=== PATIENT | female | born 1955 | race Caucasian/White ===

== ENCOUNTER 2019-04-04 12:15 | Inpatient (IN) | payer OTHER ==
[~2019-04-04] VITALS: Ht 167.6 cm; Wt 61.2 kg
--- NOTE | 2019-04-04 12:38 | ERD ---
ER Documentation Chief Complaint Chief Complaint ALOC HPI The patient is a 63-year-old female, presenting to the ER because she is more altered than normal according to the EMS. 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 She was admitted to [facility] on March 12, 2019 Past medical history: Dyslipidemia, diabetes mellitus, hypothyroidism, chronic kidney disease on hemodialysis, hypertension, CAD, neurogenic bladder, schizoaffective disorder Past surgical history/social history/review of system: Unable to obtain due to her condition Medications Home Meds Reported Medications Insulin Lispro (Humalog) 100 Unit/1 Ml Cartridge, 0 SQ Q6H PRN for SLIDING SCALE, EA 04/04/19 Levothyroxine Sodium* (Levothyroxine Sodium*) 150 Mcg Tablet, 150 MCG PO BEFORE BREAKFAST, #30 TAB 04/04/19 Midodrine* (Midodrine*) 10 Mg Tablet, 10 MG PO TID, TAB 04/04/19 Polyethylene Glycol* (Miralax*) 17 Gm Powd.pack, 17 GM PO DAILY, #30 PACKET 04/04/19 Raloxifene Hcl* (Evista*) 60 Mg Tablet, 60 MG PO DAILY, TAB 04/04/19 Sennosides* (Senna Lax*) 8.6 Mg Tablet, 2 TAB PO QHS, TAB 04/04/19 Sodium Bicarbonate* (Sodium Bicarbonate*) 650 Mg Tablet, 1300 MG PO BID, TAB 04/04/19 Cholecalciferol* (Vitamin D3*) 1,000 Unit Tablet, 1000 UNIT PO DAILY, TAB 04/04/19 Acetaminophen* (Tylenol*) 325 Mg Tablet, 650 MG PO Q4H PRN for MILD PAIN LEVEL 1-3, TAB AND FEVER 04/04/19 Clonazepam* (Clonazepam*) 0.5 Mg Tablet, 0.5 MG PO Q12H for ANXIETY, TAB 04/04/19 Lorazepam* (Lorazepam*) 1 Mg Tablet, 1 MG PO HS PRN for ANXIETY, #30 TAB Q TU,SAT 04/04/19 Olanzapine* (Zyprexa*) 5 Mg Tablet, 5 MG PO QHS, #30 TAB 04/04/19 Olanzapine* (Zyprexa*) 2.5 Mg Tablet, 2.5 MG PO QAM, #30 TAB 04/04/19 Trazodone Hcl* (Trazodone Hcl*) 50 Mg Tablet, 50 MG PO QHS, #30 TAB 04/04/19 Insulin Glargine,Hum.rec.anlog (Basaglar Kwikpen U-100) 100 Unit/1 Ml Insuln.pen, 12 UNIT SC DAILY, EA 04/04/19 Sevelamer Carbonate* (Renvela*) 800 Mg Tablet, 1600 GM PO WITH MEALS, TAB 04/04/19 Diazepam* (Diazepam*) 5 Mg Tablet, 5 MG PO Q12H, TAB 04/04/19 Quetiapine Fumarate* (Quetiapine Fumarate*) 25 Mg Tablet, 100 MG PO BID, TAB 04/04/19 Haloperidol* (Haldol*) 5 Mg Tab, 5 MG PO BID, TAB 04/04/19 Atorvastatin Calcium (Atorvastatin Calcium) 10 Mg Tablet, 10 MG PO QHS, #30 TAB 04/04/19 Ondansetron Hcl* (Zofran*) 4 Mg Tab, 4 MG PO Q4H PRN for NAUSEA AND OR VOMITING, TAB 04/04/19 Acetaminophen* (Acetaminophen*) 500 MG Extra Strength Tablet, 1000 MG PO Q6H PRN for PAIN 4-05/25, TAB 04/04/19 Lorazepam* (Ativan*) 2 Mg Tablet, 2 MG PO Q6 PRN for ANXIETY, #60 TAB 04/04/19 Bisacodyl (Dulcolax) 10 Mg Supp.rect, 10 MG RC DAILY, SUPP.RECT 04/04/19 Ferrous Sulfate* (Ferrous Sulfate*) 325 Mg Tabec, 325 MG PO BID, TAB 04/04/19 Docusate Sodium* (Colace*) 100 Mg Capsule, 200 MG PO DAILY, #30 CAP 04/04/19 Aspirin* (Aspirin* Chew) 81 Mg Tab.chew, 81 MG PO DAILY, TAB.CHEW 04/04/19 Discontinued Reported Medications Aspirin* (Aspirin* EC) 81 Mg Tablet.dr, 81 MG PO DAILY, TAB 04/04/19 Allergies Allergies: Coded Allergies: No Known Allergy (Unverified , 04/04/19) Physical Exam Vitals Vital Signs Date Temp Pulse Resp B/P (MAP) Pulse Ox O2 O2 Flow FiO2 Time Delivery Rate 04/04/19 97.1 94 19 102/60 99 15:38 (74) 04/04/19 96 20 103/64 96 Room Air 14:29 (77) 04/04/19 97.5 87 18 89/54 (66) 100 12:38 Physical Exam Const: No acute distress Head: Atraumatic Eyes: Normal Conjunctiva ENT: Normal External Ears, Nose and Mouth. Neck: Full range of motion. No meningismus. Resp: Clear to auscultation bilaterally Cardio: Regular rate and rhythm, no murmurs Abd: Soft, non tender, non distended. Normal bowel sounds Skin: Ecchymosis Back: No midline or flank tenderness Ext: Contracted Neur: Unable to perform due to her condition Psych: Unable to perform due to her condition Result Diagram: 04/04/19 1744 04/04/19 1225 Results 24 hrs Laboratory Tests Test 04/04/19 12:25 04/04/19 13:10 White Blood Count 8.9 10^3/ul Red Blood Count 1.86 10^6/ul Hemoglobin 6.5 g/dl Hematocrit 21.3 % Mean Corpuscular Volume 114.5 fl Mean Corpuscular Hemoglobin 34.9 pg Mean Corpuscular Hemoglobin Concent 30.5 g/dl Red Cell Distribution Width 14.8 % Platelet Count 185 10^3/UL Mean Platelet Volume 9.5 fl Immature Granulocytes % 0.600 % Neutrophils % % Segmented Neutrophils % (Manual) 39 % Band Neutrophils % (Manual) 1 % Lymphocytes % % Lymphocytes % (Manual) 29 % Monocytes % % Monocytes % (Manual) 3 % Eosinophils % % Eosinophils % (Manual) 28 % Basophils % % Nucleated Red Blood Cells % 0.0 /100WBC Immature Granulocytes # 0.050 10^3/ul Neutrophils # 10^3/ul Neutrophils # (Manual) 3.5 10^3/ul Band Neutrophils # 0.0 10^3/ul Lymphocytes (Manual) 2.5 10^3/ul Lymphocytes # 10^3/ul Monocytes # 10^3/ul Monocytes # (Manual) 0.2 10^3/ul Eosinophils # 10^3/ul Basophils # 10^3/ul Nucleated Red Blood Cells # 10^3/ul Platelet Estimate NORMAL Polychromasia 3+ Poikilocytosis 1+ Anisocytosis 1+ Prothrombin Time 18.2 Sec Prothrombin Time Ratio 1.4 INR International Normalized Ratio 1.50 Activated Partial Thromboplast Time 40.4 Sec Sodium Level 139 mmol/L Potassium Level 5.6 mmol/L Chloride Level 104 mmol/L Carbon Dioxide Level 27 mmol/L Anion Gap 8 Blood Urea Nitrogen 30 mg/dl Creatinine 5.48 mg/dl Est Glomerular Filtrat Rate mL/min 8 mL/min Glucose Level 91 mg/dl Calcium Level 9.3 mg/dl Total Bilirubin 0.2 mg/dl Direct Bilirubin 0.00 mg/dl Indirect Bilirubin 0.2 mg/dl Aspartate Amino Transf (AST/SGOT) 31 IU/L Alanine Aminotransferase (ALT/SGPT) 13 IU/L Alkaline Phosphatase 90 IU/L Troponin I < 0.012 ng/ml Total Protein 6.7 g/dl Albumin 2.9 g/dl Globulin 3.80 g/dl Albumin/Globulin Ratio 0.76 Free Thyroxine 0.97 ng/dl POC Venous Lactate 1.0 mmol/L Current Medications Medications Dose Sig/Shawn Start Time Status Last (Trade) Ordered Route PRN Stop Time Admin Dose Reason Admin Albuterol 15 mg ONCE STAT 04/04/19 DC 04/04/19 (Proventil INH 15:27 16:28 0.5% (Neb)) 04/04/19 15:46 Insulin 10 unit ONCE STAT 04/04/19 DC 04/04/19 Human IVP 15:27 16:05 Regular 04/04/19 15:47 (Humulin R) Dextrose ONCE PRN 04/04/19 (D50w IV DECREASED 15:30 Syringe) GLUCOSE 04/05/19 15:29 Dextrose 100 ml ONCE ONCE 04/04/19 DC 04/04/19 (D50w IV 15:30 16:02 Syringe) 04/04/19 15:46 Procedures/[place] [address] Radiology Main Line: [phone] DIAGNOSTIC IMAGING REPORT Patient: EVELYNE VALADEZ : 1955 Age: 63 Sex: F [id number] DOS: 04/04/19 1247 Ordering MD: FAWN PAULINO MD Location: E/R Room/Bed: PROCEDURE: CT Brain without contrast. CLINICAL INDICATION: Possible sepsis with altered level of consciousness TECHNIQUE: A CT of the brain was performed on a [employer] 64-slice CT scanner utilizing axial imaging from the skull base through the vertex without IV contrast. Multiplanar reformatted images were made. Images were reviewed on a PACS workstation. The CTDIvol is 45.49 mGy and the DLP is 763.34 mGycm. One or more the following dose reduction techniques were utilized: Automated exposure control, adjustment of mA/ or kV according to patient's size, or use of iterative reconstruction technique. DICOM images are available for review. COMPARISON: None FINDINGS: There is no intracranial hemorrhage, mass effect, or midline shift. the ventricles are larger than the adjacent sulci, stable. Mild hypoattenuation is seen within the periventricular white matter. There is good reyes-white matter differentiation throughout the cerebral hemispheres. The visualized brainstem and cerebellum are unremarkable. No extra-axial fluid collection is seen. The visualized paranasal sinuses demonstrate right posterior ethmoid mucosal thickening. IMPRESSION: No evidence of acute intracranial pathology. There is likely a component of central atrophy with mild microvascular changes, stable. RPTAT: [facility] Physician Betsy Date Time Electronically viewed and signed by Physician Betsy on 04/04/2019 14:21 RL/ CC: FAWN PAULINO MD [id number] [place] [address] Radiology Main Line: [phone] DIAGNOSTIC IMAGING REPORT Patient: EVELYNE VALADEZ : 1955 Age: 63 Sex: F MR #: [id number] DOS: 04/04/19 1247 Ordering MD: FAWN PAULINO MD Location: E/R Room/Bed: PROCEDURE: XR Chest 1 View. CLINICAL INDICATION: Shortness of breath. Sepsis. TECHNIQUE: Single view of the chest was obtained. COMPARISON: None. FINDINGS: Support lines and tubes: Right-sided dialysis catheter with its tip in the expected location of the distal superior vena cava. Mediastinum: Heart size within normal limits. Calcified atherosclerosis in the aorta. Lungs: Hypoinflated lungs. Elevated right hemidiaphragm. Scattered atelectasis in both lungs. No consolidations. No pneumothorax. Osseous structures: Intact. Osteopenia. Degenerative changes in the shoulders. Other: None. IMPRESSION: Calcified atherosclerosis in the aorta. Scattered atelectasis in both lungs. Hypoinflated lungs with an elevated right hemidiaphragm. RPTAT: AA .Keenan Vora MD, Date Time Electronically viewed and signed by .Keenan Vora MD, MD on 04/04/2019 13:53 .P/ CC: FAWN PAULINO MD [phone] EKG: Read by emergency physician Rate/Rhythm: Normal Sinus Rhythm 91 beats/min QRS, ST, T-waves: No ST elevation, no T inversion, low voltage QRS Impression: Abnormal EKG MEDICAL MAKING DECISION: The patient he is a 63-year-old female, presenting with acute encephalopathy unclear etiology, acute hyperkalemia. She was treated with 2 amp D50 IV, 10 units regular insulin IV, albuterol 15 mg continuous nebulizer for acute hyperkalemia. She will require blood transfusion either during hemodialysis or on the floor The differential diagnoses considered include but are not limited to metabolic encephalopathy, septic encephalopathy, UTI, pyelonephritis, electrolyte imbalance, delirium, GI bleeding Departure Diagnosis: Primary Impression: Encephalopathy acute Additional Impressions: Hyperkalemia Anemia Condition: Stable Comments I discussed the findings with the patient. I discussed the patient with Dr Nichols 3:15p , who was made aware of the lab, the treatment, the patient condition. The patient is admitted to [facility] Disclaimer: Inadvertent spelling and grammatical errors are likely due to EHR/dictation software use and do not reflect on the overall quality of patient care. Also, please note that the electronic time recorded on this note does not necessarily reflect the actual time of the patient encounter. FAWN PAULINO MD April 04, 2019 12:38
[2019-04-04] MEDS ORDERED: ASPI-903 PO (13:19)
[2019-04-04] MEDS ORDERED: ASPI-817 PO (13:19)
[2019-04-04] MEDS ORDERED: DOCU-144 PO (13:20)
[2019-04-04] MEDS ORDERED: FER325 PO (13:22)
[2019-04-04] MEDS ORDERED: LORA-444 PO (13:25)
[2019-04-04] MEDS ORDERED: BISA10SU55 RC (13:25)
[2019-04-04] MEDS ORDERED: ONDA4TAB13 PO (13:27)
[2019-04-04] MEDS ORDERED: ACET-141 PO (13:27)
[2019-04-04] MEDS ORDERED: ATOR10TA65 PO (13:28)
[2019-04-04] MEDS ORDERED: HALO5TAB23 PO (13:29)
[2019-04-04] MEDS ORDERED: QUET25TA33 PO (13:31)
[2019-04-04] MEDS ORDERED: DIAZ5TAB4 PO (13:31)
[2019-04-04] MEDS ORDERED: SEVE800T7 PO (13:32)
[2019-04-04] MEDS ORDERED: TRAZ-111 PO (13:33)
[2019-04-04] MEDS ORDERED: INSU100I33 SC (13:33)
[2019-04-04] MEDS ORDERED: OLAN2.5T28 PO (13:34)
[2019-04-04] MEDS ORDERED: OLAN5TAB5 PO (13:35)
[2019-04-04] MEDS ORDERED: LORA1TAB PO (13:37)
[2019-04-04] MEDS ORDERED: CLON0.5T14 PO (13:38)
[2019-04-04] MEDS ORDERED: ACET325T33 PO (13:40)
[2019-04-04] MEDS ORDERED: CHOL100062 PO (13:41)
[2019-04-04] MEDS ORDERED: SODI650T PO (13:42)
[2019-04-04] MEDS ORDERED: SENN-120 PO (13:43)
[2019-04-04] MEDS ORDERED: POLY17PO6 PO (13:44)
[2019-04-04] MEDS ORDERED: RALO60TA12 PO (13:44)
[2019-04-04] MEDS ORDERED: MIDO10TA PO (13:45)
[2019-04-04] MEDS ORDERED: LEVO150T7 PO (13:45)
[2019-04-04] MEDS ORDERED: INSU100C SQ (13:49)
[2019-04-04] MEDS ORDERED: INSULIN REGULAR, HUMAN 100 UNIT/1 ML 3ML VIAL IVP STA (15:27)
[2019-04-04] MEDS ORDERED: ALBUTEROL 0.5% (NEB) 2.5 MG/0.5 ML AMP INH STA (15:27)
[2019-04-04] MEDS ORDERED: DEXTROSE 50% 50 ML SYRINGE IV ONE (15:30)
[2019-04-04] MEDS ORDERED: DEXTROSE 50% 50 ML SYRINGE IV PRN ×3 (15:30→17:00)
--- NOTE | 2019-04-04 16:10 | HP ---
Date/Time of Note Date/Time of Note DATE: 04/04/19 TIME: 16:09 Assessment/Plan VTE Prophylaxis SCD applied (from Nsg): No SCD contraindicated: other Pharmacological prophylaxis: heparin Lines/Catheters IV Catheter Type (from Nrsg): Saline Lock Assessment/Plan Hospital Course Assessment and plan: 63-year-old female nursing facility diabetes, hypertension, schizoaffective disorder, end-stage renal disease, CAD who presents with encephalopathy and hyperkalemia. #Encephalopathy: Possibly secondary to polypharmacy. Also patient does have cellulitic potassium 5.6 -Monitor, low-dose IV fluids, check TSH, A1c, lipid -Preliminary treatment for hyperkalemia has been started in the ER, will monitor her home medicines and adjust those accordingly -Get PT, OT, speech therapy consults #Diabetes: Follow-up A1c, sliding scale insulin # HTN: Stable -Monitor, continue current meds # ESRD: on HD -We will obtain renal consult #Hyperkalemia: Possibly secondary to above -Monitor BMP # anxiety/possible schizoaffective disorder: -Go through patient's home medicine list thoroughly, Ativan as needed # anemia of CD -of note hemoglobin today 6.5, no signs of any upper or lower GI bleeding -We will recheck CBC, consider PRBC transfusion if hemoglobin still less than 7.5 -We will also check stool occult test Result Diagram: 04/04/19 1225 04/04/19 1225 Results 24hrs Laboratory Tests Test 04/04/19 12:25 04/04/19 13:10 04/04/19 16:00 White Blood Count 8.9 Red Blood Count 1.86 L Hemoglobin 6.5 *L Hematocrit 21.3 L Mean Corpuscular Volume 114.5 H Mean Corpuscular Hemoglobin 34.9 H Mean Corpuscular Hemoglobin Concent 30.5 L Red Cell Distribution Width 14.8 H Platelet Count 185 Mean Platelet Volume 9.5 Immature Granulocytes % 0.600 H Neutrophils % Segmented Neutrophils % (Manual) 39 Band Neutrophils % (Manual) 1 Lymphocytes % Lymphocytes % (Manual) 29 Monocytes % Monocytes % (Manual) 3 Eosinophils % Eosinophils % (Manual) 28 H Basophils % Nucleated Red Blood Cells % 0.0 Immature Granulocytes # 0.050 H Neutrophils # Neutrophils # (Manual) 3.5 Band Neutrophils # 0.0 Lymphocytes (Manual) 2.5 Lymphocytes # Monocytes # Monocytes # (Manual) 0.2 L Eosinophils # Basophils # Nucleated Red Blood Cells # Platelet Estimate NORMAL Polychromasia 3+ Poikilocytosis 1+ Anisocytosis 1+ Prothrombin Time 18.2 H Prothrombin Time Ratio 1.4 INR International Normalized Ratio 1.50 Activated Partial Thromboplast Time 40.4 H Sodium Level 139 Potassium Level 5.6 H Chloride Level 104 Carbon Dioxide Level 27 Anion Gap 8 Blood Urea Nitrogen 30 H Creatinine 5.48 H Est Glomerular Filtrat Rate mL/min 8 L Glucose Level 91 Calcium Level 9.3 Total Bilirubin 0.2 Direct Bilirubin 0.00 Indirect Bilirubin 0.2 Aspartate Amino Transf (AST/SGOT) 31 Alanine Aminotransferase (ALT/SGPT) 13 Alkaline Phosphatase 90 Troponin I < 0.012 Total Protein 6.7 Albumin 2.9 L Globulin 3.80 H Albumin/Globulin Ratio 0.76 POC Venous Lactate 1.0 Bedside Glucose 126 HPI/ROS Admit Date/Time Admit Date/Time Hx of Present Illness 63-year-old female coming from housing or nursing facility today, past history diabetes, hypertension, anxiety and possible schizoaffective disorder, coronary artery disease, anemia chronic disease, end-stage renal disease on dialysis, high cholesterol, who was sent in because of encephalopathy. Most of the information is obtained from the ER documentation as the patient is unable to provide full HPI at this time so for review systems cannot be obtained. When the patient came in she was found with elevated potassium levels 5.6 and she received the 50, albuterol, insulin. She was also found creatinine 5.48, but she is a dialysis patient. She was also hemoglobin 6.5. PMH/Family/Social Past Medical History Medications Current Medications Dextrose (D50w Syringe) ONCE PRN IV DECREASED GLUCOSE; Start 04/04/19 at 15:30; Stop 04/05/19 at 15:29 Coded Allergies: No Known Allergy (Unverified , 04/04/19) Past Surgical History Past Surgical Hx: other (Unknown) Social History Alcohol Use: none Smoking Status: Unknown if ever smoked Drug Use: none Exam/Review of Systems Vital Signs Vitals Vital Signs Date Temp Pulse Resp B/P (MAP) Pulse Ox O2 O2 Flow FiO2 Time Delivery Rate 04/04/19 96 20 103/64 96 Room Air 14:29 (77) 04/04/19 97.5 12:38 Exam Exam Gen: Lying in bed, lethargic Head: Atraumatic Eyes: Normal Conjunctiva ENT: Normal External Ears, Nose and Mouth. Neck: Supple Resp: Clear to auscultation bilaterally Cardio: Regular rate and rhythm, no murmurs Abd: Soft, non tender, non distended. Normal bowel sounds Ext: No lower extremity edema bilaterally Neuro: No focal deficits Skin: Slight morbilliform rash noted on the back and shoulder area KRISTIN ALSTON April 04, 2019 16:10
[2019-04-04] MEDS ORDERED: NITROGLYCERIN (SL) 0.4 MG TAB SL PRN (16:30)
[2019-04-04] MEDS ORDERED: NACL 0.9% 3 ML SYG IV SCH (16:30)
[2019-04-04] MEDS ORDERED: ALBUTEROL/IPRATROPIUM (NEB) 3 ML AMP HHN PRN (16:30)
[2019-04-04] MEDS ORDERED: morphine 2 MG INJ IV PRN (16:30)
[2019-04-04] MEDS ORDERED: DOCUSATE SODIUM 100 MG CAP PO PRN (16:30)
[2019-04-04] MEDS ORDERED: ONDANSETRON 4 MG INJ IV PRN (16:30)
[2019-04-04] MEDS ORDERED: MAGNESIUM HYDROXIDE 30ML CUP PO PRN (16:30)
[2019-04-04] MEDS ORDERED: hydrALAzine 20 MG INJ IV PRN (16:30)
[2019-04-04] MEDS ORDERED: ACETAMINOPHEN 325 MG TAB PO PRN (16:30)
[2019-04-04] MEDS ORDERED: GLUCOSE GEL 15 GRAM TUBE BUCCAL PRN (17:00)
[2019-04-04] MEDS ORDERED: GLUCOSE GEL 15 GRAM TUBE PO PRN ×2 (17:00)
[2019-04-04] MEDS ORDERED: GLUCAGON 1 MG INJ IM PRN (17:00)
[2019-04-04 17:30] VITALS: BP 94/51; PULSE 104; RESP 18; Ht 167.6 cm; Wt 61.2 kg
[2019-04-04] MEDS ORDERED: EPOETIN ALFA-EPBX (NON-ESRD 10,000 UNIT/ML VIAL SC ONE (17:30)
[2019-04-04 17:36] VITALS: PULSE 104
[2019-04-04] MEDS: INSULIN ASPART [NOVOLOG] 3 ML PEN SC SCH ×2 (18:19→21:00)
--- NOTE | 2019-04-04 19:14 | CONS ---
DATE OF ADMISSION: 04/04/2019 DATE OF CONSULTATION: 04/04/2019 TYPE OF CONSULTATION: Nephrology. REASON FOR CONSULTATION: End-stage renal disease. PHYSICIAN REQUESTING CONSULT: Golden Alston MD HISTORY OF PRESENT ILLNESS: This is a 63-year-old female with a past medical history of end-stage re nal disease, history of hypertension, schizoaffective disorder, diabetes, coronary artery disease who presents to [facility] Emergency Room with encephalopathy. The patient's history is obtained by reviewing medical records, speaking to hospital staff. The patient is altered, unable to provide history. The patient apparently was brought from her nursing facility which is felt to b e more altered than usual. The patient upon arrival to emergency room had laboratory data drawn, whi ch showed a potassium of 5.6. The patient also had a hemoglobin level of 6.5. Chest x-ray was obtai gerson which showed scattered atelectasis. CT scan of the brain was obtained which showed no acute find ings. In the emergency room, the patient was given medical management for hyperkalemia including IV insulin and admitted to telemetry for evaluation. Upon my evaluation of the patient at that time, the patient is altered, unable to provide history. T he patient's last hemodialysis and dialysis unit were unable to be obtained. PAST MEDICAL HISTORY: As stated above, history of end-stage renal disease, history of anemia, histor y of mineral bone disorder, history of schizoaffective disorder, history of hypertension, history of diabetes. PAST SURGICAL HISTORY: Status post PermCath placement. FAMILY HISTORY: Unknown. SOCIAL HISTORY: Lives at skilled nurse facility. MEDICATIONS: Have been reviewed. REVIEW OF SYSTEMS: Unable to do adequate review of systems as the patient is altered. Pertinent pos itives were obtained by reviewing medical records, speaking to hospital staff, as stated in HPI, othe rwise negative. PHYSICAL EXAMINATION: VITAL SIGNS: Blood pressure is 121/59, respirations 20, pulse 97, temperature 97.5. HEENT: Head is normocephalic. NECK: Supple. HEART: Regular rate. LUNGS: Show diminished breath sounds at the base. ABDOMEN: Soft, nontender to palpation without rebound or guarding. EXTREMITIES: Negative for clubbing, cyanosis. Trace edema. DERMATOLOGIC: No rashes. MUSCULOSKELETAL: No joint effusion. NEUROLOGIC: Limited exam. LABORATORY DATA: Have been reviewed. ASSESSMENT AND PLAN: This is a 63-year-old female who presents with: 1. End-stage renal disease. Plan is for urgent hemodialysis tonight. We will dialyze for 2 hours o f 2k bath, calcium 2.5 due to hyperkalemia. Access is PermCath. Anticipate hemodialysis again tomor row. 2. Hyperkalemia secondary to end-stage renal disease. The patient will be dialyzed on a low potassi um bath. Continue to monitor closely. 3. Anemia. Etiology may be multifactorial secondary to end-stage renal disease. Possible component of iron deficiency and/or gastrointestinal bleeding need to be evaluated. Plan is to check an iron panel. We will give the patient Epogen. Monitor H and H levels. Transfuse PRBC if hemoglobin level should fall below 6.5 g/dL. If there is evidence of iron deficiency, the patient will be given ____ _. 4. Mineral bone disorder. Monitor calcium and phosphatase levels. We will give phosphate binders a s needed. 5. Diabetes. Continue current insulin regimen. 6. Encephalopathy. Etiology may be multifactorial, uremia, toxic metabolic, medication. Continue c urrent medical management. We will continue hemodialysis. Monitor closely. 7. Hypertension. Blood pressure is currently controlled. Continue current medical management. 8. History of schizoaffective disorder. Continue to monitor. Thank you, Dr. Alston, for this interesting consult. It will be a pleasure to follow the patient with you throughout the hospital course. Dictated By: STEPHEN HENNING/NTS Conf#: [id number] DID#: [id number] CC: GOLDEN ALSTON;*EndCC*
[2019-04-04 19:53] VITALS: BP 89/50; PULSE 93; RESP 18
[2019-04-04 20:00] VITALS: PULSE 95
[2019-04-04] MEDS: TRIAMCINOLONE ACET 0.1% 15 GM CR TOP SCH (22:22)
[2019-04-04] MEDS: HEPARIN 5,000 UNIT/1 ML VIAL SC SCH (22:34)
[2019-04-05] VITALS (22 sets, daily range): BP systolic 84–146; BP diastolic 42–98; PULSE 76–120; RESP 18–20
[2019-04-05] MEDS: INSULIN ASPART [NOVOLOG] 3 ML PEN SC SCH ×5 (01:00→21:00)
[2019-04-05] MEDS: ACCU-CHEK XX SCH (02:00)
[2019-04-05] MEDS: HEPARIN 1000 UNITS/ML 10 ML INJ CATHETER SCH (04:58)
[2019-04-05] MEDS: LORAZEPAM 2 MG INJ IV PRN ×3 (05:18→23:20)
[2019-04-05] MEDS: PANTOPRAZOLE 40 MG INJ IV SCH ×2 (06:00→08:45)
[2019-04-05] MEDS: HEPARIN 5,000 UNIT/1 ML VIAL SC SCH (08:43)
[2019-04-05] MEDS: TRIAMCINOLONE ACET 0.1% 15 GM CR TOP SCH ×2 (08:44→22:04)
--- NOTE | 2019-04-05 09:40 | PN ---
DATE: 04/05/2019 SUBJECTIVE: The patient remains altered, confused. The patient had hemodialysis yesterday, tolerate d well. No other events noted. OBJECTIVE: VITAL SIGNS: Blood pressure is 127/86, respirations 18, pulse 87, temperature 98.0. HEENT: Head is normocephalic. NECK: Supple. HEART: Regular rate. LUNGS: Show diminished breath sounds at the base. ABDOMEN: Soft, nontender to palpation without rebound or guarding. EXTREMITIES: Negative for clubbing, cyanosis, no edema. DERMATOLOGIC: No rashes. MUSCULOSKELETAL: No joint effusion. NEUROLOGIC: Limited exam due to lack of patient's cooperation. MEDICATIONS: The patient's medications have been reviewed. LABORATORY DATA: Reviewed. ASSESSMENT AND PLAN: 1. End-stage renal disease. The patient had hemodialysis yesterday, tolerated well. Plan is for di alysis again tomorrow. 2. Hyperkalemia, improved. Continue dialysis on low potassium bath. 3. Anemia, etiology may be multifactorial secondary to end-stage renal disease, possible component o f iron deficiency. We will continue Epogen. Monitor hemoglobin and hematocrit levels. The patient is status post blood transfusion. 4. Diabetes. Continue current insulin regimen. 5. Encephalopathy, etiology is unclear, possibly toxic metabolic, uremic, psychiatric disorder. Con tinue to monitor. 6. Hypertension. Continue current blood pressure regimen. 7. History of schizoaffective disorder. Continue to monitor. Continue medical management. Dictated By: STEPHEN BREWER DO NR/NTS Conf#: [id number] DID#: [id number] CC: KRISTIN ALSTON; STEPHEN BREWER DO;*EndCC*
--- NOTE | 2019-04-05 14:20 | PN ---
Date/Time of Note Date/Time of Note DATE: 04/05/19 TIME: 14:10 Assessment/Plan VTE Prophylaxis Risk score (from Nsg)>0 risk: 8 SCD applied (from Nsg): Yes Pharmacological prophylaxis: other Lines/Catheters IV Catheter Type (from Nrsg): Saline Lock Assessment/Plan Hospital Course S: Patient is a somewhat lethargic, received dialysis earlier this morning and seen by renal team yesterday and today. Also evaluated by speech therapy, occupational therapy, and physical therapy teams as well as wound nurse today. Patient received PRBC transfusion yesterday. O: VS - see below PE: Gen: Lying in bed, still occasionally lethargic Head: Atraumatic Eyes: Normal Conjunctiva ENT: Normal External Ears, Nose and Mouth. Neck: Supple Resp: Clear to auscultation bilaterally Cardio: Regular rate and rhythm, no murmurs Abd: Soft, non tender, non distended. Normal bowel sounds Ext: No lower extremity edema bilaterally Neuro: No focal deficits Skin: Slight morbilliform rash noted on the back and shoulder area Assessment and plan: 63-year-old female nursing facility diabetes, hypertension, schizoaffective disorder, end-stage renal disease, CAD who presents with encephalopathy and hyperkalemia. #Encephalopathy: Possibly secondary to polypharmacy. Also patient presented with potassium 5.6 on admission-potassium levels normal now -Monitor, continue low-dose IV fluids -Follow-up further recommendations from PT, OT, speech therapy consults #Diabetes: 5.6 equals A1c -Monitor, continue sliding scale insulin as needed # HTN: Stable -Monitor, continue current meds # ESRD: on HD -We will obtain renal consult #Hyperkalemia: Possibly secondary to above -resolved now -Monitor BMP, continue dialysis per renal recommendations # anxiety/possible schizoaffective disorder: -We will again look at patient's home medicine list thoroughly, Ativan as needed # anemia of CD -of note hemoglobin on admission was 6.5, no signs of any upper or lower GI bleeding. Hemoglobin improved to mid 8 range after PRBC transfusion given yesterday -Monitor for now -Follow-up results of stool occult test Result Diagram: 04/05/19 0556 04/05/19 0556 Results 24hrs Laboratory Tests Test 04/04/19 16:00 04/04/19 16:36 04/04/19 17:44 04/04/19 17:52 Bedside Glucose 126 348 H 258 H Hemoglobin 6.7 *L Hematocrit 22.8 L Lactic Acid Level 4.4 *H Iron Level 103 Total Iron Binding 187 L Capacity Percent Iron 55 H Saturation Ferritin 800.0 H Hepatitis B Surface NEGATIVE Antigen Test 04/04/19 22:24 04/04/19 23:27 04/05/19 01:47 04/05/19 05:56 Bedside Glucose 111 146 Lactic Acid Level 1.2 White Blood Count 11.9 #H Red Blood Count 2.60 #L Hemoglobin 8.6 #L Hematocrit 27.8 #L Mean Corpuscular 106.9 H Volume Mean Corpuscular 33.1 H Hemoglobin Mean Corpuscular 30.9 L Hemoglobin Concent Red Cell 18.6 #H Distribution Width Platelet Count 193 Mean Platelet Volume 9.1 Immature 0.600 H Granulocytes % Neutrophils % 61.5 Lymphocytes % 13.5 L Monocytes % 4.7 Eosinophils % 19.4 H Basophils % 0.3 Nucleated Red Blood 0.0 Cells % Immature 0.070 H Granulocytes # Neutrophils # 7.3 Lymphocytes # 1.6 Monocytes # 0.6 Eosinophils # 2.3 H Basophils # 0.0 Nucleated Red Blood 0.0 Cells # Sodium Level 140 Potassium Level 4.7 Chloride Level 102 Carbon Dioxide Level 25 Anion Gap 13 Blood Urea Nitrogen 21 H Creatinine 4.49 H Est Glomerular 10 L Filtrat Rate mL/min Glucose Level 161 Hemoglobin A1c 5.6 Calcium Level 9.2 Phosphorus Level 3.4 Magnesium Level 2.0 Triglycerides Level 105 Cholesterol Level 132 LDL Cholesterol, 61 Calculated HDL Cholesterol 50 Cholesterol/HDL 2.6 Ratio Thyroid Stimulating 12.800 H Hormone (TSH) Test 04/05/19 06:19 04/05/19 08:42 Bedside Glucose 156 141 Exam/Review of Systems Exam Vitals Vital Signs Date Temp Pulse Resp B/P (MAP) Pulse Ox O2 O2 Flow FiO2 Time Delivery Rate 04/05/19 98.3 92 20 87/54 (65) 93 12:28 04/05/19 Room Air 03:00 04/04/19 21 16:29 Intake and Output 04/04/19 04/04/19 04/05/19 1515:00 23:00 07:00 OutputOutput Total 2950 ml BalanceBalance -2950 ml Results Results 24hrs Laboratory Tests Test 04/04/19 16:00 04/04/19 16:36 04/04/19 17:44 04/04/19 17:52 Bedside Glucose 126 348 H 258 H Hemoglobin 6.7 *L Hematocrit 22.8 L Lactic Acid Level 4.4 *H Iron Level 103 Total Iron Binding 187 L Capacity Percent Iron 55 H Saturation Ferritin 800.0 H Hepatitis B Surface NEGATIVE Antigen Test 04/04/19 22:24 04/04/19 23:27 04/05/19 01:47 04/05/19 05:56 Bedside Glucose 111 146 Lactic Acid Level 1.2 White Blood Count 11.9 #H Red Blood Count 2.60 #L Hemoglobin 8.6 #L Hematocrit 27.8 #L Mean Corpuscular 106.9 H Volume Mean Corpuscular 33.1 H Hemoglobin Mean Corpuscular 30.9 L Hemoglobin Concent Red Cell 18.6 #H Distribution Width Platelet Count 193 Mean Platelet Volume 9.1 Immature 0.600 H Granulocytes % Neutrophils % 61.5 Lymphocytes % 13.5 L Monocytes % 4.7 Eosinophils % 19.4 H Basophils % 0.3 Nucleated Red Blood 0.0 Cells % Immature 0.070 H Granulocytes # Neutrophils # 7.3 Lymphocytes # 1.6 Monocytes # 0.6 Eosinophils # 2.3 H Basophils # 0.0 Nucleated Red Blood 0.0 Cells # Sodium Level 140 Potassium Level 4.7 Chloride Level 102 Carbon Dioxide Level 25 Anion Gap 13 Blood Urea Nitrogen 21 H Creatinine 4.49 H Est Glomerular 10 L Filtrat Rate mL/min Glucose Level 161 Hemoglobin A1c 5.6 Calcium Level 9.2 Phosphorus Level 3.4 Magnesium Level 2.0 Triglycerides Level 105 Cholesterol Level 132 LDL Cholesterol, 61 Calculated HDL Cholesterol 50 Cholesterol/HDL 2.6 Ratio Thyroid Stimulating 12.800 H Hormone (TSH) Test 04/05/19 06:19 04/05/19 08:42 Bedside Glucose 156 141 Medications Medication Current Medications Dextrose (D50w Syringe) ONCE PRN IV DECREASED GLUCOSE; Start 04/04/19 at 15:30; Stop 04/05/19 at 15:29 IV Flush (NS 3 ml) 3 ml PER PROTOCOL IV ; Start 04/04/19 at 16:30 Ondansetron HCl (Zofran Inj) 4 mg Q6H PRN IV NAUSEA/VOMITING; Start 04/04/19 at 16:30 Acetaminophen (Tylenol Tab) 650 mg Q6H PRN PO .PAIN 1-3 OR TEMP; Start 04/04/19 at 16:30 Acetaminophen/ Hydrocodone Bitart ([place] (5/325)) 1 tab Q6H PRN PO .MOD PAIN 4- 6; Start 04/04/19 at 16:30 Docusate Sodium (Colace) 100 mg Q12H PRN PO .CONSTIPATION; Start 04/04/19 at 16:30 Magnesium Hydroxide (Milk Of Mag) 30 ml DAILY PRN PO .CONSTIPATION; Start 04/04/19 at 16:30 Pantoprazole (Protonix Iv) 40 mg DAILY@06 IV Last administered on 04/05/19at 08:45; Admin Dose 40 MG; Start 04/05/19 at 06:00 Heparin Sodium (Porcine) (Heparin (5000 Units/1ml)) 5,000 unit Q12 SC Last administered on 04/05/19at 08:43; Admin Dose 5,000 UNIT; Start 04/04/19 at 21:00 Lorazepam (Ativan) 0.5 mg Q6H PRN IV ANXIETY Last administered on 04/05/19at 14:01; Admin Dose 0.5 MG; Start 04/04/19 at 16:30 Albuterol/ Ipratropium (Duoneb) 3 ml Q4H RESP THERAPY PRN HHN SHORTNESS OF BREATH; Start 04/04/19 at 16:30 Hydralazine HCl (Apresoline) 10 mg Q6H PRN IV ELEVATED BLOOD PRESSURE; Start 04/04/19 at 16:30 Nitroglycerin (Nitroglycerin (Sl Tab) 0.4 Mg) 1 tab Q5M PRN SL ANGINA; Start 04/04/19 at 16:30 Triamcinolone Acetonide (Kenalog 0.1% Cr) 1 applic BID TOP Last administered on 04/05/19at 08:44; Admin Dose 1 APPLIC; Start 04/04/19 at 21:00 Diagnostic Test (Pha) (Accu-Chek) 1 ea 02 XX ; Start 04/05/19 at 02:00 Miscellaneous Information 1 ea NOTE XX ; Start 04/04/19 at 17:00 Glucose (Glutose) 15 gm Q15M PRN PO DECREASED GLUCOSE; Start 04/04/19 at 17:00 Glucose (Glutose) 22.5 gm Q15M PRN PO DECREASED GLUCOSE; Start 04/04/19 at 17:00 Dextrose (D50w Syringe) 25 ml Q15M PRN IV DECREASED GLUCOSE; Start 04/04/19 at 17:00 Dextrose (D50w Syringe) 50 ml Q15M PRN IV DECREASED GLUCOSE; Start 04/04/19 at 17:00 Glucagon (Glucagen) 1 mg Q15M PRN IM DECREASED GLUCOSE; Start 04/04/19 at 17:00 Glucose (Glutose) 15 gm Q15M PRN BUCCAL DECREASED GLUCOSE; Start 04/04/19 at 17:00 Epoetin Christian-epbx (Retacrit (Non-Esrd)) 10,000 unit MoWeFr@1700 SC ; Start 04/06/19 at 17:00 Heparin Sodium (Porcine) (Heparin (1000 Units/ml)) 4,000 unit AFTER DIALYSIS CATHETER Last administered on 04/05/19at 04:58; Admin Dose 3,700 UNIT; Start 04/05/19 at 01:00 Insulin Aspart (Novolog Insulin Pen) NOVOLOG *MILD* ALGORI... AC MEALS AND BEDTIME SC ; Start 04/05/19 at 17:25 Morphine Sulfate (morphine) 1 mg Q6H PRN IV .SEVERE PAIN 7-10; Start 04/05/19 at 16:30; Status UNV Multivitamins Therapeutic (Theragran) 1 tab DAILY PO ; Start 04/05/19 at 14:30; Status UNV Zinc Sulfate (Zinc Sulfate) 220 mg DAILY PO ; Start 04/05/19 at 14:30; Status UNV KRISTIN ALSTON April 05, 2019 14:20
[2019-04-05] MEDS ORDERED: BISACODYL 10 MG SUPP PR PRN (14:30)
[2019-04-05] MEDS: ZINC SULFATE 220 MG CAP PO SCH (14:30)
[2019-04-05] MEDS ORDERED: morphine 2 MG INJ IV PRN (14:30)
[2019-04-05] MEDS: MULTIVITAMINS THERAPEUTIC TAB PO SCH (14:30)
[2019-04-05] MEDS: SEVELAMER CARBONATE 0.8 GM PKT PO SCH (17:39)
[2019-04-05] MEDS ORDERED: IVERMECTIN 3 MG TAB PO SCH (18:30)
[2019-04-05] MEDS ORDERED: PERMETHRIN 5% 60 GM CR TOP SCH (20:00)
[2019-04-05] MEDS: FERROUS SULFATE (EC) 325 MG TAB PO SCH (22:04)
[2019-04-05] MEDS: ATORVASTATIN 10 MG TAB PO SCH (22:04)
[2019-04-06] VITALS (27 sets, daily range): BP systolic 80–131; BP diastolic 44–78; PULSE 65–111; RESP 15–18
[2019-04-06] MEDS: BALSAM PERU/CASTOR OIL 60 GM TUBE TOP SCH ×3 (00:07→21:27)
[2019-04-06] MEDS: ACCU-CHEK XX SCH (02:00)
[2019-04-06] MEDS: PANTOPRAZOLE 40 MG INJ IV SCH (06:07)
[2019-04-06] MEDS: LORAZEPAM 2 MG INJ IV PRN ×2 (06:08→16:03)
[2019-04-06] MEDS: LEVOTHYROXINE 150 MCG TAB PO SCH (06:08)
[2019-04-06] MEDS: INSULIN ASPART [NOVOLOG] 3 ML PEN SC SCH ×4 (07:00→21:00)
[2019-04-06] MEDS: SEVELAMER CARBONATE 0.8 GM PKT PO SCH ×3 (08:00→17:44)
[2019-04-06] MEDS: FERROUS SULFATE (EC) 325 MG TAB PO SCH ×2 (09:00→21:26)
[2019-04-06] MEDS: CHOLECALCIFEROL 1,000 UNIT TAB PO SCH (09:00)
[2019-04-06] MEDS: MULTIVITAMINS/MINERALS TAB PO SCH (09:00)
[2019-04-06] MEDS: FOLIC ACID 1 MG TAB PO SCH (09:00)
[2019-04-06] MEDS: MULTIVITAMINS THERAPEUTIC TAB PO SCH (09:00)
[2019-04-06] MEDS: ZINC SULFATE 220 MG CAP PO SCH (09:00)
[2019-04-06] MEDS: ASCORBIC ACID 500 MG TAB PO SCH (09:00)
[2019-04-06] MEDS: ASPIRIN 81 MG TAB PO SCH (09:00)
[2019-04-06] MEDS: TRIAMCINOLONE ACET 0.1% 15 GM CR TOP SCH (09:00)
--- NOTE | 2019-04-06 09:21 | PN ---
DATE: 04/06/2019 SUBJECTIVE: The patient remains confused and altered. No other events noted. OBJECTIVE: VITAL SIGNS: Blood pressure is 86/49, respirations 18, pulse 70, temperature 97.8. HEENT: Head is normocephalic. NECK: Supple. HEART: Regular rate. LUNGS: Show diminished breath sounds at the base. ABDOMEN: Soft, nontender to palpation without rebound or guarding. EXTREMITIES: Negative for clubbing, cyanosis, no edema. DERMATOLOGIC: No rashes. MUSCULOSKELETAL: No joint effusion. NEUROLOGIC: No change in exam. MEDICATIONS: Reviewed. LABORATORY DATA: Reviewed. ASSESSMENT AND PLAN: 1. End-stage renal disease. The patient is scheduled for dialysis today. We will dialyze 3 hours 2 k bath, calcium 2.5. 2. Hyperkalemia. Continue dialysis on low potassium bath. 3. Anemia. The patient's iron panel was reviewed, no evidence of iron deficiency. Continue to scott tor hemoglobin and hematocrit levels. Continue Epogen. 4. Diabetes. Continue current insulin regimen. 5. Encephalopathy, etiology is unclear. Etiology is toxic metabolic, uremia, questionable psychiatr ic disorder. Continue to monitor. 6. Hypertension. Continue current blood pressure regimen. 7. Schizoaffective disorder. Continue to monitor. Follow up with psychiatry. Dictated By: STEPHEN BREWER DO NR/MADONNA Conf#: [id number] DID#: [id number] CC: STEPHEN BREWER DO; KRISTIN ALSTON;*EndCC*
[2019-04-06] MEDS ORDERED: ALBUMIN HUMAN 25% 100 ML IV ONE (11:30)
--- NOTE | 2019-04-06 12:30 | PN ---
Date/Time of Note Date/Time of Note DATE: 04/06/19 TIME: 12:26 Assessment/Plan VTE Prophylaxis Risk score (from Nsg)>0 risk: 6 SCD applied (from Nsg): Yes Pharmacological prophylaxis: other Lines/Catheters IV Catheter Type (from Nrsg): Saline Lock Assessment/Plan Hospital Course S: Patient presently getting dialysis. Stool occult test is positive, GI now consulted and will see patient later today. Patient received ivermectin and permethrin because of positive scabies skin test result from yesterday. Seen by renal team today. O: VS - see below PE: Gen: Lying in bed, still occasionally lethargic Head: Atraumatic Eyes: Normal Conjunctiva ENT: Normal External Ears, Nose and Mouth. Neck: Supple Resp: Clear to auscultation bilaterally Cardio: Regular rate and rhythm, no murmurs Abd: Soft, non tender, non distended. Normal bowel sounds Ext: No lower extremity edema bilaterally Neuro: No focal deficits Skin: rash noted on the back and shoulder area Assessment and plan: 63-year-old female nursing facility diabetes, hypertension, schizoaffective disorder, end-stage renal disease, CAD who presents with encephalopathy and hyperkalemia. #Encephalopathy: Likely secondary to polypharmacy. Also patient presented with potassium 5.6 on admission -Monitor, continue low-dose IV fluids -Follow-up further recommendations from PT, OT, speech therapy consults # scabies rash -confirmed on skin scrapings test results -Status post ivermectin and permethrin treatments yesterday, continue isolation precautions for this, monitor labs and skin #Diabetes: 5.6 equals A1c -Monitor, continue sliding scale insulin as needed # HTN: Stable -Monitor, continue current meds # ESRD: on HD -Appreciate renal recommendations, continue dialysis per the recommendations #Hyperkalemia: Possibly secondary to above -resolving -Monitor BMP, continue dialysis per renal recommendations # anxiety/possible schizoaffective disorder: -Only give Ativan as needed for now, holding her other home psychiatric and anxiety medication secondary to polypharmacy # anemia - of note hemoglobin on admission was 6.5, no signs of any upper or lower GI bleeding. Hemoglobin stable after PRBC transfusion given 2 days ago, but stool occult test is positive. -Monitor for now, again consulting GI team because of the positive stool occult test result Result Diagram: 04/06/19 0550 04/06/19 0550 Results 24hrs Laboratory Tests Test 04/05/19 17:34 04/05/19 22:09 04/05/19 22:30 04/06/19 05:50 Bedside Glucose 93 136 Stool Occult Blood POSITIVE White Blood Count 11.3 H Red Blood Count 2.56 L Hemoglobin 8.4 L Hematocrit 27.6 L Mean Corpuscular 107.8 H Volume Mean Corpuscular 32.8 Hemoglobin Mean Corpuscular 30.4 L Hemoglobin Concent Red Cell 18.7 H Distribution Width Platelet Count 175 Mean Platelet Volume 9.0 Immature 0.500 H Granulocytes % Neutrophils % 52.9 Lymphocytes % 21.2 Monocytes % 6.7 Eosinophils % 18.3 H Basophils % 0.4 Nucleated Red Blood 0.0 Cells % Immature 0.060 H Granulocytes # Neutrophils # 6.0 Lymphocytes # 2.4 Monocytes # 0.8 Eosinophils # 2.1 H Basophils # 0.1 Nucleated Red Blood 0.0 Cells # Sodium Level 145 H Potassium Level 5.2 H Chloride Level 106 Carbon Dioxide Level 26 Anion Gap 13 Blood Urea Nitrogen 28 H Creatinine 6.35 H Est Glomerular 7 L Filtrat Rate mL/min Glucose Level 123 Calcium Level 10.1 Exam/Review of Systems Exam Vitals Vital Signs Date Temp Pulse Resp B/P (MAP) Pulse Ox O2 O2 Flow FiO2 Time Delivery Rate 04/06/19 97.6 92 16 82/44 (57) 93 Room Air 10:00 04/04/19 21 16:29 Intake and Output 04/05/19 04/05/19 04/06/19 1515:00 23:00 07:00 IntakeIntake Total 230 ml BalanceBalance 230 ml Results Results 24hrs Laboratory Tests Test 04/05/19 17:34 04/05/19 22:09 04/05/19 22:30 04/06/19 05:50 Bedside Glucose 93 136 Stool Occult Blood POSITIVE White Blood Count 11.3 H Red Blood Count 2.56 L Hemoglobin 8.4 L Hematocrit 27.6 L Mean Corpuscular 107.8 H Volume Mean Corpuscular 32.8 Hemoglobin Mean Corpuscular 30.4 L Hemoglobin Concent Red Cell 18.7 H Distribution Width Platelet Count 175 Mean Platelet Volume 9.0 Immature 0.500 H Granulocytes % Neutrophils % 52.9 Lymphocytes % 21.2 Monocytes % 6.7 Eosinophils % 18.3 H Basophils % 0.4 Nucleated Red Blood 0.0 Cells % Immature 0.060 H Granulocytes # Neutrophils # 6.0 Lymphocytes # 2.4 Monocytes # 0.8 Eosinophils # 2.1 H Basophils # 0.1 Nucleated Red Blood 0.0 Cells # Sodium Level 145 H Potassium Level 5.2 H Chloride Level 106 Carbon Dioxide Level 26 Anion Gap 13 Blood Urea Nitrogen 28 H Creatinine 6.35 H Est Glomerular 7 L Filtrat Rate mL/min Glucose Level 123 Calcium Level 10.1 Medications Medication Current Medications IV Flush (NS 3 ml) 3 ml PER PROTOCOL IV ; Start 04/04/19 at 16:30 Ondansetron HCl (Zofran Inj) 4 mg Q6H PRN IV NAUSEA/VOMITING; Start 04/04/19 at 16:30 Acetaminophen (Tylenol Tab) 650 mg Q6H PRN PO .PAIN 1-3 OR TEMP; Start 04/04/19 at 16:30 Acetaminophen/ Hydrocodone Bitart ([place] (5/325)) 1 tab Q6H PRN PO .MOD PAIN 4- 6; Start 04/04/19 at 16:30 Docusate Sodium (Colace) 100 mg Q12H PRN PO .CONSTIPATION; Start 04/04/19 at 16:30 Magnesium Hydroxide (Milk Of Mag) 30 ml DAILY PRN PO .CONSTIPATION; Start 04/04/19 at 16:30 Pantoprazole (Protonix Iv) 40 mg DAILY@06 IV Last administered on 04/06/19at 06 :07; Admin Dose 40 MG; Start 04/05/19 at 06:00 Lorazepam (Ativan) 0.5 mg Q6H PRN IV ANXIETY Last administered on 04/06/19at 06:08; Admin Dose 0.5 MG; Start 04/04/19 at 16:30 Albuterol/ Ipratropium (Duoneb) 3 ml Q4H RESP THERAPY PRN HHN SHORTNESS OF BREATH; Start 04/04/19 at 16:30 Hydralazine HCl (Apresoline) 10 mg Q6H PRN IV ELEVATED BLOOD PRESSURE; Start 04/04/19 at 16:30 Nitroglycerin (Nitroglycerin (Sl Tab) 0.4 Mg) 1 tab Q5M PRN SL ANGINA; Start 04/04/19 at 16:30 Triamcinolone Acetonide (Kenalog 0.1% Cr) 1 applic BID TOP Last administered on 04/05/19at 22:04; Admin Dose 1 APPLIC; Start 04/04/19 at 21:00 Diagnostic Test (Pha) (Accu-Chek) 1 ea 02 XX ; Start 04/05/19 at 02:00 Miscellaneous Information 1 ea NOTE XX ; Start 04/04/19 at 17:00 Glucose (Glutose) 15 gm Q15M PRN PO DECREASED GLUCOSE; Start 04/04/19 at 17:00 Glucose (Glutose) 22.5 gm Q15M PRN PO DECREASED GLUCOSE; Start 04/04/19 at 17:00 Dextrose (D50w Syringe) 25 ml Q15M PRN IV DECREASED GLUCOSE; Start 04/04/19 at 17:00 Dextrose (D50w Syringe) 50 ml Q15M PRN IV DECREASED GLUCOSE; Start 04/04/19 at 17:00 Glucagon (Glucagen) 1 mg Q15M PRN IM DECREASED GLUCOSE; Start 04/04/19 at 17:00 Glucose (Glutose) 15 gm Q15M PRN BUCCAL DECREASED GLUCOSE; Start 04/04/19 at 17:00 Epoetin Christian-epbx (Retacrit (Non-Esrd)) 10,000 unit MoWeFr@1700 SC ; Start 04/06/19 at 17:00 Heparin Sodium (Porcine) (Heparin (1000 Units/ml)) 4,000 unit AFTER DIALYSIS CATHETER Last administered on 04/05/19at 04:58; Admin Dose 3,700 UNIT; Start 04/05/19 at 01:00 Insulin Aspart (Novolog Insulin Pen) NOVOLOG *MILD* ALGORI... AC MEALS AND BEDTIME SC ; Start 04/05/19 at 17:25 Morphine Sulfate (morphine) 1 mg Q6H PRN IV .SEVERE PAIN 7-10 Last administered on 04/06/19at 04:15; Admin Dose 1 MG; Start 04/05/19 at 14:30 Multivitamins Therapeutic (Theragran) 1 tab DAILY PO ; Start 04/05/19 at 14:30 Zinc Sulfate (Zinc Sulfate) 220 mg DAILY PO ; Start 04/05/19 at 14:30 Aspirin (Aspirin) 81 mg DAILY PO ; Start 04/06/19 at 09:00 Atorvastatin Calcium (Lipitor) 10 mg QHS PO Last administered on 04/05/19at 22:04; Admin Dose 10 MG; Start 04/05/19 at 21:00 Bisacodyl (Dulcolax Supp) 10 mg DAILY PRN NM CONSTIPATION; Start 04/05/19 at 14:30 Cholecalciferol (Vitamin D) 1,000 unit DAILY PO ; Start 04/06/19 at 09:00 Ferrous Sulfate (Ferrous Sulfate (Ec)) 325 mg BID PO Last administered on 04/05/19at 22:04; Admin Dose 325 MG; Start 04/05/19 at 21:00 Levothyroxine Sodium (Synthroid) 150 mcg BEFORE BREAKFAST PO Last administered on 04/06/19at 06:08; Admin Dose 150 MCG; Start 04/06/19 at 07:00 Sevelamer Carbonate (Renvela) 1.6 gm WITH MEALS PO ; Start 04/05/19 at 17:55 Multivitamins/ Minerals (Theragran-M) 1 tab DAILY PO ; Start 04/06/19 at 09:00 Ascorbic Acid (Vitamin C) 500 mg DAILY PO ; Start 04/06/19 at 09:00 Folic Acid (Folic Acid) 1 mg DAILY PO ; Start 04/06/19 at 09:00 Albumin Human 100 ml @ 100 mls/hr ONCE ONCE IV Last administered on 04/06/19at 12:10; Admin Dose 100 MLS/HR; Start 04/06/19 at 11:30; Stop 04/06/19 at 12:29 KRISTIN ALSTON April 06, 2019 12:30
[2019-04-06] MEDS ORDERED: morphine 2 MG INJ IV PRN (14:30)
[2019-04-06] MEDS: HEPARIN 1000 UNITS/ML 10 ML INJ CATHETER SCH (15:06)
--- NOTE | 2019-04-06 15:44 | CONS ---
Assessment/Plan Assessment/Plan Hospital Course (Demo Recall) Summary Assessment and Plan: Assessment: Microcytic anemia -FOBT-positive Coagulopathy Encephalopathy -Likely secondary to polypharmacy vs other Scabies rash -Confirmed on skin scrapings -S/p Ivermectin and permethrin treatments End-stage renal disease on hemodialysis Hypertension Diabetes mellitus Hyperkalemia Anxiety/possible schizoaffective disorder Plan: Given macrocytic anemia and coagulopathy will order Abdominal ultrasound to assess for hepatocellular disease Will also order ammonia level as well as folate and vitamin B12. Given patient's confusion some concern about patient being able to tolerate preparation needed for colonoscopy We will continue to monitor for overt signs of GI bleed. We will continue to monitor H/H we will recheck INR in a.m. Currently no plan for EGD/colonoscopy given patient's confusion and coagulopathy we will reassess tomorrow She is seen in collaboration with Dr. Arthur CC: HEATH ARTHUR MD ; Consultation Date/Type/Reason Admit Date/Time Date of Consultation: April 06, 2019 Type of Consult GI Reason for Consultation Anemia Date/Time of Note DATE: 04/06/19 TIME: 15:27 Hx of Present Illness This is a 63-year-old female admitted to the hospital from a nursing facility for encephalopathy and hyperkalemia. She has a past medical history of diabetes mellitus, hypertension, schizoaffective disorder, end-stage renal disease on hemodialysis, CAD. Patient also presented with macrocytic anemia she is status post blood transfusions and hemoglobin has been stable since. There are no overt signs of GI bleed however a stool for occult blood was obtained on the and deemed positive. At time evaluation patient is alert and oriented to name place she is confused to date event and she is currently on ablation for scabies she is status post treatment. I spoke with patient's Marquez [phone] patient's denies family history of colon cancer he states she previously had an EGD colonoscopy about 4 years ago negative for abnormalities including polyps. Discussed possible plan for repeat EGD colonoscopy inpatient however this will be determined on improvement of confusion as patient will need to follow directions for preparation to proceed with colonoscopy he verbalized understanding and is agreeable. Time evaluation patient denies nausea/vomiting or abdominal pain she is confused but able to make some needs known he is in isolation at this time. Review of Systems: A 12 system, review was conducted and is negative except as noted in the HPI or here. Past Medical History Home Meds Reported Medications Insulin Lispro (Humalog) 100 Unit/1 Ml Cartridge, 0 SQ Q6H PRN for SLIDING SCALE, EA 04/04/19 Levothyroxine Sodium* (Levothyroxine Sodium*) 150 Mcg Tablet, 150 MCG PO BEFORE BREAKFAST, #30 TAB 04/04/19 Midodrine* (Midodrine*) 10 Mg Tablet, 10 MG PO TID, TAB 04/04/19 Polyethylene Glycol* (Miralax*) 17 Gm Powd.pack, 17 GM PO DAILY, #30 PACKET 04/04/19 Raloxifene Hcl* (Evista*) 60 Mg Tablet, 60 MG PO DAILY, TAB 04/04/19 Sennosides* (Senna Lax*) 8.6 Mg Tablet, 2 TAB PO QHS, TAB 04/04/19 Sodium Bicarbonate* (Sodium Bicarbonate*) 650 Mg Tablet, 1300 MG PO BID, TAB 04/04/19 Cholecalciferol* (Vitamin D3*) 1,000 Unit Tablet, 1000 UNIT PO DAILY, TAB 04/04/19 Acetaminophen* (Tylenol*) 325 Mg Tablet, 650 MG PO Q4H PRN for MILD PAIN LEVEL 1-3, TAB AND FEVER 04/04/19 Clonazepam* (Clonazepam*) 0.5 Mg Tablet, 0.5 MG PO Q12H for ANXIETY, TAB 04/04/19 Lorazepam* (Lorazepam*) 1 Mg Tablet, 1 MG PO HS PRN for ANXIETY, #30 TAB Q TU,SAT 04/04/19 Olanzapine* (Zyprexa*) 5 Mg Tablet, 5 MG PO QHS, #30 TAB 04/04/19 Olanzapine* (Zyprexa*) 2.5 Mg Tablet, 2.5 MG PO QAM, #30 TAB 04/04/19 Trazodone Hcl* (Trazodone Hcl*) 50 Mg Tablet, 50 MG PO QHS, #30 TAB 04/04/19 Insulin Glargine,Hum.rec.anlog (Basaglar Kwikpen U-100) 100 Unit/1 Ml Insuln.pen, 12 UNIT SC DAILY, EA 04/04/19 Sevelamer Carbonate* (Renvela*) 800 Mg Tablet, 1600 GM PO WITH MEALS, TAB 04/04/19 Diazepam* (Diazepam*) 5 Mg Tablet, 5 MG PO Q12H, TAB 04/04/19 Quetiapine Fumarate* (Quetiapine Fumarate*) 25 Mg Tablet, 100 MG PO BID, TAB 04/04/19 Haloperidol* (Haldol*) 5 Mg Tab, 5 MG PO BID, TAB 04/04/19 Atorvastatin Calcium (Atorvastatin Calcium) 10 Mg Tablet, 10 MG PO QHS, #30 TAB 04/04/19 Ondansetron Hcl* (Zofran*) 4 Mg Tab, 4 MG PO Q4H PRN for NAUSEA AND OR VOMITING, TAB 04/04/19 Acetaminophen* (Acetaminophen*) 500 MG Extra Strength Tablet, 1000 MG PO Q6H PRN for PAIN 4-05/25, TAB 04/04/19 Lorazepam* (Ativan*) 2 Mg Tablet, 2 MG PO Q6 PRN for ANXIETY, #60 TAB 04/04/19 Bisacodyl (Dulcolax) 10 Mg Supp.rect, 10 MG RC DAILY, SUPP.RECT 04/04/19 Ferrous Sulfate* (Ferrous Sulfate*) 325 Mg Tabec, 325 MG PO BID, TAB 04/04/19 Docusate Sodium* (Colace*) 100 Mg Capsule, 200 MG PO DAILY, #30 CAP 04/04/19 Aspirin* (Aspirin* Chew) 81 Mg Tab.chew, 81 MG PO DAILY, TAB.CHEW 04/04/19 Discontinued Reported Medications Aspirin* (Aspirin* EC) 81 Mg Tablet.dr, 81 MG PO DAILY, TAB 04/04/19 Medications Current Medications IV Flush (NS 3 ml) 3 ml PER PROTOCOL IV ; Start 04/04/19 at 16:30 Ondansetron HCl (Zofran Inj) 4 mg Q6H PRN IV NAUSEA/VOMITING; Start 04/04/19 at 16:30 Acetaminophen (Tylenol Tab) 650 mg Q6H PRN PO .PAIN 1-3 OR TEMP; Start 04/04/19 at 16:30 Acetaminophen/ Hydrocodone Bitart ([place] (5/325)) 1 tab Q6H PRN PO .MOD PAIN 4- 6; Start 04/04/19 at 16:30 Docusate Sodium (Colace) 100 mg Q12H PRN PO .CONSTIPATION; Start 04/04/19 at 16:30 Magnesium Hydroxide (Milk Of Mag) 30 ml DAILY PRN PO .CONSTIPATION; Start 04/04/19 at 16:30 Pantoprazole (Protonix Iv) 40 mg DAILY@06 IV Last administered on 04/06/19at 06:07; Admin Dose 40 MG; Start 04/05/19 at 06:00 Albuterol/ Ipratropium (Duoneb) 3 ml Q4H RESP THERAPY PRN HHN SHORTNESS OF BREATH; Start 04/04/19 at 16:30 Hydralazine HCl (Apresoline) 10 mg Q6H PRN IV ELEVATED BLOOD PRESSURE; Start 04/04/19 at 16:30 Nitroglycerin (Nitroglycerin (Sl Tab) 0.4 Mg) 1 tab Q5M PRN SL ANGINA; Start 04/04/19 at 16:30 Diagnostic Test (Pha) (Accu-Chek) 1 ea 02 XX ; Start 04/05/19 at 02:00 Miscellaneous Information 1 ea NOTE XX ; Start 04/04/19 at 17:00 Glucose (Glutose) 15 gm Q15M PRN PO DECREASED GLUCOSE; Start 04/04/19 at 17:00 Glucose (Glutose) 22.5 gm Q15M PRN PO DECREASED GLUCOSE; Start 04/04/19 at 17:00 Dextrose (D50w Syringe) 25 ml Q15M PRN IV DECREASED GLUCOSE; Start 04/04/19 at 17:00 Dextrose (D50w Syringe) 50 ml Q15M PRN IV DECREASED GLUCOSE; Start 04/04/19 at 17:00 Glucagon (Glucagen) 1 mg Q15M PRN IM DECREASED GLUCOSE; Start 04/04/19 at 17:00 Glucose (Glutose) 15 gm Q15M PRN BUCCAL DECREASED GLUCOSE; Start 04/04/19 at 17:00 Epoetin Christian-epbx (Retacrit (Non-Esrd)) 10,000 unit MoWeFr@1700 SC ; Start 04/06/19 at 17:00 Heparin Sodium (Porcine) (Heparin (1000 Units/ml)) 4,000 unit AFTER DIALYSIS CATHETER Last administered on 04/06/19at 15:06; Admin Dose 4,000 UNIT; Start 04/05/19 at 01:00 Insulin Aspart (Novolog Insulin Pen) NOVOLOG *MILD* ALGORI... AC MEALS AND BEDTIME SC ; Start 04/05/19 at 17:25 Multivitamins Therapeutic (Theragran) 1 tab DAILY PO ; Start 04/05/19 at 14:30 Zinc Sulfate (Zinc Sulfate) 220 mg DAILY PO ; Start 04/05/19 at 14:30 Aspirin (Aspirin) 81 mg DAILY PO ; Start 04/06/19 at 09:00 Atorvastatin Calcium (Lipitor) 10 mg QHS PO Last administered on 04/05/19at 22:04; Admin Dose 10 MG; Start 04/05/19 at 21:00 Bisacodyl (Dulcolax Supp) 10 mg DAILY PRN [place] CONSTIPATION; Start 04/05/19 at 14:30 Cholecalciferol (Vitamin D) 1,000 unit DAILY PO ; Start 04/06/19 at 09:00 Ferrous Sulfate (Ferrous Sulfate (Ec)) 325 mg BID PO Last administered on 04/05/19at 22:04; Admin Dose 325 MG; Start 04/05/19 at 21:00 Levothyroxine Sodium (Synthroid) 150 mcg BEFORE BREAKFAST PO Last administered on 04/06/19at 06:08; Admin Dose 150 MCG; Start 04/06/19 at 07:00 Sevelamer Carbonate (Renvela) 1.6 gm WITH MEALS PO ; Start 04/05/19 at 17:55 Multivitamins/ Minerals (Theragran-M) 1 tab DAILY PO ; Start 04/06/19 at 09:00 Ascorbic Acid (Vitamin C) 500 mg DAILY PO ; Start 04/06/19 at 09:00 Folic Acid (Folic Acid) 1 mg DAILY PO ; Start 04/06/19 at 09:00 Triamcinolone Acetonide (Kenalog 0.1% Cr) 1 applic BID PRN TOP ITCHING; Start 04/06/19 at 13:00 Morphine Sulfate (morphine) 1 mg Q8H PRN IV .SEVERE PAIN 7-10; Start 04/06/19 at 14:30 Lorazepam (Ativan) 0.5 mg Q8H PRN IV ANXIETY; Start 04/06/19 at 16:30 Allergies: Coded Allergies: No Known Allergy (Unverified , 04/04/19) Past Surgical History Past Surgical Hx: other (Unknown) Social History Alcohol Use: none Smoking Status: Unknown if ever smoked Drug Use: none Exam/Review of Systems Exam Vitals Vital Signs Date Temp Pulse Resp B/P (MAP) Pulse Ox O2 O2 Flow FiO2 Time Delivery Rate 04/06/19 96 16 103/70 94 Room Air 15:10 (81) 04/06/19 98.0 14:00 04/04/19 21 16:29 Intake and Output 04/05/19 04/05/19 04/06/19 1414:59 22:59 06:59 IntakeIntake Total 230 ml BalanceBalance 230 ml Exam PHYSICAL EXAMINATION: GENERAL: Alert & oriented to name place, confused SKIN: No lesions. HEAD: Normocephalic, atraumatic, no tenderness. EYES: Pupils equal reactive to light, no discharge. EARS/NOSE AND THROAT: Ears normal, nose normal. NECK: Supple, no masses. CHEST: Inspection within normal limits. CARDIOVASCULAR: Heart: Regular rate and rhythm RESPIRATORY: Lungs clear to auscultation GASTROINTESTINAL AND LIVER: Abdomen: Soft, non tenderness, non-distended, normoactive bowel sounds. Rectal: Deferred. GENITOURINARY: Female genitalia within normal limits. EXTREMITIES: No cyanosis, clubbing or edema. Results Result Diagram: 04/06/19 0550 04/06/19 0550 Results 24hrs Laboratory Tests Test 04/05/19 17:34 04/05/19 22:09 04/05/19 22:30 04/06/19 05:50 Bedside Glucose 93 136 Stool Occult Blood POSITIVE White Blood Count 11.3 H Red Blood Count 2.56 L Hemoglobin 8.4 L Hematocrit 27.6 L Mean Corpuscular 107.8 H Volume Mean Corpuscular 32.8 Hemoglobin Mean Corpuscular 30.4 L Hemoglobin Concent Red Cell 18.7 H Distribution Width Platelet Count 175 Mean Platelet Volume 9.0 Immature 0.500 H Granulocytes % Neutrophils % 52.9 Lymphocytes % 21.2 Monocytes % 6.7 Eosinophils % 18.3 H Basophils % 0.4 Nucleated Red Blood 0.0 Cells % Immature 0.060 H Granulocytes # Neutrophils # 6.0 Lymphocytes # 2.4 Monocytes # 0.8 Eosinophils # 2.1 H Basophils # 0.1 Nucleated Red Blood 0.0 Cells # Sodium Level 145 H Potassium Level 5.2 H Chloride Level 106 Carbon Dioxide Level 26 Anion Gap 13 Blood Urea Nitrogen 28 H Creatinine 6.35 H Est Glomerular 7 L Filtrat Rate mL/min Glucose Level 123 Calcium Level 10.1 Test 04/06/19 12:29 Bedside Glucose 106 Medications Medication Current Medications IV Flush (NS 3 ml) 3 ml PER PROTOCOL IV ; Start 04/04/19 at 16:30 Ondansetron HCl (Zofran Inj) 4 mg Q6H PRN IV NAUSEA/VOMITING; Start 04/04/19 at 16:30 Acetaminophen (Tylenol Tab) 650 mg Q6H PRN PO .PAIN 1-3 OR TEMP; Start 04/04/19 at 16:30 Acetaminophen/ Hydrocodone Bitart ([place] (5/325)) 1 tab Q6H PRN PO .MOD PAIN 4- 6; Start 04/04/19 at 16:30 Docusate Sodium (Colace) 100 mg Q12H PRN PO .CONSTIPATION; Start 04/04/19 at 16:30 Magnesium Hydroxide (Milk Of Mag) 30 ml DAILY PRN PO .CONSTIPATION; Start 04/04/19 at 16:30 Pantoprazole (Protonix Iv) 40 mg DAILY@06 IV Last administered on 04/06/19at 06:07; Admin Dose 40 MG; Start 04/05/19 at 06:00 Albuterol/ Ipratropium (Duoneb) 3 ml Q4H RESP THERAPY PRN HHN SHORTNESS OF BREATH; Start 04/04/19 at 16:30 Hydralazine HCl (Apresoline) 10 mg Q6H PRN IV ELEVATED BLOOD PRESSURE; Start 04/04/19 at 16:30 Nitroglycerin (Nitroglycerin (Sl Tab) 0.4 Mg) 1 tab Q5M PRN SL ANGINA; Start 04/04/19 at 16:30 Diagnostic Test (Pha) (Accu-Chek) 1 ea 02 XX ; Start 04/05/19 at 02:00 Miscellaneous Information 1 ea NOTE XX ; Start 04/04/19 at 17:00 Glucose (Glutose) 15 gm Q15M PRN PO DECREASED GLUCOSE; Start 04/04/19 at 17:00 Glucose (Glutose) 22.5 gm Q15M PRN PO DECREASED GLUCOSE; Start 04/04/19 at 17:00 Dextrose (D50w Syringe) 25 ml Q15M PRN IV DECREASED GLUCOSE; Start 04/04/19 at 17:00 Dextrose (D50w Syringe) 50 ml Q15M PRN IV DECREASED GLUCOSE; Start 04/04/19 at 17:00 Glucagon (Glucagen) 1 mg Q15M PRN IM DECREASED GLUCOSE; Start 04/04/19 at 17:00 Glucose (Glutose) 15 gm Q15M PRN BUCCAL DECREASED GLUCOSE; Start 04/04/19 at 17:00 Epoetin Christian-epbx (Retacrit (Non-Esrd)) 10,000 unit MoWeFr@1700 SC ; Start at 17:00 Heparin Sodium (Porcine) (Heparin (1000 Units/ml)) 4,000 unit AFTER DIALYSIS CATHETER Last administered on 04/06/19at 15:06; Admin Dose 4,000 UNIT; Start 04/05/19 at 01:00 Insulin Aspart (Novolog Insulin Pen) NOVOLOG *MILD* ALGORI... AC MEALS AND BEDTIME SC ; Start 04/05/19 at 17:25 Multivitamins Therapeutic (Theragran) 1 tab DAILY PO ; Start 04/05/19 at 14:30 Zinc Sulfate (Zinc Sulfate) 220 mg DAILY PO ; Start 04/05/19 at 14:30 Aspirin (Aspirin) 81 mg DAILY PO ; Start 04/06/19 at 09:00 Atorvastatin Calcium (Lipitor) 10 mg QHS PO Last administered on 04/05/19at 22:04; Admin Dose 10 MG; Start 04/05/19 at 21:00 Bisacodyl (Dulcolax Supp) 10 mg DAILY PRN [place] CONSTIPATION; Start 04/05/19 at 14:30 Cholecalciferol (Vitamin D) 1,000 unit DAILY PO ; Start 04/06/19 at 09:00 Ferrous Sulfate (Ferrous Sulfate (Ec)) 325 mg BID PO Last administered on 04/05/19at 22:04; Admin Dose 325 MG; Start 04/05/19 at 21:00 Levothyroxine Sodium (Synthroid) 150 mcg BEFORE BREAKFAST PO Last administered on 04/06/19at 06:08; Admin Dose 150 MCG; Start 04/06/19 at 07:00 Sevelamer Carbonate (Renvela) 1.6 gm WITH MEALS PO ; Start 04/05/19 at 17:55 Multivitamins/ Minerals (Theragran-M) 1 tab DAILY PO ; Start 04/06/19 at 09:00 Ascorbic Acid (Vitamin C) 500 mg DAILY PO ; Start 04/06/19 at 09:00 Folic Acid (Folic Acid) 1 mg DAILY PO ; Start 04/06/19 at 09:00 Triamcinolone Acetonide (Kenalog 0.1% Cr) 1 applic BID PRN TOP ITCHING; Start 04/06/19 at 13:00 Morphine Sulfate (morphine) 1 mg Q8H PRN IV .SEVERE PAIN 7-10; Start 04/06/19 at 14:30 Lorazepam (Ativan) 0.5 mg Q8H PRN IV ANXIETY; Start 04/06/19 at 16:30 EDWARD ROSALES April 06, 2019 15:37
[2019-04-06] MEDS ORDERED: LORAZEPAM 2 MG INJ IV PRN (16:30)
[2019-04-06] MEDS: EPOETIN ALFA-EPBX (NON-ESRD 10,000 UNIT/ML VIAL SC SCH (17:39)
[2019-04-06] MEDS: ATORVASTATIN 10 MG TAB PO SCH (21:26)
[2019-04-07] VITALS (12 sets, daily range): BP systolic 72–131; BP diastolic 43–70; PULSE 88–116; RESP 15–20
[2019-04-07] MEDS: LORAZEPAM 2 MG INJ IV PRN ×2 (01:36→12:13)
[2019-04-07] MEDS: ACCU-CHEK XX SCH (02:00)
[2019-04-07] MEDS: HYDROCODONE/APAP (5/325) TAB PO PRN (04:08)
[2019-04-07] MEDS: LEVOTHYROXINE 150 MCG TAB PO SCH (06:35)
[2019-04-07] MEDS: PANTOPRAZOLE 40 MG INJ IV SCH (06:35)
[2019-04-07] MEDS: FOLIC ACID 1 MG TAB PO SCH (08:44)
[2019-04-07] MEDS: TRIAMCINOLONE ACET 0.1% 15 GM CR TOP PRN (08:46)
[2019-04-07] MEDS: FERROUS SULFATE (EC) 325 MG TAB PO SCH ×2 (08:47→20:45)
[2019-04-07] MEDS: MULTIVITAMINS/MINERALS TAB PO SCH (08:47)
[2019-04-07] MEDS: ASPIRIN 81 MG TAB PO SCH (08:47)
[2019-04-07] MEDS: INSULIN ASPART [NOVOLOG] 3 ML PEN SC SCH ×4 (08:47→20:49)
[2019-04-07] MEDS: ASCORBIC ACID 500 MG TAB PO SCH (08:47)
[2019-04-07] MEDS: ZINC SULFATE 220 MG CAP PO SCH (08:47)
[2019-04-07] MEDS: CHOLECALCIFEROL 1,000 UNIT TAB PO SCH (08:47)
[2019-04-07] MEDS: MULTIVITAMINS THERAPEUTIC TAB PO SCH (08:47)
[2019-04-07] MEDS: SEVELAMER CARBONATE 0.8 GM PKT PO SCH ×3 (08:48→17:23)
[2019-04-07] MEDS: BALSAM PERU/CASTOR OIL 60 GM TUBE TOP SCH ×2 (08:48→20:50)
--- NOTE | 2019-04-07 09:04 | PN ---
DATE: 04/07/2019 SUBJECTIVE: The patient had hemodialysis yesterday, tolerated well. The patient remains confused. OBJECTIVE: VITAL SIGNS: Blood pressure is 87/51, pulse 72, respirations 18, temperature 96.4. HEENT: Head is normocephalic. NECK: Supple. HEART: Regular rate. LUNGS: Show diminished breath sounds at the base. ABDOMEN: Soft, nontender to palpation without rebound or guarding. EXTREMITIES: Negative for clubbing, cyanosis, no edema. DERMATOLOGIC: No rashes. MUSCULOSKELETAL: No joint effusion. NEUROLOGIC: No change in exam. MEDICATIONS: Reviewed. LABORATORY DATA: Reviewed. ASSESSMENT AND PLAN: 1. End-stage renal disease. The patient is scheduled for dialysis tomorrow. 2. Hypokalemia. Continue dialysis on low potassium bath. 3. Anemia. Continue to monitor hemoglobin and hematocrit levels. Continue Epogen. 4. Diabetes. Continue current insulin regimen. 5. Encephalopathy, etiology is unclear. Etiology may be toxic metabolic, questionable uremia, quest ionable psychiatric disorder. Continue to monitor. Follow up with psychiatry. 6. Hypertension. Continue current blood pressure regimen. 7. History of schizoaffective disorder. Dictated By: STEPHEN BREWER DO NR/NTS Conf#: [id number] DID#: [id number] CC: KRISTIN ALSTON; STEPHEN BREWER DO;*EndCC*
--- NOTE | 2019-04-07 12:31 | PN ---
Date/Time of Note Date/Time of Note DATE: 04/07/19 TIME: 12:26 Assessment/Plan VTE Prophylaxis Risk score (from Ns)>0 risk: 5 SCD applied (from Nsg): No SCD contraindicated: other (scds) Pharmacological prophylaxis: other (scds) Lines/Catheters [facility] permac[facility] Assessment/Plan Hospital Course Summary Assessment and Plan: Assessment: Macrocytic anemia -FOBT-positive -Abd- US- The liver demonstrates normal echogenicity and normal size without focal lesions Coagulopathy- improved Encephalopathy -Likely secondary to polypharmacy vs other -Ammonia - negative Scabies rash -Confirmed on skin scrapings -S/p Ivermectin and permethrin treatments End-stage renal disease on hemodialysis Hypertension Diabetes mellitus Hyperkalemia Anxiety/possible schizoaffective disorder Plan: Currently no plan for EGD/colonoscopy Pt remains confused- no overt signs of GI bleed- hgb is currently stable Recommend f/u as an out-pt for EGD/colonoscopy Patient is seen in collaboration with Dr. Arthur Subjective: Course reviewed with nursing staff Patient interviewed and examined All labs, imaging and other results reviewed The patient remains confused, and in isolation BM noted today- brown in color. No noted hematochezia, melena, or hematemesis She denies n/v or abd pain Exam PHYSICAL EXAMINATION: GENERAL: Alert & oriented to name place, confused SKIN: No lesions. HEAD: Normocephalic, atraumatic, no tenderness. EYES: Pupils equal reactive to light, no discharge. EARS/NOSE AND THROAT: Ears normal, nose normal. NECK: Supple, no masses. CHEST: Inspection within normal limits. CARDIOVASCULAR: Heart: Regular rate and rhythm RESPIRATORY: Lungs clear to auscultation GASTROINTESTINAL AND LIVER: Abdomen: Soft, non tenderness, non-distended, normoactive bowel sounds. Rectal: Deferred. GENITOURINARY: Female genitalia within normal limits. EXTREMITIES: No cyanosis, clubbing or edema. Result Diagram: 04/07/19 0725 04/07/19 0725 Results 24hrs Laboratory Tests Test 04/06/19 12:29 04/06/19 15:46 04/06/19 17:41 04/06/19 21:24 Bedside Glucose 106 163 123 Ammonia < 9 L Test 04/07/19 07:25 04/07/19 08:43 04/07/19 12:17 White Blood Count 10.9 H Red Blood Count 2.61 L Hemoglobin 8.5 L Hematocrit 28.1 L Mean Corpuscular 107.7 H Volume Mean Corpuscular 32.6 Hemoglobin Mean Corpuscular 30.2 L Hemoglobin Concent Red Cell 18.2 H Distribution Width Platelet Count 174 Mean Platelet Volume 9.1 Immature 0.400 Granulocytes % Neutrophils % 53.2 Lymphocytes % 22.3 Monocytes % 7.6 Eosinophils % 16.0 H Basophils % 0.5 Nucleated Red Blood 0.0 Cells % Immature 0.040 H Granulocytes # Neutrophils # 5.8 Lymphocytes # 2.4 Monocytes # 0.8 Eosinophils # 1.8 H Basophils # 0.1 Nucleated Red Blood 0.0 Cells # Prothrombin Time 16.9 H Prothrombin Time 1.3 Ratio INR International 1.36 Normalized Ratio Sodium Level 139 Potassium Level 4.0 Chloride Level 99 Carbon Dioxide Level 32 H Anion Gap 8 Blood Urea Nitrogen 21 H Creatinine 4.22 #H Est Glomerular 11 L Filtrat Rate mL/min Glucose Level 155 Calcium Level 9.6 Total Bilirubin 0.2 Direct Bilirubin 0.00 Indirect Bilirubin 0.2 Aspartate Amino 21 Transf (AST/SGOT) Alanine 13 Aminotransferase (AL T/SGPT) Alkaline Phosphatase 101 Total Protein 7.3 Albumin 3.7 Bedside Glucose 157 226 H Exam/Review of Systems Exam Vitals Vital Signs Date Temp Pulse Resp B/P (MAP) Pulse Ox O2 O2 Flow FiO2 Time Delivery Rate 04/07/19 97.6 95 16 128/70 95 Room Air 10:00 (89) 04/04/19 21 16:29 Intake and Output 04/06/19 04/06/19 04/07/19 1515:00 23:00 07:00 IntakeIntake Total 200 ml OutputOutput Total 1500 ml BalanceBalance -1500 ml 200 ml Results Results 24hrs Laboratory Tests Test 04/06/19 12:29 04/06/19 15:46 04/06/19 17:41 04/06/19 21:24 Bedside Glucose 106 163 123 Ammonia < 9 L Test 04/07/19 07:25 04/07/19 08:43 04/07/19 12:17 White Blood Count 10.9 H Red Blood Count 2.61 L Hemoglobin 8.5 L Hematocrit 28.1 L Mean Corpuscular 107.7 H Volume Mean Corpuscular 32.6 Hemoglobin Mean Corpuscular 30.2 L Hemoglobin Concent Red Cell 18.2 H Distribution Width Platelet Count 174 Mean Platelet Volume 9.1 Immature 0.400 Granulocytes % Neutrophils % 53.2 Lymphocytes % 22.3 Monocytes % 7.6 Eosinophils % 16.0 H Basophils % 0.5 Nucleated Red Blood 0.0 Cells % Immature 0.040 H Granulocytes # Neutrophils # 5.8 Lymphocytes # 2.4 Monocytes # 0.8 Eosinophils # 1.8 H Basophils # 0.1 Nucleated Red Blood 0.0 Cells # Prothrombin Time 16.9 H Prothrombin Time 1.3 Ratio INR International 1.36 Normalized Ratio Sodium Level 139 Potassium Level 4.0 Chloride Level 99 Carbon Dioxide Level 32 H Anion Gap 8 Blood Urea Nitrogen 21 H Creatinine 4.22 #H Est Glomerular 11 L Filtrat Rate mL/min Glucose Level 155 Calcium Level 9.6 Total Bilirubin 0.2 Direct Bilirubin 0.00 Indirect Bilirubin 0.2 Aspartate Amino 21 Transf (AST/SGOT) Alanine 13 Aminotransferase (AL T/SGPT) Alkaline Phosphatase 101 Total Protein 7.3 Albumin 3.7 Bedside Glucose 157 226 H Medications Medication Current Medications IV Flush (NS 3 ml) 3 ml PER PROTOCOL IV ; Start 04/04/19 at 16:30 Ondansetron HCl (Zofran Inj) 4 mg Q6H PRN IV NAUSEA/VOMITING; Start 04/04/19 at 16:30 Acetaminophen (Tylenol Tab) 650 mg Q6H PRN PO .PAIN 1-3 OR TEMP; Start 04/04/19 at 16:30 Acetaminophen/ Hydrocodone Bitart ([place] (5/325)) 1 tab Q6H PRN PO .MOD PAIN 4- 6 Last administered on 04/07/19at 04:08; Admin Dose 1 TAB; Start 04/04/19 at 16:30 Docusate Sodium (Colace) 100 mg Q12H PRN PO .CONSTIPATION; Start 04/04/19 at 16:30 Magnesium Hydroxide (Milk Of Mag) 30 ml DAILY PRN PO .CONSTIPATION; Start 04/04/19 at 16:30 Pantoprazole (Protonix Iv) 40 mg DAILY@06 IV Last administered on 04/07/19at 06:35; Admin Dose 40 MG; Start 04/05/19 at 06:00 Albuterol/ Ipratropium (Duoneb) 3 ml Q4H RESP THERAPY PRN HHN SHORTNESS OF BREATH; Start 04/04/19 at 16:30 Hydralazine HCl (Apresoline) 10 mg Q6H PRN IV ELEVATED BLOOD PRESSURE; Start 04/04/19 at 16:30 Nitroglycerin (Nitroglycerin (Sl Tab) 0.4 Mg) 1 tab Q5M PRN SL ANGINA; Start 04/04/19 at 16:30 Diagnostic Test (Pha) (Accu-Chek) 1 ea 02 XX ; Start 04/05/19 at 02:00 Miscellaneous Information 1 ea NOTE XX ; Start 04/04/19 at 17:00 Glucose (Glutose) 15 gm Q15M PRN PO DECREASED GLUCOSE; Start 04/04/19 at 17:00 Glucose (Glutose) 22.5 gm Q15M PRN PO DECREASED GLUCOSE; Start 04/04/19 at 17:00 Dextrose (D50w Syringe) 25 ml Q15M PRN IV DECREASED GLUCOSE; Start 04/04/19 at 17:00 Dextrose (D50w Syringe) 50 ml Q15M PRN IV DECREASED GLUCOSE; Start 04/04/19 at 17:00 Glucagon (Glucagen) 1 mg Q15M PRN IM DECREASED GLUCOSE; Start 04/04/19 at 17:00 Glucose (Glutose) 15 gm Q15M PRN BUCCAL DECREASED GLUCOSE; Start 04/04/19 at 17:00 Epoetin Christian-epbx (Retacrit (Non-Esrd)) 10,000 unit MoWeFr@1700 SC Last administered on 04/06/19at 17:39; Admin Dose 10,000 UNIT; Start 04/06/19 at 17:00 Heparin Sodium (Porcine) (Heparin (1000 Units/ml)) 4,000 unit AFTER DIALYSIS CATHETER Last administered on 04/06/19at 15:06; Admin Dose 4,000 UNIT; Start 04/05/19 at 01:00 Insulin Aspart (Novolog Insulin Pen) NOVOLOG *MILD* ALGORI... AC MEALS AND BEDTIME SC Last administered on 04/07/19at 12:22; Admin Dose 3 UNIT; Start 04/05/19 at 17:25 Multivitamins Therapeutic (Theragran) 1 tab DAILY PO Last administered on 04/07/19at 08:47; Admin Dose 1 TAB; Start 04/05/19 at 14:30 Zinc Sulfate (Zinc Sulfate) 220 mg DAILY PO Last administered on 04/07/19 08:47; Admin Dose 220 MG; Start 04/05/19 at 14:30 Aspirin (Aspirin) 81 mg DAILY PO Last administered on 04/07/19 08:47; Admin Dose 81 MG; Start 04/06/19 at 09:00 Atorvastatin Calcium (Lipitor) 10 mg QHS PO Last administered on 04/06/19 21:26; Admin Dose 10 MG; Start 04/05/19 at 21:00 Bisacodyl (Dulcolax Supp) 10 mg DAILY PRN [place] CONSTIPATION; Start 04/05/19 at 14:30 Cholecalciferol (Vitamin D) 1,000 unit DAILY PO Last administered on 04/07/19 08:47; Admin Dose 1,000 UNIT; Start 04/06/19 at 09:00 Ferrous Sulfate (Ferrous Sulfate (Ec)) 325 mg BID PO Last administered on 04/07/19 08:47; Admin Dose 325 MG; Start 04/05/19 at 21:00 Levothyroxine Sodium (Synthroid) 150 mcg BEFORE BREAKFAST PO Last administered on 04/07/19 06:35; Admin Dose 150 MCG; Start 04/06/19 at 07:00 Sevelamer Carbonate (Renvela) 1.6 gm WITH MEALS PO Last administered on 04/07/19 08:48; Admin Dose 1.6 GM; Start 04/05/19 at 17:55 Multivitamins/ Minerals (Theragran-M) 1 tab DAILY PO Last administered on 04/07/19 08:47; Admin Dose 1 TAB; Start 04/06/19 at 09:00 Ascorbic Acid (Vitamin C) 500 mg DAILY PO Last administered on 04/07/19 08:47; Admin Dose 500 MG; Start 04/06/19 at 09:00 Folic Acid (Folic Acid) 1 mg DAILY PO Last administered on 04/07/19 08:44; Admin Dose 1 MG; Start 04/06/19 at 09:00 Triamcinolone Acetonide (Kenalog 0.1% Cr) 1 applic BID PRN TOP ITCHING Last administered on 04/07/19 08:46; Admin Dose 1 APPLIC; Start 04/06/19 at 13:00 Lorazepam (Ativan) 0.5 mg Q8H PRN IV ANXIETY Last administered on 04/07/19at 12 :13; Admin Dose 0.5 MG; Start 04/06/19 at 15:40 EDWARD ROSALES April 07, 2019 12:31
--- NOTE | 2019-04-07 14:00 | PN ---
Date/Time of Note Date/Time of Note DATE: 04/07/19 TIME: 13:57 Assessment/Plan VTE Prophylaxis Risk score (from Nsg)>0 risk: 5 SCD applied (from Nsg): Yes Pharmacological prophylaxis: other Lines/Catheters IV Catheter Type (from Nrsg): permacath Assessment/Plan Hospital Course S: Patient had dialysis yesterday, refused PT today. Seen by GI team yesterday. Hemoglobin is been stable. O: VS - see below PE: Gen: Lying in bed, still occasionally lethargic Head: Atraumatic Eyes: Normal Conjunctiva ENT: Normal External Ears, Nose and Mouth. Neck: Supple Resp: Clear to auscultation bilaterally Cardio: Regular rate and rhythm, no murmurs Abd: Soft, non tender, non distended. Normal bowel sounds Ext: No lower extremity edema bilaterally Neuro: No focal deficits Skin: rash noted on the back and shoulder area Assessment and plan: 63-year-old female nursing facility diabetes, hypertension, schizoaffective disorder, end-stage renal disease, CAD who presents with encephalopathy and hyperkalemia. #Encephalopathy: Likely secondary to polypharmacy. Also patient presented with potassium 5.6 on admission, which has since improved -Monitor, continue low-dose IV fluids -Follow-up further recommendations from PT, OT, speech therapy consults # scabies rash -confirmed on skin scrapings test results -Status post ivermectin and permethrin treatments yesterday, continue isolation precautions for this, monitor labs and skin #Diabetes: 5.6 equals A1c -Monitor, continue sliding scale insulin as needed # HTN: Stable -Monitor, continue current meds # ESRD: on HD -Appreciate renal recommendations, continue dialysis per the recommendations #Hyperkalemia: Possibly secondary to above -resolving -Monitor BMP, continue dialysis per renal recommendations # anxiety/possible schizoaffective disorder: -Only give Ativan as needed for now, holding her other home psychiatric and anxiety medication secondary to polypharmacy # anemia - of note hemoglobin on admission was 6.5, no signs of any upper or lower GI bleeding. Hemoglobin stable after PRBC transfusion given 3 days ago, stool occult test is positive. -Monitor for now, again consulting GI team because of the positive stool occult test result -patient unable to consent for EGD colonoscopy at this time and since hemoglobin is stable they are recommending outpatient follow-up for EGD and colonoscopy at that time Dispo: Case management looking on new facility for patient to be placed in Result Diagram: 04/07/19 0725 04/07/19 0725 Results 24hrs Laboratory Tests Test 04/06/19 15:46 04/06/19 17:41 04/06/19 21:24 04/07/19 07:25 Ammonia < 9 L Bedside Glucose 163 123 White Blood Count 10.9 H Red Blood Count 2.61 L Hemoglobin 8.5 L Hematocrit 28.1 L Mean Corpuscular 107.7 H Volume Mean Corpuscular 32.6 Hemoglobin Mean Corpuscular 30.2 L Hemoglobin Concent Red Cell 18.2 H Distribution Width Platelet Count 174 Mean Platelet Volume 9.1 Immature 0.400 Granulocytes % Neutrophils % 53.2 Lymphocytes % 22.3 Monocytes % 7.6 Eosinophils % 16.0 H Basophils % 0.5 Nucleated Red Blood 0.0 Cells % Immature 0.040 H Granulocytes # Neutrophils # 5.8 Lymphocytes # 2.4 Monocytes # 0.8 Eosinophils # 1.8 H Basophils # 0.1 Nucleated Red Blood 0.0 Cells # Prothrombin Time 16.9 H Prothrombin Time 1.3 Ratio INR International 1.36 Normalized Ratio Sodium Level 139 Potassium Level 4.0 Chloride Level 99 Carbon Dioxide Level 32 H Anion Gap 8 Blood Urea Nitrogen 21 H Creatinine 4.22 #H Est Glomerular 11 L Filtrat Rate mL/min Glucose Level 155 Calcium Level 9.6 Total Bilirubin 0.2 Direct Bilirubin 0.00 Indirect Bilirubin 0.2 Aspartate Amino 21 Transf (AST/SGOT) Alanine 13 Aminotransferase (AL T/SGPT) Alkaline Phosphatase 101 Total Protein 7.3 Albumin 3.7 Test 04/07/19 08:43 04/07/19 12:17 Bedside Glucose 157 226 H Exam/Review of Systems Exam Vitals Vital Signs Date Temp Pulse Resp B/P (MAP) Pulse Ox O2 O2 Flow FiO2 Time Delivery Rate 04/07/19 97.6 95 16 128/70 95 Room Air 10:00 (89) 04/04/19 21 16:29 Intake and Output 04/06/19 04/06/19 04/07/19 1515:00 23:00 07:00 IntakeIntake Total 200 ml OutputOutput Total 1500 ml BalanceBalance -1500 ml 200 ml Results Results 24hrs Laboratory Tests Test 04/06/19 15:46 04/06/19 17:41 04/06/19 21:24 04/07/19 07:25 Ammonia < 9 L Bedside Glucose 163 123 White Blood Count 10.9 H Red Blood Count 2.61 L Hemoglobin 8.5 L Hematocrit 28.1 L Mean Corpuscular 107.7 H Volume Mean Corpuscular 32.6 Hemoglobin Mean Corpuscular 30.2 L Hemoglobin Concent Red Cell 18.2 H Distribution Width Platelet Count 174 Mean Platelet Volume 9.1 Immature 0.400 Granulocytes % Neutrophils % 53.2 Lymphocytes % 22.3 Monocytes % 7.6 Eosinophils % 16.0 H Basophils % 0.5 Nucleated Red Blood 0.0 Cells % Immature 0.040 H Granulocytes # Neutrophils # 5.8 Lymphocytes # 2.4 Monocytes # 0.8 Eosinophils # 1.8 H Basophils # 0.1 Nucleated Red Blood 0.0 Cells # Prothrombin Time 16.9 H Prothrombin Time 1.3 Ratio INR International 1.36 Normalized Ratio Sodium Level 139 Potassium Level 4.0 Chloride Level 99 Carbon Dioxide Level 32 H Anion Gap 8 Blood Urea Nitrogen 21 H Creatinine 4.22 #H Est Glomerular 11 L Filtrat Rate mL/min Glucose Level 155 Calcium Level 9.6 Total Bilirubin 0.2 Direct Bilirubin 0.00 Indirect Bilirubin 0.2 Aspartate Amino 21 Transf (AST/SGOT) Alanine 13 Aminotransferase (AL T/SGPT) Alkaline Phosphatase 101 Total Protein 7.3 Albumin 3.7 Test 04/07/19 08:43 04/07/19 12:17 Bedside Glucose 157 226 H Medications Medication Current Medications IV Flush (NS 3 ml) 3 ml PER PROTOCOL IV ; Start 04/04/19 at 16:30 Ondansetron HCl (Zofran Inj) 4 mg Q6H PRN IV NAUSEA/VOMITING; Start 04/04/19 at 16:30 Acetaminophen (Tylenol Tab) 650 mg Q6H PRN PO .PAIN 1-3 OR TEMP; Start 04/04/19 at 16:30 Acetaminophen/ Hydrocodone Bitart ([place] (5/325)) 1 tab Q6H PRN PO .MOD PAIN 4- 6 Last administered on 04/07/19at 04:08; Admin Dose 1 TAB; Start 04/04/19 at 16:30 Docusate Sodium (Colace) 100 mg Q12H PRN PO .CONSTIPATION; Start 04/04/19 at 16:30 Magnesium Hydroxide (Milk Of Mag) 30 ml DAILY PRN PO .CONSTIPATION; Start 04/04/19 at 16:30 Pantoprazole (Protonix Iv) 40 mg DAILY@06 IV Last administered on 04/07/19at 06:35; Admin Dose 40 MG; Start 04/05/19 at 06:00 Albuterol/ Ipratropium (Duoneb) 3 ml Q4H RESP THERAPY PRN HHN SHORTNESS OF AB ATH; Start 04/04/19 at 16:30 Hydralazine HCl (Apresoline) 10 mg Q6H PRN IV ELEVATED BLOOD PRESSURE; Start 04/04/19 at 16:30 Nitroglycerin (Nitroglycerin (Sl Tab) 0.4 Mg) 1 tab Q5M PRN SL ANGINA; Start 04/04/19 at 16:30 Diagnostic Test (Pha) (Accu-Chek) 1 ea 02 XX ; Start 04/05/19 at 02:00 Miscellaneous Information 1 ea NOTE XX ; Start 04/04/19 at 17:00 Glucose (Glutose) 15 gm Q15M PRN PO DECREASED GLUCOSE; Start 04/04/19 at 17:00 Glucose (Glutose) 22.5 gm Q15M PRN PO DECREASED GLUCOSE; Start 04/04/19 at 17:00 Dextrose (D50w Syringe) 25 ml Q15M PRN IV DECREASED GLUCOSE; Start 04/04/19 at 17:00 Dextrose (D50w Syringe) 50 ml Q15M PRN IV DECREASED GLUCOSE; Start 04/04/19 at 17:00 Glucagon (Glucagen) 1 mg Q15M PRN IM DECREASED GLUCOSE; Start 04/04/19 at 17:00 Glucose (Glutose) 15 gm Q15M PRN BUCCAL DECREASED GLUCOSE; Start 04/04/19 at 17:00 Epoetin Christian-epbx (Retacrit (Non-Esrd)) 10,000 unit MoWeFr@1700 SC Last administered on 04/06/19at 17:39; Admin Dose 10,000 UNIT; Start 04/06/19 at 17:00 Heparin Sodium (Porcine) (Heparin (1000 Units/ml)) 4,000 unit AFTER DIALYSIS CATHETER Last administered on 04/06/19at 15:06; Admin Dose 4,000 UNIT; Start 04/05/19 at 01:00 Insulin Aspart (Novolog Insulin Pen) NOVOLOG *MILD* ALGORI... AC MEALS AND BEDTIME SC Last administered on 04/07/19 12:22; Admin Dose 3 UNIT; Start 04/05/19 at 17:25 Multivitamins Therapeutic (Theragran) 1 tab DAILY PO Last administered on 04/07/19 08:47; Admin Dose 1 TAB; Start 04/05/19 at 14:30 Zinc Sulfate (Zinc Sulfate) 220 mg DAILY PO Last administered on 04/07/19 08:47; Admin Dose 220 MG; Start 04/05/19 at 14:30 Aspirin (Aspirin) 81 mg DAILY PO Last administered on 04/07/19 08:47; Admin Dose 81 MG; Start 04/06/19 at 09:00 Atorvastatin Calcium (Lipitor) 10 mg QHS PO Last administered on 04/06/19 21:26; Admin Dose 10 MG; Start 04/05/19 at 21:00 Bisacodyl (Dulcolax Supp) 10 mg DAILY PRN [place] CONSTIPATION; Start 04/05/19 at 14:30 Cholecalciferol (Vitamin D) 1,000 unit DAILY PO Last administered on 04/07/19 08:47; Admin Dose 1,000 UNIT; Start 04/06/19 at 09:00 Ferrous Sulfate (Ferrous Sulfate (Ec)) 325 mg BID PO Last administered on 04/07/19 08:47; Admin Dose 325 MG; Start 04/05/19 at 21:00 Levothyroxine Sodium (Synthroid) 150 mcg BEFORE BREAKFAST PO Last administered on 04/07/19 06:35; Admin Dose 150 MCG; Start 04/06/19 at 07:00 Sevelamer Carbonate (Renvela) 1.6 gm WITH MEALS PO Last administered on 04/07/19 08:48; Admin Dose 1.6 GM; Start 04/05/19 at 17:55 Multivitamins/ Minerals (Theragran-M) 1 tab DAILY PO Last administered on 04/07/19 08:47; Admin Dose 1 TAB; Start 04/06/19 at 09:00 Ascorbic Acid (Vitamin C) 500 mg DAILY PO Last administered on 04/07/19 08:47; Admin Dose 500 MG; Start 04/06/19 at 09:00 Folic Acid (Folic Acid) 1 mg DAILY PO Last administered on 04/07/19 08:44; Admin Dose 1 MG; Start 04/06/19 at 09:00 Triamcinolone Acetonide (Kenalog 0.1% Cr) 1 applic BID PRN TOP ITCHING Last administered on 04/07/19 08:46; Admin Dose 1 APPLIC; Start 04/06/19 at 13:00 Lorazepam (Ativan) 0.5 mg Q8H PRN IV ANXIETY Last administered on 04/07/19 12:13; Admin Dose 0.5 MG; Start 04/06/19 at 15:40 KRISTIN ALSTON April 07, 2019 14:00
[2019-04-07] MEDS ORDERED: SOD CHLORIDE 0.9% 250 ML IV ONE (18:30)
[2019-04-07] MEDS: ATORVASTATIN 10 MG TAB PO SCH (20:45)
[2019-04-08] VITALS (26 sets, daily range): BP systolic 79–126; BP diastolic 41–74; PULSE 90–117; RESP 16–19
[2019-04-08] MEDS: ACCU-CHEK XX SCH (01:27)
[2019-04-08] MEDS: LORAZEPAM 2 MG INJ IV PRN (05:13)
[2019-04-08] MEDS: PANTOPRAZOLE 40 MG INJ IV SCH (05:13)
[2019-04-08] MEDS: LEVOTHYROXINE 150 MCG TAB PO SCH (06:47)
[2019-04-08] MEDS: INSULIN ASPART [NOVOLOG] 3 ML PEN SC SCH ×4 (07:00→20:38)
[2019-04-08] MEDS: SEVELAMER CARBONATE 0.8 GM PKT PO SCH ×3 (08:00→17:29)
[2019-04-08] MEDS: BALSAM PERU/CASTOR OIL 60 GM TUBE TOP SCH ×2 (08:48→20:39)
--- NOTE | 2019-04-08 09:08 | PN ---
DATE: 04/08/2019 SUBJECTIVE: The patient remains confused. No other events noted. OBJECTIVE: VITAL SIGNS: Blood pressure is 126/60, pulse 109, temperature 98.1. HEENT: Head is normocephalic. NECK: Supple. HEART: Regular rate. LUNGS: Show diminished breath sounds at the base. ABDOMEN: Soft, nontender to palpation without rebound or guarding. EXTREMITIES: Negative for clubbing, cyanosis, no edema. DERMATOLOGIC: No rashes. MUSCULOSKELETAL: No joint effusion. NEUROLOGIC: No change in exam. MEDICATIONS: Reviewed. LABORATORY DATA: Reviewed. ASSESSMENT AND PLAN: 1. End-stage renal disease. The patient is scheduled for dialysis today. We will dialyze 3 hours 2 k bath, calcium 2.5. 2. Hyperkalemia, resolved. 3. Anemia. Continue to monitor hemoglobin and hematocrit levels. Continue Epogen. 4. Mineral bone disorder, monitor calcium and phosphorus levels. 5. Diabetes. Continue current insulin regimen. 6. Encephalopathy. Workup is ongoing. Possible psychiatric disorder. Continue to monitor. 7. Hypertension. Continue current blood pressure regimen. 8. History of schizoaffective disorder. Dictated By: STEPHEN BREWER DO NR/NTS Conf#: [id number] DID#: [id number] CC: KELLY MURO NP; KRISTIN ALSTON;*End*
[2019-04-08] MEDS ORDERED: QUETIAPINE 100 MG TAB PO ONE (10:00)
--- NOTE | 2019-04-08 11:36 | PSY ---
Date/Time of Note Date/Time of Note DATE: 04/08/19 TIME: 11:31 Psychiatric Subjective Eval Consent Pt consented to telemedicine: No Subjective Evaluation Patient location: inpatient Chief Complaint: ALOC from shelter more than usual Hospitalization: other Medical history Problems Medical Problems: (1) Anemia Status: Acute (2) Encephalopathy acute Status: Acute (3) Hyperkalemia Status: Acute Allergies: Coded Allergies: No Known Allergy (Unverified , 04/04/19) Substance Abuse Substance use: other (Unknown) Social History Marital status: other DPA/Conservatorship: No Psychiatric Objective Eval Review of Systems: Review of Systems: Not Applicable Physical Examination: Physical Examination: Not Applicable Energy: Decreased Interest: Decreased Mental Status Examination: Eye Contact: Poor Psychomotor Activity: Agitated Behavior: Cooperative Speech: Soft AFFECT: Constricted Mood: Anxious Though Process: Tangential Cognition: Alert Insight: Severe Judgement: Severe Attention Span: Distractible Laboratory Results Laboratory Tests Test 04/06/19 12:29 04/06/19 15:46 04/06/19 17:41 04/06/19 21:24 Bedside Glucose 106 mg/dL 163 mg/dL 123 mg/dL Ammonia < 9 umol/l Test 04/07/19 07:25 04/07/19 08:43 04/07/19 12:17 04/07/19 17:24 White Blood Count 10.9 10^3/ul Red Blood Count 2.61 10^6/ul Hemoglobin 8.5 g/dl Hematocrit 28.1 % Mean Corpuscular 107.7 fl Volume Mean Corpuscular 32.6 pg Hemoglobin Mean Corpuscular 30.2 g/dl Hemoglobin Concent Red Cell 18.2 % Distribution Width Platelet Count 174 10^3/UL Mean Platelet 9.1 fl Volume Immature 0.400 % Granulocytes % Neutrophils % 53.2 % Lymphocytes % 22.3 % Monocytes % 7.6 % Eosinophils % 16.0 % Basophils % 0.5 % Nucleated Red 0.0 /100WBC Blood Cells % Immature 0.040 10^3/ul Granulocytes # Neutrophils # 5.8 10^3/ul Lymphocytes # 2.4 10^3/ul Monocytes # 0.8 10^3/ul Eosinophils # 1.8 10^3/ul Basophils # 0.1 10^3/ul Nucleated Red 0.0 10^3/ul Blood Cells # Prothrombin Time 16.9 Sec Prothrombin Time 1.3 Ratio INR International 1.36 Normalized Ratio Sodium Level 139 mmol/L Potassium Level 4.0 mmol/L Chloride Level 99 mmol/L Carbon Dioxide 32 mmol/L Level Anion Gap 8 Blood Urea 21 mg/dl Nitrogen Creatinine 4.22 mg/dl Est Glomerular 11 mL/min Filtrat Rate mL/min Glucose Level 155 mg/dl Calcium Level 9.6 mg/dl Total Bilirubin 0.2 mg/dl Direct Bilirubin 0.00 mg/dl Indirect Bilirubin 0.2 mg/dl Aspartate Amino 21 IU/L Transf (AST/SGOT) Alanine 13 IU/L Aminotransferase ( ALT/SGPT) Alkaline 101 IU/L Phosphatase Total Protein 7.3 g/dl Albumin 3.7 g/dl Vitamin B12 Level 858 pg/ml Folate 8.4 ng/ml Bedside Glucose 157 mg/dL 226 mg/dL 126 mg/dL Test 04/07/19 20:48 04/08/19 06:00 04/08/19 08:46 Bedside Glucose 126 mg/dL 155 mg/dL White Blood Count 14.2 10^3/ul Red Blood Count 2.82 10^6/ul Hemoglobin 9.3 g/dl Hematocrit 30.4 % Mean Corpuscular 107.8 fl Volume Mean Corpuscular 33.0 pg Hemoglobin Mean Corpuscular 30.6 g/dl Hemoglobin Concent Red Cell 17.6 % Distribution Width Platelet Count 190 10^3/UL Mean Platelet 9.5 fl Volume Immature 0.600 % Granulocytes % Neutrophils % 63.0 % Lymphocytes % 17.0 % Monocytes % 6.6 % Eosinophils % 12.4 % Basophils % 0.4 % Nucleated Red 0.0 /100WBC Blood Cells % Immature 0.080 10^3/ul Granulocytes # Neutrophils # 8.9 10^3/ul Lymphocytes # 2.4 10^3/ul Monocytes # 0.9 10^3/ul Eosinophils # 1.8 10^3/ul Basophils # 0.1 10^3/ul Nucleated Red 0.0 10^3/ul Blood Cells # Sodium Level 142 mmol/L Potassium Level 4.5 mmol/L Chloride Level 102 mmol/L Carbon Dioxide 24 mmol/L Level Anion Gap 16 Blood Urea 31 mg/dl Nitrogen Creatinine 5.57 mg/dl Est Glomerular 8 mL/min Filtrat Rate mL/min Glucose Level 197 mg/dl Calcium Level 9.6 mg/dl Assessment and Plan Assessment/Diagnosis Diagnosis Schizoaffective disorder depressed type Recommendation/Plan Medication Management Seroquel 100 mg now and nightly Multiple antipsychotics: No Discharge Disposition: Other Legal Status: Voluntary (Does not meet criteria for 5150 hold) BHASKAR MENDOZA NP April 08, 2019 11:36
[2019-04-08] MEDS: HEPARIN 1000 UNITS/ML 10 ML INJ CATHETER SCH (12:03)
[2019-04-08] MEDS: MULTIVITAMINS/MINERALS TAB PO SCH (12:39)
[2019-04-08] MEDS: ZINC SULFATE 220 MG CAP PO SCH (12:39)
[2019-04-08] MEDS: MULTIVITAMINS THERAPEUTIC TAB PO SCH (12:40)
[2019-04-08] MEDS: FERROUS SULFATE (EC) 325 MG TAB PO SCH ×2 (12:40→20:37)
[2019-04-08] MEDS: ASPIRIN 81 MG TAB PO SCH (12:40)
[2019-04-08] MEDS: FOLIC ACID 1 MG TAB PO SCH (12:40)
[2019-04-08] MEDS: CHOLECALCIFEROL 1,000 UNIT TAB PO SCH (12:41)
[2019-04-08] MEDS: ASCORBIC ACID 500 MG TAB PO SCH (12:53)
--- NOTE | 2019-04-08 15:01 | PN ---
Date/Time of Note Date/Time of Note DATE: 04/08/19 TIME: 14:59 Assessment/Plan VTE Prophylaxis Risk score (from Ns)>0 risk: 6 SCD applied (from Nsg): Yes Pharmacological prophylaxis: heparin Lines/Catheters IV Catheter Type (from Nrs): Saline Lock Assessment/Plan Assessment/Plan Assessment: Macrocytic anemia -FOBT-positive -Abd- US- The liver demonstrates normal echogenicity and normal size without focal lesions Coagulopathy- improved Encephalopathy -Likely secondary to polypharmacy vs other -Ammonia - negative Scabies rash -Confirmed on skin scrapings -S/p Ivermectin and permethrin treatments End-stage renal disease on hemodialysis Hypertension Diabetes mellitus Hyperkalemia Anxiety/possible schizoaffective disorder Plan: Currently no plan for EGD/colonoscopy Pt remains confused- no overt signs of GI bleed- hgb is currently stable Recommend f/u as an out-pt for EGD/colonoscopy Patient is seen in collaboration with Dr. Arthur Subjective: Course reviewed with nursing staff Patient interviewed and examined All labs, imaging and other results reviewed The patient remains confused, and in isolation for scabies. Denies abdominal pain, nausea or vomiting. There is no evidence of hematochezia, melena, or hematemesis . Hemoglobin is trending up. No bowel movement today. Patient has been hypotensive today. Pending discharge tomorrow. Exam PHYSICAL EXAMINATION: GENERAL: Alert & oriented to name place, confused SKIN: Scabies rash generalized HEAD: Normocephalic, atraumatic, no tenderness. EYES: Pupils equal reactive to light, no discharge. EARS/NOSE AND THROAT: Ears normal, nose normal. NECK: Supple, no masses. CHEST: Inspection within normal limits. CARDIOVASCULAR: Heart: Regular rate and rhythm RESPIRATORY: Lungs clear to auscultation GASTROINTESTINAL AND LIVER: Abdomen: Soft, non tenderness, non-distended, normoactive bowel sounds. Rectal: Deferred. GENITOURINARY: Female genitalia within normal limits. EXTREMITIES: No cyanosis, clubbing or edema. Result Diagram: 04/08/19 0600 04/08/19 0600 Results 24hrs Laboratory Tests Test 04/07/19 17:24 04/07/19 20:48 04/08/19 06:00 04/08/19 08:46 Bedside Glucose 126 126 155 White Blood Count 14.2 #H Red Blood Count 2.82 L Hemoglobin 9.3 L Hematocrit 30.4 L Mean Corpuscular 107.8 H Volume Mean Corpuscular 33.0 Hemoglobin Mean Corpuscular 30.6 L Hemoglobin Concent Red Cell 17.6 H Distribution Width Platelet Count 190 Mean Platelet Volume 9.5 Immature 0.600 H Granulocytes % Neutrophils % 63.0 Lymphocytes % 17.0 Monocytes % 6.6 Eosinophils % 12.4 H Basophils % 0.4 Nucleated Red Blood 0.0 Cells % Immature 0.080 H Granulocytes # Neutrophils # 8.9 H Lymphocytes # 2.4 Monocytes # 0.9 Eosinophils # 1.8 H Basophils # 0.1 Nucleated Red Blood 0.0 Cells # Sodium Level 142 Potassium Level 4.5 Chloride Level 102 Carbon Dioxide Level 24 Anion Gap 16 #H Blood Urea Nitrogen 31 H Creatinine 5.57 H Est Glomerular 8 L Filtrat Rate mL/min Glucose Level 197 Calcium Level 9.6 Test 04/08/19 12:35 Bedside Glucose 247 H CC: HEATH ARTHUR MD ; Exam/Review of Systems Exam Vitals Vital Signs Date Temp Pulse Resp B/P (MAP) Pulse Ox O2 O2 Flow FiO2 Time Delivery Rate 04/08/19 97.2 104 16 79/41 (54) 91 Room Air 14:00 04/04/19 21 16:29 Intake and Output 04/07/19 04/07/19 04/08/19 1515:00 23:00 07:00 IntakeIntake Total 200 ml BalanceBalance 200 ml Results Results 24hrs Laboratory Tests Test 04/07/19 17:24 04/07/19 20:48 04/08/19 06:00 04/08/19 08:46 Bedside Glucose 126 126 155 White Blood Count 14.2 #H Red Blood Count 2.82 L Hemoglobin 9.3 L Hematocrit 30.4 L Mean Corpuscular 107.8 H Volume Mean Corpuscular 33.0 Hemoglobin Mean Corpuscular 30.6 L Hemoglobin Concent Red Cell 17.6 H Distribution Width Platelet Count 190 Mean Platelet Volume 9.5 Immature 0.600 H Granulocytes % Neutrophils % 63.0 Lymphocytes % 17.0 Monocytes % 6.6 Eosinophils % 12.4 H Basophils % 0.4 Nucleated Red Blood 0.0 Cells % Immature 0.080 H Granulocytes # Neutrophils # 8.9 H Lymphocytes # 2.4 Monocytes # 0.9 Eosinophils # 1.8 H Basophils # 0.1 Nucleated Red Blood 0.0 Cells # Sodium Level 142 Potassium Level 4.5 Chloride Level 102 Carbon Dioxide Level 24 Anion Gap 16 #H Blood Urea Nitrogen 31 H Creatinine 5.57 H Est Glomerular 8 L Filtrat Rate mL/min Glucose Level 197 Calcium Level 9.6 Test 04/08/19 12:35 Bedside Glucose 247 H Medications Medication Current Medications IV Flush (NS 3 ml) 3 ml PER PROTOCOL IV ; Start 04/04/19 at 16:30 Ondansetron HCl (Zofran Inj) 4 mg Q6H PRN IV NAUSEA/VOMITING; Start 04/04/19 at 16:30 Acetaminophen (Tylenol Tab) 650 mg Q6H PRN PO .PAIN 1-3 OR TEMP; Start 04/04/19 at 16:30 Acetaminophen/ Hydrocodone Bitart ([place] (5/325)) 1 tab Q6H PRN PO .MOD PAIN 4- 6 Last administered on 04/07/19at 04:08; Admin Dose 1 TAB; Start 04/04/19 at 16:30 Docusate Sodium (Colace) 100 mg Q12H PRN PO .CONSTIPATION; Start 04/04/19 at 16:30 Magnesium Hydroxide (Milk Of Mag) 30 ml DAILY PRN PO .CONSTIPATION; Start 04/04/19 at 16:30 Albuterol/ Ipratropium (Duoneb) 3 ml Q4H RESP THERAPY PRN HHN SHORTNESS OF BREATH; Start 04/04/19 at 16:30 Hydralazine HCl (Apresoline) 10 mg Q6H PRN IV ELEVATED BLOOD PRESSURE; Start 04/04/19 at 16:30 Nitroglycerin (Nitroglycerin (Sl Tab) 0.4 Mg) 1 tab Q5M PRN SL ANGINA; Start 04/04/19 at 16:30 Diagnostic Test (Pha) (Accu-Chek) 1 ea 02 XX ; Start 04/05/19 at 02:00 Miscellaneous Information 1 ea NOTE XX ; Start 04/04/19 at 17:00 Glucose (Glutose) 15 gm Q15M PRN PO DECREASED GLUCOSE; Start 04/04/19 at 17:00 Glucose (Glutose) 22.5 gm Q15M PRN PO DECREASED GLUCOSE; Start 04/04/19 at 17:00 Dextrose (D50w Syringe) 25 ml Q15M PRN IV DECREASED GLUCOSE; Start 04/04/19 at 17:00 Dextrose (D50w Syringe) 50 ml Q15M PRN IV DECREASED GLUCOSE; Start 04/04/19 at 17:00 Glucagon (Glucagen) 1 mg Q15M PRN IM DECREASED GLUCOSE; Start 04/04/19 at 17:00 Glucose (Glutose) 15 gm Q15M PRN BUCCAL DECREASED GLUCOSE; Start 04/04/19 at 17:00 Epoetin Christian-epbx (Retacrit (Non-Esrd)) 10,000 unit MoWeFr@1700 SC Last administered on 04/06/19 17:39; Admin Dose 10,000 UNIT; Start 04/06/19 at 17:00 Heparin Sodium (Porcine) (Heparin (1000 Units/ml)) 4,000 unit AFTER DIALYSIS CATHETER Last administered on 04/08/19 12:03; Admin Dose 3,700 UNIT; Start 04/05/19 at 01:00 Insulin Aspart (Novolog Insulin Pen) NOVOLOG *MILD* ALGORI... AC MEALS AND BEDTIME SC Last administered on 04/08/19 12:56; Admin Dose 3 UNIT; Start 04/05/19 at 17:25 Multivitamins Therapeutic (Theragran) 1 tab DAILY PO Last administered on 04/08/19 12:40; Admin Dose 1 TAB; Start 04/05/19 at 14:30 Zinc Sulfate (Zinc Sulfate) 220 mg DAILY PO Last administered on 04/08/19 12:39; Admin Dose 220 MG; Start 04/05/19 at 14:30 Aspirin (Aspirin) 81 mg DAILY PO Last administered on 04/08/19 12:40; Admin Dose 81 MG; Start 04/06/19 at 09:00 Atorvastatin Calcium (Lipitor) 10 mg QHS PO Last administered on 04/07/19 20:45; Admin Dose 10 MG; Start 04/05/19 at 21:00 Bisacodyl (Dulcolax Supp) 10 mg DAILY PRN [place] CONSTIPATION; Start 04/05/19 at 14:30 Cholecalciferol (Vitamin D) 1,000 unit DAILY PO Last administered on 04/08/19 12:41; Admin Dose 1,000 UNIT; Start 04/06/19 at 09:00 Ferrous Sulfate (Ferrous Sulfate (Ec)) 325 mg BID PO Last administered on 04/08/19 12:40; Admin Dose 325 MG; Start 04/05/19 at 21:00 Levothyroxine Sodium (Synthroid) 150 mcg BEFORE BREAKFAST PO Last administered on 04/08/19 06:47; Admin Dose 150 MCG; Start 04/06/19 at 07:00 Sevelamer Carbonate (Renvela) 1.6 gm WITH MEALS PO Last administered on 04/08/19 12:53; Admin Dose 1.6 GM; Start 04/05/19 at 17:55 Multivitamins/ Minerals (Theragran-M) 1 tab DAILY PO Last administered on 04/08/19 12:39; Admin Dose 1 TAB; Start 04/06/19 at 09:00 Ascorbic Acid (Vitamin C) 500 mg DAILY PO Last administered on 04/08/19 12:53; Admin Dose 500 MG; Start 04/06/19 at 09:00 Folic Acid (Folic Acid) 1 mg DAILY PO Last administered on 04/08/19 12:40; Admin Dose 1 MG; Start 04/06/19 at 09:00 Triamcinolone Acetonide (Kenalog 0.1% Cr) 1 applic BID PRN TOP ITCHING Last administered on 04/07/19 08:46; Admin Dose 1 APPLIC; Start 04/06/19 at 13:00 Lorazepam (Ativan) 0.5 mg Q8H PRN IV ANXIETY Last administered on 04/08/19 05:13; Admin Dose 0.5 MG; Start 04/06/19 at 15:40 Quetiapine Fumarate (Seroquel) 100 mg HS PO ; Start 04/08/19 at 21:00 Pantoprazole (Protonix Tab) 40 mg DAILY@06 PO ; Start 04/09/19 at 06:00 MAG RUBIN NP April 08, 2019 15:01
--- NOTE | 2019-04-08 15:53 | PN ---
Date/Time of Note Date/Time of Note DATE: 04/08/19 TIME: 15:48 Assessment/Plan VTE Prophylaxis Risk score (from Nsg)>0 risk: 6 SCD applied (from Nsg): Yes Pharmacological prophylaxis: other Lines/Catheters IV Catheter Type (from Nrsg): Saline Lock Assessment/Plan Hospital Course S: Patient had dialysis this morning, blood pressure was stable overnight but this morning systolic is in the high 70 range, slightly tachycardic to the 105- 110 range. No fevers. White blood cell count slightly more elevated today. Was on restraints earlier but now off. O: VS - see below PE: Gen: Lying in bed, still occasionally lethargic Head: Atraumatic Eyes: Normal Conjunctiva ENT: Normal External Ears, Nose and Mouth. Neck: Supple Resp: Clear to auscultation bilaterally Cardio: Regular rate and rhythm, no murmurs Abd: Soft, non tender, non distended. Normal bowel sounds Ext: No lower extremity edema bilaterally Neuro: No focal deficits Skin: rash noted on the back and shoulder area Assessment and plan: 63-year-old female nursing facility diabetes, hypertension, schizoaffective disorder, end-stage renal disease, CAD who presents with encephalopathy and hyperkalemia. #Encephalopathy: Likely secondary to polypharmacy. Also patient presented with potassium 5.6 on admission, which has since improved -Monitor, continue low-dose IV fluids -Follow-up further recommendations from PT, OT, speech therapy consults # scabies rash -confirmed on skin scrapings test results -Status post ivermectin and permethrin treatments 2 days ago, continue isolation precautions for this, monitor labs and skin #Diabetes: 5.6 equals A1c -Monitor, continue sliding scale insulin as needed # HTN: Stable -Monitor, continue current meds # ESRD: on HD -Appreciate renal recommendations, continue dialysis per the recommendations #Hyperkalemia: Possibly secondary to above -resolving -Monitor BMP, continue dialysis per renal recommendations # anxiety/possible schizoaffective disorder: -Only give Ativan as needed for now, appreciate psychiatry eval, they have recommended also putting her back on Seroquel which we will do twice daily. # anemia - of note hemoglobin on admission was 6.5, no signs of any upper or lower GI bleeding. Hemoglobin stable after PRBC transfusion given 4 days ago, stool occult test is positive. -Monitor for now, again consulting GI team because of the positive stool occult test result -patient unable to consent for EGD colonoscopy at this time and since hemoglobin is stable they are recommending outpatient follow-up for EGD and colonoscopy at that time Dispo: Case management stating likely can go back to her previous nursing facility once isolation bed has been set up. Result Diagram: 04/08/19 0600 04/08/19 0600 Results 24hrs Laboratory Tests Test 04/07/19 17:24 04/07/19 20:48 04/08/19 06:00 04/08/19 08:46 Bedside Glucose 126 126 155 White Blood Count 14.2 #H Red Blood Count 2.82 L Hemoglobin 9.3 L Hematocrit 30.4 L Mean Corpuscular 107.8 H Volume Mean Corpuscular 33.0 Hemoglobin Mean Corpuscular 30.6 L Hemoglobin Concent Red Cell 17.6 H Distribution Width Platelet Count 190 Mean Platelet Volume 9.5 Immature 0.600 H Granulocytes % Neutrophils % 63.0 Lymphocytes % 17.0 Monocytes % 6.6 Eosinophils % 12.4 H Basophils % 0.4 Nucleated Red Blood 0.0 Cells % Immature 0.080 H Granulocytes # Neutrophils # 8.9 H Lymphocytes # 2.4 Monocytes # 0.9 Eosinophils # 1.8 H Basophils # 0.1 Nucleated Red Blood 0.0 Cells # Sodium Level 142 Potassium Level 4.5 Chloride Level 102 Carbon Dioxide Level 24 Anion Gap 16 #H Blood Urea Nitrogen 31 H Creatinine 5.57 H Est Glomerular 8 L Filtrat Rate mL/min Glucose Level 197 Calcium Level 9.6 Test 04/08/19 12:35 Bedside Glucose 247 H Exam/Review of Systems Exam Vitals Vital Signs Date Temp Pulse Resp B/P (MAP) Pulse Ox O2 O2 Flow FiO2 Time Delivery Rate 04/08/19 97.2 104 16 79/41 (54) 91 Room Air 14:00 04/04/19 21 16:29 Intake and Output 04/07/19 04/07/19 04/08/19 1515:00 23:00 07:00 IntakeIntake Total 200 ml BalanceBalance 200 ml Results Results 24hrs Laboratory Tests Test 04/07/19 17:24 04/07/19 20:48 04/08/19 06:00 04/08/19 08:46 Bedside Glucose 126 126 155 White Blood Count 14.2 #H Red Blood Count 2.82 L Hemoglobin 9.3 L Hematocrit 30.4 L Mean Corpuscular 107.8 H Volume Mean Corpuscular 33.0 Hemoglobin Mean Corpuscular 30.6 L Hemoglobin Concent Red Cell 17.6 H Distribution Width Platelet Count 190 Mean Platelet Volume 9.5 Immature 0.600 H Granulocytes % Neutrophils % 63.0 Lymphocytes % 17.0 Monocytes % 6.6 Eosinophils % 12.4 H Basophils % 0.4 Nucleated Red Blood 0.0 Cells % Immature 0.080 H Granulocytes # Neutrophils # 8.9 H Lymphocytes # 2.4 Monocytes # 0.9 Eosinophils # 1.8 H Basophils # 0.1 Nucleated Red Blood 0.0 Cells # Sodium Level 142 Potassium Level 4.5 Chloride Level 102 Carbon Dioxide Level 24 Anion Gap 16 #H Blood Urea Nitrogen 31 H Creatinine 5.57 H Est Glomerular 8 L Filtrat Rate mL/min Glucose Level 197 Calcium Level 9.6 Test 04/08/19 12:35 Bedside Glucose 247 H Medications Medication Current Medications IV Flush (NS 3 ml) 3 ml PER PROTOCOL IV ; Start 04/04/19 at 16:30 Ondansetron HCl (Zofran Inj) 4 mg Q6H PRN IV NAUSEA/VOMITING; Start 04/04/19 at 16:30 Acetaminophen (Tylenol Tab) 650 mg Q6H PRN PO .PAIN 1-3 OR TEMP; Start 04/04/19 at 16:30 Acetaminophen/ Hydrocodone Bitart ([place] (5/325)) 1 tab Q6H PRN PO .MOD PAIN 4- 6 Last administered on 04/07/19at 04:08; Admin Dose 1 TAB; Start 04/04/19 at 16:30 Docusate Sodium (Colace) 100 mg Q12H PRN PO .CONSTIPATION; Start 04/04/19 at 1 6:30 Magnesium Hydroxide (Milk Of Mag) 30 ml DAILY PRN PO .CONSTIPATION; Start 04/04/19 at 16:30 Albuterol/ Ipratropium (Duoneb) 3 ml Q4H RESP THERAPY PRN HHN SHORTNESS OF BREATH; Start 04/04/19 at 16:30 Hydralazine HCl (Apresoline) 10 mg Q6H PRN IV ELEVATED BLOOD PRESSURE; Start 04/04/19 at 16:30 Nitroglycerin (Nitroglycerin (Sl Tab) 0.4 Mg) 1 tab Q5M PRN SL ANGINA; Start 04/04/19 at 16:30 Diagnostic Test (Pha) (Accu-Chek) 1 ea 02 XX ; Start 04/05/19 at 02:00 Miscellaneous Information 1 ea NOTE XX ; Start 04/04/19 at 17:00 Glucose (Glutose) 15 gm Q15M PRN PO DECREASED GLUCOSE; Start 04/04/19 at 17:00 Glucose (Glutose) 22.5 gm Q15M PRN PO DECREASED GLUCOSE; Start 04/04/19 at 17:00 Dextrose (D50w Syringe) 25 ml Q15M PRN IV DECREASED GLUCOSE; Start 04/04/19 at 17:00 Dextrose (D50w Syringe) 50 ml Q15M PRN IV DECREASED GLUCOSE; Start 04/04/19 at 17:00 Glucagon (Glucagen) 1 mg Q15M PRN IM DECREASED GLUCOSE; Start 04/04/19 at 17:00 Glucose (Glutose) 15 gm Q15M PRN BUCCAL DECREASED GLUCOSE; Start 04/04/19 at 17:00 Epoetin Christian-epbx (Retacrit (Non-Esrd)) 10,000 unit MoWeFr@1700 SC Last administered on 04/06/19at 17:39; Admin Dose 10,000 UNIT; Start 04/06/19 at 17:00 Heparin Sodium (Porcine) (Heparin (1000 Units/ml)) 4,000 unit AFTER DIALYSIS CATHETER Last administered on 04/08/19 12:03; Admin Dose 3,700 UNIT; Start 04/05/19 at 01:00 Insulin Aspart (Novolog Insulin Pen) NOVOLOG *MILD* ALGORI... AC MEALS AND BEDTIME SC Last administered on 04/08/19at 12:56; Admin Dose 3 UNIT; Start 04/05/19 at 17:25 Multivitamins Therapeutic (Theragran) 1 tab DAILY PO Last administered on 04/08/19 12:40; Admin Dose 1 TAB; Start 04/05/19 at 14:30 Zinc Sulfate (Zinc Sulfate) 220 mg DAILY PO Last administered on 04/08/19 12:39; Admin Dose 220 MG; Start 04/05/19 at 14:30 Aspirin (Aspirin) 81 mg DAILY PO Last administered on 04/08/19 12:40; Admin Dose 81 MG; Start 04/06/19 at 09:00 Atorvastatin Calcium (Lipitor) 10 mg QHS PO Last administered on 04/07/19 20:45; Admin Dose 10 MG; Start 04/05/19 at 21:00 Bisacodyl (Dulcolax Supp) 10 mg DAILY PRN [place] CONSTIPATION; Start 04/05/19 at 14:30 Cholecalciferol (Vitamin D) 1,000 unit DAILY PO Last administered on 04/08/19 12:41; Admin Dose 1,000 UNIT; Start 04/06/19 at 09:00 Ferrous Sulfate (Ferrous Sulfate (Ec)) 325 mg BID PO Last administered on 04/08/19 12:40; Admin Dose 325 MG; Start 04/05/19 at 21:00 Levothyroxine Sodium (Synthroid) 150 mcg BEFORE BREAKFAST PO Last administered on 04/08/19 06:47; Admin Dose 150 MCG; Start 04/06/19 at 07:00 Sevelamer Carbonate (Renvela) 1.6 gm WITH MEALS PO Last administered on 04/08/19 12:53; Admin Dose 1.6 GM; Start 04/05/19 at 17:55 Multivitamins/ Minerals (Theragran-M) 1 tab DAILY PO Last administered on 04/08/19 12:39; Admin Dose 1 TAB; Start 04/06/19 at 09:00 Ascorbic Acid (Vitamin C) 500 mg DAILY PO Last administered on 04/08/19 12:53; Admin Dose 500 MG; Start 04/06/19 at 09:00 Folic Acid (Folic Acid) 1 mg DAILY PO Last administered on 04/08/19 12:40; Admin Dose 1 MG; Start 04/06/19 at 09:00 Triamcinolone Acetonide (Kenalog 0.1% Cr) 1 applic BID PRN TOP ITCHING Last administered on 04/07/19 08:46; Admin Dose 1 APPLIC; Start 04/06/19 at 13:00 Lorazepam (Ativan) 0.5 mg Q8H PRN IV ANXIETY Last administered on 04/08/19 05:13; Admin Dose 0.5 MG; Start 04/06/19 at 15:40 Quetiapine Fumarate (Seroquel) 100 mg HS PO ; Start 04/08/19 at 21:00 Pantoprazole (Protonix Tab) 40 mg DAILY@06 PO ; Start 04/09/19 at 06:00 KRISTIN ALSTON April 08, 2019 15:53
[2019-04-08] MEDS: EPOETIN ALFA-EPBX (NON-ESRD 10,000 UNIT/ML VIAL SC SCH (16:21)
[2019-04-08] MEDS: ATORVASTATIN 10 MG TAB PO SCH (20:37)
[2019-04-08] MEDS: HYDROCODONE/APAP (5/325) TAB PO PRN (20:37)
[2019-04-08] MEDS: QUETIAPINE 100 MG TAB PO SCH (20:37)
[2019-04-09] MEDS: ACCU-CHEK XX SCH (02:00)
[2019-04-09 02:35] VITALS: BP 90/51; PULSE 109; RESP 20
[2019-04-09] MEDS: LEVOTHYROXINE 150 MCG TAB PO SCH (06:21)
[2019-04-09] MEDS: PANTOPRAZOLE (EC) 40 MG TAB PO SCH (06:21)
[2019-04-09 07:51] VITALS: BP 91/59; PULSE 99; RESP 18
[2019-04-09] MEDS: ASPIRIN 81 MG TAB PO SCH (08:45)
[2019-04-09] MEDS: MULTIVITAMINS/MINERALS TAB PO SCH (08:45)
[2019-04-09] MEDS: ASCORBIC ACID 500 MG TAB PO SCH (08:45)
[2019-04-09] MEDS: ZINC SULFATE 220 MG CAP PO SCH (08:45)
[2019-04-09] MEDS: SEVELAMER CARBONATE 0.8 GM PKT PO SCH ×3 (08:45→17:17)
[2019-04-09] MEDS: FERROUS SULFATE (EC) 325 MG TAB PO SCH ×2 (08:46→21:14)
[2019-04-09] MEDS: FOLIC ACID 1 MG TAB PO SCH (08:46)
[2019-04-09] MEDS: CHOLECALCIFEROL 1,000 UNIT TAB PO SCH (08:46)
[2019-04-09] MEDS: BALSAM PERU/CASTOR OIL 60 GM TUBE TOP SCH ×2 (08:46→21:15)
[2019-04-09] MEDS: INSULIN ASPART [NOVOLOG] 3 ML PEN SC SCH ×4 (08:48→21:21)
--- NOTE | 2019-04-09 08:50 | PN ---
DATE: 04/09/2019 SUBJECTIVE: The patient had hemodialysis yesterday. No other acute events noted. OBJECTIVE: VITAL SIGNS: Blood pressure is 90/51, respirations 20, pulse 109, temperature 98.2. HEENT: Head is normocephalic. NECK: Supple. HEART: Regular rate. LUNGS: Show diminished breath sounds at the base. ABDOMEN: Soft, nontender to palpation without rebound or guarding. EXTREMITIES: Negative for clubbing, cyanosis, no edema. DERMATOLOGIC: No rashes. MUSCULOSKELETAL: No joint effusion. NEUROLOGIC: No change in exam. MEDICATIONS: Reviewed. LABORATORY DATA: Reviewed. ASSESSMENT AND PLAN: 1. End-stage renal disease. The patient had hemodialysis yesterday, tolerated well. Anticipate nex t hemodialysis in 1 to 2 days. 2. Hyperkalemia, resolved. 3. Anemia. Continue to monitor hemoglobin and hematocrit levels. Continue Epogen. 4. Mineral bone disorder, monitor calcium and phosphorus levels. 5. Diabetes. Continue current insulin regimen. 6. Encephalopathy. Workup is ongoing. Possible psychiatric disorder. Continue to monitor. 7. Hypertension. The patient is now hypotensive. We will adjust blood pressure medications. We wi ll minimize ultrafiltration with dialysis. 8. History of schizophrenic disorder. Follow up with psychiatry. Dictated By: STEPHEN BREWER DO NR/NTS Conf#: [id number] DID#: [id number] CC: KRISTIN MURO [employer];*EndCC*
[2019-04-09 14:00] VITALS: BP 97/54; PULSE 94; RESP 18
--- NOTE | 2019-04-09 15:22 | PN ---
Date/Time of Note Date/Time of Note DATE: 04/09/19 TIME: 15:17 Assessment/Plan VTE Prophylaxis Risk score (from Nsg)>0 risk: 3 SCD applied (from Nsg): Yes Pharmacological prophylaxis: other Lines/Catheters IV Catheter Type (from Nrsg): Permacath Urinary Cath still in place: No Assessment/Plan Hospital Course S: Patient had dialysis yesterday. Had some fecal disimpaction performed ye sterday as well. O: VS - see below PE: Gen: Lying in bed, still occasionally lethargic Head: Atraumatic Eyes: Normal Conjunctiva ENT: Normal External Ears, Nose and Mouth. Neck: Supple Resp: Clear to auscultation bilaterally Cardio: Regular rate and rhythm, no murmurs Abd: Soft, non tender, non distended. Normal bowel sounds Ext: No lower extremity edema bilaterally Neuro: No focal deficits Skin: rash noted on the back and shoulder area Assessment and plan: 63-year-old female nursing facility diabetes, hypertension, schizoaffective disorder, end-stage renal disease, CAD who presents with encephalopathy and hyperkalemia. #Encephalopathy: Likely secondary to polypharmacy. Also patient presented with potassium 5.6 on admission, which has since improved -Monitor, continue low-dose IV fluids -Follow-up further recommendations from PT, OT, speech therapy consults -For fecal impaction, will order for Fleet enema daily as needed # scabies rash -confirmed on skin scrapings test results -Status post ivermectin and permethrin treatments 3 days ago, appears okay to take off isolation now, monitor labs and skin #Diabetes: 5.6 equals A1c -Monitor, continue sliding scale insulin as needed # HTN: Stable -Monitor, continue current meds # ESRD: on HD -Appreciate renal recommendations, continue dialysis per the recommendations #Hyperkalemia: Possibly secondary to above -resolving -Monitor BMP, continue dialysis per renal recommendations # anxiety/possible schizoaffective disorder: -Only give Ativan as needed for now, appreciate psychiatry eval, they have recommended also putting her back on Seroquel which we will do twice daily. # anemia - of note hemoglobin on admission was 6.5, no signs of any upper or lower GI bleeding. Hemoglobin in the low normal range today after PRBC transfusion given 5 days ago, stool occult test is positive. -Monitor for now, again consulting GI team because of the positive stool occult test result -patient unable to consent for EGD colonoscopy at this time and since hemoglobin overall appears stable they are recommending outpatient follow-up for EGD and colonoscopy at that time Dispo: Case management stating likely can go back to her previous nursing facility once bed is found. Result Diagram: 04/09/19 0827 04/09/19 0827 Results 24hrs Laboratory Tests Test 04/08/19 17:06 04/08/19 20:31 04/09/19 02:07 04/09/19 08:27 Bedside Glucose 140 235 H 208 White Blood Count 10.8 # Red Blood Count 2.44 L Hemoglobin 8.1 L Hematocrit 26.9 L Mean Corpuscular 110.2 H Volume Mean Corpuscular 33.2 H Hemoglobin Mean Corpuscular 30.1 L Hemoglobin Concent Red Cell 17.5 H Distribution Width Platelet Count 167 Mean Platelet Volume 9.1 Immature 0.500 H Granulocytes % Neutrophils % 63.2 Lymphocytes % 16.4 Monocytes % 5.5 Eosinophils % 13.9 H Basophils % 0.5 Nucleated Red Blood 0.0 Cells % Immature 0.050 H Granulocytes # Neutrophils # 6.9 Lymphocytes # 1.8 Monocytes # 0.6 Eosinophils # 1.5 H Basophils # 0.1 Nucleated Red Blood 0.0 Cells # Sodium Level 143 Potassium Level 4.3 Chloride Level 105 Carbon Dioxide Level 29 Anion Gap 9 # Blood Urea Nitrogen 16 # Creatinine 3.47 #H Est Glomerular 13 L Filtrat Rate mL/min Glucose Level 141 # Calcium Level 9.7 Test 04/09/19 08:42 04/09/19 12:50 Bedside Glucose 152 203 Exam/Review of Systems Exam Vitals Vital Signs Date Temp Pulse Resp B/P (MAP) Pulse Ox O2 O2 Flow FiO2 Time Delivery Rate 04/09/19 98.4 94 18 97/54 (68) 96 14:00 04/08/19 Room Air 19:50 Intake and Output 04/08/19 04/08/19 04/09/19 1515:00 23:00 07:00 IntakeIntake Total 480 ml 120 ml 240 ml OutputOutput Total 1350 ml BalanceBalance -870 ml 120 ml 240 ml Results Results 24hrs Laboratory Tests Test 04/08/19 17:06 04/08/19 20:31 04/09/19 02:07 04/09/19 08:27 Bedside Glucose 140 235 H 208 White Blood Count 10.8 # Red Blood Count 2.44 L Hemoglobin 8.1 L Hematocrit 26.9 L Mean Corpuscular 110.2 H Volume Mean Corpuscular 33.2 H Hemoglobin Mean Corpuscular 30.1 L Hemoglobin Concent Red Cell 17.5 H Distribution Width Platelet Count 167 Mean Platelet Volume 9.1 Immature 0.500 H Granulocytes % Neutrophils % 63.2 Lymphocytes % 16.4 Monocytes % 5.5 Eosinophils % 13.9 H Basophils % 0.5 Nucleated Red Blood 0.0 Cells % Immature 0.050 H Granulocytes # Neutrophils # 6.9 Lymphocytes # 1.8 Monocytes # 0.6 Eosinophils # 1.5 H Basophils # 0.1 Nucleated Red Blood 0.0 Cells # Sodium Level 143 Potassium Level 4.3 Chloride Level 105 Carbon Dioxide Level 29 Anion Gap 9 # Blood Urea Nitrogen 16 # Creatinine 3.47 #H Est Glomerular 13 L Filtrat Rate mL/min Glucose Level 141 # Calcium Level 9.7 Test 04/09/19 08:42 04/09/19 12:50 Bedside Glucose 152 203 Medications Medication Current Medications IV Flush (NS 3 ml) 3 ml PER PROTOCOL IV ; Start 04/04/19 at 16:30 Ondansetron HCl (Zofran Inj) 4 mg Q6H PRN IV NAUSEA/VOMITING; Start 04/04/19 at 16:30 Acetaminophen (Tylenol Tab) 650 mg Q6H PRN PO .PAIN 1-3 OR TEMP; Start 04/04/19 at 16:30 Acetaminophen/ Hydrocodone Bitart (Farrell (5/325)) 1 tab Q6H PRN PO .MOD PAIN 4- 6 Last administered on 04/08/19at 20:37; Admin Dose 1 TAB; Start 04/04/19 at 16:30 Docusate Sodium (Colace) 100 mg Q12H PRN PO .CONSTIPATION; Start 04/04/19 at 16:30 Magnesium Hydroxide (Milk Of Mag) 30 ml DAILY PRN PO .CONSTIPATION; Start 04/04/19 at 16:30 Albuterol/ Ipratropium (Duoneb) 3 ml Q4H RESP THERAPY PRN HHN SHORTNESS OF BREATH; Start 04/04/19 at 16:30 Hydralazine HCl (Apresoline) 10 mg Q6H PRN IV ELEVATED BLOOD PRESSURE; Start 04/04/19 at 16:30 Nitroglycerin (Nitroglycerin (Sl Tab) 0.4 Mg) 1 tab Q5M PRN SL ANGINA; Start 04/04/19 at 16:30 Diagnostic Test (Pha) (Accu-Chek) 1 ea 02 XX ; Start 04/05/19 at 02:00 Miscellaneous Information 1 ea NOTE XX ; Start 04/04/19 at 17:00 Glucose (Glutose) 15 gm Q15M PRN PO DECREASED GLUCOSE; Start 04/04/19 at 17:00 Glucose (Glutose) 22.5 gm Q15M PRN PO DECREASED GLUCOSE; Start 04/04/19 at 17:00 Dextrose (D50w Syringe) 25 ml Q15M PRN IV DECREASED GLUCOSE; Start 04/04/19 at 17:00 Dextrose (D50w Syringe) 50 ml Q15M PRN IV DECREASED GLUCOSE; Start 04/04/19 at 17:00 Glucagon (Glucagen) 1 mg Q15M PRN IM DECREASED GLUCOSE; Start 04/04/19 at 17:00 Glucose (Glutose) 15 gm Q15M PRN BUCCAL DECREASED GLUCOSE; Start 04/04/19 at 17:00 Epoetin Christian-epbx (Retacrit (Non-Esrd)) 10,000 unit MoWeFr@1700 SC Last administered on 04/08/19at 16:21; Admin Dose 10,000 UNIT; Start 04/06/19 at 17:00 Heparin Sodium (Porcine) (Heparin (1000 Units/ml)) 4,000 unit AFTER DIALYSIS CATHETER Last administered on 04/08/19at 12:03; Admin Dose 3,700 UNIT; Start 04/05/19 at 01:00 Insulin Aspart (Novolog Insulin Pen) NOVOLOG *MILD* ALGORI... AC MEALS AND BEDTIME SC Last administered on 04/09/19at 13:10; Admin Dose 2 UNIT; Start 04/05/19 at 17:25 Zinc Sulfate (Zinc Sulfate) 220 mg DAILY PO Last administered on 04/09/19at 08:45; Admin Dose 220 MG; Start 04/05/19 at 14:30 Aspirin (Aspirin) 81 mg DAILY PO Last administered on 04/09/19at 08:45; Admin Dose 81 MG; Start 04/06/19 at 09:00 Atorvastatin Calcium (Lipitor) 10 mg QHS PO Last administered on 04/08/19 20:37; Admin Dose 10 MG; Start 04/05/19 at 21:00 Bisacodyl (Dulcolax Supp) 10 mg DAILY PRN TN CONSTIPATION Last administered on 04/08/19 17:33; Admin Dose 10 MG; Start 04/05/19 at 14:30 Cholecalciferol (Vitamin D) 1,000 unit DAILY PO Last administered on 04/09/19 08:46; Admin Dose 1,000 UNIT; Start 04/06/19 at 09:00 Ferrous Sulfate (Ferrous Sulfate (Ec)) 325 mg BID PO Last administered on 08:46; Admin Dose 325 MG; Start 04/05/19 at 21:00 Levothyroxine Sodium (Synthroid) 150 mcg BEFORE BREAKFAST PO Last administered on 04/09/19 06:21; Admin Dose 150 MCG; Start 04/06/19 at 07:00 Sevelamer Carbonate (Renvela) 1.6 gm WITH MEALS PO Last administered on 04/09/19 13:09; Admin Dose 1.6 GM; Start 04/05/19 at 17:55 Multivitamins/ Minerals (Theragran-M) 1 tab DAILY PO Last administered on 04/09/19 08:45; Admin Dose 1 TAB; Start 04/06/19 at 09:00 Ascorbic Acid (Vitamin C) 500 mg DAILY PO Last administered on 04/09/19 08:45; Admin Dose 500 MG; Start 04/06/19 at 09:00 Folic Acid (Folic Acid) 1 mg DAILY PO Last administered on 04/09/19 08:46; Admin Dose 1 MG; Start 04/06/19 at 09:00 Triamcinolone Acetonide (Kenalog 0.1% Cr) 1 applic BID PRN TOP ITCHING Last administered on 04/07/19 08:46; Admin Dose 1 APPLIC; Start 04/06/19 at 13:00 Lorazepam (Ativan) 0.5 mg Q8H PRN IV ANXIETY Last administered on 04/08/19 05:13; Admin Dose 0.5 MG; Start 04/06/19 at 15:40 Quetiapine Fumarate (Seroquel) 100 mg HS PO Last administered on 04/08/19 20:37; Admin Dose 100 MG; Start 04/08/19 at 21:00 Pantoprazole (Protonix Tab) 40 mg DAILY@06 PO Last administered on 04/09/19at 06:21; Admin Dose 40 MG; Start 04/09/19 at 06:00 Sodium Biphosphate/ Sodium Phosphate (Fleet Enema) 133 ml DAILY PRN TN CONSTIPATION; Start 04/09/19 at 15:30; Status UNV KRISTIN ALSTON April 09, 2019 15:22
[2019-04-09] MEDS ORDERED: NA PHOSPHATE/BIPHOS 133 ML ENEMA PR PRN (15:30)
--- NOTE | 2019-04-09 15:38 | PDOCDIS ---
Discharge Instructions CONDITION [id number] Patient Condition: [id number] Stable KRISTIN ALSTON April 09, 2019 15:38
--- NOTE | 2019-04-09 15:42 | DS ---
Date/Time of Note Date/Time of Note DATE: 04/09/19 TIME: 15:39 Discharge Summary Admission/Discharge Info Admit Date/Time April 04, 2019 at 15:45 Discharge Date/Time Discharge Diagnosis #Encephalopathy: Likely secondary to polypharmacy -resolving now. # scabies rash -confirmed on skin scrapings test results -Status post ivermectin and permethrin treatments this admission, off isolation now #Diabetes: 5.6 equals A1c # HTN: Stable # ESRD: on HD #Hyperkalemia: Resolved, possibly secondary to above # anxiety/possible schizoaffective disorder: -Only give Ativan as needed for now, appreciate psychiatry eval, they have recommended Seroquel twice daily # anemia -hemoglobin improved after PRBC transfusion given. Patient was stool occult positive, but again per GI team outpatient EGD colonoscopy can be performed, no signs of any current upper or lower GI bleeding. Patient Condition: Stable Hx of Present Illness 63-year-old female coming from housing or nursing facility today, past history diabetes, hypertension, anxiety and possible schizoaffective disorder, coronary artery disease, anemia chronic disease, end-stage renal disease on dialysis, high cholesterol, who was sent in because of encephalopathy. Most of the information is obtained from the ER documentation as the patient is unable to provide full HPI at this time so for review systems cannot be obtained. When the patient came in she was found with elevated potassium levels 5.6 and she received the 50, albuterol, insulin. She was also found creatinine 5.48, but she is a dialysis patient. She was also hemoglobin 6.5. Hospital Course Patient was admitted and her benzodiazepine and psychiatry medications were held on admission. Her encephalopathy slowly improved. It was thought that her encephalopathy was secondary to combination of polypharmacy and also some hyperkalemia. She continued on dialysis and her labs improve afterwards. She was also found with positive scabies and given treatment for this hyperbaric and permethrin treatments. She also had some fecal impaction and this was disimpacted and she was given constipation medicines which help improve this. Over the course of her hospital stay her symptoms slowly improved. She was found with low hemoglobin levels in the 6 range and received PRBC transfusion on his hospital stay. Hemoglobin remained stable afterwards. Her stool occult test was positive however, and GI team evaluate the patient, because patient's hemoglobin remained overall stable, they recommended outpatient follow-up for EGD and colonoscopy at that time. Patient is back at baseline status, tolerating diet. She will be discharged back to senior living facility today in improved condition. See printed medicine reconciliation sheet for full list of discharge medications. Home Meds Reported Medications Insulin Lispro (Humalog) 100 Unit/1 Ml Cartridge, 0 SQ Q6H PRN for SLIDING SCALE, EA 04/04/19 Levothyroxine Sodium* (Levothyroxine Sodium*) 150 Mcg Tablet, 150 MCG PO BEFORE BREAKFAST, #30 TAB 04/04/19 Midodrine* (Midodrine*) 10 Mg Tablet, 10 MG PO TID, TAB 04/04/19 Polyethylene Glycol* (Miralax*) 17 Gm Powd.pack, 17 GM PO DAILY, #30 PACKET 04/04/19 Raloxifene Hcl* (Evista*) 60 Mg Tablet, 60 MG PO DAILY, TAB 04/04/19 Sennosides* (Senna Lax*) 8.6 Mg Tablet, 2 TAB PO QHS, TAB 04/04/19 Sodium Bicarbonate* (Sodium Bicarbonate*) 650 Mg Tablet, 1300 MG PO BID, TAB 04/04/19 Cholecalciferol* (Vitamin D3*) 1,000 Unit Tablet, 1000 UNIT PO DAILY, TAB 04/04/19 Acetaminophen* (Tylenol*) 325 Mg Tablet, 650 MG PO Q4H PRN for MILD PAIN LEVEL 1-3, TAB AND FEVER 04/04/19 Clonazepam* (Clonazepam*) 0.5 Mg Tablet, 0.5 MG PO Q12H for ANXIETY, TAB 04/04/19 Lorazepam* (Lorazepam*) 1 Mg Tablet, 1 MG PO HS PRN for ANXIETY, #30 TAB Q TU,SAT 04/04/19 Olanzapine* (Zyprexa*) 5 Mg Tablet, 5 MG PO QHS, #30 TAB 04/04/19 Olanzapine* (Zyprexa*) 2.5 Mg Tablet, 2.5 MG PO QAM, #30 TAB 04/04/19 Trazodone Hcl* (Trazodone Hcl*) 50 Mg Tablet, 50 MG PO QHS, #30 TAB 04/04/19 Insulin Glargine,Hum.rec.anlog (Basaglar Kwikpen U-100) 100 Unit/1 Ml Insuln.pen, 12 UNIT SC DAILY, EA 04/04/19 Sevelamer Carbonate* (Renvela*) 800 Mg Tablet, 1600 GM PO WITH MEALS, TAB 04/04/19 Diazepam* (Diazepam*) 5 Mg Tablet, 5 MG PO Q12H, TAB 04/04/19 Quetiapine Fumarate* (Quetiapine Fumarate*) 25 Mg Tablet, 100 MG PO BID, TAB 04/04/19 Haloperidol* (Haldol*) 5 Mg Tab, 5 MG PO BID, TAB 04/04/19 Atorvastatin Calcium (Atorvastatin Calcium) 10 Mg Tablet, 10 MG PO QHS, #30 TAB 04/04/19 Ondansetron Hcl* (Zofran*) 4 Mg Tab, 4 MG PO Q4H PRN for NAUSEA AND OR VOMITING, TAB 04/04/19 Acetaminophen* (Acetaminophen*) 500 MG Extra Strength Tablet, 1000 MG PO Q6H PRN for PAIN 4-05/25, TAB 04/04/19 Lorazepam* (Ativan*) 2 Mg Tablet, 2 MG PO Q6 PRN for ANXIETY, #60 TAB 04/04/19 Bisacodyl (Dulcolax) 10 Mg Supp.rect, 10 MG RC DAILY, SUPP.RECT 04/04/19 Ferrous Sulfate* (Ferrous Sulfate*) 325 Mg Tabec, 325 MG PO BID, TAB 04/04/19 Docusate Sodium* (Colace*) 100 Mg Capsule, 200 MG PO DAILY, #30 CAP 04/04/19 Aspirin* (Aspirin* Chew) 81 Mg Tab.chew, 81 MG PO DAILY, TAB.CHEW 04/04/19 Discontinued Reported Medications Aspirin* (Aspirin* EC) 81 Mg Tablet.dr, 81 MG PO DAILY, TAB 04/04/19 Primary Care Provider Tam Harris MD Time spent on discharge: > 30 minutes Pending Labs Laboratory Tests Test 04/08/19 17:06 04/08/19 20:31 04/09/19 02:07 04/09/19 08:27 Bedside 140 235 208 Glucose mg/dL (70-220) mg/dL (70-220) mg/dL (70-220) White Blood 10.8 Count 10^3/ul (4.8-1 0.8) Red Blood 2.44 Count 10^6/ul (4.20- 5.40) Hemoglobin 8.1 g/dl (12.0-16. 0) Hematocrit 26.9 % (37.0-47.0) Mean 110.2 Corpuscular fl (82.0-101.0 Volume ) Mean 33.2 Corpuscular pg (29.0-33.0) Hemoglobin Mean 30.1 Corpuscular g/dl (32.0-37. Hemoglobin Conc 0) ent Red Cell 17.5 Distribution % (11.5-14.5) Width Platelet Count 167 10^3/UL (140-4 15) Mean Platelet 9.1 Volume fl (7.4-10.4) Immature 0.500 Granulocytes % % (0.001-0.429 ) Neutrophils % 63.2 % (39.0-77.0) Lymphocytes % 16.4 % (15.0-51.0) Monocytes % 5.5 % (0.0-11.0) Eosinophils % 13.9 % (0.0-7.0) Basophils % 0.5 % (0.0-2.0) Nucleated Red 0.0 Blood Cells % /100WBC (0.0-0 .0) Immature 0.050 Granulocytes # 10^3/ul (0.0-0 .031) Neutrophils # 6.9 10^3/ul (1.6-7 .5) Lymphocytes # 1.8 10^3/ul (0.8-2 .9) Monocytes # 0.6 10^3/ul (0.3-0 .9) Eosinophils # 1.5 10^3/ul (0.0-0 .5) Basophils # 0.1 10^3/ul (0.0-0 .1) Nucleated Red 0.0 Blood Cells # 10^3/ul (0.0-0 .0) Sodium Level 143 mmol/L (135-14 4) Potassium 4.3 Level mmol/L (3.5-5. 1) Chloride Level 105 mmol/L (97-110 ) Carbon Dioxide 29 Level mmol/L (21-31) Anion Gap 9 (5-13) Blood Urea 16 Nitrogen mg/dl (7-20) Creatinine 3.47 mg/dl (0.44-1. 00) Est Glomerular 13 Filtrat mL/min (>60) Rate mL/min Glucose Level 141 mg/dl (70-220) Calcium Level 9.7 mg/dl (8.4-10. 2) Test 04/09/19 08:42 04/09/19 12:50 Bedside 152 203 Glucose mg/dL (70-220) mg/dL (70-220) KRISTIN ALSTON April 09, 2019 15:42
[2019-04-09 20:00] VITALS: BP 118/58; PULSE 98; RESP 18
[2019-04-09] MEDS: ATORVASTATIN 10 MG TAB PO SCH (21:14)
[2019-04-09] MEDS: QUETIAPINE 100 MG TAB PO SCH (21:14)
[2019-04-09] MEDS: TRIAMCINOLONE ACET 0.1% 15 GM CR TOP PRN (21:15)
[2019-04-10] MEDS: LORAZEPAM 2 MG INJ IV PRN ×2 (00:48→11:18)
[2019-04-10] MEDS: ACCU-CHEK XX SCH (02:00)
[2019-04-10 02:46] VITALS: BP 115/63; PULSE 110; RESP 20
[2019-04-10] MEDS ORDERED: DIPHENHYDRAMINE 50 MG INJ IV ONE (03:30)
[2019-04-10] MEDS ORDERED: HALOPERIDOL 5 MG INJ IM ONE (03:30)
[2019-04-10] MEDS: LEVOTHYROXINE 150 MCG TAB PO SCH (06:21)
[2019-04-10] MEDS: PANTOPRAZOLE (EC) 40 MG TAB PO SCH (06:21)
[2019-04-10] MEDS: INSULIN ASPART [NOVOLOG] 3 ML PEN SC SCH ×4 (07:00→21:21)
[2019-04-10 07:44] VITALS: BP 84/52; RESP 16
[2019-04-10] MEDS ORDERED: ALBUMIN HUMAN 25% 100 ML IV PRN (08:00)
[2019-04-10] MEDS: BALSAM PERU/CASTOR OIL 60 GM TUBE TOP SCH ×2 (09:21→22:28)
[2019-04-10] MEDS: SEVELAMER CARBONATE 0.8 GM PKT PO SCH ×3 (09:26→17:10)
[2019-04-10] MEDS: CHOLECALCIFEROL 1,000 UNIT TAB PO SCH (09:26)
[2019-04-10] MEDS: FOLIC ACID 1 MG TAB PO SCH (09:26)
[2019-04-10] MEDS: ASCORBIC ACID 500 MG TAB PO SCH (09:26)
[2019-04-10] MEDS: FERROUS SULFATE (EC) 325 MG TAB PO SCH ×2 (09:26→21:16)
[2019-04-10] MEDS: ZINC SULFATE 220 MG CAP PO SCH (09:26)
[2019-04-10] MEDS: ASPIRIN 81 MG TAB PO SCH (09:26)
[2019-04-10] MEDS: MULTIVITAMINS/MINERALS TAB PO SCH (09:26)
[2019-04-10 09:33] VITALS: BP 115/58; PULSE 101; RESP 16
--- NOTE | 2019-04-10 10:06 | PN ---
DATE: 04/10/2019 SUBJECTIVE: The patient remains confused, altered. No other events noted. Patient is pending possi ble hemodialysis today. OBJECTIVE: VITAL SIGNS: Blood pressure is 84/52, respirations 16, pulse 110, temperature 97.7. HEENT: Head is normocephalic. NECK: Supple. HEART: Regular rate. LUNGS: Show diminished breath sounds at the base. ABDOMEN: Soft, nontender to palpation without rebound or guarding. EXTREMITIES: Negative for clubbing, cyanosis, no edema. DERMATOLOGIC: No rashes. MUSCULOSKELETAL: No joint effusion. NEUROLOGIC: No change in exam. MEDICATIONS: Reviewed. LABORATORY DATA: Has been reviewed. ASSESSMENT AND PLAN: 1. End-stage renal disease. Plan for hemodialysis today. 2. Hyperkalemia, resolved. 3. Anemia. Monitor H and H levels. Continue Epogen. 4. Mineral bone disorder, monitor calcium and phosphorus levels. 5. Diabetes. Continue current insulin regimen. 6. Encephalopathy. Workup ongoing. Possible secondary to psychiatric disorder, schizophrenic disor nelsy. Continue to monitor. Follow up with psychiatry. 7. Hypertension. We will minimize ultrafiltration dialysis. Consider fluid challenge or starting m aintenance IV fluids as the patient has poor p.o. intake. Dictated By: STEPHEN BREWER DO NR/NTS Conf#: [id number] DID#: [id number] CC: KELLY MURO NP; KRISTIN ALSTON;*EndCC*
[2019-04-10] MEDS: TRIAMCINOLONE ACET 0.1% 15 GM CR TOP PRN (12:10)
--- NOTE | 2019-04-10 12:51 | PN ---
Date/Time of Note Date/Time of Note DATE: 04/10/19 TIME: 12:48 Assessment/Plan VTE Prophylaxis Risk score (from Nsg)>0 risk: 3 SCD applied (from Nsg): Yes Pharmacological prophylaxis: other Lines/Catheters IV Catheter Type (from Nrsg): PERMACATH Urinary Cath still in place: No Assessment/Plan Hospital Course S: Patient's discharge to residential facility was held yesterday because the bed was not ready yet. She had no acute events overnight, per nursing staff having slightly better bowel movements. Awaiting dialysis for later today. O: VS - see below PE: Gen: Lying in bed, still occasionally lethargic Head: Atraumatic Eyes: Normal Conjunctiva ENT: Normal External Ears, Nose and Mouth. Neck: Supple Resp: Clear to auscultation bilaterally Cardio: Regular rate and rhythm, no murmurs Abd: Soft, non tender, non distended. Normal bowel sounds Ext: No lower extremity edema bilaterally Neuro: No focal deficits Skin: rash noted on the back and shoulder area Assessment and plan: 63-year-old female nursing facility diabetes, hypertension, schizoaffective disorder, end-stage renal disease, CAD who presents with encephalopathy and hyperkalemia. #Encephalopathy: Likely secondary to polypharmacy. Also patient presented with potassium 5.6 on admission, which has since improved -Monitor, continue low-dose IV fluids -Follow-up further recommendations from PT, OT, speech therapy consults -For fecal impaction, will order for Fleet enema daily as needed # scabies rash -confirmed on skin scrapings test results -Status post ivermectin and permethrin treatments 4 days ago, off isolation now -We will give another treatment of permethrin shampoo total body today. #Diabetes: 5.6 equals A1c -Monitor, continue sliding scale insulin as needed # HTN: Stable -Monitor, continue current meds # ESRD: on HD -Appreciate renal recommendations, continue dialysis per the recommendations #Hyperkalemia: Possibly secondary to above -resolving -Monitor BMP, continue dialysis per renal recommendations # anxiety/possible schizoaffective disorder: -Only give Ativan as needed for now, appreciate psychiatry eval, they have re commended Seroquel twice daily -continue # anemia - of note hemoglobin on admission was 6.5, no signs of any upper or lower GI bleeding. Hemoglobin in the low normal range after PRBC transfusion gi shilpa 6 days ago, stool occult test is positive. -Monitor for now, again consulting GI team because of the positive stool occult test result -patient unable to consent for EGD colonoscopy at this time and since hemoglobin overall appears stable they are recommending outpatient follow-up for EGD and colonoscopy at that time -Given hemoglobin is lower today 7.9, although no signs of any bleeding, will recheck H&H now. Dispo: Case management stating likely can go back to her previous nursing faci lity once bed is found -in fact the SNF has informed us they are trying to treat the facility for scabies now, once that is performed likely can be discharged back to facility either later today or tomorrow.. Result Diagram: 04/10/19 0757 04/10/19 0757 Results 24hrs Laboratory Tests Test 04/09/19 12:50 04/09/19 17:10 04/09/19 21:16 04/10/19 01:11 Bedside Glucose 203 171 183 184 Test 04/10/19 07:57 04/10/19 09:20 04/10/19 12:07 White Blood Count 9.4 Red Blood Count 2.36 L Hemoglobin 7.9 L Hematocrit 26.2 L Mean Corpuscular 111.0 H Volume Mean Corpuscular 33.5 H Hemoglobin Mean Corpuscular 30.2 L Hemoglobin Concent Red Cell 17.6 H Distribution Width Platelet Count 163 Mean Platelet Volume 9.2 Immature 0.500 H Granulocytes % Neutrophils % 50.2 Lymphocytes % 23.2 Monocytes % 6.5 Eosinophils % 19.3 H Basophils % 0.3 Nucleated Red Blood 0.0 Cells % Immature 0.050 H Granulocytes # Neutrophils # 4.7 Lymphocytes # 2.2 Monocytes # 0.6 Eosinophils # 1.8 H Basophils # 0.0 Nucleated Red Blood 0.0 Cells # Sodium Level 145 H Potassium Level 4.3 Chloride Level 104 Carbon Dioxide Level 29 Anion Gap 12 Blood Urea Nitrogen 27 #H Creatinine 5.35 H Est Glomerular 8 L Filtrat Rate mL/min Glucose Level 142 Calcium Level 10.0 Bedside Glucose 121 206 Exam/Review of Systems Exam Vitals Vital Signs Date Temp Pulse Resp B/P (MAP) Pulse Ox O2 O2 Flow FiO2 Time Delivery Rate 04/10/19 97.8 101 16 115/58 97 Room Air 09:33 (77) Intake and Output 04/09/19 04/09/19 04/10/19 1515:00 23:00 07:00 IntakeIntake Total 360 ml 240 ml BalanceBalance 360 ml 240 ml Results Results 24hrs Laboratory Tests Test 04/09/19 12:50 04/09/19 17:10 04/09/19 21:16 04/10/19 01:11 Bedside Glucose 203 171 183 184 Test 04/10/19 07:57 04/10/19 09:20 04/10/19 12:07 White Blood Count 9.4 Red Blood Count 2.36 L Hemoglobin 7.9 L Hematocrit 26.2 L Mean Corpuscular 111.0 H Volume Mean Corpuscular 33.5 H Hemoglobin Mean Corpuscular 30.2 L Hemoglobin Concent Red Cell 17.6 H Distribution Width Platelet Count 163 Mean Platelet Volume 9.2 Immature 0.500 H Granulocytes % Neutrophils % 50.2 Lymphocytes % 23.2 Monocytes % 6.5 Eosinophils % 19.3 H Basophils % 0.3 Nucleated Red Blood 0.0 Cells % Immature 0.050 H Granulocytes # Neutrophils # 4.7 Lymphocytes # 2.2 Monocytes # 0.6 Eosinophils # 1.8 H Basophils # 0.0 Nucleated Red Blood 0.0 Cells # Sodium Level 145 H Potassium Level 4.3 Chloride Level 104 Carbon Dioxide Level 29 Anion Gap 12 Blood Urea Nitrogen 27 #H Creatinine 5.35 H Est Glomerular 8 L Filtrat Rate mL/min Glucose Level 142 Calcium Level 10.0 Bedside Glucose 121 206 Medications Medication Current Medications IV Flush (NS 3 ml) 3 ml PER PROTOCOL IV ; Start 04/04/19 at 16:30 Ondansetron HCl (Zofran Inj) 4 mg Q6H PRN IV NAUSEA/VOMITING; Start 04/04/19 at 16:30 Acetaminophen (Tylenol Tab) 650 mg Q6H PRN PO .PAIN 1-3 OR TEMP; Start 04/04/19 at 16:30 Acetaminophen/ Hydrocodone Bitart ([place] (5/325)) 1 tab Q6H PRN PO .MOD PAIN 4- 6 Last administered on 04/08/19at 20:37; Admin Dose 1 TAB; Start 04/04/19 at 16:30 Docusate Sodium (Colace) 100 mg Q12H PRN PO .CONSTIPATION; Start 04/04/19 at 16:30 Magnesium Hydroxide (Milk Of Mag) 30 ml DAILY PRN PO .CONSTIPATION; Start 04/04/19 at 16:30 Albuterol/ Ipratropium (Duoneb) 3 ml Q4H RESP THERAPY PRN HHN SHORTNESS OF BREATH; Start 04/04/19 at 16:30 Hydralazine HCl (Apresoline) 10 mg Q6H PRN IV ELEVATED BLOOD PRESSURE; Start 04/04/19 at 16:30 Nitroglycerin (Nitroglycerin (Sl Tab) 0.4 Mg) 1 tab Q5M PRN SL ANGINA; Start 04/04/19 at 16:30 Diagnostic Test (Pha) (Accu-Chek) 1 ea 02 XX ; Start 04/05/19 at 02:00 Miscellaneous Information 1 ea NOTE XX ; Start 04/04/19 at 17:00 Glucose (Glutose) 15 gm Q15M PRN PO DECREASED GLUCOSE; Start 04/04/19 at 17:00 Glucose (Glutose) 22.5 gm Q15M PRN PO DECREASED GLUCOSE; Start 04/04/19 at 17:00 Dextrose (D50w Syringe) 25 ml Q15M PRN IV DECREASED GLUCOSE; Start 04/04/19 at 17:00 Dextrose (D50w Syringe) 50 ml Q15M PRN IV DECREASED GLUCOSE; Start 04/04/19 at 17:00 Glucagon (Glucagen) 1 mg Q15M PRN IM DECREASED GLUCOSE; Start 04/04/19 at 17:00 Glucose (Glutose) 15 gm Q15M PRN BUCCAL DECREASED GLUCOSE; Start 04/04/19 at 17:00 Epoetin Christian-epbx (Retacrit (Non-Esrd)) 10,000 unit MoWeFr@1700 SC Last administered on 04/08/19at 16:21; Admin Dose 10,000 UNIT; Start 04/06/19 at 17:00 Heparin Sodium (Porcine) (Heparin (1000 Units/ml)) 4,000 unit AFTER DIALYSIS CATHETER Last administered on 04/08/19at 12:03; Admin Dose 3,700 UNIT; Start 04/05/19 at 01:00 Insulin Aspart (Novolog Insulin Pen) NOVOLOG *MILD* ALGORI... AC MEALS AND BEDTIME SC Last administered on 04/10/19at 12:11; Admin Dose 2 UNIT; Start 04/05/19 at 17:25 Zinc Sulfate (Zinc Sulfate) 220 mg DAILY PO Last administered on 04/10/19 09:26; Admin Dose 220 MG; Start 04/05/19 at 14:30 Aspirin (Aspirin) 81 mg DAILY PO Last administered on 04/10/19 09:26; Admin Dose 81 MG; Start 04/06/19 at 09:00 Atorvastatin Calcium (Lipitor) 10 mg QHS PO Last administered on 04/09/19 21:14; Admin Dose 10 MG; Start 04/05/19 at 21:00 Bisacodyl (Dulcolax Supp) 10 mg DAILY PRN [place] CONSTIPATION Last administered on 04/08/19 17:33; Admin Dose 10 MG; Start 04/05/19 at 14:30 Cholecalciferol (Vitamin D) 1,000 unit DAILY PO Last administered on 04/10/19 09:26; Admin Dose 1,000 UNIT; Start 04/06/19 at 09:00 Ferrous Sulfate (Ferrous Sulfate (Ec)) 325 mg BID PO Last administered on 04/10/19 09:; Admin Dose 325 MG; Start 04/05/19 at 21:00 Levothyroxine Sodium (Synthroid) 150 mcg BEFORE BREAKFAST PO Last administered on 04/10/19 06:21; Admin Dose 150 MCG; Start 04/06/19 at 07:00 Sevelamer Carbonate (Renvela) 1.6 gm WITH MEALS PO Last administered on 04/10/19 12:10; Admin Dose 1.6 GM; Start 04/05/19 at 17:55 Multivitamins/ Minerals (Theragran-M) 1 tab DAILY PO Last administered on 04/10/19 09:26; Admin Dose 1 TAB; Start 04/06/19 at 09:00 Ascorbic Acid (Vitamin C) 500 mg DAILY PO Last administered on 04/10/19 09:26; Admin Dose 500 MG; Start 04/06/19 at 09:00 Folic Acid (Folic Acid) 1 mg DAILY PO Last administered on 04/10/19 09:26; Admin Dose 1 MG; Start 04/06/19 at 09:00 Triamcinolone Acetonide (Kenalog 0.1% Cr) 1 applic BID PRN TOP ITCHING Last administered on 04/10/19 12:10; Admin Dose 1 APPLIC; Start 04/06/19 at 13:00 Lorazepam (Ativan) 0.5 mg Q8H PRN IV ANXIETY Last administered on 04/10/19at 11:18; Admin Dose 0.5 MG; Start 04/06/19 at 15:40 Quetiapine Fumarate (Seroquel) 100 mg HS PO Last administered on 04/09/19at 21:14; Admin Dose 100 MG; Start 04/08/19 at 21:00 Pantoprazole (Protonix Tab) 40 mg DAILY@06 PO Last administered on 04/10/19at 06:21; Admin Dose 40 MG; Start 04/09/19 at 06:00 Sodium Biphosphate/ Sodium Phosphate (Fleet Enema) 133 ml DAILY PRN [place] CONSTIPATION Last administered on 04/09/19at 21:15; Admin Dose 133 ML; Start 04/09/19 at 15:30 Albumin Human 100 ml @ 100 mls/hr DURING DIALYSIS PRN IV BLOOD PRESSURE SUPPORT; Start 04/10/19 at 08:00 Permethrin (Elimite 5% Cr) 1 applic ONCE ONCE TOP ; Start 04/10/19 at 13:00; Stop 04/10/19 at 13:01; Status KRISTIN REY April 10, 2019 12:51
[2019-04-10] MEDS ORDERED: PERMETHRIN 5% 60 GM CR TOP ONE (13:00)
[2019-04-10 14:22] VITALS: BP 102/55; PULSE 97; RESP 16
[2019-04-10] MEDS ORDERED: SOD CHLORIDE 0.9% 250 ML IV* ONE (16:14)
--- NOTE | 2019-04-10 16:30 | PN ---
Date/Time of Note Date/Time of Note DATE: 04/10/19 TIME: 16:24 Assessment/Plan VTE Prophylaxis Risk score (from Ns)>0 risk: 3 SCD applied (from Ns): Yes Pharmacological prophylaxis: other (scds) Lines/Catheters [facility] Type [facility]from [facility] PERMACATH Urinary Cath still in place: No Assessment/Plan Hospital Course Summary Assessment and Plan: Assessment: Macrocytic anemia -FOBT-positive -Abd- US- The liver demonstrates normal echogenicity and normal size without focal lesions Coagulopathy- improved Encephalopathy -Likely secondary to polypharmacy vs other -Ammonia - negative Scabies rash -Confirmed on skin scrapings -S/p Ivermectin and permethrin treatments End-stage renal disease on hemodialysis Hypertension Diabetes mellitus Hyperkalemia Anxiety/possible schizoaffective disorder Plan: HGB now dropping recommend EGD/colonoscopy- Thursday Monitor H/H transfuse as needed Patient is seen in collaboration with Dr. Arthur Subjective: Course reviewed with nursing staff Patient interviewed and examined All labs, imaging and other results reviewed Patient sleeping, no currently in any distress. Nurse notes dark stool, no described as black. Pt now out of isolation Exam PHYSICAL EXAMINATION: GENERAL: Alert & oriented to name place, confused SKIN: No lesions. HEAD: Normocephalic, atraumatic, no tenderness. EYES: Pupils equal reactive to light, no discharge. EARS/NOSE AND THROAT: Ears normal, nose normal. NECK: Supple, no masses. CHEST: Inspection within normal limits. CARDIOVASCULAR: Heart: Regular rate and rhythm RESPIRATORY: Lungs clear to auscultation GASTROINTESTINAL AND LIVER: Abdomen: Soft, non tenderness, non-distended, normoactive bowel sounds. Rectal: Deferred. GENITOURINARY: Female genitalia within normal limits. EXTREMITIES: No cyanosis, clubbing or edema. Result Diagram: 04/10/19 1346 04/10/19 0757 Results 24hrs Laboratory Tests Test 04/09/19 17:10 04/09/19 21:16 04/10/19 01:11 04/10/19 07:57 Bedside Glucose 171 183 184 White Blood Count 9.4 Red Blood Count 2.36 L Hemoglobin 7.9 L Hematocrit 26.2 L Mean Corpuscular 111.0 H Volume Mean Corpuscular 33.5 H Hemoglobin Mean Corpuscular 30.2 L Hemoglobin Concent Red Cell 17.6 H Distribution Width Platelet Count 163 Mean Platelet Volume 9.2 Immature 0.500 H Granulocytes % Neutrophils % 50.2 Lymphocytes % 23.2 Monocytes % 6.5 Eosinophils % 19.3 H Basophils % 0.3 Nucleated Red Blood 0.0 Cells % Immature 0.050 H Granulocytes # Neutrophils # 4.7 Lymphocytes # 2.2 Monocytes # 0.6 Eosinophils # 1.8 H Basophils # 0.0 Nucleated Red Blood 0.0 Cells # Sodium Level 145 H Potassium Level 4.3 Chloride Level 104 Carbon Dioxide Level 29 Anion Gap 12 Blood Urea Nitrogen 27 #H Creatinine 5.35 H Est Glomerular 8 L Filtrat Rate mL/min Glucose Level 142 Calcium Level 10.0 Test 04/10/19 09:20 04/10/19 12:07 04/10/19 13:46 Bedside Glucose 121 206 Hemoglobin 7.7 L Hematocrit 25.9 L Exam/Review of Systems Exam Vitals Vital Signs Date Temp Pulse Resp B/P (MAP) Pulse Ox O2 O2 Flow FiO2 Time Delivery Rate 04/10/19 97.9 97 16 102/55 95 Room Air 14:22 (71) Intake and Output 04/09/19 04/09/19 04/10/19 1515:00 23:00 07:00 IntakeIntake Total 360 ml 240 ml BalanceBalance 360 ml 240 ml Results Results 24hrs Laboratory Tests Test 04/09/19 17:10 04/09/19 21:16 04/10/19 01:11 04/10/19 07:57 Bedside Glucose 171 183 184 White Blood Count 9.4 Red Blood Count 2.36 L Hemoglobin 7.9 L Hematocrit 26.2 L Mean Corpuscular 111.0 H Volume Mean Corpuscular 33.5 H Hemoglobin Mean Corpuscular 30.2 L Hemoglobin Concent Red Cell 17.6 H Distribution Width Platelet Count 163 Mean Platelet Volume 9.2 Immature 0.500 H Granulocytes % Neutrophils % 50.2 Lymphocytes % 23.2 Monocytes % 6.5 Eosinophils % 19.3 H Basophils % 0.3 Nucleated Red Blood 0.0 Cells % Immature 0.050 H Granulocytes # Neutrophils # 4.7 Lymphocytes # 2.2 Monocytes # 0.6 Eosinophils # 1.8 H Basophils # 0.0 Nucleated Red Blood 0.0 Cells # Sodium Level 145 H Potassium Level 4.3 Chloride Level 104 Carbon Dioxide Level 29 Anion Gap 12 Blood Urea Nitrogen 27 #H Creatinine 5.35 H Est Glomerular 8 L Filtrat Rate mL/min Glucose Level 142 Calcium Level 10.0 Test 04/10/19 09:20 04/10/19 12:07 04/10/19 13:46 Bedside Glucose 121 206 Hemoglobin 7.7 L Hematocrit 25.9 L Medications Medication Current Medications IV Flush (NS 3 ml) 3 ml PER PROTOCOL IV ; Start 04/04/19 at 16:30 Ondansetron HCl (Zofran Inj) 4 mg Q6H PRN IV NAUSEA/VOMITING; Start 04/04/19 at 16:30 Acetaminophen (Tylenol Tab) 650 mg Q6H PRN PO .PAIN 1-3 OR TEMP; Start 04/04/19 at 16:30 Acetaminophen/ Hydrocodone Bitart ([place] (5/325)) 1 tab Q6H PRN PO .MOD PAIN 4- 6 Last administered on 04/08/19at 20:37; Admin Dose 1 TAB; Start 04/04/19 at 16:30 Docusate Sodium (Colace) 100 mg Q12H PRN PO .CONSTIPATION; Start 04/04/19 at 16:30 Magnesium Hydroxide (Milk Of Mag) 30 ml DAILY PRN PO .CONSTIPATION; Start 04/04/19 at 16:30 Albuterol/ Ipratropium (Duoneb) 3 ml Q4H RESP THERAPY PRN HHN SHORTNESS OF BREATH; Start 04/04/19 at 16:30 Hydralazine HCl (Apresoline) 10 mg Q6H PRN IV ELEVATED BLOOD PRESSURE; Start 04/04/19 at 16:30 Nitroglycerin (Nitroglycerin (Sl Tab) 0.4 Mg) 1 tab Q5M PRN SL ANGINA; Start 04/04/19 at 16:30 Diagnostic Test (Pha) (Accu-Chek) 1 ea 02 XX ; Start 04/05/19 at 02:00 Miscellaneous Information 1 ea NOTE XX ; Start 04/04/19 at 17:00 Glucose (Glutose) 15 gm Q15M PRN PO DECREASED GLUCOSE; Start 04/04/19 at 17:00 Glucose (Glutose) 22.5 gm Q15M PRN PO DECREASED GLUCOSE; Start 04/04/19 at 17:00 Dextrose (D50w Syringe) 25 ml Q15M PRN IV DECREASED GLUCOSE; Start 04/04/19 at 17:00 Dextrose (D50w Syringe) 50 ml Q15M PRN IV DECREASED GLUCOSE; Start 04/04/19 at 17:00 Glucagon (Glucagen) 1 mg Q15M PRN IM DECREASED GLUCOSE; Start 04/04/19 at 17:00 Glucose (Glutose) 15 gm Q15M PRN BUCCAL DECREASED GLUCOSE; Start 04/04/19 at 17:00 Epoetin Christian-epbx (Retacrit (Non-Esrd)) 10,000 unit MoWeFr@1700 SC Last administered on 04/08/19 16:21; Admin Dose 10,000 UNIT; Start 04/06/19 at 17:00 Heparin Sodium (Porcine) (Heparin (1000 Units/ml)) 4,000 unit AFTER DIALYSIS CATHETER Last administered on 04/08/19 12:03; Admin Dose 3,700 UNIT; Start 04/05/19 at 01:00 Insulin Aspart (Novolog Insulin Pen) NOVOLOG *MILD* ALGORI... AC MEALS AND BEDTIME SC Last administered on 04/10/19 12:11; Admin Dose 2 UNIT; Start 04/05/19 at 17:25 Zinc Sulfate (Zinc Sulfate) 220 mg DAILY PO Last administered on 04/10/19 09:26; Admin Dose 220 MG; Start 04/05/19 at 14:30 Aspirin (Aspirin) 81 mg DAILY PO Last administered on 04/10/19 09:26; Admin Dose 81 MG; Start 04/06/19 at 09:00 Atorvastatin Calcium (Lipitor) 10 mg QHS PO Last administered on 04/09/19 21:14; Admin Dose 10 MG; Start 04/05/19 at 21:00 Bisacodyl (Dulcolax Supp) 10 mg DAILY PRN [place] CONSTIPATION Last administered on 04/08/19 17:33; Admin Dose 10 MG; Start 04/05/19 at 14:30 Cholecalciferol (Vitamin D) 1,000 unit DAILY PO Last administered on 04/10/19 09:26; Admin Dose 1,000 UNIT; Start 04/06/19 at 09:00 Ferrous Sulfate (Ferrous Sulfate (Ec)) 325 mg BID PO Last administered on 09:26; Admin Dose 325 MG; Start 04/05/19 at 21:00 Levothyroxine Sodium (Synthroid) 150 mcg BEFORE BREAKFAST PO Last administered on 04/10/19 06:21; Admin Dose 150 MCG; Start 04/06/19 at 07:00 Sevelamer Carbonate (Renvela) 1.6 gm WITH MEALS PO Last administered on 04/10/19 12:10; Admin Dose 1.6 GM; Start 04/05/19 at 17:55 Multivitamins/ Minerals (Theragran-M) 1 tab DAILY PO Last administered on 04/10/19 09:26; Admin Dose 1 TAB; Start 04/06/19 at 09:00 Ascorbic Acid (Vitamin C) 500 mg DAILY PO Last administered on 04/10/19 09:26; Admin Dose 500 MG; Start 04/06/19 at 09:00 Folic Acid (Folic Acid) 1 mg DAILY PO Last administered on 04/10/19 09:26; Admin Dose 1 MG; Start 04/06/19 at 09:00 Triamcinolone Acetonide (Kenalog 0.1% Cr) 1 applic BID PRN TOP ITCHING Last administered on 04/10/19 12:10; Admin Dose 1 APPLIC; Start 04/06/19 at 13:00 Lorazepam (Ativan) 0.5 mg Q8H PRN IV ANXIETY Last administered on 04/10/19 11:18; Admin Dose 0.5 MG; Start 04/06/19 at 15:40 Quetiapine Fumarate (Seroquel) 100 mg HS PO Last administered on 04/09/19 21:14; Admin Dose 100 MG; Start 04/08/19 at 21:00 Pantoprazole (Protonix Tab) 40 mg DAILY@06 PO Last administered on 04/10/19 06:21; Admin Dose 40 MG; Start 04/09/19 at 06:00 Sodium Biphosphate/ Sodium Phosphate (Fleet Enema) 133 ml DAILY PRN [place] CONSTIPATION Last administered on 04/09/19 21:15; Admin Dose 133 ML; Start at 15:30 Albumin Human 100 ml @ 100 mls/hr DURING DIALYSIS PRN IV BLOOD PRESSURE SUPPORT; Start 04/10/19 at 08:00 EDWARD ROSALES April 10, 2019 16:30
[2019-04-10 19:40] VITALS: BP 111/78; PULSE 83; RESP 16
[2019-04-10] MEDS: QUETIAPINE 100 MG TAB PO SCH (21:16)
[2019-04-10] MEDS: ATORVASTATIN 10 MG TAB PO SCH (21:16)
[2019-04-11] VITALS (18 sets, daily range): BP systolic 96–178; BP diastolic 56–116; PULSE 62–112; RESP 16–18
[2019-04-11] MEDS: ACCU-CHEK XX SCH (01:56)
[2019-04-11] MEDS: PANTOPRAZOLE (EC) 40 MG TAB PO SCH ×2 (06:00→09:23)
[2019-04-11] MEDS: HEPARIN 1000 UNITS/ML 10 ML INJ CATHETER SCH (06:38)
[2019-04-11] MEDS: INSULIN ASPART [NOVOLOG] 3 ML PEN SC SCH ×4 (08:11→21:00)
--- NOTE | 2019-04-11 08:25 | PN ---
DATE: 04/11/2019 SUBJECTIVE: The patient had hemodialysis yesterday, tolerated well. No other events noted. OBJECTIVE: VITAL SIGNS: Blood pressure is 175/116, pulse 110, respirations 18, temperature 97.9. HEENT: Head is normocephalic. NECK: Supple. HEART: Regular rate. LUNGS: Show diminished breath sounds at the base. ABDOMEN: Soft, nontender to palpation without rebound or guarding. EXTREMITIES: Negative for clubbing, cyanosis, no edema. DERMATOLOGIC: No rashes. MUSCULOSKELETAL: No joint effusion. NEUROLOGIC: No change in exam. MEDICATIONS: Reviewed. LABORATORY DATA: Reviewed. ASSESSMENT AND PLAN: 1. End-stage renal disease. The patient had hemodialysis yesterday, tolerated well. Plan is for di alysis tomorrow. 2. Hyperkalemia, resolved. 3. Anemia. Continue to monitor hemoglobin and hematocrit levels. Continue Epogen. 4. Mineral bone disorder. Continue to monitor calcium and phosphorus levels. 5. Diabetes. Continue current insulin regimen. 6. Encephalopathy. Continue to monitor. Follow up with psychiatry. 7. Hypertension. Continue current blood pressure regimen. Monitor closely. Dictated By: STEPHEN BREWER DO NR/NTS Conf#: [id number] DID#: [id number] CC: KELLY MURO NP; KRISTIN ALSTON;*[employer]*
[2019-04-11] MEDS: ASPIRIN 81 MG TAB PO SCH (09:22)
[2019-04-11] MEDS: ZINC SULFATE 220 MG CAP PO SCH (09:23)
[2019-04-11] MEDS: CHOLECALCIFEROL 1,000 UNIT TAB PO SCH (09:23)
[2019-04-11] MEDS: MULTIVITAMINS/MINERALS TAB PO SCH (09:23)
[2019-04-11] MEDS: ASCORBIC ACID 500 MG TAB PO SCH (09:23)
[2019-04-11] MEDS: SEVELAMER CARBONATE 0.8 GM PKT PO SCH ×4 (09:23→17:38)
[2019-04-11] MEDS: FERROUS SULFATE (EC) 325 MG TAB PO SCH ×2 (09:23→21:01)
[2019-04-11] MEDS: LEVOTHYROXINE 150 MCG TAB PO SCH (09:23)
[2019-04-11] MEDS: FOLIC ACID 1 MG TAB PO SCH (09:23)
[2019-04-11] MEDS: BALSAM PERU/CASTOR OIL 60 GM TUBE TOP SCH ×2 (09:24→21:01)
[2019-04-11] MEDS ORDERED: LORAZEPAM 2 MG INJ IM ONE (10:30)
--- NOTE | 2019-04-11 11:19 | PN ---
Date/Time of Note Date/Time of Note DATE: 04/11/19 TIME: 11:08 Assessment/Plan VTE Prophylaxis Risk score (from Nsg)>0 risk: 3 SCD applied (from Nsg): Yes Pharmacological prophylaxis: other Lines/Catheters IV Catheter Type (from Nrsg): Perma cath Urinary Cath still in place: No Assessment/Plan Hospital Course S: Patient received another dose of permethrin shampoo yesterday. Also received PRBC transfusion yesterday. More agitated this morning, given Ativan IM. Had dialysis yesterday. O: VS - see below PE: Gen: Lying in bed, occasionally yelling out Head: Atraumatic Eyes: Normal Conjunctiva ENT: Normal External Ears, Nose and Mouth. Neck: Supple Resp: Clear to auscultation bilaterally Cardio: Regular rate and rhythm, no murmurs Abd: Soft, non tender, non distended. Normal bowel sounds Ext: No lower extremity edema bilaterally Neuro: No focal deficits Skin: rash noted on the back and shoulder area Assessment and plan: 63-year-old female nursing facility diabetes, hypertension, schizoaffective disorder, end-stage renal disease, CAD who presents with encephalopathy and hyperkalemia. #Encephalopathy:symptoms likely secondary to polypharmacy - slowly improving, although again patient was more agitated today. Also patient presented with potassium 5.6 on admission, which has since improved -Monitor, continue low-dose IV fluids -Follow-up further recommendations from PT, OT, speech therapy consults -For fecal impaction, will order for Fleet enema daily as needed # scabies rash -confirmed on skin scrapings test results -Status post ivermectin and permethrin treatments 4 days ago, and another permethrin shampoo treatment given yesterday - off isolation now -We will give another treatment of permethrin shampoo total body today. #Diabetes: 5.6 equals A1c -Monitor, continue sliding scale insulin as needed # HTN: Stable -Monitor, continue current meds # ESRD: on HD -Appreciate renal recommendations, continue dialysis per the recommendations #Hyperkalemia: Possibly secondary to above -resolving -Monitor BMP, continue dialysis per renal recommendations # anxiety/possible schizoaffective disorder: -Only give Ativan as needed for now, appreciate psychiatry eval, they have recommended Seroquel twice daily as well # anemia - of note hemoglobin on admission was 6.5, no signs of any upper or lower GI bleeding. Hemoglobin in the low normal range after PRBC transfusion given 6 days ago, stool occult test is positive. -Monitor for now, again consulting GI team because of the positive stool occult test result -patient unable to consent for EGD colonoscopy at this time and since hemoglobin overall appears stable they are recommending outpatient follow-up for EGD and colonoscopy at that time Dispo: Case management stating likely can go back to her previous nursing facili ty once bed is found -in fact the SNF has informed us the facility itself has to treat for scabies now, once that is performed likely can be discharged back to facility either later today or tomorrow. Result Diagram: 04/11/19 0941 04/11/19 0941 Results 24hrs Laboratory Tests Test 04/10/19 12:07 04/10/19 13:46 04/10/19 17:09 04/10/19 21:15 Bedside Glucose 206 142 141 Hemoglobin 7.7 L Hematocrit 25.9 L Test 04/11/19 01:56 04/11/19 08:04 04/11/19 09:41 Bedside Glucose 162 121 White Blood Count 8.4 Red Blood Count 2.92 #L Hemoglobin 9.8 #L Hematocrit 31.6 #L Mean Corpuscular 108.2 H Volume Mean Corpuscular 33.6 H Hemoglobin Mean Corpuscular 31.0 L Hemoglobin Concent Red Cell 18.2 H Distribution Width Platelet Count 162 Mean Platelet Volume 9.1 Immature 0.500 H Granulocytes % Neutrophils % 61.1 Lymphocytes % 14.5 L Monocytes % 5.3 Eosinophils % 18.1 H Basophils % 0.5 Nucleated Red Blood 0.0 Cells % Immature 0.040 H Granulocytes # Neutrophils # 5.2 Lymphocytes # 1.2 Monocytes # 0.5 Eosinophils # 1.5 H Basophils # 0.0 Nucleated Red Blood 0.0 Cells # Sodium Level 141 Potassium Level 4.1 Chloride Level 107 Carbon Dioxide Level 26 Anion Gap 8 Blood Urea Nitrogen 14 # Creatinine 3.11 #H Est Glomerular 15 L Filtrat Rate mL/min Glucose Level 260 #H Calcium Level 9.0 Exam/Review of Systems Exam Vitals Vital Signs Date Temp Pulse Resp B/P (MAP) Pulse Ox O2 O2 Flow FiO2 Time Delivery Rate 04/11/19 97.9 110 18 175/116 95 Room Air 07:47 (135) Intake and Output 04/10/19 04/10/19 04/11/19 1515:00 23:00 07:00 IntakeIntake Total 300 ml OutputOutput Total 550 ml BalanceBalance 300 ml -550 ml Results Results 24hrs Laboratory Tests Test 04/10/19 12:07 04/10/19 13:46 04/10/19 17:09 04/10/19 21:15 Bedside Glucose 206 142 141 Hemoglobin 7.7 L Hematocrit 25.9 L Test 04/11/19 01:56 04/11/19 08:04 04/11/19 09:41 Bedside Glucose 162 121 White Blood Count 8.4 Red Blood Count 2.92 #L Hemoglobin 9.8 #L Hematocrit 31.6 #L Mean Corpuscular 108.2 H Volume Mean Corpuscular 33.6 H Hemoglobin Mean Corpuscular 31.0 L Hemoglobin Concent Red Cell 18.2 H Distribution Width Platelet Count 162 Mean Platelet Volume 9.1 Immature 0.500 H Granulocytes % Neutrophils % 61.1 Lymphocytes % 14.5 L Monocytes % 5.3 Eosinophils % 18.1 H Basophils % 0.5 Nucleated Red Blood 0.0 Cells % Immature 0.040 H Granulocytes # Neutrophils # 5.2 Lymphocytes # 1.2 Monocytes # 0.5 Eosinophils # 1.5 H Basophils # 0.0 Nucleated Red Blood 0.0 Cells # Sodium Level 141 Potassium Level 4.1 Chloride Level 107 Carbon Dioxide Level 26 Anion Gap 8 Blood Urea Nitrogen 14 # Creatinine 3.11 #H Est Glomerular 15 L Filtrat Rate mL/min Glucose Level 260 #H Calcium Level 9.0 Medications Medication Current Medications IV Flush (NS 3 ml) 3 ml PER PROTOCOL IV ; Start 04/04/19 at 16:30 Ondansetron HCl (Zofran Inj) 4 mg Q6H PRN IV NAUSEA/VOMITING; Start 04/04/19 at 16:30 Acetaminophen (Tylenol Tab) 650 mg Q6H PRN PO .PAIN 1-3 OR TEMP; Start 04/04/19 at 16:30 Acetaminophen/ Hydrocodone Bitart ([place] (5/325)) 1 tab Q6H PRN PO .MOD PAIN 4- 6 Last administered on 04/08/19at 20:37; Admin Dose 1 TAB; Start 04/04/19 at 16:30 Docusate Sodium (Colace) 100 mg Q12H PRN PO .CONSTIPATION; Start 04/04/19 at 16:30 Magnesium Hydroxide (Milk Of Mag) 30 ml DAILY PRN PO .CONSTIPATION Last administered on 04/10/19at 17:10; Admin Dose 30 ML; Start 04/04/19 at 16:30 Albuterol/ Ipratropium (Duoneb) 3 ml Q4H RESP THERAPY PRN HHN SHORTNESS OF BREATH; Start 04/04/19 at 16:30 Hydralazine HCl (Apresoline) 10 mg Q6H PRN IV ELEVATED BLOOD PRESSURE; Start 04/04/19 at 16:30 Nitroglycerin (Nitroglycerin (Sl Tab) 0.4 Mg) 1 tab Q5M PRN SL ANGINA; Start 04/04/19 at 16:30 Diagnostic Test (Pha) (Accu-Chek) 1 ea 02 XX Last administered on 04/11/19at 01:56; Admin Dose 1 EA; Start 04/05/19 at 02:00 Miscellaneous Information 1 ea NOTE XX ; Start 04/04/19 at 17:00 Glucose (Glutose) 15 gm Q15M PRN PO DECREASED GLUCOSE; Start 04/04/19 at 17:00 Glucose (Glutose) 22.5 gm Q15M PRN PO DECREASED GLUCOSE; Start 04/04/19 at 17:00 Dextrose (D50w Syringe) 25 ml Q15M PRN IV DECREASED GLUCOSE; Start 04/04/19 at 17:00 Dextrose (D50w Syringe) 50 ml Q15M PRN IV DECREASED GLUCOSE; Start 04/04/19 at 17:00 Glucagon (Glucagen) 1 mg Q15M PRN IM DECREASED GLUCOSE; Start 04/04/19 at 17:00 Glucose (Glutose) 15 gm Q15M PRN BUCCAL DECREASED GLUCOSE; Start 04/04/19 at 17:00 Epoetin Christian-epbx (Retacrit (Non-Esrd)) 10,000 unit MoWeFr@1700 SC Last administered on 04/08/19at 16:21; Admin Dose 10,000 UNIT; Start 04/06/19 at 17:00 Heparin Sodium (Porcine) (Heparin (1000 Units/ml)) 4,000 unit AFTER DIALYSIS CATHETER Last administered on 04/11/19at 06:38; Admin Dose 3,700 UNIT; Start 04/05/19 at 01:00 Insulin Aspart (Novolog Insulin Pen) NOVOLOG *MILD* ALGORI... AC MEALS AND BEDTIME SC Last administered on 04/10/19 21:21; Admin Dose 1 UNIT; Start 04/05/19 at 17:25 Zinc Sulfate (Zinc Sulfate) 220 mg DAILY PO Last administered on 04/11/19 09:23; Admin Dose 220 MG; Start 04/05/19 at 14:30 Aspirin (Aspirin) 81 mg DAILY PO Last administered on 04/11/19 09:22; Admin Dose 81 MG; Start 04/06/19 at 09:00 Atorvastatin Calcium (Lipitor) 10 mg QHS PO Last administered on 04/10/19 21: 16; Admin Dose 10 MG; Start 04/05/19 at 21:00 Bisacodyl (Dulcolax Supp) [address] CONSTIPATION Last administered on 04/08/19 17:33; Admin Dose 10 MG; Start 04/05/19 at 14:30 Cholecalciferol (Vitamin D) 1,000 unit DAILY PO Last administered on 04/11/19 09:23; Admin Dose 1,000 UNIT; Start 04/06/19 at 09:00 Ferrous Sulfate (Ferrous Sulfate (Ec)) 325 mg BID PO Last administered on 04/11/19 09:23; Admin Dose 325 MG; Start 04/05/19 at 21:00 Levothyroxine Sodium (Synthroid) 150 mcg BEFORE BREAKFAST PO Last administered on 04/11/19 09:23; Admin Dose 150 MCG; Start 04/06/19 at 07:00 Sevelamer Carbonate (Renvela) 1.6 gm WITH MEALS PO Last administered on 04/11/19 09:23; Admin Dose 1.6 GM; Start 04/05/19 at 17:55 Multivitamins/ Minerals (Theragran-M) 1 tab DAILY PO Last administered on 04/11/19 09:23; Admin Dose 1 TAB; Start 04/06/19 at 09:00 Ascorbic Acid (Vitamin C) 500 mg DAILY PO Last administered on 04/11/19 09:23; Admin Dose 500 MG; Start 04/06/19 at 09:00 Folic Acid (Folic Acid) 1 mg DAILY PO Last administered on 04/11/19 09:23; Admin Dose 1 MG; Start 04/06/19 at 09:00 Triamcinolone Acetonide (Kenalog 0.1% Cr) 1 applic BID PRN TOP ITCHING Last administered on 04/10/19 12:10; Admin Dose 1 APPLIC; Start 04/06/19 at 13:00 Lorazepam (Ativan) 0.5 mg Q8H PRN IV ANXIETY Last administered on 04/10/19 11:18; Admin Dose 0.5 MG; Start 04/06/19 at 15:40 Quetiapine Fumarate (Seroquel) 100 mg HS PO Last administered on 04/10/19 21:16; Admin Dose 100 MG; Start 04/08/19 at 21:00 Pantoprazole (Protonix Tab) 40 mg DAILY@06 PO Last administered on 04/11/19 09:23; Admin Dose 40 MG; Start 04/09/19 at 06:00 Sodium Biphosphate/ Sodium Phosphate (Fleet Enema) [address] CONSTIPATION Last administered on 04/09/19 21:15; Admin Dose 133 ML; Start 04/09/19 at 15:30 Albumin Human 100 ml @ 100 mls/hr DURING DIALYSIS PRN IV BLOOD PRESSURE SUPPORT; Start 04/10/19 at 08:00 KRISTIN ALSTON April 11, 2019 11:19
--- NOTE | 2019-04-11 13:00 | PN ---
Date/Time of Note Date/Time of Note DATE: 04/11/19 TIME: 12:58 Assessment/Plan VTE Prophylaxis Risk score (from Ns)>0 risk: 3 SCD applied (from Ns): Yes Pharmacological prophylaxis: other (scds) Lines/Catheters [facility] Type (from [facility] Perma cath Urinary Cath still in place: No Assessment/Plan Hospital Course Summary Assessment and Plan: Assessment: Macrocytic anemia -FOBT-positive -Abd- US- The liver demonstrates normal echogenicity and normal size without focal lesions Coagulopathy- improved Encephalopathy -Likely secondary to polypharmacy vs other -Ammonia - negative Scabies rash -Confirmed on skin scrapings -S/p Ivermectin and permethrin treatments End-stage renal disease on hemodialysis Hypertension Diabetes mellitus Hyperkalemia Anxiety/possible schizoaffective disorder Plan: HGB stable post transfusion- poss d/c today- if d/c recommend to f/u with GI as out-pt for EGD/colonoscopy Monitor H/H transfuse as needed Patient is seen in collaboration with Dr. Arthur Subjective: Course reviewed with nursing staff Patient interviewed and examined All labs, imaging and other results reviewed No over night events, patient treated again for scabies- per rx directions No over signs of GI bleed. no c/o n/v. Pt saul PO diet well. Exam PHYSICAL EXAMINATION: GENERAL: Alert & oriented to name place, confused SKIN: No lesions. HEAD: Normocephalic, atraumatic, no tenderness. EYES: Pupils equal reactive to light, no discharge. EARS/NOSE AND THROAT: Ears normal, nose normal. NECK: Supple, no masses. CHEST: Inspection within normal limits. CARDIOVASCULAR: Heart: Regular rate and rhythm RESPIRATORY: Lungs clear to auscultation GASTROINTESTINAL AND LIVER: Abdomen: Soft, non tenderness, non-distended, normoactive bowel sounds. Rectal: Deferred. GENITOURINARY: Female genitalia within normal limits. EXTREMITIES: No cyanosis, clubbing or edema. Result Diagram: 04/11/19 0941 04/11/19 0941 Results 24hrs Laboratory Tests Test 04/10/19 13:46 04/10/19 17:09 04/10/19 21:15 04/11/19 01:56 Hemoglobin 7.7 L Hematocrit 25.9 L Bedside Glucose 142 141 162 Test 04/11/19 08:04 04/11/19 09:41 04/11/19 12:22 Bedside Glucose 121 282 H White Blood Count 8.4 Red Blood Count 2.92 #L Hemoglobin 9.8 #L Hematocrit 31.6 #L Mean Corpuscular 108.2 H Volume Mean Corpuscular 33.6 H Hemoglobin Mean Corpuscular 31.0 L Hemoglobin Concent Red Cell 18.2 H Distribution Width Platelet Count 162 Mean Platelet Volume 9.1 Immature 0.500 H Granulocytes % Neutrophils % 61.1 Lymphocytes % 14.5 L Monocytes % 5.3 Eosinophils % 18.1 H Basophils % 0.5 Nucleated Red Blood 0.0 Cells % Immature 0.040 H Granulocytes # Neutrophils # 5.2 Lymphocytes # 1.2 Monocytes # 0.5 Eosinophils # 1.5 H Basophils # 0.0 Nucleated Red Blood 0.0 Cells # Sodium Level 141 Potassium Level 4.1 Chloride Level 107 Carbon Dioxide Level 26 Anion Gap 8 Blood Urea Nitrogen 14 # Creatinine 3.11 #H Est Glomerular 15 L Filtrat Rate mL/min Glucose Level 260 #H Calcium Level 9.0 Exam/Review of Systems Exam Vitals Vital Signs Date Temp Pulse Resp B/P (MAP) Pulse Ox O2 O2 Flow FiO2 Time Delivery Rate 04/11/19 97.9 110 18 175/116 95 Room Air 07:47 (135) Intake and Output 04/10/19 04/10/19 04/11/19 1515:00 23:00 07:00 IntakeIntake Total 300 ml OutputOutput Total 550 ml BalanceBalance 300 ml -550 ml Results Results 24hrs Laboratory Tests Test 04/10/19 13:46 04/10/19 17:09 04/10/19 21:15 04/11/19 01:56 Hemoglobin 7.7 L Hematocrit 25.9 L Bedside Glucose 142 141 162 Test 04/11/19 08:04 04/11/19 09:41 04/11/19 12:22 Bedside Glucose 121 282 H White Blood Count 8.4 Red Blood Count 2.92 #L Hemoglobin 9.8 #L Hematocrit 31.6 #L Mean Corpuscular 108.2 H Volume Mean Corpuscular 33.6 H Hemoglobin Mean Corpuscular 31.0 L Hemoglobin Concent Red Cell 18.2 H Distribution Width Platelet Count 162 Mean Platelet Volume 9.1 Immature 0.500 H Granulocytes % Neutrophils % 61.1 Lymphocytes % 14.5 L Monocytes % 5.3 Eosinophils % 18.1 H Basophils % 0.5 Nucleated Red Blood 0.0 Cells % Immature 0.040 H Granulocytes # Neutrophils # 5.2 Lymphocytes # 1.2 Monocytes # 0.5 Eosinophils # 1.5 H Basophils # 0.0 Nucleated Red Blood 0.0 Cells # Sodium Level 141 Potassium Level 4.1 Chloride Level 107 Carbon Dioxide Level 26 Anion Gap 8 Blood Urea Nitrogen 14 # Creatinine 3.11 #H Est Glomerular 15 L Filtrat Rate mL/min Glucose Level 260 #H Calcium Level 9.0 Medications Medication Current Medications IV Flush (NS 3 ml) 3 ml PER PROTOCOL IV ; Start 04/04/19 at 16:30 Ondansetron HCl (Zofran Inj) 4 mg Q6H PRN IV NAUSEA/VOMITING; Start 04/04/19 at 16:30 Acetaminophen (Tylenol Tab) 650 mg Q6H PRN PO .PAIN 1-3 OR TEMP; Start 04/04/19 at 16:30 Acetaminophen/ Hydrocodone Bitart ([place] (5/325)) 1 tab Q6H PRN PO .MOD PAIN 4- 6 Last administered on 04/08/19at 20:37; Admin Dose 1 TAB; Start 04/04/19 at 16:30 Docusate Sodium (Colace) 100 mg Q12H PRN PO .CONSTIPATION; Start 04/04/19 at 16:30 Magnesium Hydroxide (Milk Of Mag) 30 ml DAILY PRN PO .CONSTIPATION Last administered on 04/10/19at 17:10; Admin Dose 30 ML; Start 04/04/19 at 16:30 Albuterol/ Ipratropium (Duoneb) 3 ml Q4H RESP THERAPY PRN HHN SHORTNESS OF BREATH; Start 04/04/19 at 16:30 Hydralazine HCl (Apresoline) 10 mg Q6H PRN IV ELEVATED BLOOD PRESSURE; Start at 16:30 Nitroglycerin (Nitroglycerin (Sl Tab) 0.4 Mg) 1 tab Q5M PRN SL ANGINA; Start 04/04/19 at 16:30 Diagnostic Test (Pha) (Accu-Chek) 1 ea 02 XX Last administered on 04/11/19at 01:56; Admin Dose 1 EA; Start 04/05/19 at 02:00 Miscellaneous Information 1 ea NOTE XX ; Start 04/04/19 at 17:00 Glucose (Glutose) 15 gm Q15M PRN PO DECREASED GLUCOSE; Start 04/04/19 at 17:00 Glucose (Glutose) 22.5 gm Q15M PRN PO DECREASED GLUCOSE; Start 04/04/19 at 17:00 Dextrose (D50w Syringe) 25 ml Q15M PRN IV DECREASED GLUCOSE; Start 04/04/19 at 17:00 Dextrose (D50w Syringe) 50 ml Q15M PRN IV DECREASED GLUCOSE; Start 04/04/19 at 17:00 Glucagon (Glucagen) 1 mg Q15M PRN IM DECREASED GLUCOSE; Start 04/04/19 at 17:00 Glucose (Glutose) 15 gm Q15M PRN BUCCAL DECREASED GLUCOSE; Start 04/04/19 at 17:00 Epoetin Christian-epbx (Retacrit (Non-Esrd)) 10,000 unit MoWeFr@1700 SC Last administered on 04/08/19 16:21; Admin Dose 10,000 UNIT; Start 04/06/19 at 17:00 Heparin Sodium (Porcine) (Heparin (1000 Units/ml)) 4,000 unit AFTER DIALYSIS CATHETER Last administered on 04/11/19 06:38; Admin Dose 3,700 UNIT; Start 04/05/19 at 01:00 Insulin Aspart (Novolog Insulin Pen) NOVOLOG *MILD* ALGORI... AC MEALS AND BEDTIME SC Last administered on 04/11/19at 12:38; Admin Dose 4 UNIT; Start 04/05/19 at 17:25 Zinc Sulfate (Zinc Sulfate) 220 mg DAILY PO Last administered on 04/11/19at 09:23; Admin Dose 220 MG; Start 04/05/19 at 14:30 Aspirin (Aspirin) 81 mg DAILY PO Last administered on 04/11/19 09:22; Admin Dose 81 MG; Start 04/06/19 at 09:00 Atorvastatin Calcium (Lipitor) 10 mg QHS PO Last administered on 04/10/19at 21:16; Admin Dose 10 MG; Start 04/05/19 at 21:00 Bisacodyl (Dulcolax Supp) 10 mg DAILY PRN [place] CONSTIPATION Last administered on 04/08/19at 17:33; Admin Dose 10 MG; Start 04/05/19 at 14:30 Cholecalciferol (Vitamin D) 1,000 unit DAILY PO Last administered on 04/11/19 09:23; Admin Dose 1,000 UNIT; Start 04/06/19 at 09:00 Ferrous Sulfate (Ferrous Sulfate (Ec)) 325 mg BID PO Last administered on 04/11/19 09:23; Admin Dose 325 MG; Start 04/05/19 at 21:00 Levothyroxine Sodium (Synthroid) 150 mcg BEFORE BREAKFAST PO Last administered on 04/11/19 09:23; Admin Dose 150 MCG; Start 04/06/19 at 07:00 Sevelamer Carbonate (Renvela) 1.6 gm WITH MEALS PO Last administered on 04/11/19 12:35; Admin Dose 1.6 GM; Start 04/05/19 at 17:55 Multivitamins/ Minerals (Theragran-M) 1 tab DAILY PO Last administered on 04/11/19 09:23; Admin Dose 1 TAB; Start 04/06/19 at 09:00 Ascorbic Acid (Vitamin C) 500 mg DAILY PO Last administered on 04/11/19 09:23; Admin Dose 500 MG; Start 04/06/19 at 09:00 Folic Acid (Folic Acid) 1 mg DAILY PO Last administered on 04/11/19 09:23; Admin Dose 1 MG; Start 04/06/19 at 09:00 Triamcinolone Acetonide (Kenalog 0.1% Cr) 1 applic BID PRN TOP ITCHING Last administered on 04/10/19 12:10; Admin Dose 1 APPLIC; Start 04/06/19 at 13:00 Quetiapine Fumarate (Seroquel) 100 mg HS PO Last administered on 04/10/19 21:16; Admin Dose 100 MG; Start 04/08/19 at 21:00 Pantoprazole (Protonix Tab) 40 mg DAILY@06 PO Last administered on 04/11/19 09:23; Admin Dose 40 MG; Start 04/09/19 at 06:00 Sodium Biphosphate/ Sodium Phosphate (Fleet Enema) 133 ml DAILY PRN [place] CONSTIPATION Last administered on 04/09/19 21:15; Admin Dose 133 ML; Start 04/09/19 at 15:30 Albumin Human 100 ml @ 100 mls/hr DURING DIALYSIS PRN IV BLOOD PRESSURE SUPPORT; Start 5/26/19 at 08:00 Lorazepam (Ativan) 1 mg Q6 PRN IM AGITATION/ANXIETY; Start 04/11/19 at 11:30 EDWARD ROSALES April 11, 2019 13:00
[2019-04-11] MEDS: EPOETIN ALFA-EPBX (NON-ESRD 10,000 UNIT/ML VIAL SC SCH (17:28)
[2019-04-11] MEDS: ATORVASTATIN 10 MG TAB PO SCH (21:01)
[2019-04-11] MEDS: QUETIAPINE 100 MG TAB PO SCH (21:01)
[2019-04-12] VITALS (18 sets, daily range): BP systolic 65–132; BP diastolic 38–84; PULSE 91–122; RESP 16–18
[2019-04-12] MEDS: ACCU-CHEK XX SCH (02:00)
[2019-04-12] MEDS: LORAZEPAM 2 MG INJ IM PRN ×2 (02:40→10:05)
[2019-04-12] MEDS: LEVOTHYROXINE 150 MCG TAB PO SCH (06:02)
[2019-04-12] MEDS: PANTOPRAZOLE (EC) 40 MG TAB PO SCH (06:02)
--- NOTE | 2019-04-12 08:36 | PN ---
DATE: 04/12/2019 SUBJECTIVE: The patient is stable, remains confused. No acute events overnight. OBJECTIVE: VITAL SIGNS: Blood pressure is 113/57, respirations 18, pulse 107, temperature 98.8. HEENT: Head is normocephalic. NECK: Supple. HEART: Regular rate. LUNGS: Show diminished breath sounds at the base. ABDOMEN: Soft, nontender to palpation without rebound or guarding. EXTREMITIES: Negative for clubbing, cyanosis, no edema. DERMATOLOGIC: No rashes. MUSCULOSKELETAL: No joint effusion. NEUROLOGIC: No change in exam. MEDICATIONS: Reviewed. LABORATORY DATA: Reviewed. ASSESSMENT AND PLAN: 1. End-stage renal disease. Plan is for hemodialysis today. 2. Hyperkalemia, resolved. 3. Anemia. Continue to monitor hemoglobin and hematocrit levels. 4. Mineral bone disorder. Monitor calcium and phosphorus levels. 5. Diabetes. Continue current insulin regimen. 6. Encephalopathy. Continue to monitor. Follow up with psychiatry. 7. Hypertension. Continue to monitor closely. Dictated By: STEPHEN BREWER DO NR/NTS Conf#: [id number] DID#: [id number] CC: KRISTIN MURO DIRECTOR OF ENVIRONMENTAL SERVICES;*EndCC*
[2019-04-12] MEDS: INSULIN ASPART [NOVOLOG] 3 ML PEN SC SCH ×2 (08:50→12:49)
[2019-04-12] MEDS: CHOLECALCIFEROL 1,000 UNIT TAB PO SCH (08:51)
[2019-04-12] MEDS: SEVELAMER CARBONATE 0.8 GM PKT PO SCH ×2 (08:51→12:54)
[2019-04-12] MEDS: ZINC SULFATE 220 MG CAP PO SCH (08:51)
[2019-04-12] MEDS: ASPIRIN 81 MG TAB PO SCH (08:52)
[2019-04-12] MEDS: FOLIC ACID 1 MG TAB PO SCH (08:52)
[2019-04-12] MEDS: MULTIVITAMINS/MINERALS TAB PO SCH (08:52)
[2019-04-12] MEDS: FERROUS SULFATE (EC) 325 MG TAB PO SCH (08:52)
[2019-04-12] MEDS: ASCORBIC ACID 500 MG TAB PO SCH (08:52)
[2019-04-12] MEDS: BALSAM PERU/CASTOR OIL 60 GM TUBE TOP SCH (09:03)
[2019-04-12] MEDS: HEPARIN 1000 UNITS/ML 10 ML INJ CATHETER SCH (11:48)
--- NOTE | 2019-04-12 16:47 | DS ---
Date/Time of Note Date/Time of Note DATE: 04/12/19 TIME: 16:46 Discharge Summary Admission/Discharge Info Admit Date/Time April 04, 2019 at 15:45 Discharge Date/Time April 12, 2019 at 16:00 Discharge Diagnosis #Encephalopathy: Likely secondary to polypharmacy -resolving now. # scabies rash -confirmed on skin scrapings test results -Status post ivermectin and permethrin treatments this admission, off isolation now #Diabetes: 5.6 equals A1c # HTN: Stable # ESRD: on HD #Hyperkalemia: Resolved, possibly secondary to above # anxiety/possible schizoaffective disorder: -Only give Ativan as needed for now, appreciate psychiatry eval, they have recommended Seroquel twice daily # anemia -hemoglobin improved after PRBC transfusion given. Patient was stool occult positive, but again per GI team outpatient EGD colonoscopy can be performed, no signs of any current upper or lower GI bleeding. Patient Condition: Fair Consults Dr Brown, Nephrology Dr Arthur, Gastroenterology Hx of Present Illness 63-year-old female coming from housing or nursing facility today, past history diabetes, hypertension, anxiety and possible schizoaffective disorder, coronary artery disease, anemia chronic disease, end-stage renal disease on dialysis, high cholesterol, who was sent in because of encephalopathy. Most of the information is obtained from the ER documentation as the patient is unable to provide full HPI at this time so for review systems cannot be obtained. When the patient came in she was found with elevated potassium levels 5.6 and she received the 50, albuterol, insulin. She was also found creatinine 5.48, but she is a dialysis patient. She was also hemoglobin 6.5. Hospital Course Patient was admitted and her benzodiazepine and psychiatry medications were held on admission. Her encephalopathy slowly improved. It was thought that her encephalopathy was secondary to combination of polypharmacy and also some hyperkalemia. She continued on dialysis and her labs improve afterwards. She was also found with positive scabies and given treatment for this hyperbaric and permethrin treatments. She also had some fecal impaction and this was disimpacted and she was given constipation medicines which help improve this. Over the course of her hospital stay her symptoms slowly improved. She was found with low hemoglobin levels in the 6 range and received PRBC transfusion on his hospital stay. Hemoglobin remained stable afterwards. Her stool occult test was positive however, and GI team evaluate the patient, because patient's hemoglobin remained overall stable, they recommended outpatient follow-up for EGD and colonoscopy at that time. Patient is back at baseline status, tolerating diet. She will be discharged back to [facility] facility today in improved condition. See printed medicine reconciliation sheet for full list of discharge medications. Home Meds Reported Medications Insulin Lispro (Humalog) 100 Unit/1 Ml Cartridge, 0 SQ Q6H PRN for SLIDING SCALE, EA 04/04/19 Levothyroxine Sodium* (Levothyroxine Sodium*) 150 Mcg Tablet, 150 MCG PO BEFORE BREAKFAST, #30 TAB 04/04/19 Midodrine* (Midodrine*) 10 Mg Tablet, 10 MG PO TID, TAB 04/04/19 Polyethylene Glycol* (Miralax*) 17 Gm Powd.pack, 17 GM PO DAILY, #30 PACKET 04/04/19 Raloxifene Hcl* (Evista*) 60 Mg Tablet, 60 MG PO DAILY, TAB 04/04/19 Sennosides* (Senna Lax*) 8.6 Mg Tablet, 2 TAB PO QHS, TAB 04/04/19 Sodium Bicarbonate* (Sodium Bicarbonate*) 650 Mg Tablet, 1300 MG PO BID, TAB 04/04/19 Cholecalciferol* (Vitamin D3*) 1,000 Unit Tablet, 1000 UNIT PO DAILY, TAB 04/04/19 Acetaminophen* (Tylenol*) 325 Mg Tablet, 650 MG PO Q4H PRN for MILD PAIN LEVEL 1-3, TAB AND FEVER 04/04/19 Clonazepam* (Clonazepam*) 0.5 Mg Tablet, 0.5 MG PO Q12H for ANXIETY, TAB 04/04/19 Lorazepam* (Lorazepam*) 1 Mg Tablet, 1 MG PO HS PRN for ANXIETY, #30 TAB Q TU,SAT 04/04/19 Olanzapine* (Zyprexa*) 5 Mg Tablet, 5 MG PO QHS, #30 TAB 04/04/19 Olanzapine* (Zyprexa*) 2.5 Mg Tablet, 2.5 MG PO QAM, #30 TAB 04/04/19 Trazodone Hcl* (Trazodone Hcl*) 50 Mg Tablet, 50 MG PO QHS, #30 TAB 04/04/19 Insulin Glargine,Hum.rec.anlog (Basaglar Kwikpen U-100) 100 Unit/1 Ml Insuln.pen, 12 UNIT SC DAILY, EA 04/04/19 Sevelamer Carbonate* (Renvela*) 800 Mg Tablet, 1600 GM PO WITH MEALS, TAB 04/04/19 Diazepam* (Diazepam*) 5 Mg Tablet, 5 MG PO Q12H, TAB 04/04/19 Quetiapine Fumarate* (Quetiapine Fumarate*) 25 Mg Tablet, 100 MG PO BID, TAB 04/04/19 Haloperidol* (Haldol*) 5 Mg Tab, 5 MG PO BID, TAB 04/04/19 Atorvastatin Calcium (Atorvastatin Calcium) 10 Mg Tablet, 10 MG PO QHS, #30 TAB 04/04/19 Ondansetron Hcl* (Zofran*) 4 Mg Tab, 4 MG PO Q4H PRN for NAUSEA AND OR VOMITING, TAB 04/04/19 Acetaminophen* (Acetaminophen*) 500 MG Extra Strength Tablet, 1000 MG PO Q6H PRN for PAIN 4-05/25, TAB 04/04/19 Lorazepam* (Ativan*) 2 Mg Tablet, 2 MG PO Q6 PRN for ANXIETY, #60 TAB 04/04/19 Bisacodyl (Dulcolax) 10 Mg Supp.rect, 10 MG RC DAILY, SUPP.RECT 04/04/19 Ferrous Sulfate* (Ferrous Sulfate*) 325 Mg Tabec, 325 MG PO BID, TAB 04/04/19 Docusate Sodium* (Colace*) 100 Mg Capsule, 200 MG PO DAILY, #30 CAP 04/04/19 Aspirin* (Aspirin* Chew) 81 Mg Tab.chew, 81 MG PO DAILY, TAB.CHEW 04/04/19 Primary Care Provider Tam Harris MD Time spent on discharge: > 30 minutes Pending Labs Laboratory Tests Test 04/11/19 17:24 04/11/19 20:59 04/12/19 08:50 04/12/19 12:48 Bedside 82 115 118 116 Glucose mg/dL (70-220) mg/dL (70-220) mg/dL (70-220) mg/dL (70-220) Test 04/12/19 15:04 04/12/19 15:05 Sodium Level 141 mmol/L (135-144 ) Potassium 4.1 Level mmol/L (3.5-5.1 ) Chloride Level 106 mmol/L (97-110) Carbon Dioxide 27 Level mmol/L (21-31) Anion Gap 8 (5-13) Blood Urea 8 mg/dl (7-20) Nitrogen Creatinine 1.82 mg/dl (0.44-1.0 0) Est Glomerular 28 mL/min (>60) Filtrat Rate mL/min Glucose Level 158 mg/dl (70-220) Calcium Level 9.4 mg/dl (8.4-10.2 ) White Blood 8.0 Count 10^3/ul (4.8-1 0.8) Red Blood 2.91 Count 10^6/ul (4.20- 5.40) Hemoglobin 9.8 g/dl (12.0-16. 0) Hematocrit 31.4 % (37.0-47.0) Mean 107.9 Corpuscular fl (82.0-101.0 Volume ) Mean 33.7 Corpuscular pg (29.0-33.0) Hemoglobin Mean 31.2 Corpuscular g/dl (32.0-37. Hemoglobin Conc 0) ent Red Cell 18.6 Distribution % (11.5-14.5) Width Platelet Count 194 10^3/UL (140-4 15) Mean Platelet 9.8 Volume fl (7.4-10.4) Immature 0.400 Granulocytes % % (0.001-0.429 ) Neutrophils % 53.0 % (39.0-77.0) Lymphocytes % 18.7 % (15.0-51.0) Monocytes % 7.2 % (0.0-11.0) Eosinophils % 20.2 % (0.0-7.0) Basophils % 0.5 % (0.0-2.0) Nucleated Red 0.0 Blood Cells % /100WBC (0.0-0 .0) Immature 0.030 Granulocytes # 10^3/ul (0.0-0 .031) Neutrophils # 4.3 10^3/ul (1.6-7 .5) Lymphocytes # 1.5 10^3/ul (0.8-2 .9) Monocytes # 0.6 10^3/ul (0.3-0 .9) Eosinophils # 1.6 10^3/ul (0.0-0 .5) Basophils # 0.0 10^3/ul (0.0-0 .1) Nucleated Red 0.0 Blood Cells # 10^3/ul (0.0-0 .0) ESTEVAN KIRBY MD April 12, 2019 16:47
== END 2019-04-12 16:00 | DRG 91 ==
LOC: E/R 12:15 → TEL 15:45 → SUATTDRO 16:08 → TEL 04-05 09:16 → 5EC 04-05 19:55
PROVIDERS: ADMIT Hospitalist; ATTEND Hospitalist
PROC: 5A1D70Z Performance of Urinary Filtration, Intermittent, Less than 6 Hours Per Day (ICD-10-PCS; principal; 2019-04-05)
PROC: 30233N1 Transfusion of Nonautologous Red Blood Cells into Peripheral Vein, Percutaneous Approach (ICD-10-PCS; 2019-04-05)
DX: G92 Toxic encephalopathy (principal); N18.6 End stage renal disease; I12.0 Hypertensive chronic kidney disease with stage 5 chronic kidney disease or end stage renal disease; E44.0 Moderate protein-calorie malnutrition; E87.5 Hyperkalemia; F25.9 Schizoaffective disorder, unspecified; Z99.2 Dependence on renal dialysis; F41.9 Anxiety disorder, unspecified; I25.10 Atherosclerotic heart disease of native coronary artery without angina pectoris; E78.5 Hyperlipidemia, unspecified; B86 Scabies; E03.9 Hypothyroidism, unspecified; E11.22 Type 2 diabetes mellitus with diabetic chronic kidney disease; D63.1 Anemia in chronic kidney disease; Z68.21 Body mass index [BMI] 21.0-21.9, adult; T50.905A Adverse effect of unspecified drugs, medicaments and biological substances, initial encounter
CPT/HCPCS: 36430; 70450; 71045; 74018; 76705; 80048; 80053; 80061; 80076; 82140; 82270; 82607; 82728; 82746; 82962; 83036; 83540; 83605; 83735; 84100; 84439; 84443; 84484; 85014; 85018; 85025; 85610; 85730; 86644; 86850; 86900; 86901; 86920; 87045; 87340; 90935; 92526; 92610; 93005; 94664; C9113; J1200; J1630; J1644; J1815; J2060; J2270; J7040; P9016; P9047; Q5106

== ENCOUNTER 2019-05-20 06:17 | Inpatient (IN) | payer MEDICAID, OTHER ==
[~2019-05-20] VITALS: Ht 162.6 cm; Wt 71.0 kg
[2019-05-20] VITALS (19 sets, daily range): BP systolic 73–109; BP diastolic 33–68; PULSE 83–126; RESP 10–20; Ht 162.6 cm; Wt 71.0 kg
[~2019-05-20 06:17] MED LIST: ACET-141 PO; ACET325T33 PO; ASPI-903 PO; ATOR10TA65 PO; BISA10SU55 RC; CHOL100062 PO; CLON0.5T14 PO; DIAZ5TAB4 PO; DOCU-144 PO; FER325 PO; HALO5TAB23 PO; INSU100C SQ; INSU100I33 SC; LEVO150T7 PO; LORA-444 PO; LORA1TAB PO; MIDO10TA PO; OLAN2.5T28 PO; OLAN5TAB5 PO; ONDA4TAB13 PO; POLY17PO6 PO; QUET25TA33 PO; RALO60TA12 PO; SENN-120 PO; SEVE800T7 PO; SODI650T PO; TRAZ-111 PO
[2019-05-20] MEDS ORDERED: ONDANSETRON 4 MG INJ IV STA (06:24)
[2019-05-20] MEDS ORDERED: morphine 4 MG/ML VIAL IV STA (06:24)
[2019-05-20] MEDS ORDERED: SOD CHLORIDE 0.9% 500 ML IV STA ×2 (06:24→09:49)
--- NOTE | 2019-05-20 07:58 | ERD ---
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 It appears that it started approximately 1 hour prior to arrival. The patient has had 3 episodes of yellowish emesis. Remainder of HPI again is very limited. No reported fevers or falls or injuries. ROS All systems reviewed and are negative except as per history of present illness. Medications Home Meds Reported Medications Triamcinolone Acetonide* (Kenalog*) 0.1%-15GM Oint, 1 APPLIC TOP BID, #1 EA 05/20/19 Magnesium Hydroxide* (Milk Of Magnesia*) 400 Mg/5 Ml Oral.susp, 30 ML PO DAILY PRN for CONSTIPATION, ML 05/20/19 Hydrocodone/Acetaminophen ([facility] 5-325 Tablet) 1 Each Tablet, 1 TAB PO Q6H PRN for PAIN LEVEL 7-10, TAB 05/20/19 Megestrol Acetate* (Megestrol Acetate*) 400 Mg/10 Ml Susp, 400 MG PO DAILY, ML 05/20/19 Zinc Sulfate* (Zinc Sulfate*) 220 Mg Tablet, 220 MG PO DAILY, TAB 05/20/19 Multivitamins* (Theragran*) 1 Tab Tab, 1 TAB PO DAILY, TAB 05/20/19 Ipratropium-Albuterol (Ipratropium-Albuterol) 0.5-3 Mg/3 Ml Ampul.neb, 3 ML INHALATION Q4, #30 VIAL 05/20/19 Ascorbic Acid* (Vitamin C*) 500 Mg Capsule.sa, 500 MG PO DAILY, CAP 05/20/19 Folic Acid* (Folic Acid*) 1 Mg Tablet, 1 MG PO DAILY, TAB 05/20/19 Epoetin shahida* (Epogen*) 4,000 Unit/1 Ml Vial, [address]23 UNIT SC [place], VIAL 05/20/19 Pantoprazole* (Protonix*) 40 Mg Tablet.dr, 40 MG PO DAILY, TAB 05/20/19 Insulin Lispro (Humalog) 100 Unit/1 Ml Cartridge, 0 SQ Q6H PRN for SLIDING SCALE, EA 04/04/19 Levothyroxine Sodium* (Levothyroxine Sodium*) 150 Mcg Tablet, 150 MCG PO BEFORE BREAKFAST, #30 TAB 04/04/19 Midodrine* (Midodrine*) 10 Mg Tablet, 10 MG PO TID, TAB 04/04/19 Cholecalciferol* (Vitamin D3*) 1,000 Unit Tablet, 1000 UNIT PO DAILY, TAB 04/04/19 Acetaminophen* (Tylenol*) 325 Mg Tablet, 650 MG PO Q4H PRN for MILD PAIN LEVEL 1-3, TAB AND FEVER 04/04/19 Trazodone Hcl* (Trazodone Hcl*) 50 Mg Tablet, 50 MG PO QHS, #30 TAB 04/04/19 Insulin Glargine,Hum.rec.anlog (Basaglar Kwikpen U-100) 100 Unit/1 Ml Insuln.pen, 12 UNIT SC DAILY, EA 04/04/19 Sevelamer Carbonate* (Renvela*) 800 Mg Tablet, 1600 GM PO WITH MEALS, TAB 04/04/19 Quetiapine Fumarate* (Quetiapine Fumarate*) 25 Mg Tablet, 100 MG PO BID, TAB 04/04/19 Atorvastatin Calcium (Atorvastatin Calcium) 10 Mg Tablet, 10 MG PO QHS, #30 TAB 04/04/19 Ondansetron Hcl* (Zofran*) 4 Mg Tab, 4 MG PO Q4H PRN for NAUSEA AND OR VOMITING, TAB 04/04/19 Lorazepam* (Ativan*) 2 Mg Tablet, 2 MG PO Q6 PRN for ANXIETY, #60 TAB 04/04/19 Bisacodyl (Dulcolax) 10 Mg Supp.rect, 10 MG RC DAILY PRN for CONSTIPATION, SUPP.RECT 04/04/19 Ferrous Sulfate* (Ferrous Sulfate*) 325 Mg Tabec, 325 MG PO BID, TAB 04/04/19 Docusate Sodium* (Colace*) 100 Mg Capsule, 100 MG PO BID, #30 CAP 04/04/19 Discontinued Reported Medications Polyethylene Glycol* (Miralax*) 17 Gm Powd.pack, 17 GM PO DAILY, #30 PACKET 04/04/19 Raloxifene Hcl* (Evista*) 60 Mg Tablet, 60 MG PO DAILY, TAB 04/04/19 Sennosides* (Senna Lax*) 8.6 Mg Tablet, 2 TAB PO QHS, TAB 04/04/19 Sodium Bicarbonate* (Sodium Bicarbonate*) 650 Mg Tablet, 1300 MG PO BID, TAB 04/04/19 Clonazepam* (Clonazepam*) 0.5 Mg Tablet, 0.5 MG PO Q12H for ANXIETY, TAB 04/04/19 Lorazepam* (Lorazepam*) 1 Mg Tablet, 1 MG PO HS PRN for ANXIETY, #30 TAB Q TU,SAT 04/04/19 Olanzapine* (Zyprexa*) 5 Mg Tablet, 5 MG PO QHS, #30 TAB 04/04/19 Olanzapine* (Zyprexa*) 2.5 Mg Tablet, 2.5 MG PO QAM, #30 TAB 04/04/19 Diazepam* (Diazepam*) 5 Mg Tablet, 5 MG PO Q12H, TAB 04/04/19 Haloperidol* (Haldol*) 5 Mg Tab, 5 MG PO BID, TAB 04/04/19 Acetaminophen* (Acetaminophen*) 500 MG Extra Strength Tablet, 1000 MG PO Q6H PRN for PAIN 4-05/25, TAB 04/04/19 Aspirin* (Aspirin* Chew) 81 Mg Tab.chew, 81 MG PO DAILY, TAB.CHEW 04/04/19 Allergies Allergies: Coded Allergies: No Known Allergy (Unverified , 05/20/19) PMhx/Soc Hx Cardiac Disorders: Yes (htn cad) Hx Psychiatric Problems: Yes (schizophrenia anxiety) Smoking Status: Never smoker Physical Exam Vitals Vital Signs Date Temp Pulse Resp B/P (MAP) Pulse Ox O2 O2 Flow FiO2 Time Delivery Rate 05/20/19 112 14 91/66 (74) 98 Room Air 09:46 05/20/19 98.2 114 17 80/62 (68) 98 Room Air 08:33 05/20/19 98.5 90 18 140/87 98 06:30 (104) Physical Exam General: Contracted, vomiting Head: Normocephalic, atraumatic. Eyes: Pupils equally reactive, EOM intact ENT: Very dry mucous membranes Neck: Supple, no lymphadenopathy Respiratory: Lungs clear bilaterally, no distress Cardiovascular: RRR, no murmurs, rubs, or gallops Abdominal: Soft, limited exam, no true peritonitis : Deferred MSK: Limited movement of all 4 extremities, no bony abnormalities Neurologic: Limited exam, and encephalopathic, limited movement of all 4 extremities Skin: No rash, no significant breakdown Psych: Unable to assess Result Diagram: 05/20/19 0736 05/20/19 0736 Results 24 hrs Laboratory Tests Test 05/20/19 07:36 White Blood Count 7.5 10^3/ul Red Blood Count 4.37 10^6/ul Hemoglobin 13.9 g/dl Hematocrit 43.6 % Mean Corpuscular Volume 99.8 fl Mean Corpuscular Hemoglobin 31.8 pg Mean Corpuscular Hemoglobin Concent 31.9 g/dl Red Cell Distribution Width 17.0 % Platelet Count 134 10^3/UL Mean Platelet Volume 9.4 fl Immature Granulocytes % 0.400 % Neutrophils % 89.0 % Lymphocytes % 8.2 % Monocytes % 1.6 % Eosinophils % 0.4 % Basophils % 0.4 % Nucleated Red Blood Cells % 0.0 /100WBC Immature Granulocytes # 0.030 10^3/ul Neutrophils # 6.6 10^3/ul Lymphocytes # 0.6 10^3/ul Monocytes # 0.1 10^3/ul Eosinophils # 0.0 10^3/ul Basophils # 0.0 10^3/ul Nucleated Red Blood Cells # 0.0 10^3/ul Prothrombin Time 15.2 Sec Prothrombin Time Ratio 1.2 INR International Normalized Ratio 1.19 Activated Partial Thromboplast Time 30.8 Sec Sodium Level 134 mmol/L Potassium Level 5.8 mmol/L Chloride Level 99 mmol/L Carbon Dioxide Level 14 mmol/L Anion Gap 21 Blood Urea Nitrogen 90 mg/dl Creatinine 11.01 mg/dl Est Glomerular Filtrat Rate mL/min 4 mL/min Glucose Level 200 mg/dl Calcium Level 10.4 mg/dl Total Bilirubin 0.1 mg/dl Direct Bilirubin 0.00 mg/dl Indirect Bilirubin 0.1 mg/dl Aspartate Amino Transf (AST/SGOT) 12 IU/L Alanine Aminotransferase (ALT/SGPT) < 6 IU/L Alkaline Phosphatase 159 IU/L Total Protein 8.0 g/dl Albumin 3.4 g/dl Globulin 4.60 g/dl Albumin/Globulin Ratio 0.73 Lipase 37 U/L Current Medications Medications Dose Sig/Shawn Start Time Status Last (Trade) Ordered Route PRN Stop Time Admin Dose Reason Admin Sodium 500 ml @ Q1H STAT 05/20/19 DC 05/20/19 Chloride 500 mls/hr IV 06:24 05/20/19 07:27 07:23 Morphine 4 mg ONCE STAT 05/20/19 DC 05/20/19 Sulfate IV 06:24 05/20/19 07:27 (morphine) 06:27 Ondansetron 4 mg ONCE STAT 05/20/19 DC 05/20/19 HCl (Zofran IV 06:24 05/20/19 07:26 Inj) 06:27 Sodium 500 ml @ Q1H STAT 05/20/19 Chloride 500 mls/hr IV 09:49 05/20/19 10:48 Procedures/MDM EKG, MONITORS, & DIAGNOSTIC IMAGING: EKG: I reviewed and interpreted a 12-lead EKG. Rhythm: Normal sinus rhythm ST Changes: No contiguous ST segment elevations T waves: No contiguous T wave inversions Impression: No evidence of acute cardiac ischemia Chest x-ray: I reviewed and interpreted a 1 view of the chest Mediastinum: No enlargement Cardiac silhouette: No cardiomegaly Airspace: Clear lung wheatley bilaterally without evidence of pneumothorax Bones: No evidence of fracture CT abdomen and pelvis: IMPRESSION: 1. Tubular cystic lesion is present within and along the pancreatic body blue uring up to 1 cm in diameter extending approximately 4 cm in length. 2. Severe bilateral hydronephrosis is present with tortuous megaureters. 3. Moderate to severe fecal distension of the rectosigmoid junction could reflect impaction in the appropriate setting. 4. Small gallstones are noted. 5. Correlation with prior imaging is suggested to assess stability of these findings. MRI of the pancreas may be helpful for further evaluation as warranted. Consider further urologic evaluation as warranted. RPTAT:HGST LAB INTERPRETATION: I reviewed the laboratory testing and it shows end-stage renal disease with metabolic acidosis, borderline potassium of 5.8 MEDICAL DECISION MAKING: patient presents with nonspecific nausea and vomiting. Given her comorbidities a very broad differential exists including Bowel obstruction. Patient is at significant risk for acute interabdominal process and warrant CT imaging of the abdomen and pelvis. ER COURSE: * An IV was established and the patient was given gentle fluid resuscitation. Her blood pressure did dip and likely consistent with dehydration. Patient's blood pressure has been improving with gentle fluid resuscitation. The patient has clinical evidence of dehydration. * CT imaging shows a nonspecific tubular cystic region around the pancreas. Further work-up for possible pancreatic mass would be indicated. Nonobstructive pattern on about a biliary profile. * Patient symptoms are improving. She is resting comfortably. Blood pressure is improving. The patient will be admitted for further management. CONSULTATION: None DISPOSITION PLAN: Accepting care team and consultations: I discussed the current laboratory data, diagnostic imaging and emergency care provided. Admitting team: Panel team Admitting team indication: Insurance directed Departure Diagnosis: Primary Impression: Nausea and vomiting Vomiting type: unspecified Vomiting Intractability: intractable Qualified Codes: R11.2 - Nausea with vomiting, unspecified Additional Impressions: Dehydration, moderate End stage renal disease on dialysis Pancreatic mass Condition: Stable MIMI MARTINEZ MD May 20, 2019 07:58
[2019-05-20] MEDS ORDERED: MULTI PO (08:26)
[2019-05-20] MEDS ORDERED: EPOE40002 SC (08:26)
[2019-05-20] MEDS ORDERED: HYDR-4011 PO (08:26)
[2019-05-20] MEDS ORDERED: FOLI-49 PO (08:26)
[2019-05-20] MEDS ORDERED: MEG40/1 PO (08:26)
[2019-05-20] MEDS ORDERED: KEN1O TOP (08:26)
[2019-05-20] MEDS ORDERED: ZINC220T PO (08:26)
[2019-05-20] MEDS ORDERED: IPRA3AMP29 INHALATION (08:26)
[2019-05-20] MEDS ORDERED: MAGN400O19 PO (08:26)
[2019-05-20] MEDS ORDERED: PANT40TA3 PO (08:26)
[2019-05-20] MEDS ORDERED: ASCO500C7 PO (08:26)
[2019-05-20] MEDS ORDERED: ACETAMINOPHEN 325 MG TAB PO PRN ×2 (10:30→14:30)
[2019-05-20] MEDS ORDERED: ONDANSETRON 4 MG INJ IV PRN ×2 (10:30→14:30)
[2019-05-20] MEDS ORDERED: CEFEPIME 2GM/50 ML (PMX) 50 ML IVPB STA (10:55)
[2019-05-20] MEDS ORDERED: SODIUM CHLORIDE 0.9% 1L BAG IV* STA (10:56)
[2019-05-20] MEDS ORDERED: ACETAMINOPHEN 650 MG SUPP PR ONE (11:00)
[2019-05-20] MEDS ORDERED: VANCOMYCIN 1 GM (PMX) 250 ML IVPB ONE (11:00)
[2019-05-20] MEDS: SOD CHLORIDE 0.9% 1,000 ML IV SCH (14:00)
--- NOTE | 2019-05-20 14:02 | HP ---
Date/Time of Note Date/Time of Note DATE: 05/20/19 TIME: 13:56 Assessment/Plan VTE Prophylaxis Risk score (from [facility] [place]0 risk: 3 SCD applied (from [facility] [place]): Yes Pharmacological prophylaxis: NA/contraindicated Pharm contraindication: renal impairment Lines/Catheters IV [facility] Peripheral IV Assessment/Plan Hospital Course 1. Sepsis with fever tachycardia secondary to UTI Patient's symptoms of abdominal pain with nausea and vomiting are likely secondary to UTI Rocephin IV Follow-up on cultures 2. End-stage renal disease Nephrology consultation obtained 3. Chronic encephalopathy like secondary to schizoaffective disorder Patient resides in a [facility] facility 4. Pancreatic cystic lesion CT abdomen showed a tubular cystic lesion is present within and along the pancreatic body measuring up to 1 cm in diameter extending approximately 4 cm in length Prior images are not available, due to patient's poor functional status and nonverbal state will defer any further diagnostics, consultations or interventions 5. Hyponatremia IV fluids Monitor Prophylaxis: SCDs Result Diagram: 05/20/19 0736 05/20/19 0736 Results 24hrs Laboratory Tests Test 05/20/19 07:36 05/20/19 11:08 05/20/19 11:13 05/20/19 13:20 White Blood Count 7.5 Red Blood Count 4.37 # Hemoglobin 13.9 # Hematocrit 43.6 # Mean Corpuscular Volume 99.8 Mean Corpuscular 31.8 Hemoglobin Mean Corpuscular 31.9 L Hemoglobin Concent Red Cell Distribution 17.0 H Width Platelet Count 134 #L Mean Platelet Volume 9.4 Immature Granulocytes % 0.400 Neutrophils % 89.0 H Lymphocytes % 8.2 L Monocytes % 1.6 Eosinophils % 0.4 Basophils % 0.4 Nucleated Red Blood 0.0 Cells % Immature Granulocytes # 0.030 Neutrophils # 6.6 Lymphocytes # 0.6 L Monocytes # 0.1 L Eosinophils # 0.0 Basophils # 0.0 Nucleated Red Blood 0.0 Cells # Prothrombin Time 15.2 H Prothrombin Time Ratio 1.2 INR International 1.19 Normalized Ratio Activated 30.8 Partial Thromboplast Time Sodium Level 134 L Potassium Level 5.8 H Chloride Level 99 Carbon Dioxide Level 14 L Anion Gap 21 H Blood Urea Nitrogen 90 H Creatinine 11.01 H Est Glomerular Filtrat 4 L Rate mL/min Glucose Level 200 Calcium Level 10.4 H Total Bilirubin 0.1 L Direct Bilirubin 0.00 Indirect Bilirubin 0.1 Aspartate Amino 12 L Transf (AST/SGOT) Alanine < 6 L Aminotransferase (ALT/SG PT) Alkaline Phosphatase 159 H Total Protein 8.0 Albumin 3.4 Globulin 4.60 H Albumin/Globulin Ratio 0.73 Lipase 37 Hepatitis B Surface NEGATIVE Antigen Urine Color YELLOW Urine Clarity TURBID A Urine pH 7.0 Urine Specific White 1.010 Urine Ketones NEGATIVE Urine Nitrite NEGATIVE Urine Bilirubin NEGATIVE Urine Urobilinogen NEGATIVE Urine Leukocyte Esterase 3+ H Urine Microscopic RBC 124 H Urine Microscopic WBC > 182 H Urine Hemoglobin 2+ H Urine Glucose 1+ H Urine Total Protein 2+ H POC Venous Lactate 1.2 Lactic Acid Level 2.6 *H HPI/ROS Admit Date/Time Admit Date/Time May 20, 2019 at 10:05 Hx of Present Illness Patient is a 63-year-old female with a history of chronic encephalopathy likely secondary to chronic psychiatric conditions of schizoaffective disorder, scabies, diabetes, hypertension, end-stage renal disease. Patient presents from a [facility] facility with reports of abdominal pain, nausea and vomiting which reportedly started 1 hour prior to arrival. Patient had 3 episodes of yellowish emesis. Patient is a poor historian secondary to her chronic encephalopathy and history is obtained from prior documentation. In the ER CT abdomen showed a tubular cystic lesion within along the pancreatic body measuring up to 1 cm diameter extending approximately 4 cm in length. Patient has no reported history of pancreatic cancer or known malignancy. ROS Subjective hx not possible: pt non-verbal PMH/Family/Social Past Medical History As per HPI Coded Allergies: No Known Allergy (Unverified , 05/20/19) Past Surgical History Past Surgical Hx: other Family History Significant Family History: no pertinent family hx Social History Smoking Status: Never smoker Exam/Review of Systems Vital Signs Vitals Vital Signs Date Temp Pulse Resp B/P (MAP) Pulse Ox O2 O2 Flow FiO2 Time Delivery Rate 05/20/19 Nasal 2.0 13:21 Cannula 05/20/19 100.3 126 20 89/55 (66) 94 12:55 Exam Constitutional: non-verbal Respiratory: clear to auscultation Cardiovascular: regular rate and rhythm Gastrointestinal: soft; No distended Musculoskeletal: nl extremities to inspection ARGENIS GARVEY May 20, 2019 14:02
[2019-05-20] MEDS ORDERED: HYDROCODONE/APAP (5/325) TAB PO PRN (14:30)
[2019-05-20] MEDS ORDERED: NACL 0.9% 3 ML SYG IV SCH (14:30)
[2019-05-20] MEDS ORDERED: GLUCOSE GEL 15 GRAM TUBE PO PRN ×2 (14:30)
[2019-05-20] MEDS ORDERED: morphine 2 MG INJ IV PRN (14:30)
[2019-05-20] MEDS ORDERED: DOCUSATE SODIUM 100 MG CAP PO PRN (14:30)
[2019-05-20] MEDS ORDERED: GLUCOSE GEL 15 GRAM TUBE BUCCAL PRN (14:30)
[2019-05-20] MEDS ORDERED: ZOLPIDEM 5 MG TAB PO PRN (14:30)
[2019-05-20] MEDS ORDERED: GLUCAGON 1 MG INJ IM PRN (14:30)
[2019-05-20] MEDS ORDERED: DEXTROSE 50% 50 ML SYRINGE IV PRN ×2 (14:30)
[2019-05-20] MEDS ORDERED: SOD CHLORIDE 0.9% 500 ML IV ONE ×3 (14:30→16:00)
[2019-05-20] MEDS ORDERED: LIDOCAINE 1% (MPF) 5 ML VIAL SC ONE (16:00)
[2019-05-20] MEDS: CEFTRIAXONE 1 GM/50 ML (PMX) 50 ML IVPB SCH (17:48)
[2019-05-20] MEDS: INSULIN ASPART [NOVOLOG] 3 ML PEN SC SCH ×2 (17:52→20:36)
[2019-05-20] MEDS ORDERED: NORepinephrine 32 MG in DEXTROSE 5% 218 ML IV SCH (18:30)
[2019-05-20] MEDS ORDERED: ALBUMIN HUMAN 25% 100 ML IV ONE (19:00)
--- NOTE | 2019-05-20 20:14 | CONS ---
DATE OF ADMISSION: 05/20/2019 DATE OF CONSULTATION: 05/20/2019 TYPE OF CONSULTATION: Nephrology. REASON FOR CONSULTATION: End-stage renal disease, hyperkalemia. PHYSICIAN REQUESTING CONSULT: Dr. Bartholomew. HISTORY OF PRESENT ILLNESS: This is a 63-year-old female with a past medical history of end-stage re nal disease on dialysis Thursday, Thursday, Thursday with access of a PermCath, history of schizoaffecti ve disorder, history of chronic ____, history of mineral bone disorder, who presents to [facility] from skilled nurse facility with reports of abdominal pain, nausea, and vomiting. Th e patient had multiple bouts of emesis. The patient upon arrival to emergency room had a CT scan, wh ich showed evidence of cystic lesion in the pancreatic body. The patient in the emergency room was g iven IV hydration, admitted to med/surg. The patient was noted to be hypotensive and subsequently tr ansferred to the intensive care unit. In terms of patient's renal history, the patient's last hemodialysis is unknown. The patient's acces s is Perm-A-Cath. There have been no reports of any hemoptysis, hematemesis, or hematochezia. PAST MEDICAL HISTORY: As stated above. History of end-stage renal disease, history of encephalopath y, history of schizoaffective disorder, history of diabetes, hypertension. PAST SURGICAL HISTORY: placement. FAMILY HISTORY: No family history of kidney disease. SOCIAL HISTORY: Resident of assisted facility. MEDICATIONS: The patient's medications have been reviewed. REVIEW OF SYSTEMS: Unable to do adequate review of systems as the patient is altered. Pertinent pos itives stated in HPI, otherwise negative. PHYSICAL EXAMINATION: VITAL SIGNS: Blood pressure is 89/55, respirations 20, pulse is 126, temperature 92.3. HEENT: Head is normocephalic. NECK: Supple. HEART: Tachycardic. LUNGS: Show diminished breath sounds at the base. ABDOMEN: Soft, nontender to palpation. No rebound or guarding. EXTREMITIES: Negative for clubbing, cyanosis, no edema. DERMATOLOGIC: No rashes. NEUROLOGIC: No focal deficits. LABORATORY DATA: Has been reviewed. IMAGING STUDIES: Have been reviewed. ASSESSMENT AND PLAN: This is a 63-year-old female who presents with: 1. End-stage renal disease. Patient's access is a PermCath. Anticipating the dialysis today. Will dialyze for 3 hours, 2k bath, calcium 2.5, no ultrafiltration. 2. Hypokalemia secondary to end-stage renal disease. The patient will be dialyzed on a low potassiu m bath. 3. Mineral bone disorder. Monitor calcium and phosphorus levels. 4. Metabolic acidosis secondary to end-stage renal disease. The patient will be dialyzed on a high bicarbonate bath. 5. Severe sepsis, possible septic shock. Etiology may be secondary to urinary tract infection. The possibility of line infection needs to be ruled out. Plan is to check cultures from Perm-A-Cath. W e will follow up blood cultures. Continue broad spectrum antibiotics, intravenous fluids, pressor valles pport as needed. 6. Chronic encephalopathy with possible acute component. Etiology may be secondary to toxic metabol ic. Continue to monitor. 7. Pancreatic cystic lesion. Etiology is unclear, concerning for possible malignancy. Continue to monitor. 8. Hyponatremia secondary to end-stage renal disease. The patient will be dialyzed on 140 sodium ba th. Thank you, Dr. Bartholomew, for this interesting consult. It will be a pleasure to follow patient with kori khalil throughout the hospital course. Dictated By: STEPHEN BREWER DO NR/NTS Conf#: [id number] DID#: [id number] CC: ARGENIS BARTHOLOMEW MD;*EndCC*
[2019-05-20] MEDS ORDERED: LORAZEPAM 2 MG INJ IV ONE (22:30)
[2019-05-20] MEDS ORDERED: NA BICARBONATE 8.4% 50 ML SYG IV ONE (22:30)
[2019-05-20] MEDS ORDERED: CALCIUM GLUCONATE 10% 1 GM in DEXTROSE 5% 100 ML IVPB ONE (22:30)
[2019-05-20] MEDS ORDERED: HALOPERIDOL 5 MG INJ IM ONE (23:30)
[2019-05-21] VITALS (102 sets, daily range): BP systolic 62–187; BP diastolic 30–134; PULSE 71–117; RESP 11–28
[2019-05-21] MEDS ORDERED: LORAZEPAM 2 MG INJ IV ONE (01:00)
[2019-05-21] MEDS: INSULIN ASPART [NOVOLOG] 3 ML PEN SC SCH ×6 (01:18→21:16)
[2019-05-21] MEDS: ACCU-CHEK XX SCH (01:19)
[2019-05-21] MEDS ORDERED: VANCOMYCIN IV PER PHARMACY XX SCH (01:30)
[2019-05-21] MEDS ORDERED: VANCOMYCIN 500 MG (PMX) 100 ML IVPB ONE (02:00)
--- NOTE | 2019-05-21 08:26 | PN ---
DATE: 05/21/2019 SUBJECTIVE: The patient is critically ill, on pressor support. The patient was transferred from med /surg to intensive care unit. The patient is scheduled for hemodialysis this morning. No other even ts noted. OBJECTIVE: VITAL SIGNS: Blood pressure 130/88, pulse 92, respirations 13, temperature 98.6. HEENT: Head is normocephalic. NECK: Supple. HEART: Regular rate. LUNGS: Show diminished breath sounds at the base. ABDOMEN: Soft, nontender to palpation without rebound or guarding. EXTREMITIES: Negative for clubbing, cyanosis, no edema. DERMATOLOGIC: No rashes. MUSCULOSKELETAL: No joint effusion. NEUROLOGIC: No change in exam. MEDICATIONS: The patient's medications have been reviewed. LABORATORY DATA: Reviewed. IMAGING STUDIES: Reviewed. ASSESSMENT AND PLAN: 1. End-stage renal disease. The patient is scheduled for dialysis today. We will dialyze for 3 taran rs 2k bath, calcium 2.5, no ultrafiltration. 2. Hyperkalemia. Plan for hemodialysis low potassium bath. 3. Mineral bone disorder, monitor calcium and phosphorus levels. 4. Metabolic acidosis secondary to end-stage renal disease. The patient will be continued on a high bicarbonate bath. 5. Septic shock. Etiology is secondary to urinary tract infection and bacteremia. The possibility of line infection is a consideration. The patient's blood cultures were positive. Will draw blood c ultures from PermCath. Continue broad spectrum antibiotics, IV fluids, pressor support. 6. Acute on chronic encephalopathy, etiology toxic metabolic. Continue to monitor. 7. Pancreatic cystic lesion, etiology is unclear, concerns for possible malignancy. Continue to mon itor. 8. Hyponatremia secondary to end-stage renal disease. Continue dialysis 140 sodium bath to, assessm ent diagnosis of septic shock. Please note I spent over 30 minutes of critical care time with this patient. Dictated By: STEPHEN BREWER DO NR/NTS Conf#: [id number] DID#: [id number] CC: ARGENIS GARVEY MD;*EndCC*
[2019-05-21] MEDS ORDERED: HEPARIN 1000 UNITS/ML 10 ML INJ CATHETER ONE (09:00)
[2019-05-21] MEDS: ALTEPLASE (CATHFLO) 2 MG INJ CATHETER PRN ×2 (09:56→18:24)
--- NOTE | 2019-05-21 11:05 | RADRPT ---
Vent Rate: 106 bpm RR Interval: 564 msec [place] Interval: 150 msec QRS Duration: 97 msec QT Interval: [id number] msec QTC Interval: 0 msec P-R-T [place]: 73 - -56 - 132 degrees Sinus tachycardia...rate> 99 Probable left atrial enlargement...P >50mS, <-0.10mV V1 Left anterior fascicular block...axis(240,-40), init forces inf Low voltage, extremity and precordial leads...extremity<0.5mV, precordial<1.0mV ST elevation, consider inferior injury...ST >0.08mV, II III aVF Electronically Signed By: Jai Lozoya
[2019-05-21] MEDS: CEFTRIAXONE 1 GM/50 ML (PMX) 50 ML IVPB SCH (14:10)
[2019-05-21] MEDS: SOD CHLORIDE 0.9% 1,000 ML IV SCH (14:10)
[2019-05-21] MEDS ORDERED: ALTEPLASE (CATHFLO) 2 MG INJ CATHETER ONE (17:45)
--- NOTE | 2019-05-21 18:20 | PN ---
Date/Time of Note Date/Time of Note DATE: 05/21/19 TIME: 18:18 Assessment/Plan VTE Prophylaxis Risk score (from [facility])>0 risk: 5 SCD applied (from [facility]): Yes Pharmacological prophylaxis: NA/contraindicated Pharm contraindication: other Lines/Catheters IV Catheter Type (from [facility]): Peripheral IV Assessment/Plan Hospital Course 1. Septic shock likely secondary to UTI Patient's symptoms of abdominal pain with nausea and vomiting are likely secondary to UTI Blood cultures are positive for staph Continue vancomycin IV and Rocephin Continue pressor support PICC line has been placed ID consultation obtained 2. End-stage renal disease Nephrology consultation appreciated 3. Chronic encephalopathy like secondary to schizoaffective disorder [facility] 4. Pancreatic cystic lesion CT abdomen showed a tubular cystic lesion is present within and along the pancreatic body measuring up to 1 cm in diameter extending approximately 4 cm in length Prior images are not available, due to patient's poor functional status and nonverbal state will defer any further diagnostics, consultations or interventions 5. Hyponatremia-resolved IV fluids Monitor Prophylaxis: SCDs Result Diagram: 05/21/19 0525 05/21/19 0525 Results 24hrs Laboratory Tests Test 05/20/19 20:35 05/20/19 23:17 05/21/19 01:15 05/21/19 04:06 Bedside Glucose 138 142 149 Sodium Level 138 Potassium Level 5.8 H Chloride Level 105 Carbon Dioxide Level 21 Anion Gap 12 # Blood Urea Nitrogen 93 H Creatinine 9.53 H Est Glomerular Filtrat 4 L Rate mL/min Glucose Level 141 # Calcium Level 9.6 Test 05/21/19 04:58 05/21/19 05:25 05/21/19 09:34 05/21/19 13:38 Bedside Glucose 143 140 141 White Blood Count 20.2 #H Red Blood Count 3.72 L Hemoglobin 11.8 L Hematocrit 36.8 L Mean Corpuscular Volume 98.9 Mean Corpuscular 31.7 Hemoglobin Mean Corpuscular 32.1 Hemoglobin Concent Red Cell Distribution 17.4 H Width Platelet Count 136 L Mean Platelet Volume 10.2 Immature Granulocytes % 0.600 H Neutrophils % 93.9 H Lymphocytes % 2.7 L Monocytes % 2.4 Eosinophils % 0.1 Basophils % 0.3 Nucleated Red Blood 0.0 Cells % Immature Granulocytes # 0.120 H Neutrophils # 18.9 H Lymphocytes # 0.6 L Monocytes # 0.5 Eosinophils # 0.0 Basophils # 0.1 Nucleated Red Blood 0.0 Cells # Sodium Level 138 Potassium Level 6.0 H Chloride Level 107 Carbon Dioxide Level 16 L Anion Gap 15 H Blood Urea Nitrogen 95 H Creatinine 10.63 H Est Glomerular Filtrat 4 L Rate mL/min Glucose Level 147 Calcium Level 9.8 Phosphorus Level 4.0 Magnesium Level 2.4 Test 05/21/19 17:36 Bedside Glucose 140 Subjective 24 Hr Interval Summary Subjective hx not possible: pt non-verbal Exam/Review of Systems Exam Vitals Vital Signs Date Temp Pulse Resp B/P (MAP) Pulse Ox O2 O2 Flow FiO2 Time Delivery Rate 05/21/19 100 16:00 05/21/19 97.7 13 120/87 98 Room Air 16:00 (98) 05/20/19 2.0 16:17 Intake and Output 05/20/19 05/20/19 05/21/19 1515:00 23:00 07:00 IntakeIntake Total 500 ml 100 ml 18.33 ml OutputOutput Total 0 ml 0 ml BalanceBalance 500 ml 100 ml 18.33 ml Constitutional: non-verbal Respiratory: clear to auscultation Cardiovascular: regular rate and rhythm Gastrointestinal: soft; No distended Musculoskeletal: nl extremities to inspection Results Results 24hrs Laboratory Tests Test 05/20/19 20:35 05/20/19 23:17 05/21/19 01:15 05/21/19 04:06 Bedside Glucose 138 142 149 Sodium Level 138 Potassium Level 5.8 H Chloride Level 105 Carbon Dioxide Level 21 Anion Gap 12 # Blood Urea Nitrogen 93 H Creatinine 9.53 H Est Glomerular Filtrat 4 L Rate mL/min Glucose Level 141 # Calcium Level 9.6 Test 05/21/19 04:58 05/21/19 05:25 05/21/19 09:34 05/21/19 13:38 Bedside Glucose 143 140 141 White Blood Count 20.2 #H Red Blood Count 3.72 L Hemoglobin 11.8 L Hematocrit 36.8 L Mean Corpuscular Volume 98.9 Mean Corpuscular 31.7 Hemoglobin Mean Corpuscular 32.1 Hemoglobin Concent Red Cell Distribution 17.4 H Width Platelet Count 136 L Mean Platelet Volume 10.2 Immature Granulocytes % 0.600 H Neutrophils % 93.9 H Lymphocytes % 2.7 L Monocytes % 2.4 Eosinophils % 0.1 Basophils % 0.3 Nucleated Red Blood 0.0 Cells % Immature Granulocytes # 0.120 H Neutrophils # 18.9 H Lymphocytes # 0.6 L Monocytes # 0.5 Eosinophils # 0.0 Basophils # 0.1 Nucleated Red Blood 0.0 Cells # Sodium Level 138 Potassium Level 6.0 H Chloride Level 107 Carbon Dioxide Level 16 L Anion Gap 15 H Blood Urea Nitrogen 95 H Creatinine 10.63 H Est Glomerular Filtrat 4 L Rate mL/min Glucose Level 147 Calcium Level 9.8 Phosphorus Level 4.0 Magnesium Level 2.4 Test 05/21/19 17:36 Bedside Glucose 140 Medications Medication Current Medications Sodium Chloride 1,000 ml @ 20 mls/hr Q24H IV Last administered on 05/21/19at 14:10; Admin Dose 20 MLS/HR; Start 05/20/19 at 14:00 IV Flush (NS 3 ml) 3 ml PER PROTOCOL IV ; Start 05/20/19 at 14:30 Ondansetron HCl (Zofran Inj) 4 mg Q6H PRN IV NAUSEA/VOMITING; Start 05/20/19 at 14:30 Acetaminophen (Tylenol Tab) 650 mg Q6H PRN PO .PAIN 1-3 OR TEMP; Start 05/20/19 at 14:30 Acetaminophen/ Hydrocodone Bitart ([place] (5/325)) 1 tab Q6H PRN PO .MOD PAIN 4- 6; Start 05/20/19 at 14:30 Morphine Sulfate (morphine) 2 mg Q4H PRN IV .SEVERE PAIN 7-10; Start 05/20/19 at 14:30 Docusate Sodium (Colace) 100 mg Q12H PRN PO .CONSTIPATION; Start 05/20/19 at 14:30 Zolpidem Tartrate (Ambien) 5 mg QHS PRN PO .INSOMNIA; Start 05/20/19 at 14:30 Diagnostic Test (Pha) (Accu-Chek) 1 ea 02 XX Last administered on 05/21/19at 01:19; Admin Dose 1 EA; Start 05/21/19 at 02:00 Insulin Aspart (Novolog Insulin Pen) NOVOLOG *MILD* ALGORI... Q4 SC Last administered on 05/21/19at 13:43; Admin Dose 1 UNIT; Start 05/20/19 at 17:00 Ceftriaxone Sodium 50 ml @ 100 mls/hr Q24H IVPB Last administered on 05/21/19at 14:10; Admin Dose 100 MLS/HR; Start 05/20/19 at 14:30 Miscellaneous Information 1 ea NOTE XX ; Start 05/20/19 at 14:30 Glucose (Glutose) 15 gm Q15M PRN PO DECREASED GLUCOSE; Start 05/20/19 at 14:30 Glucose (Glutose) 22.5 gm Q15M PRN PO DECREASED GLUCOSE; Start 05/20/19 at 14:30 Dextrose (D50w Syringe) 25 ml Q15M PRN IV DECREASED GLUCOSE; Start 05/20/19 at 1 4:30 Dextrose (D50w Syringe) 50 ml Q15M PRN IV DECREASED GLUCOSE; Start 05/20/19 at 14:30 Glucagon (Glucagen) 1 mg Q15M PRN IM DECREASED GLUCOSE; Start 05/20/19 at 14:30 Glucose (Glutose) 15 gm Q15M PRN BUCCAL DECREASED GLUCOSE; Start 05/20/19 at 14:30 Norepinephrine 32 mg/Dextrose 250 ml @ 0.47 mls/hr TITRATE IV Last administered on 05/21/19at 00:42; Admin Dose 0.94 MLS/HR; Start 05/20/19 at 18:30 Vancomycin HCl (Vanco Iv Per Pharmacy) VANCOMYCIN PER PHARMACY PER PROTOCOL XX ; Start 05/21/19 at 01:30 Alteplase, Recombinant (Cathflo (Activase)) 4 mg MAY REPEAT X1 PRN CATHETER IF CATHETER REMAINS OCCULUDED Last administered on 05/21/19at 09:56; Admin Dose 4 MG; Start 05/21/19 at 10:00 ARGENIS GARVEY May 21, 2019 18:20
[2019-05-22] VITALS (92 sets, daily range): BP systolic 61–139; BP diastolic 28–103; PULSE 58–107; RESP 8–27
[2019-05-22] MEDS ORDERED: LORAZEPAM 2 MG INJ IV ONE
[2019-05-22] MEDS: ACCU-CHEK XX SCH (02:16)
[2019-05-22] MEDS: INSULIN ASPART [NOVOLOG] 3 ML PEN SC SCH ×6 (02:16→20:30)
--- NOTE | 2019-05-22 08:08 | PN ---
DATE: 05/22/2019 SUBJECTIVE: The patient remains critically ill on pressor support. The patient had hemodialysis yes terday, noted with poor blood flow with hemodialysis catheter. No other events noted. OBJECTIVE: VITAL SIGNS: Blood pressure is 97/63, respirations 23, pulse 94, temperature 98.6. HEENT: Head is normocephalic. NECK: Supple. HEART: Regular rate. LUNGS: Show diminished breath sounds at the base. ABDOMEN: Soft, nontender to palpation without rebound or guarding. EXTREMITIES: Negative for clubbing, cyanosis, no edema. DERMATOLOGIC: No rashes. MUSCULOSKELETAL: No joint effusion. NEUROLOGIC: No change in exam. MEDICATIONS: Have been reviewed. LABORATORY DATA: Has been reviewed. IMAGING STUDIES: Have been reviewed. ASSESSMENT AND PLAN: 1. End-stage renal disease. Plan for hemodialysis again today. We will dialyze 3 hours 2k bath, cornelia cium 2.5, ultrafiltrate as tolerated. 2. Hyperkalemia, improved. Continue dialysis on low potassium bath. 3. Mineral bone disorder, monitor calcium and phosphorus levels. 4. Metabolic acidosis, improved. Continue hemodialysis. 5. Septic shock, etiology is secondary to bacteremia, possible line infection. The patient is curre ntly on broad spectrum antibiotics and pressor support. We will follow up repeat cultures. If cultu res are positive for Perm-A-Cath, will consider removing PermCath for a line holiday. 6. Acute on chronic encephalopathy, etiology toxic metabolic. 7. Pancreatic cystic lesion, etiology unclear. Continue to monitor. 8. Hyponatremia secondary to end-stage renal disease. The patient's sodium levels are improved. Co ntinue to monitor. Dictated By: STEPHEN BREWER DO NR/NTS Conf#: [id number] DID#: [id number] CC: ARGENIS GARVEY MD;*EndCC*
[2019-05-22] MEDS: LORAZEPAM 2 MG INJ IV PRN ×2 (10:22→21:44)
--- NOTE | 2019-05-22 12:36 | PN ---
Date/Time of Note Date/Time of Note DATE: 05/22/19 TIME: 12:33 Assessment/Plan VTE Prophylaxis Risk score (from [facility] [place] [facility])>0 risk: 10 SCD applied (from [facility]): Yes Pharmacological prophylaxis: NA/contraindicated Pharm contraindication: renal impairment Assessment/Plan Hospital Course 1. Septic shock with MRSA bacteremia Blood cultures are positive for MRSA Continue vancomycin IV and Rocephin Continue pressor support PICC line has been placed ID consultation obtained Bactroban for positive MRSA nares 2. End-stage renal disease Nephrology consultation appreciated 3. Chronic encephalopathy like secondary to schizoaffective disorder Patient resides in a alf facility Patient is confused which appears to be her baseline 4. Pancreatic cystic lesion CT abdomen showed a tubular cystic lesion is present within and along the pancreatic body measuring up to 1 cm in diameter extending approximately 4 cm in length Prior images are not available, due to patient's poor functional status and nonverbal state will defer any further diagnostics, consultations or interventions 5. Hyponatremia-resolved IV fluids Monitor Prophylaxis: SCDs DC planning: Not stable for DC, continue management per above Result Diagram: 05/22/19 0500 05/22/19 0500 Results 24hrs Laboratory Tests Test 05/21/19 13:38 05/21/19 17:36 05/21/19 21:14 05/22/19 01:53 Bedside Glucose 141 140 166 174 Test 05/22/19 05:00 05/22/19 05:24 05/22/19 09:20 White Blood Count 12.6 #H Red Blood Count 3.73 L Hemoglobin 11.7 L Hematocrit 37.5 Mean Corpuscular Volume 100.5 Mean Corpuscular 31.4 Hemoglobin Mean Corpuscular 31.2 L Hemoglobin Concent Red Cell Distribution 17.7 H Width Platelet Count 98 #L Mean Platelet Volume 10.0 Immature Granulocytes % 0.700 H Neutrophils % 83.3 H Lymphocytes % 9.0 L Monocytes % 5.5 Eosinophils % 1.1 Basophils % 0.4 Nucleated Red Blood 0.0 Cells % Immature Granulocytes # 0.090 H Neutrophils # 10.5 H Lymphocytes # 1.1 Monocytes # 0.7 Eosinophils # 0.1 Basophils # 0.1 Nucleated Red Blood 0.0 Cells # Sodium Level 137 Potassium Level 4.9 Chloride Level 103 Carbon Dioxide Level 22 Anion Gap 12 Blood Urea Nitrogen 51 #H Creatinine 6.40 #H Est Glomerular Filtrat 7 L Rate mL/min Glucose Level 152 Calcium Level 9.6 Phosphorus Level 4.3 Magnesium Level 2.2 Bedside Glucose 153 129 Subjective 24 Hr Interval Summary Constitutional: disoriented Exam/Review of Systems Exam Vitals Vital Signs Date Temp Pulse Resp B/P (MAP) Pulse Ox O2 O2 Flow FiO2 Time Delivery Rate 05/22/19 97 12:00 05/22/19 16 127/84 97 Room Air 10:00 (98) 05/22/19 98.7 08:00 05/20/19 2.0 16:17 Intake and Output 05/21/19 05/21/19 05/22/19 1515:00 23:00 07:00 IntakeIntake Total 108.46 ml 197.99 ml 203.44 ml OutputOutput Total 1000 ml 3100 ml 235 ml BalanceBalance -891.54 ml -2902.01 ml -31.56 ml Psych: confusion Respiratory: clear to auscultation Cardiovascular: regular rate and rhythm Gastrointestinal: soft; No distended Musculoskeletal: nl extremities to inspection Results Results 24hrs Laboratory Tests Test 05/21/19 13:38 05/21/19 17:36 05/21/19 21:14 05/22/19 01:53 Bedside Glucose 141 140 166 174 Test 05/22/19 05:00 05/22/19 05:24 05/22/19 09:20 White Blood Count 12.6 #H Red Blood Count 3.73 L Hemoglobin 11.7 L Hematocrit 37.5 Mean Corpuscular Volume 100.5 Mean Corpuscular 31.4 Hemoglobin Mean Corpuscular 31.2 L Hemoglobin Concent Red Cell Distribution 17.7 H Width Platelet Count 98 #L Mean Platelet Volume 10.0 Immature Granulocytes % 0.700 H Neutrophils % 83.3 H Lymphocytes % 9.0 L Monocytes % 5.5 Eosinophils % 1.1 Basophils % 0.4 Nucleated Red Blood 0.0 Cells % Immature Granulocytes # 0.090 H Neutrophils # 10.5 H Lymphocytes # 1.1 Monocytes # 0.7 Eosinophils # 0.1 Basophils # 0.1 Nucleated Red Blood 0.0 Cells # Sodium Level 137 Potassium Level 4.9 Chloride Level 103 Carbon Dioxide Level 22 Anion Gap 12 Blood Urea Nitrogen 51 #H Creatinine 6.40 #H Est Glomerular Filtrat 7 L Rate mL/min Glucose Level 152 Calcium Level 9.6 Phosphorus Level 4.3 Magnesium Level 2.2 Bedside Glucose 153 129 Medications Medication Current Medications Sodium Chloride 1,000 ml @ 20 mls/hr Q24H IV Last administered on 05/21/19at 14:10; Admin Dose 20 MLS/HR; Start 05/20/19 at 14:00 IV Flush (NS 3 ml) 3 ml PER PROTOCOL IV ; Start 05/20/19 at 14:30 Ondansetron HCl (Zofran Inj) 4 mg Q6H PRN IV NAUSEA/VOMITING; Start 05/20/19 at 14:30 Acetaminophen (Tylenol Tab) 650 mg Q6H PRN PO .PAIN 1-3 OR TEMP; Start 05/20/19 at 14:30 Acetaminophen/ Hydrocodone Bitart ([place] (5/325)) 1 tab Q6H PRN PO .MOD PAIN 4- 6; Start 05/20/19 at 14:30 Morphine Sulfate (morphine) 2 mg Q4H PRN IV .SEVERE PAIN 7-10; Start 05/20/19 at 14:30 Docusate Sodium (Colace) 100 mg Q12H PRN PO .CONSTIPATION; Start 05/20/19 at 14:30 Zolpidem Tartrate (Ambien) 5 mg QHS PRN PO .INSOMNIA; Start 05/20/19 at 14:30 Diagnostic Test (Pha) (Accu-Chek) 1 ea 02 XX Last administered on 05/22/19at 02:16; Admin Dose 1 EA; Start 05/21/19 at 02:00 Insulin Aspart (Novolog Insulin Pen) NOVOLOG *MILD* ALGORI... Q4 SC Last administered on 05/22/19at 05:30; Admin Dose 1 UNIT; Start 05/20/19 at 17:00 Ceftriaxone Sodium 50 ml @ 100 mls/hr Q24H IVPB Last administered on 05/21/19at 14:10; Admin Dose 100 MLS/HR; Start 05/20/19 at 14:30 Miscellaneous Information 1 ea NOTE XX ; Start 05/20/19 at 14:30 Glucose (Glutose) 15 gm Q15M PRN PO DECREASED GLUCOSE; Start 05/20/19 at 14:30 Glucose (Glutose) 22.5 gm Q15M PRN PO DECREASED GLUCOSE; Start 05/20/19 at 14:30 Dextrose (D50w Syringe) 25 ml Q15M PRN IV DECREASED GLUCOSE; Start 05/20/19 at 14:30 Dextrose (D50w Syringe) 50 ml Q15M PRN IV DECREASED GLUCOSE; Start 05/20/19 at 14:30 Glucagon (Glucagen) 1 mg Q15M PRN IM DECREASED GLUCOSE; Start 05/20/19 at 14:30 Glucose (Glutose) 15 gm Q15M PRN BUCCAL DECREASED GLUCOSE; Start 05/20/19 at 14:30 Norepinephrine 32 mg/Dextrose 250 ml @ 0.47 mls/hr TITRATE IV Last administered on 05/21/19at 00:42; Admin Dose 0.94 MLS/HR; Start 05/20/19 at 18:30 Vancomycin HCl (Vanco Iv Per Pharmacy) VANCOMYCIN PER PHARMACY PER PROTOCOL XX ; Start 05/21/19 at 01:30 Alteplase, Recombinant (Cathflo (Activase)) 4 mg MAY REPEAT X1 PRN CATHETER IF CATHETER REMAINS OCCULUDED Last administered on 05/21/19at 18:24; Admin Dose 4 MG; Start 05/21/19 at 10:00 Lorazepam (Ativan) 0.5 mg Q6H PRN IV AGITATION Last administered on 05/22/19at 10:22; Admin Dose 0.5 MG; Start 05/22/19 at 09:30 ARGENIS GARVEY May 22, 2019 12:36
[2019-05-22] MEDS: HEPARIN 1000 UNITS/ML 10 ML INJ CATHETER SCH (13:45)
[2019-05-22] MEDS: SOD CHLORIDE 0.9% 1,000 ML IV SCH (13:47)
[2019-05-22] MEDS: MUPIROCIN 2% 22 GM OINT TOP SCH ×2 (13:47→23:47)
[2019-05-22] MEDS: CEFTRIAXONE 1 GM/50 ML (PMX) 50 ML IVPB SCH (13:48)
--- NOTE | 2019-05-22 14:44 | CONS ---
Assessment/Plan Assessment/Plan Hospital Course (Demo Recall) ID PROGRESS NOTE CURRENT ABX: DAY # Vanco IV + Ceftiraxone 05/22/19 0500 05/22/19 0500 24H INTERVAL SUMMARY * Awake, alert, lethargic, VSS, no fevers, WBC down trending MICRO * 05/20/19 UA (+) for concern UTI * 05/20/19 BCX (+)MRSA Organism 1 METHICILLIN RESISTANT S.AUREUS . MULTI DRUG RESISTANT ORGANISM MRSA M.I.C. RX --------- --- CEFAZOLIN R CIPROFLOXACIN >=8 R CLINDAMYCIN >=8 R DOXYCYCLINE S ERYTHROMYCIN >=8 R LEVOFLOXACIN >=8 R OXACILLIN >=4 R PENICILLIN-G >=0.5 R RIFAMPIN <=0.5 S VANCOMYCIN <=0.5 S TRIMETHOPRIM/SULFAMETHOXAZOLE <=10 S DIAGNOSTIC IMAGING * 05/21/19 CXR: 1. The right upper extremity PICC catheter is been further advanced with the tip in the superior vena cava. The right IJ a venous access catheter is stable in positioning with the tip in the region of the atrial caval junction.2. Suboptimal inspiration compresses lung parenchyma and dis coid atelectasis is again seen at the lung bases. No effusion or pneumothorax is evident. 3. The cardiovascular silhouette is stable and unremarkable. * 05/20/19 CT A-P: * 1. Tubular cystic lesion is present within and along the pancreatic body measuring up to 1 cm in diameter extending approximately 4 cm in length. * 2. Severe bilateral hydronephrosis is present with tortuous megaureters. * 3. Moderate to severe fecal distension of the rectosigmoid junction could reflect impaction in the appropriate setting. * 4. Small gallstones are noted. * 5. Correlation with prior imaging is suggested to assess stability of these findings. MRI of the pancreas may be helpful for further evaluation as warranted. Consider further urologic evaluation as warranted. PHYSICAL EXAMINATION: GENERAL: VSS, NAD HEENT: AT, NC, NECK: Supple, CHEST: Rise symmetrical HEART: Pulse RRR ABDOMEN: Benign EXTREMITIES: Warm, dry - SKIN: No rash, no diaphoresis ID ASSESSMENT 63yo F admit with: 1. Septic shock with MRSA bacteremia * Suspect PermCath infection -- per notes poorly functioning flow on PermCath prior HD session 2. End-stage renal disease 3. Chronic encephalopathy like secondary to schizoaffective disorder 4. Pancreatic cystic lesion * CT abdomen showed a tubular cystic lesion is present within and along the pancreatic body measuring up to 1 cm in diameter extending approximately 4 cm in length 5. Constipation - possible fecal impaction 6. UTI w/pyuria w/Bilateral hydronephrosis w/ureter distention ? due to fecal impaction? * FC placed and Urine Cx pending (+)MRSA Nares -> Bactroban onboard ABX ALLERGIES: KNDA INVASIVES: PIV CURRENT ABX: DAY # Vanco IV + Ceftiraxone ID RECOMMENDATIONS/PLAN: 1. Continue current ABX -- she will need 14 days minimum for MRSA bacteremia 2. PermCath not salvageable due to MRSA bacteremia --PLAN: REMOVAL PermCath with line holiday 3. Urine Cx pending -- started on Rocephin * Thank - you -- will f/u tomorrow. See 's full not dictation. . Consultation Date/Type/Reason Admit Date/Time May 20, 2019 at 10:05 Initial Consult Date Date/Time of Note DATE: 05/22/19 TIME: 14:29 Exam/Review of Systems Exam Vitals Vital Signs Date Temp Pulse Resp B/P (MAP) Pulse Ox O2 O2 Flow FiO2 Time Delivery Rate 05/22/19 88 13:45 05/22/19 97.8 10 96/65 (75) 99 Room Air 12:00 05/20/19 2.0 16:17 Intake and Output 05/21/19 05/21/19 05/22/19 1515:00 23:00 07:00 IntakeIntake Total 108.46 ml 197.99 ml 203.44 ml OutputOutput Total 1000 ml 3100 ml 235 ml BalanceBalance -891.54 ml -2902.01 ml -31.56 ml Results Result Diagram: 05/22/19 0500 05/22/19 0500 Results 24hrs Laboratory Tests Test 05/21/19 17:36 05/21/19 21:14 05/22/19 01:53 05/22/19 05:00 Bedside Glucose 140 166 174 White Blood Count 12.6 #H Red Blood Count 3.73 L Hemoglobin 11.7 L Hematocrit 37.5 Mean Corpuscular Volume 100.5 Mean Corpuscular 31.4 Hemoglobin Mean Corpuscular 31.2 L Hemoglobin Concent Red Cell Distribution 17.7 H Width Platelet Count 98 #L Mean Platelet Volume 10.0 Immature Granulocytes % 0.700 H Neutrophils % 83.3 H Lymphocytes % 9.0 L Monocytes % 5.5 Eosinophils % 1.1 Basophils % 0.4 Nucleated Red Blood 0.0 Cells % Immature Granulocytes # 0.090 H Neutrophils # 10.5 H Lymphocytes # 1.1 Monocytes # 0.7 Eosinophils # 0.1 Basophils # 0.1 Nucleated Red Blood 0.0 Cells # Sodium Level 137 Potassium Level 4.9 Chloride Level 103 Carbon Dioxide Level 22 Anion Gap 12 Blood Urea Nitrogen 51 #H Creatinine 6.40 #H Est Glomerular Filtrat 7 L Rate mL/min Glucose Level 152 Calcium Level 9.6 Phosphorus Level 4.3 Magnesium Level 2.2 Test 05/22/19 05:24 05/22/19 09:20 05/22/19 13:10 Bedside Glucose 153 129 107 Medications Medication Current Medications Sodium Chloride 1,000 ml @ 20 mls/hr Q24H IV Last administered on 05/22/19at 13:47; Admin Dose 20 MLS/HR; Start 05/20/19 at 14:00 IV Flush (NS 3 ml) 3 ml PER PROTOCOL IV ; Start 05/20/19 at 14:30 Ondansetron HCl (Zofran Inj) 4 mg Q6H PRN IV NAUSEA/VOMITING; Start 05/20/19 at 14:30 Acetaminophen (Tylenol Tab) 650 mg Q6H PRN PO .PAIN 1-3 OR TEMP; Start 05/20/19 at 14:30 Acetaminophen/ Hydrocodone Bitart ([place] (5/325)) 1 tab Q6H PRN PO .MOD PAIN 4- 6; Start 05/20/19 at 14:30 Morphine Sulfate (morphine) 2 mg Q4H PRN IV .SEVERE PAIN 7-10; Start 05/20/19 at 14:30 Docusate Sodium (Colace) 100 mg Q12H PRN PO .CONSTIPATION; Start 05/20/19 at 14:30 Zolpidem Tartrate (Ambien) 5 mg QHS PRN PO .INSOMNIA; Start 05/20/19 at 14:30 Diagnostic Test (Pha) (Accu-Chek) 1 ea 02 XX Last administered on 05/22/19at 02:16; Admin Dose 1 EA; Start 05/21/19 at 02:00 Insulin Aspart (Novolog Insulin Pen) NOVOLOG *MILD* ALGORI... Q4 SC Last administered on 05/22/19at 05:30; Admin Dose 1 UNIT; Start 05/20/19 at 17:00 Ceftriaxone Sodium 50 ml @ 100 mls/hr Q24H IVPB Last administered on 05/22/19at 13:48; Admin Dose 100 MLS/HR; Start 05/20/19 at 14:30 Miscellaneous Information 1 ea NOTE XX ; Start 05/20/19 at 14:30 Glucose (Glutose) 15 gm Q15M PRN PO DECREASED GLUCOSE; Start 05/20/19 at 14:30 Glucose (Glutose) 22.5 gm Q15M PRN PO DECREASED GLUCOSE; Start 05/20/19 at 14:30 Dextrose (D50w Syringe) 25 ml Q15M PRN IV DECREASED GLUCOSE; Start 05/20/19 at 14:30 Dextrose (D50w Syringe) 50 ml Q15M PRN IV DECREASED GLUCOSE; Start 05/20/19 at 14:30 Glucagon (Glucagen) 1 mg Q15M PRN IM DECREASED GLUCOSE; Start 05/20/19 at 14:30 Glucose (Glutose) 15 gm Q15M PRN BUCCAL DECREASED GLUCOSE; Start 05/20/19 at 14:30 Norepinephrine 32 mg/Dextrose 250 ml @ 0.47 mls/hr TITRATE IV Last administered on 05/21/19at 00:42; Admin Dose 0.94 MLS/HR; Start 05/20/19 at 18:30 Vancomycin HCl (Vanco Iv Per Pharmacy) VANCOMYCIN PER PHARMACY PER PROTOCOL XX ; Start 05/21/19 at 01:30 Alteplase, Recombinant (Cathflo (Activase)) 4 mg MAY REPEAT X1 PRN CATHETER IF CATHETER REMAINS OCCULUDED Last administered on 05/21/19at 18:24; Admin Dose 4 MG; Start 05/21/19 at 10:00 Lorazepam (Ativan) 0.5 mg Q6H PRN IV AGITATION Last administered on 05/22/19at 10 :22; Admin Dose 0.5 MG; Start 05/22/19 at 09:30 Mupirocin (Bactroban) 1 applic BID TOP Last administered on 05/22/19at 13:47; Admin Dose 1 APPLIC; Start 05/22/19 at 13:30; Stop 05/31/19 at 21:01 Heparin Sodium (Porcine) (Heparin (1000 Units/ml)) 3,700 unit AFTER DIALYSIS CATHETER Last administered on 05/22/19at 13:45; Admin Dose 3,700 UNIT; Start 05/22/19 at 13:00 DIANA SELLERS NP May 22, 2019 14:40
--- NOTE | 2019-05-22 16:33 | CONS ---
DATE OF ADMISSION: 05/20/2019 DATE OF CONSULTATION: 05/22/2019 TYPE OF CONSULTATION: Infectious disease. REASON FOR CONSULTATION: Antibiotic management. HISTORY OF PRESENT ILLNESS: Komal Low is a 63-year-old female who was admitted on 05/20/2019 wit h abdominal pain, nausea and vomiting, sudden onset. The patient has chronic encephalopathy. She pr esents from snf facility with abdominal pain, nausea and vomiting. She had 3 episodes of yellowish emesis. Her past problems include: 1. Schizophrenia and anxiety. 2. Coronary artery disease. 3. Hypertension. FAMILY HISTORY: Noncontributory. SOCIAL HISTORY: She does not smoke, drink or abuse drugs. ALLERGIES: NONE TO PENICILLIN, SULFA OR FOODS. MEDICATIONS: Per chart. REVIEW OF SYSTEMS: As per HPI. PHYSICAL EXAMINATION: GENERAL: The patient is contracted female who is awake, has nausea and vomiting. SKIN: Without generalized rash. HEENT: Within normal limits. NECK: Supple. LYMPH NODES: None palpable. CHEST: Decreased breath sounds at the bases. HEART: Without murmur or gallop. ABDOMEN: Soft, nontender without organosplenomegaly or masses. EXTREMITIES: Without cyanosis, clubbing or edema. RECTAL AND GENITAL: Deferred. NEUROLOGICAL: No focal neurological abnormality. HOSPITAL COURSE: White count 7.5 with 89% neutrophils, H and H of 13.9 and 43.6, platelet count 134, 000. BUN and creatinine is 90/11.01, glucose of 200. Chest x-ray shows clear lung [place]. CT scan of the abdomen: Tubular cystic lesion is present along the pancreatic body measuring up to 1 cm in d iameter, extending approximately 4 cm in length, severe bilateral hydronephrosis with tortuous , moderate to severe fecal distention of the rectosigmoid junction, could reflect impaction, small gal lstones noted. Correlation with prior imaging is suggested. MRI of the pancreas may be helpful for further evaluation. Consider further urological evaluation as warranted. The patient presented with nonspecific nausea and vomiting. She has some bowel obstruction. The patient was seen by Dr. Kenrick mario who felt she had sepsis with fever and tachycardia secondary to UTI and was placed on Rocephin. H er urine showed 3+ leukocyte esterase, greater than 182 white cells per high-power field. Microbiolo gy however shows methicillin-resistant Staphylococcus aureus in her blood from 05/20/2019, no growth after 24 hours of the urine. A PICC line was inserted on 05/21/2019. Right upper extremity PICC, ri ght IJ venous access catheter is stable in position. IMPRESSION AND PLAN: The patient has end-stage renal disease. Plan for hemodialysis today. Hyperka lemia, septic shock secondary to bacteremia, possible line infection. She is on broad spectrum antib iotics and cultures are positive for a PermCath. We will consider removing PermCath for line holiday . I believe that that is a reasonable approach. We should repeat blood cultures. The patient is on vancomycin. We will continue current therapy. Dictated By: ROULA VICTORIA MD, JD/NTS Conf#: [id number] DID#: [id number] CC: ARGENIS GARVEY MD;*EndCC*
[2019-05-23] VITALS (91 sets, daily range): BP systolic 74–136; BP diastolic 53–98; PULSE 53–120; RESP 11–37
[2019-05-23] MEDS: INSULIN ASPART [NOVOLOG] 3 ML PEN SC SCH ×6 (01:00→21:00)
[2019-05-23] MEDS: ACCU-CHEK XX SCH (02:00)
[2019-05-23] MEDS: LORAZEPAM 2 MG INJ IV PRN ×2 (05:42→21:55)
--- NOTE | 2019-05-23 08:30 | PN ---
DATE: 05/23/2019 SUBJECTIVE: The patient is critically ill on pressor support. No other acute events noted. The pat ient had hemodialysis yesterday, tolerated well. OBJECTIVE: VITAL SIGNS: Blood pressure is 100/70, respirations 19, pulse 70, temperature 97.0. HEENT: Head is normocephalic. NECK: Supple. HEART: Regular rate. LUNGS: Show diminished breath sounds at the base. ABDOMEN: Soft, nontender to palpation without rebound or guarding. EXTREMITIES: Negative for clubbing or cyanosis. No edema. DERMATOLOGIC: No rashes. MUSCULOSKELETAL: No joint effusion. NEUROLOGIC: No change in exam. MEDICATIONS: The patient's medication have been reviewed. LABORATORY DATA: Has been reviewed. IMAGING STUDIES: Have been reviewed. ASSESSMENT AND PLAN: 1. End-stage renal disease. Plan for hemodialysis tomorrow. 2. Hyperkalemia, resolved. Continue dialysis on low potassium bath. 3. Mineral bone disorder. Monitor calcium and phosphorus levels. 4. Metabolic acidosis, improved. Continue hemodialysis. 5. Septic shock. Etiology secondary to methicillin-resistant staphylococcus aureus bacteremia with possible line infection. The patient will need a line holiday. We will have Perm-A-Cath removed. C ontinue antibiotic therapy, continue pressor support. 6. Acute on chronic encephalopathy, etiology is toxic metabolic. 7. Pancreatic cystic lesion, etiology unclear. Continue to monitor. 8. Hyponatremia, resolved. Dictated By: STEPHEN BREWER DO NR/NTS Conf#: [id number] DID#: [id number] CC: ROULA VICTORIA MD; ARGENIS GARVEY MD;*EndCC*
--- NOTE | 2019-05-23 10:24 | CONS ---
Assessment/Plan Assessment/Plan Hospital Course (Demo Recall) ID PROGRESS NOTE CURRENT ABX: DAY # Vanco IV + Ceftriaxone 05/23/190 05/23/19 0430 24H INTERVAL SUMMARY * Weaning pressor support, no fevers, WBC normal * Awake, alert, lethargic -- s/p HD yesterday with plans for HD tomorrow * PICC Line placed 05/21/19 MICRO * 05/20/19 UA (+) for concern UTI w/Cx (-) 24H * 05/20/19 BCX (+)MRSA Organism 1 METHICILLIN RESISTANT S.AUREUS . MULTI DRUG RESISTANT ORGANISM MRSA M.I.C. RX --------- --- CEFAZOLIN R CIPROFLOXACIN >=8 R CLINDAMYCIN >=8 R DOXYCYCLINE S ERYTHROMYCIN >=8 R LEVOFLOXACIN >=8 R OXACILLIN >=4 R PENICILLIN-G >=0.5 R RIFAMPIN <=0.5 S VANCOMYCIN <=0.5 S TRIMETHOPRIM/SULFAMETHOXAZOLE <=10 S DIAGNOSTIC IMAGING * 05/21/19 CXR: 1. The right upper extremity PICC catheter is been further advanced with the tip in the superior vena cava. The right IJ a venous access catheter is stable in positioning with the tip in the region of the atrial caval junction.2. Suboptimal inspiration compresses lung parenchyma and disc oid atelectasis is again seen at the lung bases. No effusion or pneumothorax is evident. 3. The cardiovascular silhouette is stable and unremarkable. * 05/20/19 CT A-P: * 1. Tubular cystic lesion is present within and along the pancreatic body measuring up to 1 cm in diameter extending approximately 4 cm in length. * 2. Severe bilateral hydronephrosis is present with tortuous megaureters. * 3. Moderate to severe fecal distension of the rectosigmoid junction could reflect impaction in the appropriate setting. * 4. Small gallstones are noted. * 5. Correlation with prior imaging is suggested to assess stability of these findings. MRI of the pancreas may be helpful for further evaluation as warranted. Consider further urologic evaluation as warranted. PHYSICAL EXAMINATION: GENERAL: VSS, NAD HEENT: AT, NC, NECK: Supple, CHEST: Rise symmetrical HEART: Pulse RRR ABDOMEN: Benign EXTREMITIES: Warm, dry - SKIN: No rash, no diaphoresis ID ASSESSMENT 63yo F admit with: 1. Septic shock with MRSA bacteremia * Suspect PermCath infection -- per notes poorly functioning flow on PermCath prior HD session 2. End-stage renal disease 3. Chronic encephalopathy like secondary to schizoaffective disorder 4. Pancreatic cystic lesion * CT abdomen showed a tubular cystic lesion is present within and along the pancreatic body measuring up to 1 cm in diameter extending approximately 4 cm in length 5. Constipation - possible fecal impaction 6. UTI w/pyuria w/Bilateral hydronephrosis w/ureter distention ? due to fecal impaction? * FC placed and Urine Cx pending (+)MRSA Nares -> Bactroban onboard ABX ALLERGIES: KNDA INVASIVES: PICC Line placed 05/21/19 - PermCATH CURRENT ABX: DAY # Vanco IV + Ceftiraxone ID RECOMMENDATIONS/PLAN: 1. Continue current ABX -- she will need 14 days minimum for MRSA bacteremia 2. PermCATH not salvageable due to MRSA bacteremia --PLAN: REMOVAL PermCath with line holiday 3. Urine Cx pending -- started on Rocephin . Consultation Date/Type/Reason Admit Date/Time May 20, 2019 at 10:05 Initial Consult Date Date/Time of Note DATE: 05/23/19 TIME: 10:21 Exam/Review of Systems Exam Vitals Vital Signs Date Temp Pulse Resp B/P (MAP) Pulse Ox O2 O2 Flow FiO2 Time Delivery Rate 05/23/19 88 17 95/55 (68) 97 08:45 05/23/19 Room Air 08:30 05/23/19 98.7 08:00 05/20/19 2.0 16:17 Intake and Output 05/22/19 05/22/19 05/23/19 1515:00 23:00 07:00 IntakeIntake Total 225.69 ml 134.3150 ml 192.67 ml OutputOutput Total 1845 ml 60 ml 360 ml BalanceBalance -1619.31 ml 74.3150 ml -167.33 ml Results Result Diagram: 05/23/19 0430 05/23/19 0430 Results 24hrs Laboratory Tests Test 05/22/19 13:10 05/22/19 17:18 05/22/19 20:23 05/23/19 04:30 Bedside Glucose 107 130 125 White Blood Count 8.9 # Red Blood Count 3.69 L Hemoglobin 11.6 L Hematocrit 37.5 Mean Corpuscular Volume 101.6 H Mean Corpuscular 31.4 Hemoglobin Mean Corpuscular 30.9 L Hemoglobin Concent Red Cell Distribution 17.6 H Width Platelet Count 85 L Mean Platelet Volume 9.9 Immature Granulocytes % 0.600 H Neutrophils % 73.4 Lymphocytes % 16.3 Monocytes % 6.4 Eosinophils % 2.7 Basophils % 0.6 Nucleated Red Blood 0.0 Cells % Immature Granulocytes # 0.050 H Neutrophils # 6.5 Lymphocytes # 1.5 Monocytes # 0.6 Eosinophils # 0.2 Basophils # 0.1 Nucleated Red Blood 0.0 Cells # Sodium Level 139 Potassium Level 4.1 Chloride Level 104 Carbon Dioxide Level 26 Anion Gap 9 Blood Urea Nitrogen 28 #H Creatinine 4.30 #H Est Glomerular Filtrat 10 L Rate mL/min Glucose Level 129 Calcium Level 9.4 Phosphorus Level 3.7 Magnesium Level 2.1 Test 05/23/19 05:08 05/23/19 08:51 Bedside Glucose 118 106 Medications Medication Current Medications Sodium Chloride 1,000 ml @ 20 mls/hr Q24H IV Last administered on 05/22/19at 13:47; Admin Dose 20 MLS/HR; Start 05/20/19 at 14:00 IV Flush (NS 3 ml) 3 ml PER PROTOCOL IV ; Start 05/20/19 at 14:30 Ondansetron HCl (Zofran Inj) 4 mg Q6H PRN IV NAUSEA/VOMITING; Start 05/20/19 at 14:30 Acetaminophen (Tylenol Tab) 650 mg Q6H PRN PO .PAIN 1-3 OR TEMP; Start 05/20/19 at 14:30 Acetaminophen/ Hydrocodone Bitart ([place] (5/325)) 1 tab Q6H PRN PO .MOD PAIN 4- 6; Start 05/20/19 at 14:30 Morphine Sulfate (morphine) 2 mg Q4H PRN IV .SEVERE PAIN 7-10; Start 05/20/19 at 14:30 Docusate Sodium (Colace) 100 mg Q12H PRN PO .CONSTIPATION; Start 05/20/19 at 14:30 Zolpidem Tartrate (Ambien) 5 mg QHS PRN PO .INSOMNIA; Start 05/20/19 at 14:30 Diagnostic Test (Pha) (Accu-Chek) 1 ea 02 XX Last administered on 05/22/19at 02:16; Admin Dose 1 EA; Start 05/21/19 at 02:00 Insulin Aspart (Novolog Insulin Pen) NOVOLOG *MILD* ALGORI... Q4 SC Last administered on 05/22/19at 05:30; Admin Dose 1 UNIT; Start 05/20/19 at 17:00 Ceftriaxone Sodium 50 ml @ 100 mls/hr Q24H IVPB Last administered on 05/22/19at 13:48; Admin Dose 100 MLS/HR; Start 05/20/19 at 14:30 Miscellaneous Information 1 ea NOTE XX ; Start 05/20/19 at 14:30 Glucose (Glutose) 15 gm Q15M PRN PO DECREASED GLUCOSE; Start 05/20/19 at 14:30 Glucose (Glutose) 22.5 gm Q15M PRN PO DECREASED GLUCOSE; Start 05/20/19 at 14:30 Dextrose (D50w Syringe) 25 ml Q15M PRN IV DECREASED GLUCOSE; Start 05/20/19 at 14:30 Dextrose (D50w Syringe) 50 ml Q15M PRN IV DECREASED GLUCOSE; Start 05/20/19 at 14:30 Glucagon (Glucagen) 1 mg Q15M PRN IM DECREASED GLUCOSE; Start 05/20/19 at 14:30 Glucose (Glutose) 15 gm Q15M PRN BUCCAL DECREASED GLUCOSE; Start 05/20/19 at 14:30 Norepinephrine 32 mg/Dextrose 250 ml @ 0.47 mls/hr TITRATE IV Last administered on 05/21/19at 00:42; Admin Dose 0.94 MLS/HR; Start 05/20/19 at 18:30 Vancomycin HCl (Vanco Iv Per Pharmacy) VANCOMYCIN PER PHARMACY PER PROTOCOL XX ; Start 05/21/19 at 01:30 Alteplase, Recombinant (Cathflo (Activase)) 4 mg MAY REPEAT X1 PRN CATHETER IF CATHETER REMAINS OCCULUDED Last administered on 05/21/19at 18:24; Admin Dose 4 MG; Start 05/21/19 at 10:00 Lorazepam (Ativan) 0.5 mg Q6H PRN IV AGITATION Last administered on 05/23/19at 05:42; Admin Dose 0.5 MG; Start 05/22/19 at 09:30 Mupirocin (Bactroban) 1 applic BID TOP Last administered on 05/22/19at 23:47; Admin Dose 1 APPLIC; Start 05/22/19 at 13:30; Stop 05/31/19 at 21:01 Heparin Sodium (Porcine) (Heparin (1000 Units/ml)) 3,700 unit AFTER DIALYSIS CATHETER Last administered on 05/22/19at 13:45; Admin Dose 3,700 UNIT; Start 05/22/19 at 13:00 DIANA SELLERS NP May 23, 2019 10:24
[2019-05-23] MEDS: MUPIROCIN 2% 22 GM OINT TOP SCH ×2 (10:29→21:55)
[2019-05-23] MEDS: CEFTRIAXONE 1 GM/50 ML (PMX) 50 ML IVPB SCH (15:23)
--- NOTE | 2019-05-23 17:52 | PN ---
Date/Time of Note Date/Time of Note DATE: 05/23/19 TIME: 17:51 Assessment/Plan VTE Prophylaxis Risk score (from Ns)>0 risk: 7 [place] [facility] [place] Pharmacological prophylaxis: heparin Lines/Catheters IV [facility] Type (from [facility] PICC Line Central line still needed: Yes Urinary Cath still in place: Yes Reason Cath still needed: urinary retention Assessment/Plan Hospital Course 1. Septic shock with MRSA bacteremia Blood cultures are positive for MRSA Continue vancomycin IV and Rocephin Continue pressor support PICC line has been placed ID consultation obtained Bactroban for positive MRSA nares 2. End-stage renal disease Nephrology consultation appreciated 3. Chronic encephalopathy like secondary to schizoaffective disorder Patient resides in a halfway facility Patient is confused which appears to be her baseline 4. Pancreatic cystic lesion CT abdomen showed a tubular cystic lesion is present within and along the pancreatic body measuring up to 1 cm in diameter extending approximately 4 cm in length Prior images are not available, due to patient's poor functional status and nonverbal state will defer any further diagnostics, consultations or interventions 5. Hyponatremia-resolved IV fluids Monitor Prophylaxis: SCDs DC planning: Not stable for DC, continue management per above Result Diagram: 05/23/19 0430 05/23/19 0430 Results 24hrs Laboratory Tests Test 05/22/19 20:23 05/23/19 04:30 05/23/19 05:08 05/23/19 08:51 Bedside Glucose 125 118 106 White Blood Count 8.9 # Red Blood Count 3.69 L Hemoglobin 11.6 L Hematocrit 37.5 Mean Corpuscular Volume 101.6 H Mean Corpuscular 31.4 Hemoglobin Mean Corpuscular 30.9 L Hemoglobin Concent Red Cell Distribution 17.6 H Width Platelet Count 85 L Mean Platelet Volume 9.9 Immature Granulocytes % 0.600 H Neutrophils % 73.4 Lymphocytes % 16.3 Monocytes % 6.4 Eosinophils % 2.7 Basophils % 0.6 Nucleated Red Blood 0.0 Cells % Immature Granulocytes # 0.050 H Neutrophils # 6.5 Lymphocytes # 1.5 Monocytes # 0.6 Eosinophils # 0.2 Basophils # 0.1 Nucleated Red Blood 0.0 Cells # Sodium Level 139 Potassium Level 4.1 Chloride Level 104 Carbon Dioxide Level 26 Anion Gap 9 Blood Urea Nitrogen 28 #H Creatinine 4.30 #H Est Glomerular Filtrat 10 L Rate mL/min Glucose Level 129 Calcium Level 9.4 Phosphorus Level 3.7 Magnesium Level 2.1 Test 05/23/19 13:06 Bedside Glucose 97 Subjective 24 Hr Interval Summary Free Text/Dictation Weaned off of vasopressors Stable on RA Lethargic Exam/Review of Systems Exam Vitals Vital Signs Date Temp Pulse Resp B/P (MAP) Pulse Ox O2 O2 Flow FiO2 Time Delivery Rate 05/23/19 97.6 23 127/94 17:04 (105) 05/23/19 87 16:00 05/23/19 95 15:45 05/23/19 Room Air 12:30 05/20/19 2.0 16:17 Intake and Output 05/22/19 05/22/19 05/23/19 1515:00 23:00 07:00 IntakeIntake Total 225.69 ml 134.3150 ml 192.67 ml OutputOutput Total 1845 ml 60 ml 360 ml BalanceBalance -1619.31 ml 74.3150 ml -167.33 ml Results Results 24hrs Laboratory Tests Test 05/22/19 20:23 05/23/19 04:30 05/23/19 05:08 05/23/19 08:51 Bedside Glucose 125 118 106 White Blood Count 8.9 # Red Blood Count 3.69 L Hemoglobin 11.6 L Hematocrit 37.5 Mean Corpuscular Volume 101.6 H Mean Corpuscular 31.4 Hemoglobin Mean Corpuscular 30.9 L Hemoglobin Concent Red Cell Distribution 17.6 H Width Platelet Count 85 L Mean Platelet Volume 9.9 Immature Granulocytes % 0.600 H Neutrophils % 73.4 Lymphocytes % 16.3 Monocytes % 6.4 Eosinophils % 2.7 Basophils % 0.6 Nucleated Red Blood 0.0 Cells % Immature Granulocytes # 0.050 H Neutrophils # 6.5 Lymphocytes # 1.5 Monocytes # 0.6 Eosinophils # 0.2 Basophils # 0.1 Nucleated Red Blood 0.0 Cells # Sodium Level 139 Potassium Level 4.1 Chloride Level 104 Carbon Dioxide Level 26 Anion Gap 9 Blood Urea Nitrogen 28 #H Creatinine 4.30 #H Est Glomerular Filtrat 10 L Rate mL/min Glucose Level 129 Calcium Level 9.4 Phosphorus Level 3.7 Magnesium Level 2.1 Test 05/23/19 13:06 Bedside Glucose 97 Medications Medication Current Medications IV Flush (NS 3 ml) 3 ml PER PROTOCOL IV ; Start 05/20/19 at 14:30 Ondansetron HCl (Zofran Inj) 4 mg Q6H PRN IV NAUSEA/VOMITING; Start 05/20/19 at 14:30 Acetaminophen (Tylenol Tab) 650 mg Q6H PRN PO .PAIN 1-3 OR TEMP; Start 05/20/19 at 14:30 Acetaminophen/ Hydrocodone Bitart ([place] (5/325)) 1 tab Q6H PRN PO .MOD PAIN 4- 6; Start 05/20/19 at 14:30 Morphine Sulfate (morphine) 2 mg Q4H PRN IV .SEVERE PAIN 7-10; Start 05/20/19 at 14:30 Docusate Sodium (Colace) 100 mg Q12H PRN PO .CONSTIPATION; Start 05/20/19 at 14:30 Zolpidem Tartrate (Ambien) 5 mg QHS PRN PO .INSOMNIA; Start 05/20/19 at 14:30 Diagnostic Test (Pha) (Accu-Chek) 1 ea 02 XX Last administered on 05/22/19at 02:16; Admin Dose 1 EA; Start 05/21/19 at 02:00 Insulin Aspart (Novolog Insulin Pen) NOVOLOG *MILD* ALGORI... Q4 SC Last administered on 05/22/19at 05:30; Admin Dose 1 UNIT; Start 05/20/19 at 17:00 Ceftriaxone Sodium 50 ml @ 100 mls/hr Q24H IVPB Last administered on 05/23/19at 15:23; Admin Dose 100 MLS/HR; Start 05/20/19 at 14:30 Miscellaneous Information 1 ea NOTE XX ; Start 05/20/19 at 14:30 Glucose (Glutose) 15 gm Q15M PRN PO DECREASED GLUCOSE; Start 05/20/19 at 14:30 Glucose (Glutose) 22.5 gm Q15M PRN PO DECREASED GLUCOSE; Start 05/20/19 at 14:30 Dextrose (D50w Syringe) 25 ml Q15M PRN IV DECREASED GLUCOSE; Start 05/20/19 at 14:30 Dextrose (D50w Syringe) 50 ml Q15M PRN IV DECREASED GLUCOSE; Start 05/20/19 at 14:30 Glucagon (Glucagen) 1 mg Q15M PRN IM DECREASED GLUCOSE; Start 05/20/19 at 14:30 Glucose (Glutose) 15 gm Q15M PRN BUCCAL DECREASED GLUCOSE; Start 05/20/19 at 14:30 Norepinephrine 32 mg/Dextrose 250 ml @ 0.47 mls/hr TITRATE IV Last administered on 05/21/19at 00:42; Admin Dose 0.94 MLS/HR; Start 05/20/19 at 18:30 Vancomycin HCl (Vanco Iv Per Pharmacy) VANCOMYCIN PER PHARMACY PER PROTOCOL XX ; Start 05/21/19 at 01:30 Alteplase, Recombinant (Cathflo (Activase)) 4 mg MAY REPEAT X1 PRN CATHETER IF CATHETER REMAINS OCCULUDED Last administered on 05/21/19at 18:24; Admin Dose 4 MG; Start 05/21/19 at 10:00 Lorazepam (Ativan) 0.5 mg Q6H PRN IV AGITATION Last administered on 05/23/19 05:42; Admin Dose 0.5 MG; Start 05/22/19 at 09:30 Mupirocin (Bactroban) 1 applic BID TOP Last administered on 05/23/19at 10:29; Admin Dose 1 APPLIC; Start 05/22/19 at 13:30; Stop 05/31/19 at 21:01 Heparin Sodium (Porcine) (Heparin (1000 Units/ml)) 3,700 unit AFTER DIALYSIS CATHETER Last administered on 05/22/19at 13:45; Admin Dose 3,700 UNIT; Start 05/22/19 at 13:00 LISSETT KEY MD May 23, 2019 17:52
[2019-05-23] MEDS ORDERED: HALOPERIDOL 5 MG INJ IM ONE (23:00)
[2019-05-24] VITALS (88 sets, daily range): BP systolic 70–148; BP diastolic 52–112; PULSE 40–119; RESP 10–28
[2019-05-24] MEDS: HEPARIN 1000 UNITS/ML 10 ML INJ CATHETER SCH (00:08)
[2019-05-24] MEDS: INSULIN ASPART [NOVOLOG] 3 ML PEN SC SCH ×6 (01:00→21:01)
[2019-05-24] MEDS: ACCU-CHEK XX SCH (02:06)
[2019-05-24] MEDS ORDERED: ALBUMIN HUMAN 25% 50 ML IV PRN (07:30)
[2019-05-24] MEDS: MUPIROCIN 2% 22 GM OINT TOP SCH ×2 (08:22→20:58)
--- NOTE | 2019-05-24 09:00 | PN ---
DATE: 05/24/2019 SUBJECTIVE: The patient remains critically ill on pressor support. No other events noted. OBJECTIVE: VITAL SIGNS: Blood pressure is 113/85, respirations 13, pulse 96, temperature 98.6. HEENT: Head is normocephalic. NECK: Supple. HEART: Regular rate. LUNGS: Show diminished breath sounds at the base. ABDOMEN: Soft, nontender to palpation without rebound or guarding. EXTREMITIES: Negative for clubbing, cyanosis, no edema. DERMATOLOGIC: No rashes. MUSCULOSKELETAL: No joint effusion. NEUROLOGIC: No change in exam. MEDICATIONS: Have been reviewed. LABORATORY DATA: Has been reviewed. IMAGING STUDIES: Have been reviewed. ASSESSMENT AND PLAN: 1. End-stage renal disease. The patient had hemodialysis last 3 days. Plan is for Perm-A-Cath to b e removed for line holiday. Will monitor for daily dialytic needs. 2. Septic shock secondary to line infection. The patient is pending Perm-A-Cath removal. Anticipat e line holiday. Continue antibiotic therapy and pressor support. 3. Hyperkalemia, resolved. 4. Mineral bone disorder. Monitor calcium and phosphorus levels. 5. Metabolic acidosis, improved. 6. Acute on chronic encephalopathy, etiology is toxic metabolic. Continue to monitor. 7. Pancreatic cystic lesion, etiology unclear. Continue to monitor. 8. Hypernatremia, resolved. Dictated By: STEPHEN HENNING/NTS Conf#: [id number] DID#: [id number] CC: ARGENIS GARVEY MD;*EndCC*
[2019-05-24] MEDS ORDERED: FAMOTIDINE 20 MG INJ ONE (09:08)
--- NOTE | 2019-05-24 11:13 | CONS ---
Assessment/Plan Assessment/Plan Assessment/Plan (Daily) Septic shock now improved ESRD on dialysis Schizoaffective disorder Will follow Full code will speak with SWS Consultation Date/Type/Reason Admit Date/Time May 20, 2019 at 10:05 Date/Time of Note DATE: 05/24/19 TIME: 11:08 Hx of Present Illness Asked to see this 63-year-old female in palliative care consultation. Patient is a full code and was admitted to the intensive care unit septic shock she is currently on aggressive IV antibiotic treatment and being seen by infectious disease consultation. She also has a history of chronic schizoaffective disorder and speaking with her bedside attendant patient only speaks in one word answers she does not use sentences patient is on dialysis for end-stage renal disease. Etiology for her bacteremia posssibly Perma Cath Subjective hx not possible: pt non-verbal Past Medical History Medical History: hypertension, renal disease Home Meds Reported Medications Triamcinolone Acetonide* (Kenalog*) 0.1%-15GM Oint, 1 APPLIC TOP BID, #1 EA 05/20/19 Magnesium Hydroxide* (Milk Of Magnesia*) 400 Mg/5 Ml Oral.susp, 30 ML PO DAILY PRN for CONSTIPATION, ML 05/20/19 Hydrocodone/Acetaminophen ([place] 5-325 Tablet) 1 Each Tablet, 1 TAB PO Q6H PRN for PAIN LEVEL 7-10, TAB 05/20/19 Megestrol Acetate* (Megestrol Acetate*) 400 Mg/10 Ml Susp, 400 MG PO DAILY, ML 05/20/19 Zinc Sulfate* (Zinc Sulfate*) 220 Mg Tablet, 220 MG PO DAILY, TAB 05/20/19 Multivitamins* (Theragran*) 1 Tab Tab, 1 TAB PO DAILY, TAB 05/20/19 Ipratropium-Albuterol (Ipratropium-Albuterol) 0.5-3 Mg/3 Ml Ampul.neb, 3 ML INHALATION Q4, #30 VIAL 05/20/19 Ascorbic Acid* (Vitamin C*) 500 Mg Capsule.sa, 500 MG PO DAILY, CAP 05/20/19 Folic Acid* (Folic Acid*) 1 Mg Tablet, 1 MG PO DAILY, TAB 05/20/19 Epoetin shahida* (Epogen*) 4,000 Unit/1 Ml Vial, 43749 UNIT SC [place]RI, VIAL 05/20/19 Pantoprazole* (Protonix*) 40 Mg Tablet.dr, 40 MG PO DAILY, TAB 05/20/19 Insulin Lispro (Humalog) 100 Unit/1 Ml Cartridge, 0 SQ Q6H PRN for SLIDING SCALE, EA 04/04/19 Levothyroxine Sodium* (Levothyroxine Sodium*) 150 Mcg Tablet, 150 MCG PO BEFORE BREAKFAST, #30 TAB 04/04/19 Midodrine* (Midodrine*) 10 Mg Tablet, 10 MG PO TID, TAB 04/04/19 Cholecalciferol* (Vitamin D3*) 1,000 Unit Tablet, 1000 UNIT PO DAILY, TAB 04/04/19 Acetaminophen* (Tylenol*) 325 Mg Tablet, 650 MG PO Q4H PRN for MILD PAIN LEVEL 1-3, TAB AND FEVER 04/04/19 Trazodone Hcl* (Trazodone Hcl*) 50 Mg Tablet, 50 MG PO QHS, #30 TAB 04/04/19 Insulin Glargine,Hum.rec.anlog (Basaglar Kwikpen U-100) 100 Unit/1 Ml Insuln.pen, 12 UNIT SC DAILY, EA 04/04/19 Sevelamer Carbonate* (Renvela*) 800 Mg Tablet, 1600 GM PO WITH MEALS, TAB 04/04/19 Quetiapine Fumarate* (Quetiapine Fumarate*) 25 Mg Tablet, 100 MG PO BID, TAB 04/04/19 Atorvastatin Calcium (Atorvastatin Calcium) 10 Mg Tablet, 10 MG PO QHS, #30 TAB 04/04/19 Ondansetron Hcl* (Zofran*) 4 Mg Tab, 4 MG PO Q4H PRN for NAUSEA AND OR VOMITING, TAB 04/04/19 Lorazepam* (Ativan*) 2 Mg Tablet, 2 MG PO Q6 PRN for ANXIETY, #60 TAB 04/04/19 Bisacodyl (Dulcolax) 10 Mg Supp.rect, 10 MG RC DAILY PRN for CONSTIPATION, SUPP.RECT 04/04/19 Ferrous Sulfate* (Ferrous Sulfate*) 325 Mg Tabec, 325 MG PO BID, TAB 04/04/19 Docusate Sodium* (Colace*) 100 Mg Capsule, 100 MG PO BID, #30 CAP 04/04/19 Discontinued Reported Medications Polyethylene Glycol* (Miralax*) 17 Gm Powd.pack, 17 GM PO DAILY, #30 PACKET 04/04/19 Raloxifene Hcl* (Evista*) 60 Mg Tablet, 60 MG PO DAILY, TAB 04/04/19 Sennosides* (Senna Lax*) 8.6 Mg Tablet, 2 TAB PO QHS, TAB 04/04/19 Sodium Bicarbonate* (Sodium Bicarbonate*) 650 Mg Tablet, 1300 MG PO BID, TAB 04/04/19 Clonazepam* (Clonazepam*) 0.5 Mg Tablet, 0.5 MG PO Q12H for ANXIETY, TAB 04/04/19 Lorazepam* (Lorazepam*) 1 Mg Tablet, 1 MG PO HS PRN for ANXIETY, #30 TAB Q TU,SAT 04/04/19 Olanzapine* (Zyprexa*) 5 Mg Tablet, 5 MG PO QHS, #30 TAB 04/04/19 Olanzapine* (Zyprexa*) 2.5 Mg Tablet, 2.5 MG PO QAM, #30 TAB 04/04/19 Diazepam* (Diazepam*) 5 Mg Tablet, 5 MG PO Q12H, TAB 04/04/19 Haloperidol* (Haldol*) 5 Mg Tab, 5 MG PO BID, TAB 04/04/19 Acetaminophen* (Acetaminophen*) 500 MG Extra Strength Tablet, 1000 MG PO Q6H PRN for PAIN 4-05/25, TAB 04/04/19 Aspirin* (Aspirin* Chew) 81 Mg Tab.chew, 81 MG PO DAILY, TAB.CHEW 04/04/19 Medications Current Medications IV Flush (NS 3 ml) 3 ml PER PROTOCOL IV ; Start 05/20/19 at 14:30 Ondansetron HCl (Zofran Inj) 4 mg Q6H PRN IV NAUSEA/VOMITING; Start 05/20/19 at 14:30 Acetaminophen (Tylenol Tab) 650 mg Q6H PRN PO .PAIN 1-3 OR TEMP; Start 05/20/19 at 14:30 Acetaminophen/ Hydrocodone Bitart ([place] (5/325)) 1 tab Q6H PRN PO .MOD PAIN 4- 6; Start 05/20/19 at 14:30 Morphine Sulfate (morphine) 2 mg Q4H PRN IV .SEVERE PAIN 7-10; Start 05/20/19 at 14:30 Docusate Sodium (Colace) 100 mg Q12H PRN PO .CONSTIPATION; Start 05/20/19 at 14:30 Zolpidem Tartrate (Ambien) 5 mg QHS PRN PO .INSOMNIA; Start 05/20/19 at 14:30 Diagnostic Test (Pha) (Accu-Chek) 1 ea 02 XX Last administered on 05/24/19at 02:06; Admin Dose 1 EA; Start 05/21/19 at 02:00 Insulin Aspart (Novolog Insulin Pen) NOVOLOG *MILD* ALGORI... Q4 SC Last administered on 05/22/19at 05:30; Admin Dose 1 UNIT; Start 05/20/19 at 17:00 Ceftriaxone Sodium 50 ml @ 100 mls/hr Q24H IVPB Last administered on 05/23/19at 15:23; Admin Dose 100 MLS/HR; Start 05/20/19 at 14:30 Miscellaneous Information 1 ea NOTE XX ; Start 05/20/19 at 14:30 Glucose (Glutose) 15 gm Q15M PRN PO DECREASED GLUCOSE; Start 05/20/19 at 14:30 Glucose (Glutose) 22.5 gm Q15M PRN PO DECREASED GLUCOSE; Start 05/20/19 at 14:30 Dextrose (D50w Syringe) 25 ml Q15M PRN IV DECREASED GLUCOSE; Start 05/20/19 at 14:30 Dextrose (D50w Syringe) 50 ml Q15M PRN IV DECREASED GLUCOSE; Start 05/20/19 at 14:30 Glucagon (Glucagen) 1 mg Q15M PRN IM DECREASED GLUCOSE; Start 05/20/19 at 14:30 Glucose (Glutose) 15 gm Q15M PRN BUCCAL DECREASED GLUCOSE; Start 05/20/19 at 14:30 Norepinephrine 32 mg/Dextrose 250 ml @ 0.47 mls/hr TITRATE IV Last administered on 05/21/19at 00:42; Admin Dose 0.94 MLS/HR; Start 05/20/19 at 18:30 Vancomycin HCl (Vanco Iv Per Pharmacy) VANCOMYCIN PER PHARMACY PER PROTOCOL XX ; Start 05/21/19 at 01:30 Alteplase, Recombinant (Cathflo (Activase)) 4 mg MAY REPEAT X1 PRN CATHETER IF CATHETER REMAINS OCCULUDED Last administered on 05/21/19at 18:24; Admin Dose 4 MG; Start 05/21/19 at 10:00 Lorazepam (Ativan) 0.5 mg Q6H PRN IV AGITATION Last administered on 05/23/19at 21:55; Admin Dose 0.5 MG; Start 05/22/19 at 09:30 Mupirocin (Bactroban) 1 applic BID TOP Last administered on 05/24/19at 08:22; Admin Dose 1 APPLIC; Start 05/22/19 at 13:30; Stop 05/31/19 at 21:01 Heparin Sodium (Porcine) (Heparin (1000 Units/ml)) 3,700 unit AFTER DIALYSIS CATHETER Last administered on 05/24/19at 00:08; Admin Dose 3,700 UNIT; Start 05/22/19 at 13:00 Albumin Human 50 ml @ 25 mls/hr DURING DIALYSIS PRN IV BLOOD PRESSURE SUPPORT; Start 05/24/19 at 07:30 Allergies: Coded Allergies: No Known Allergy (Unverified , 05/21/19) Past Surgical History Past Surgical Hx: other Social History Smoking Status: Never smoker Exam/Review of Systems Exam Vitals Vital Signs Date Temp Pulse Resp B/P (MAP) Pulse Ox O2 O2 Flow FiO2 Time Delivery Rate 05/24/19 81 08:00 05/24/19 97.7 08:00 05/24/19 13 113/85 100 Room Air 07:00 (94) 05/20/19 2.0 16:17 Intake and Output 05/23/19 05/23/19 05/24/19 1515:00 23:00 07:00 IntakeIntake Total 163 ml 50 ml 22.43 ml OutputOutput Total 200 ml 175 ml 1710 ml BalanceBalance -37 ml -125 ml -1687.57 ml Constitutional: non-verbal, frail Head: normocephalic, atraumatic; No lacerations, No hematomas, No other Eyes: nl conjunctiva, EOMI, nl lids, nl sclera, PERRL Cardiovascular: regular rate and rhythm, nl pulses; No bruits, No diastolic murmur, No edema, No gallop, No irregular rhythm, No jugular venous distention (JVD), No murmurs/extra sounds, No rub, No systolic murmur, No S3, No S4, No other Gastrointestinal: soft, nl liver, spleen, non-tender; No ascites, No bowel sounds, No distended, No firm, No hepatomegaly, No mass, No rebound or guarding, No splenomegaly, No surgical scars, No tender, No other Neurological: other (sedated) Results Result Diagram: 05/24/19 0450 05/24/19 0450 Results 24hrs Laboratory Tests Test 05/23/19 13:06 05/23/19 18:05 05/23/19 21:54 05/24/19 01:47 Bedside Glucose 97 85 81 112 Test 05/24/19 04:50 05/24/19 05:31 05/24/19 08:17 White Blood Count 8.8 Red Blood Count 4.06 L Hemoglobin 12.9 Hematocrit 41.9 Mean Corpuscular Volume 103.2 H Mean Corpuscular 31.8 Hemoglobin Mean Corpuscular 30.8 L Hemoglobin Concent Red Cell Distribution 17.7 H Width Platelet Count 67 #L Mean Platelet Volume 9.1 Immature Granulocytes % 0.600 H Neutrophils % 69.1 Lymphocytes % 20.1 Monocytes % 7.6 Eosinophils % 1.8 Basophils % 0.8 Nucleated Red Blood 0.0 Cells % Immature Granulocytes # 0.050 H Neutrophils # 6.1 Lymphocytes # 1.8 Monocytes # 0.7 Eosinophils # 0.2 Basophils # 0.1 Nucleated Red Blood 0.0 Cells # Sodium Level 140 Potassium Level 3.9 Chloride Level 102 Carbon Dioxide Level 23 Anion Gap 15 H Blood Urea Nitrogen 16 # Creatinine 3.29 #H Est Glomerular Filtrat 14 L Rate mL/min Glucose Level 126 Calcium Level 9.3 Phosphorus Level 2.7 Magnesium Level 2.0 Random Vancomycin Level 7.1 Bedside Glucose 113 128 Medications Medication Current Medications IV Flush (NS 3 ml) 3 ml PER PROTOCOL IV ; Start 05/20/19 at 14:30 Ondansetron HCl (Zofran Inj) 4 mg Q6H PRN IV NAUSEA/VOMITING; Start 05/20/19 at 14:30 Acetaminophen (Tylenol Tab) 650 mg Q6H PRN PO .PAIN 1-3 OR TEMP; Start 05/20/19 at 14:30 Acetaminophen/ Hydrocodone Bitart ([place] (5/325)) 1 tab Q6H PRN PO .MOD PAIN 4- 6; Start 05/20/19 at 14:30 Morphine Sulfate (morphine) 2 mg Q4H PRN IV .SEVERE PAIN 7-10; Start 05/20/19 at 14:30 Docusate Sodium (Colace) 100 mg Q12H PRN PO .CONSTIPATION; Start 05/20/19 at 14:30 Zolpidem Tartrate (Ambien) 5 mg QHS PRN PO .INSOMNIA; Start 05/20/19 at 14:30 Diagnostic Test (Pha) (Accu-Chek) 1 ea 02 XX Last administered on 05/24/19at 02:06; Admin Dose 1 EA; Start 05/21/19 at 02:00 Insulin Aspart (Novolog Insulin Pen) NOVOLOG *MILD* ALGORI... Q4 SC Last administered on 05/22/19at 05:30; Admin Dose 1 UNIT; Start 05/20/19 at 17:00 Ceftriaxone Sodium 50 ml @ 100 mls/hr Q24H IVPB Last administered on 05/23/19at 15:23; Admin Dose 100 MLS/HR; Start 05/20/19 at 14:30 Miscellaneous Information 1 ea NOTE XX ; Start 05/20/19 at 14:30 Glucose (Glutose) 15 gm Q15M PRN PO DECREASED GLUCOSE; Start 05/20/19 at 14:30 Glucose (Glutose) 22.5 gm Q15M PRN PO DECREASED GLUCOSE; Start 05/20/19 at 14:30 Dextrose (D50w Syringe) 25 ml Q15M PRN IV DECREASED GLUCOSE; Start 05/20/19 at 14:30 Dextrose (D50w Syringe) 50 ml Q15M PRN IV DECREASED GLUCOSE; Start 05/20/19 at 14:30 Glucagon (Glucagen) 1 mg Q15M PRN IM DECREASED GLUCOSE; Start 05/20/19 at 14:30 Glucose (Glutose) 15 gm Q15M PRN BUCCAL DECREASED GLUCOSE; Start 05/20/19 at 14:30 Norepinephrine 32 mg/Dextrose 250 ml @ 0.47 mls/hr TITRATE IV Last administe red on 05/21/19at 00:42; Admin Dose 0.94 MLS/HR; Start 05/20/19 at 18:30 Vancomycin HCl (Vanco Iv Per Pharmacy) VANCOMYCIN PER PHARMACY PER PROTOCOL XX ; Start 05/21/19 at 01:30 Alteplase, Recombinant (Cathflo (Activase)) 4 mg MAY REPEAT X1 PRN CATHETER IF CATHETER REMAINS OCCULUDED Last administered on 05/21/19at 18:24; Admin Dose 4 MG; Start 05/21/19 at 10:00 Lorazepam (Ativan) 0.5 mg Q6H PRN IV AGITATION Last administered on 05/23/19at 21:55; Admin Dose 0.5 MG; Start 05/22/19 at 09:30 Mupirocin (Bactroban) 1 applic BID TOP Last administered on 05/24/19at 08:22; Admin Dose 1 APPLIC; Start 05/22/19 at 13:30; Stop 05/31/19 at 21:01 Heparin Sodium (Porcine) (Heparin (1000 Units/ml)) 3,700 unit AFTER DIALYSIS CATHETER Last administered on 05/24/19at 00:08; Admin Dose 3,700 UNIT; Start 05/22/19 at 13:00 Albumin Human 50 ml @ 25 mls/hr DURING DIALYSIS PRN IV BLOOD PRESSURE SUPPORT; Start 05/24/19 at 07:30 SUE BARTON May 24, 2019 11:13
--- NOTE | 2019-05-24 12:44 | CONS ---
Assessment/Plan Assessment/Plan Hospital Course (Demo Recall) No acute events overnight patient is sleeping arousable in no distress no fevers overnight, she is on levo fed drip 2. MRSA bacteremia WBC 8.8 platelets 67 Microbiology: Blood culture since admission grew MRSA, nares swab positive for MRSA, repeat blood cultures negative. Indwelling: PICC line, right subclavian permacath Antimicrobials: Topical Bactroban, vancomycin, Rocephin Physical examination: Well-developed fragile elderly woman who is in no distress. Head atraumatic normocephalic sclera nonicteric vehicle mucosa dry neck is supple chest rise symmetrical breath sounds diminished bases heart: S1- S2. Abdomen soft bowel sounds present. Extremities without cyanosis. Assessment: 1. Sepsis with shock, present on admission 2. MRSA bacteremia, likely line sepsis 3. MRSA nares colonization 4. End-stage renal disease 5. Pancreatic cystic lesion of unknown significance 6. Encephalopathy Plan: Continue antibiotics, add rifampin, consider 2D echo if not done, pending [facility] dc, dc Rocephin Consultation Date/Type/Reason Admit Date/Time May 20, 2019 at 10:05 Initial Consult Date Type of Consult id Date/Time of Note DATE: 05/24/19 TIME: 12:44 Exam/Review of Systems Exam Vitals Vital Signs Date Temp Pulse Resp B/P (MAP) Pulse Ox O2 O2 Flow FiO2 Time Delivery Rate 05/24/19 106 12:00 05/24/19 18 114/80 100 Room Air 10:30 (91) 05/24/19 97.7 08:00 05/20/19 2.0 16:17 Intake and Output 05/23/19 05/23/19 05/24/19 1515:00 23:00 07:00 IntakeIntake Total 163 ml 50 ml 22.43 ml OutputOutput Total 200 ml 175 ml 1710 ml BalanceBalance -37 ml -125 ml -1687.57 ml Results Result Diagram: 05/24/19 0450 05/24/19 0450 Results 24hrs Laboratory Tests Test 05/23/19 13:06 05/23/19 18:05 05/23/19 21:54 05/24/19 01:47 Bedside Glucose 97 85 81 112 Test 05/24/19 04:50 05/24/19 05:31 05/24/19 08:17 05/24/19 12:21 White Blood Count 8.8 Red Blood Count 4.06 L Hemoglobin 12.9 Hematocrit 41.9 Mean Corpuscular Volume 103.2 H Mean Corpuscular 31.8 Hemoglobin Mean Corpuscular 30.8 L Hemoglobin Concent Red Cell Distribution 17.7 H Width Platelet Count 67 #L Mean Platelet Volume 9.1 Immature Granulocytes % 0.600 H Neutrophils % 69.1 Lymphocytes % 20.1 Monocytes % 7.6 Eosinophils % 1.8 Basophils % 0.8 Nucleated Red Blood 0.0 Cells % Immature Granulocytes # 0.050 H Neutrophils # 6.1 Lymphocytes # 1.8 Monocytes # 0.7 Eosinophils # 0.2 Basophils # 0.1 Nucleated Red Blood 0.0 Cells # Sodium Level 140 Potassium Level 3.9 Chloride Level 102 Carbon Dioxide Level 23 Anion Gap 15 H Blood Urea Nitrogen 16 # Creatinine 3.29 #H Est Glomerular Filtrat 14 L Rate mL/min Glucose Level 126 Calcium Level 9.3 Phosphorus Level 2.7 Magnesium Level 2.0 Random Vancomycin Level 7.1 Bedside Glucose 113 128 152 Medications Medication Current Medications IV Flush (NS 3 ml) 3 ml PER PROTOCOL IV ; Start 05/20/19 at 14:30 Ondansetron HCl (Zofran Inj) 4 mg Q6H PRN IV NAUSEA/VOMITING; Start 05/20/19 at 14:30 Acetaminophen (Tylenol Tab) 650 mg Q6H PRN PO .PAIN 1-3 OR TEMP; Start 05/20/19 at 14:30 Acetaminophen/ Hydrocodone Bitart ([place] (5/325)) 1 tab Q6H PRN PO .MOD PAIN 4- 6; Start 05/20/19 at 14:30 Morphine Sulfate (morphine) 2 mg Q4H PRN IV .SEVERE PAIN 7-10; Start 05/20/19 at 14:30 Docusate Sodium (Colace) 100 mg Q12H PRN PO .CONSTIPATION; Start 05/20/19 at 14:30 Zolpidem Tartrate (Ambien) 5 mg QHS PRN PO .INSOMNIA; Start 05/20/19 at 14:30 Diagnostic Test (Pha) (Accu-Chek) 1 ea 02 XX Last administered on 05/24/19at 02:06; Admin Dose 1 EA; Start 05/21/19 at 02:00 Insulin Aspart (Novolog Insulin Pen) NOVOLOG *MILD* ALGORI... Q4 SC Last administered on 05/22/19at 05:30; Admin Dose 1 UNIT; Start 05/20/19 at 17:00 Ceftriaxone Sodium 50 ml @ 100 mls/hr Q24H IVPB Last administered on 05/23/19at 15:23; Admin Dose 100 MLS/HR; Start 05/20/19 at 14:30 Miscellaneous Information 1 ea NOTE XX ; Start 05/20/19 at 14:30 Glucose (Glutose) 15 gm Q15M PRN PO DECREASED GLUCOSE; Start 05/20/19 at 14:30 Glucose (Glutose) 22.5 gm Q15M PRN PO DECREASED GLUCOSE; Start 05/20/19 at 14:30 Dextrose (D50w Syringe) 25 ml Q15M PRN IV DECREASED GLUCOSE; Start 05/20/19 at 14:30 Dextrose (D50w Syringe) 50 ml Q15M PRN IV DECREASED GLUCOSE; Start 05/20/19 at 14:30 Glucagon (Glucagen) 1 mg Q15M PRN IM DECREASED GLUCOSE; Start 05/20/19 at 14:30 Glucose (Glutose) 15 gm Q15M PRN BUCCAL DECREASED GLUCOSE; Start 05/20/19 at 14:30 Norepinephrine 32 mg/Dextrose 250 ml @ 0.47 mls/hr TITRATE IV Last administered on 05/21/19at 00:42; Admin Dose 0.94 MLS/HR; Start 05/20/19 at 18:30 Vancomycin HCl (Vanco Iv Per Pharmacy) VANCOMYCIN PER PHARMACY PER PROTOCOL XX ; Start 05/21/19 at 01:30 Alteplase, Recombinant (Cathflo (Activase)) 4 mg MAY REPEAT X1 PRN CATHETER IF CATHETER REMAINS OCCULUDED Last administered on 05/21/19at 18:24; Admin Dose 4 MG; Start 05/21/19 at 10:00 Lorazepam (Ativan) 0.5 mg Q6H PRN IV AGITATION Last administered on 05/23/19at 21:55; Admin Dose 0.5 MG; Start 05/22/19 at 09:30 Mupirocin (Bactroban) 1 applic BID TOP Last administered on 05/24/19at 08:22; Admin Dose 1 APPLIC; Start 05/22/19 at 13:30; Stop 7/16/19 at 21:01 Heparin Sodium (Porcine) (Heparin (1000 Units/ml)) 3,700 unit AFTER DIALYSIS CATHETER Last administered on 05/24/19at 00:08; Admin Dose 3,700 UNIT; Start 05/22/19 at 13:00 Albumin Human 50 ml @ 25 mls/hr DURING DIALYSIS PRN IV BLOOD PRESSURE SUPPORT; Start 05/24/19 at 07:30 EILEEN MAIER NP May 24, 2019 12:44
[2019-05-24] MEDS ORDERED: LIDOCAINE 1% (MPF) 5 ML VIAL ONE (15:28)
[2019-05-24] MEDS ORDERED: VANCOMYCIN 1 GM 250 ML IVPB SCH (16:00)
--- NOTE | 2019-05-24 16:55 | PN ---
Date/Time of Note Date/Time of Note DATE: 05/24/19 TIME: 16:54 Assessment/Plan VTE Prophylaxis Risk score (from Ns)>0 risk: 7 SCD applied (from [facility]): Yes Pharmacological prophylaxis: heparin Lines/Catheters IV Catheter Type (from [facility]): PICC Line Central line still needed: Yes Urinary Cath still in place: Yes Reason Cath still needed: urinary retention Assessment/Plan Hospital Course 1. Septic shock with MRSA bacteremia Blood cultures are positive for MRSA Continue vancomycin IV and Rocephin Continue pressor support PICC line has been placed ID consultation obtained Bactroban for positive MRSA nares 2. End-stage renal disease Nephrology consultation appreciated 3. Chronic encephalopathy like secondary to schizoaffective disorder Patient [facility] Patient is confused which appears to be her baseline 4. Pancreatic cystic lesion CT abdomen showed a tubular cystic lesion is present within and along the pancreatic body measuring up to 1 cm in diameter extending approximately 4 cm in length Prior images are not available, due to patient's poor functional status and nonverbal state will defer any further diagnostics, consultations or interventions 5. Hyponatremia-resolved IV fluids Monitor Prophylaxis: SCDs DC planning: Not stable for DC, continue management per above Result Diagram: 05/24/19 0450 05/24/19 0450 Results 24hrs Laboratory Tests Test 05/23/19 18:05 05/23/19 21:54 05/24/19 01:47 05/24/19 04:50 Bedside Glucose 85 81 112 White Blood Count 8.8 Red Blood Count 4.06 L Hemoglobin 12.9 Hematocrit 41.9 Mean Corpuscular Volume 103.2 H Mean Corpuscular 31.8 Hemoglobin Mean Corpuscular 30.8 L Hemoglobin Concent Red Cell Distribution 17.7 H Width Platelet Count 67 #L Mean Platelet Volume 9.1 Immature Granulocytes % 0.600 H Neutrophils % 69.1 Lymphocytes % 20.1 Monocytes % 7.6 Eosinophils % 1.8 Basophils % 0.8 Nucleated Red Blood 0.0 Cells % Immature Granulocytes # 0.050 H Neutrophils # 6.1 Lymphocytes # 1.8 Monocytes # 0.7 Eosinophils # 0.2 Basophils # 0.1 Nucleated Red Blood 0.0 Cells # Sodium Level 140 Potassium Level 3.9 Chloride Level 102 Carbon Dioxide Level 23 Anion Gap 15 H Blood Urea Nitrogen 16 # Creatinine 3.29 #H Est Glomerular Filtrat 14 L Rate mL/min Glucose Level 126 Calcium Level 9.3 Phosphorus Level 2.7 Magnesium Level 2.0 Random Vancomycin Level 7.1 Test 05/24/19 05:31 05/24/19 08:17 05/24/19 12:21 05/24/19 14:03 Bedside Glucose 113 128 152 183 Test 05/24/19 16:42 Bedside Glucose 136 Subjective 24 Hr Interval Summary Free Text/Dictation On low dose vasopressors still very ornery Denies complaints Exam/Review of Systems Exam Vitals Vital Signs Date Temp Pulse Resp B/P (MAP) Pulse Ox O2 O2 Flow FiO2 Time Delivery Rate 05/24/19 104 16:00 05/24/19 97.9 12:00 05/24/19 18 114/80 100 Room Air 10:30 (91) 05/20/19 2.0 16:17 Intake and Output 05/23/19 05/23/19 05/24/19 1515:00 23:00 07:00 IntakeIntake Total 163 ml 50 ml 22.43 ml OutputOutput Total 200 ml 175 ml 1710 ml BalanceBalance -37 ml -125 ml -1687.57 ml Constitutional: alert, oriented, well developed Psych: no complaints, nl mood/affect Head: normocephalic, atraumatic Eyes: nl conjunctiva, EOMI, nl lids, nl sclera, PERRL ENMT: nl external ears & nose, nl lips & teeth, nl nasal mucosa & septum Neck: supple, non-tender Respiratory: clear to auscultation, normal air movement Cardiovascular: regular rate and rhythm, nl pulses Gastrointestinal: soft, nl liver, spleen, non-tender Musculoskeletal: nl extremities to inspection, nl gait and stance Extremities: normal pulses Neurological: [employer] II-XII intact, nl mental status, nl speech, nl strength Skin: nl turgor; No rash or lesions Lymph: nl lymph nodes Results Results 24hrs Laboratory Tests Test 05/23/19 18:05 05/23/19 21:54 05/24/19 01:47 05/24/19 04:50 Bedside Glucose 85 81 112 White Blood Count 8.8 Red Blood Count 4.06 L Hemoglobin 12.9 Hematocrit 41.9 Mean Corpuscular Volume 103.2 H Mean Corpuscular 31.8 Hemoglobin Mean Corpuscular 30.8 L Hemoglobin Concent Red Cell Distribution 17.7 H Width Platelet Count 67 #L Mean Platelet Volume 9.1 Immature Granulocytes % 0.600 H Neutrophils % 69.1 Lymphocytes % 20.1 Monocytes % 7.6 Eosinophils % 1.8 Basophils % 0.8 Nucleated Red Blood 0.0 Cells % Immature Granulocytes # 0.050 H Neutrophils # 6.1 Lymphocytes # 1.8 Monocytes # 0.7 Eosinophils # 0.2 Basophils # 0.1 Nucleated Red Blood 0.0 Cells # Sodium Level 140 Potassium Level 3.9 Chloride Level 102 Carbon Dioxide Level 23 Anion Gap 15 H Blood Urea Nitrogen 16 # Creatinine 3.29 #H Est Glomerular Filtrat 14 L Rate mL/min Glucose Level 126 Calcium Level 9.3 Phosphorus Level 2.7 Magnesium Level 2.0 Random Vancomycin Level 7.1 Test 05/24/19 05:31 05/24/19 08:17 05/24/19 12:21 05/24/19 14:03 Bedside Glucose 113 128 152 183 Test 05/24/19 16:42 Bedside Glucose 136 Medications Medication Current Medications IV Flush (NS 3 ml) 3 ml PER PROTOCOL IV ; Start 05/20/19 at 14:30 Ondansetron HCl (Zofran Inj) 4 mg Q6H PRN IV NAUSEA/VOMITING; Start 05/20/19 at 14:30 Acetaminophen (Tylenol Tab) 650 mg Q6H PRN PO .PAIN 1-3 OR TEMP; Start 05/20/19 at 14:30 Acetaminophen/ Hydrocodone Bitart ([place] (5/325)) 1 tab Q6H PRN PO .MOD PAIN 4- 6; Start 05/20/19 at 14:30 Morphine Sulfate (morphine) 2 mg Q4H PRN IV .SEVERE PAIN 7-10; Start 05/20/19 at 14:30 Docusate Sodium (Colace) 100 mg Q12H PRN PO .CONSTIPATION; Start 05/20/19 at 14:30 Zolpidem Tartrate (Ambien) 5 mg QHS PRN PO .INSOMNIA; Start 05/20/19 at 14:30 Diagnostic Test (Pha) (Accu-Chek) 1 ea 02 XX Last administered on 05/24/19at 02:06; Admin Dose 1 EA; Start 05/21/19 at 02:00 Insulin Aspart (Novolog Insulin Pen) NOVOLOG *MILD* ALGORI... Q4 SC Last administered on 05/24/19at 14:08; Admin Dose 2 UNIT; Start 05/20/19 at 17:00 Miscellaneous Information 1 ea NOTE XX ; Start 05/20/19 at 14:30 Glucose (Glutose) 15 gm Q15M PRN PO DECREASED GLUCOSE; Start 05/20/19 at 14:30 Glucose (Glutose) 22.5 gm Q15M PRN PO DECREASED GLUCOSE; Start 05/20/19 at 14:30 Dextrose (D50w Syringe) 25 ml Q15M PRN IV DECREASED GLUCOSE; Start 05/20/19 at 14:30 Dextrose (D50w Syringe) 50 ml Q15M PRN IV DECREASED GLUCOSE; Start 05/20/19 at 14:30 Glucagon (Glucagen) 1 mg Q15M PRN IM DECREASED GLUCOSE; Start 05/20/19 at 14:30 Glucose (Glutose) 15 gm Q15M PRN BUCCAL DECREASED GLUCOSE; Start 05/20/19 at 14:30 Norepinephrine 32 mg/Dextrose 250 ml @ 0.47 mls/hr TITRATE IV Last administered on 05/21/19at 00:42; Admin Dose 0.94 MLS/HR; Start 05/20/19 at 18:30 Vancomycin HCl (Vanco Iv Per Pharmacy) VANCOMYCIN PER PHARMACY PER PROTOCOL XX ; Start 05/21/19 at 01:30 Alteplase, Recombinant (Cathflo (Activase)) 4 mg MAY REPEAT X1 PRN CATHETER IF CATHETER REMAINS OCCULUDED Last administered on 05/21/19at 18:24; Admin Dose 4 MG; Start 05/21/19 at 10:00 Lorazepam (Ativan) 0.5 mg Q6H PRN IV AGITATION Last administered on 05/23/19at 21:55; Admin Dose 0.5 MG; Start 05/22/19 at 09:30 Mupirocin (Bactroban) 1 applic BID TOP Last administered on 05/24/19at 08:22; Admin Dose 1 APPLIC; Start 05/22/19 at 13:30; Stop 05/31/19 at 21:01 Heparin Sodium (Porcine) (Heparin (1000 Units/ml)) 3,700 unit AFTER DIALYSIS CATHETER Last administered on 05/24/19at 00:08; Admin Dose 3,700 UNIT; Start 05/22/19 at 13:00 Albumin Human 50 ml @ 25 mls/hr DURING DIALYSIS PRN IV BLOOD PRESSURE SUPPORT; Start 05/24/19 at 07:30 Rifampin 300 mg/ Dextrose 100 ml @ 200 mls/hr Q12 IVPB ; Start 05/25/19 at 09:00 Vancomycin HCl 250 ml @ 125 mls/hr ONCE IVPB Last administered on 05/24/19at 16:43; Admin Dose 125 MLS/HR; Start 05/24/19 at 16:00; Stop 05/24/19 at 17:59 LISSETT KEY MD May 24, 2019 16:55
[2019-05-24] MEDS ORDERED: SOD CHLORIDE 0.9% 250 ML IV ONE (21:00)
[2019-05-25] VITALS (75 sets, daily range): BP systolic 76–140; BP diastolic 58–104; PULSE 63–113; RESP 10–28
[2019-05-25] MEDS ORDERED: POTASSIUM CHLORIDE 20 MEQ POWDER FOR ORAL SOLN PO ONE
[2019-05-25] MEDS: INSULIN ASPART [NOVOLOG] 3 ML PEN SC SCH ×6 (00:24→21:00)
[2019-05-25] MEDS: POTASSIUM CHLORIDE 100 ML IVPB SCH ×2 (00:59→03:42)
[2019-05-25] MEDS: ACCU-CHEK XX SCH (02:00)
--- NOTE | 2019-05-25 07:35 | PN ---
DATE: 05/25/2019 SUBJECTIVE: The patient remains critically ill on pressor support. The patient's PermCath was remov ed yesterday. No other events noted. OBJECTIVE: VITAL SIGNS: Blood pressure is 117/104, respirations 13, pulse 102, temperature 98.6. HEENT: Head is normocephalic. NECK: Supple. HEART: Regular rate. LUNGS: Show diminished breath sounds at the base. ABDOMEN: Soft, nontender to palpation without rebound or guarding. EXTREMITIES: Negative for clubbing, cyanosis, no edema. DERMATOLOGIC: No rashes. MUSCULOSKELETAL: No joint effusion. NEUROLOGIC: No change in exam. MEDICATIONS: Reviewed. LABORATORY DATA: Has been reviewed. ASSESSMENT AND PLAN: 1. End-stage renal disease. The patient's PermCath was removed for a line holiday due to line infec tion. Anticipate placing a Krzysztof catheter on Thursday. We will monitor closely. 2. Septic shock, severe line infection. The patient's PermCath was removed. Continue antibiotic th erapy. 3. Hyperkalemia, resolved. 4. Mineral bone disorder, monitor calcium and phosphorus levels. 5. Metabolic acidosis, improved. 6. Acute on chronic encephalopathy, etiology toxic metabolic. Continue to monitor. 7. Pancreatic cystic lesion, unclear etiology. Continue to monitor. Dictated By: STEPHEN HENNING/MADONNA Conf#: [id number] DID#: [id number]
[2019-05-25] MEDS: MUPIROCIN 2% 22 GM OINT TOP SCH ×2 (08:56→21:13)
[2019-05-25] MEDS ORDERED: DEXTROSE 5% IVPB SCH (09:00)
[2019-05-25] MEDS ORDERED: RIFAMPIN IVPB SCH (09:00)
[2019-05-25] MEDS: SOD CHLORIDE 0.9% IVPB SCH ×2 (12:02→21:31)
[2019-05-25] MEDS: RIFAMPIN IVPB SCH ×2 (12:02→21:31)
--- NOTE | 2019-05-25 12:26 | CONS ---
Assessment/Plan Assessment/Plan Hospital Course (Demo Recall) No acute changes patient is off pressors looks comfortable afebrile WBC 6.7 platelets 82 Microbiology: Blood culture since admission grew MRSA, nares swab positive for MRSA, repeat blood cultures negative. Indwelling: PICC line, [place] Antimicrobials: Rifempin, vancomycin Physical examination: Well-developed fragile elderly woman who is in no distress. Head atraumatic normocephalic sclera nonicteric vehicle mucosa dry neck is supple chest rise symmetrical breath sounds diminished bases heart: S1- S2. Abdomen soft bowel sounds present. Extremities without cyanosis. Assessment: 1. Sepsis with shock, present on admission 2. MRSA bacteremia, status post permacath DC'd 3. MRSA nares colonization 4. End-stage renal disease 5. Pancreatic cystic lesion of unknown significance 6. Encephalopathy Plan: Stable off pressors, status post permacath removed yesterday, continue antibiotics, consider 2D echo if not done, line Consultation Date/Type/Reason Admit Date/Time May 20, 2019 at 10:05 Initial Consult Date Type of Consult id Date/Time of Note DATE: 05/25/19 TIME: 12:24 Exam/Review of Systems Exam Vitals Vital Signs Date Temp Pulse Resp B/P (MAP) Pulse Ox O2 O2 Flow FiO2 Time Delivery Rate 05/25/19 98 12:00 05/25/19 12 102/77 100 09:30 (85) 05/25/19 Room Air 09:00 05/25/19 97.5 08:00 Intake and Output 05/24/19 05/24/19 05/25/19 1515:00 23:00 07:00 IntakeIntake Total 250.5 ml 370 ml 339.18 ml OutputOutput Total 80 ml 110 ml 95 ml BalanceBalance 170.5 ml 260 ml 244.18 ml Results Result Diagram: 05/25/19 0645 05/25/19 0645 Results 24hrs Laboratory Tests Test 05/24/19 14:03 05/24/19 16:42 05/24/19 20:52 05/24/19 20:57 Bedside Glucose 183 136 171 Sodium Level 136 Potassium Level 3.4 L Chloride Level 100 Carbon Dioxide Level 27 Anion Gap 9 # Blood Urea Nitrogen 27 #H Creatinine 4.16 H Est Glomerular 11 L Filtrat Rate mL/min Glucose Level 186 Lactic Acid Level 1.5 Calcium Level 8.8 Magnesium Level 2.0 Test 05/25/19 00:20 05/25/19 05:22 05/25/19 06:45 05/25/19 08:53 Bedside Glucose 176 133 139 White Blood Count 6.7 # Red Blood Count 3.87 L Hemoglobin 12.1 Hematocrit 39.7 Mean Corpuscular 102.6 H Volume Mean Corpuscular 31.3 Hemoglobin Mean Corpuscular 30.5 L Hemoglobin Concent Red Cell 17.1 H Distribution Width Platelet Count 82 #L Mean Platelet Volume 12.0 #H Immature 0.700 H Granulocytes % Neutrophils % 66.9 Lymphocytes % 22.1 Monocytes % 7.3 Eosinophils % 2.4 Basophils % 0.6 Nucleated Red Blood 0.0 Cells % Immature 0.050 H Granulocytes # Neutrophils # 4.5 Lymphocytes # 1.5 Monocytes # 0.5 Eosinophils # 0.2 Basophils # 0.0 Nucleated Red Blood 0.0 Cells # Sodium Level 138 Potassium Level 4.8 Chloride Level 103 Carbon Dioxide Level 23 Anion Gap 12 Blood Urea Nitrogen 28 H Creatinine 4.77 H Est Glomerular 9 L Filtrat Rate mL/min Glucose Level 151 Calcium Level 9.4 Phosphorus Level 3.8 Magnesium Level 2.0 Total Bilirubin 0.2 Direct Bilirubin 0.00 Indirect Bilirubin 0.2 Aspartate Amino 16 Transf (AST/SGOT) Alanine 13 Aminotransferase (AL T/SGPT) Alkaline Phosphatase 101 Total Protein 7.2 Albumin 3.1 L Globulin 4.10 H Albumin/Globulin 0.75 Ratio Medications Medication Current Medications IV Flush (NS 3 ml) 3 ml PER PROTOCOL IV ; Start 05/20/19 at 14:30 Ondansetron HCl (Zofran Inj) 4 mg Q6H PRN IV NAUSEA/VOMITING; Start 05/20/19 at 14:30 Acetaminophen (Tylenol Tab) 650 mg Q6H PRN PO .PAIN 1-3 OR TEMP; Start 05/20/19 at 14:30 Acetaminophen/ Hydrocodone Bitart ([place] (5/325)) 1 tab Q6H PRN PO .MOD PAIN 4- 6; Start 05/20/19 at 14:30 Morphine Sulfate (morphine) 2 mg Q4H PRN IV .SEVERE PAIN 7-10; Start 05/20/19 at 14:30 Docusate Sodium (Colace) 100 mg Q12H PRN PO .CONSTIPATION; Start 05/20/19 at 14:30 Zolpidem Tartrate (Ambien) 5 mg QHS PRN PO .INSOMNIA; Start 05/20/19 at 14:30 Diagnostic Test (Pha) (Accu-Chek) 1 ea 02 XX Last administered on 05/24/19at 02:06; Admin Dose 1 EA; Start 05/21/19 at 02:00 Insulin Aspart (Novolog Insulin Pen) NOVOLOG *MILD* ALGORI... Q4 SC Last admini stered on 05/25/19at 00:24; Admin Dose 1 UNIT; Start 05/20/19 at 17:00 Miscellaneous Information 1 ea NOTE XX ; Start 05/20/19 at 14:30 Glucose (Glutose) 15 gm Q15M PRN PO DECREASED GLUCOSE; Start 05/20/19 at 14:30 Glucose (Glutose) 22.5 gm Q15M PRN PO DECREASED GLUCOSE; Start 05/20/19 at 14:30 Dextrose (D50w Syringe) 25 ml Q15M PRN IV DECREASED GLUCOSE; Start 05/20/19 at 14:30 Dextrose (D50w Syringe) 50 ml Q15M PRN IV DECREASED GLUCOSE; Start 05/20/19 at 14:30 Glucagon (Glucagen) 1 mg Q15M PRN IM DECREASED GLUCOSE; Start 05/20/19 at 14:30 Glucose (Glutose) 15 gm Q15M PRN BUCCAL DECREASED GLUCOSE; Start 05/20/19 at 14:30 Norepinephrine 32 mg/Dextrose 250 ml @ 0.47 mls/hr TITRATE IV Last admin istered on 05/21/19at 00:42; Admin Dose 0.94 MLS/HR; Start 05/20/19 at 18:30 Vancomycin HCl (Vanco Iv Per Pharmacy) VANCOMYCIN PER PHARMACY PER PROTOCOL XX ; Start 05/21/19 at 01:30 Alteplase, Recombinant (Cathflo (Activase)) 4 mg MAY REPEAT X1 PRN CATHETER IF CATHETER REMAINS OCCULUDED Last administered on 05/21/19at 18:24; Admin Dose 4 MG; Start 05/21/19 at 10:00 Lorazepam (Ativan) 0.5 mg Q6H PRN IV AGITATION Last administered on 05/23/19at 21:55; Admin Dose 0.5 MG; Start 7/7/19 at 09:30 Mupirocin (Bactroban) 1 applic BID TOP Last administered on 05/25/19at 08:56; Admin Dose 1 APPLIC; Start 05/22/19 at 13:30; Stop 05/31/19 at 21:01 Heparin Sodium (Porcine) (Heparin (1000 Units/ml)) 3,700 unit AFTER DIALYSIS CATHETER Last administered on 05/24/19at 00:08; Admin Dose 3,700 UNIT; Start 05/22/19 at 13:00 Albumin Human 50 ml @ 25 mls/hr DURING DIALYSIS PRN IV BLOOD PRESSURE SUPPORT; Start 05/24/19 at 07:30 Rifampin 300 mg/ Sodium Chloride 100 ml @ 200 mls/hr Q12 IVPB Last administered on 05/25/19at 12:02; Admin Dose 200 MLS/HR; Start 05/25/19 at 09:00 EILEEN MAIER NP May 25, 2019 12:26
--- NOTE | 2019-05-25 14:45 | PN ---
Date/Time of Note Date/Time of Note DATE: 05/25/19 TIME: 14:44 Assessment/Plan VTE Prophylaxis Risk score (from Ns)>0 risk: 9 SCD applied (from Ns): Yes Pharmacological prophylaxis: heparin Lines/Catheters IV Catheter Type (from Nrs): PICC Line Central line still needed: Yes Urinary Cath still in place: Yes Reason Cath still needed: urinary retention Assessment/Plan Hospital Course 1. Septic shock with MRSA bacteremia - Blood cultures are positive for MRSA - Permacath has been removed - Continue abx per ID - Check TTE to exclude BE 2. End-stage renal disease Nephrology consultation appreciated 3. Chronic encephalopathy like secondary to schizoaffective disorder Patient resides in a senior living facility Patient is confused which appears to be her baseline 4. Pancreatic cystic lesion CT abdomen showed a tubular cystic lesion is present within and along the pancreatic body measuring up to 1 cm in diameter extending approximately 4 cm in length Prior images are not available, due to patient's poor functional status and nonverbal state will defer any further diagnostics, consultations or interventions 5. Hyponatremia-resolved IV fluids Monitor Prophylaxis: SCDs DC planning: Not stable for DC, continue management per above Result Diagram: 05/25/1945 05/25/1945 Results 24hrs Laboratory Tests Test 05/24/19 16:42 05/24/19 20:52 05/24/19 20:57 05/25/19 00:20 Bedside Glucose 136 171 176 Sodium Level 136 Potassium Level 3.4 L Chloride Level 100 Carbon Dioxide Level 27 Anion Gap 9 # Blood Urea Nitrogen 27 #H Creatinine 4.16 H Est Glomerular 11 L Filtrat Rate mL/min Glucose Level 186 Lactic Acid Level 1.5 Calcium Level 8.8 Magnesium Level 2.0 Test 05/25/19 05:22 05/25/19 06:45 05/25/19 08:53 05/25/19 12:59 Bedside Glucose 133 139 138 White Blood Count 6.7 # Red Blood Count 3.87 L Hemoglobin 12.1 Hematocrit 39.7 Mean Corpuscular 102.6 H Volume Mean Corpuscular 31.3 Hemoglobin Mean Corpuscular 30.5 L Hemoglobin Concent Red Cell 17.1 H Distribution Width Platelet Count 82 #L Mean Platelet Volume 12.0 #H Immature 0.700 H Granulocytes % Neutrophils % 66.9 Lymphocytes % 22.1 Monocytes % 7.3 Eosinophils % 2.4 Basophils % 0.6 Nucleated Red Blood 0.0 Cells % Immature 0.050 H Granulocytes # Neutrophils # 4.5 Lymphocytes # 1.5 Monocytes # 0.5 Eosinophils # 0.2 Basophils # 0.0 Nucleated Red Blood 0.0 Cells # Sodium Level 138 Potassium Level 4.8 Chloride Level 103 Carbon Dioxide Level 23 Anion Gap 12 Blood Urea Nitrogen 28 H Creatinine 4.77 H Est Glomerular 9 L Filtrat Rate mL/min Glucose Level 151 Calcium Level 9.4 Phosphorus Level 3.8 Magnesium Level 2.0 Total Bilirubin 0.2 Direct Bilirubin 0.00 Indirect Bilirubin 0.2 Aspartate Amino 16 Transf (AST/SGOT) Alanine 13 Aminotransferase (AL T/SGPT) Alkaline Phosphatase 101 Total Protein 7.2 Albumin 3.1 L Globulin 4.10 H Albumin/Globulin 0.75 Ratio Subjective 24 Hr Interval Summary Free Text/Dictation Remains quite ornery Denies complaints Exam/Review of Systems Exam Vitals Vital Signs Date Temp Pulse Resp B/P (MAP) Pulse Ox O2 O2 Flow FiO2 Time Delivery Rate 05/25/19 98 12:00 05/25/19 12 102/77 100 09:30 (85) 05/25/19 Room Air 09:00 05/25/19 97.5 08:00 Intake and Output 05/24/19 05/24/19 05/25/19 1515:00 23:00 07:00 IntakeIntake Total 250.5 ml 370 ml 339.18 ml OutputOutput Total 80 ml 110 ml 95 ml BalanceBalance 170.5 ml 260 ml 244.18 ml Results Results 24hrs Laboratory Tests Test 05/24/19 16:42 05/24/19 20:52 05/24/19 20:57 05/25/19 00:20 Bedside Glucose 136 171 176 Sodium Level 136 Potassium Level 3.4 L Chloride Level 100 Carbon Dioxide Level 27 Anion Gap 9 # Blood Urea Nitrogen 27 #H Creatinine 4.16 H Est Glomerular 11 L Filtrat Rate mL/min Glucose Level 186 Lactic Acid Level 1.5 Calcium Level 8.8 Magnesium Level 2.0 Test 05/25/19 05:22 05/25/19 06:45 05/25/19 08:53 05/25/19 12:59 Bedside Glucose 133 139 138 White Blood Count 6.7 # Red Blood Count 3.87 L Hemoglobin 12.1 Hematocrit 39.7 Mean Corpuscular 102.6 H Volume Mean Corpuscular 31.3 Hemoglobin Mean Corpuscular 30.5 L Hemoglobin Concent Red Cell 17.1 H Distribution Width Platelet Count 82 #L Mean Platelet Volume 12.0 #H Immature 0.700 H Granulocytes % Neutrophils % 66.9 Lymphocytes % 22.1 Monocytes % 7.3 Eosinophils % 2.4 Basophils % 0.6 Nucleated Red Blood 0.0 Cells % Immature 0.050 H Granulocytes # Neutrophils # 4.5 Lymphocytes # 1.5 Monocytes # 0.5 Eosinophils # 0.2 Basophils # 0.0 Nucleated Red Blood 0.0 Cells # Sodium Level 138 Potassium Level 4.8 Chloride Level 103 Carbon Dioxide Level 23 Anion Gap 12 Blood Urea Nitrogen 28 H Creatinine 4.77 H Est Glomerular 9 L Filtrat Rate mL/min Glucose Level 151 Calcium Level 9.4 Phosphorus Level 3.8 Magnesium Level 2.0 Total Bilirubin 0.2 Direct Bilirubin 0.00 Indirect Bilirubin 0.2 Aspartate Amino 16 Transf (AST/SGOT) Alanine 13 Aminotransferase (AL T/SGPT) Alkaline Phosphatase 101 Total Protein 7.2 Albumin 3.1 L Globulin 4.10 H Albumin/Globulin 0.75 Ratio Medications Medication Current Medications IV Flush (NS 3 ml) 3 ml PER PROTOCOL IV ; Start 05/20/19 at 14:30 Ondansetron HCl (Zofran Inj) 4 mg Q6H PRN IV NAUSEA/VOMITING; Start 05/20/19 at 14:30 Acetaminophen (Tylenol Tab) 650 mg Q6H PRN PO .PAIN 1-3 OR TEMP; Start 05/20/19 at 14:30 Acetaminophen/ Hydrocodone Bitart ([place] (5/325)) 1 tab Q6H PRN PO .MOD PAIN 4- 6; Start 05/20/19 at 14:30 Morphine Sulfate (morphine) 2 mg Q4H PRN IV .SEVERE PAIN 7-10 Last administered on 05/25/19at 14:10; Admin Dose 2 MG; Start 05/20/19 at 14:30 Docusate Sodium (Colace) 100 mg Q12H PRN PO .CONSTIPATION; Start 05/20/19 at 14:30 Zolpidem Tartrate (Ambien) 5 mg QHS PRN PO .INSOMNIA; Start 05/20/19 at 14:30 Diagnostic Test (Pha) (Accu-Chek) 1 ea 02 XX Last administered on 05/24/19at 02:06; Admin Dose 1 EA; Start 05/21/19 at 02:00 Insulin Aspart (Novolog Insulin Pen) NOVOLOG *MILD* ALGORI... Q4 SC Last administered on 05/25/19at 00:24; Admin Dose 1 UNIT; Start 05/20/19 at 17:00 Miscellaneous Information 1 ea NOTE XX ; Start 05/20/19 at 14:30 Glucose (Glutose) 15 gm Q15M PRN PO DECREASED GLUCOSE; Start 05/20/19 at 14:30 Glucose (Glutose) 22.5 gm Q15M PRN PO DECREASED GLUCOSE; Start 05/20/19 at 14:30 Dextrose (D50w Syringe) 25 ml Q15M PRN IV DECREASED GLUCOSE; Start 05/20/19 at 14:30 Dextrose (D50w Syringe) 50 ml Q15M PRN IV DECREASED GLUCOSE; Start 05/20/19 at 14:30 Glucagon (Glucagen) 1 mg Q15M PRN IM DECREASED GLUCOSE; Start 05/20/19 at 14:30 Glucose (Glutose) 15 gm Q15M PRN BUCCAL DECREASED GLUCOSE; Start 05/20/19 at 14:30 Norepinephrine 32 mg/Dextrose 250 ml @ 0.47 mls/hr TITRATE IV Last administered on 05/21/19at 00:42; Admin Dose 0.94 MLS/HR; Start 05/20/19 at 18:30 Vancomycin HCl (Vanco Iv Per Pharmacy) VANCOMYCIN PER PHARMACY PER PROTOCOL XX ; Start 05/21/19 at 01:30 Alteplase, Recombinant (Cathflo (Activase)) 4 mg MAY REPEAT X1 PRN CATHETER IF CATHETER REMAINS OCCULUDED Last administered on 05/21/19at 18:24; Admin Dose 4 MG; Start 05/21/19 at 10:00 Lorazepam (Ativan) 0.5 mg Q6H PRN IV AGITATION Last administered on 05/23/19at 21:55; Admin Dose 0.5 MG; Start 05/22/19 at 09:30 Mupirocin (Bactroban) 1 applic BID TOP Last administered on 05/25/19at 08:56; Admin Dose 1 APPLIC; Start 05/22/19 at 13:30; Stop 05/31/19 at 21:01 Heparin Sodium (Porcine) (Heparin (1000 Units/ml)) 3,700 unit AFTER DIALYSIS CATHETER Last administered on 05/24/19at 00:08; Admin Dose 3,700 UNIT; Start 05/22/19 at 13:00 Albumin Human 50 ml @ 25 mls/hr DURING DIALYSIS PRN IV BLOOD PRESSURE SUPPORT; Start 05/24/19 at 07:30 Rifampin 300 mg/ Sodium Chloride 100 ml @ 200 mls/hr Q12 IVPB Last administere d on 05/25/19at 12:02; Admin Dose 200 MLS/HR; Start 05/25/19 at 09:00 LISSETT KEY MD May 25, 2019 14:45
--- NOTE | 2019-05-25 16:33 | RADRPT ---
Vent Rate: 96 bpm RR Interval: 624 msec [place] Interval: 145 msec QRS Duration: 104 msec QT Interval: 340 msec QTC Interval: 430 msec P-R-T [place]: 75 - -51 - 262 degrees Sinus rhythm...normal P axis, V-rate 50- 99 Ventricular premature complex...V complex w/ short R-R interval LAD, consider left anterior fascicular block...axis(240,-40), S>R II III aVF Anterior infarct, old...Q >40mS, abnormal ST-T, V2-V5 Electronically Signed By: Keyur Roper
[2019-05-26] MEDS: INSULIN ASPART [NOVOLOG] 3 ML PEN SC SCH ×6 (01:00→20:27)
[2019-05-26] MEDS: ACCU-CHEK XX SCH (02:00)
[2019-05-26 02:10] VITALS: BP 104/68; PULSE 90; RESP 16
[2019-05-26] MEDS ORDERED: PENDING SANTYL ORDER FOR WOUND CARE XX PRN (03:30)
[2019-05-26 08:00] VITALS: BP 109/61; PULSE 100; RESP 12
--- NOTE | 2019-05-26 08:56 | PN ---
DATE: 05/26/2019 SUBJECTIVE: The patient is stable, no events overnight. No fever, chills, nausea or vomiting. OBJECTIVE: VITAL SIGNS: Blood pressure is 104/68, respiration 16, pulse 90, temperature 97.4. HEENT: Head is normocephalic. NECK: Supple. HEART: Regular rate. LUNGS: Show diminished breath sounds at the base. ABDOMEN: Soft, nontender to palpation without rebound or guarding. EXTREMITIES: Negative for clubbing, cyanosis, no edema. DERMATOLOGIC: No rashes. MUSCULOSKELETAL: No joint effusion. NEUROLOGIC: No change in exam. MEDICATIONS: Have been reviewed. LABORATORY DATA: Has been reviewed. IMAGING STUDIES: Have been reviewed. ASSESSMENT AND PLAN: 1. End-stage renal disease. The patient's Perm-A-Cath was removed, currently on line holiday. Anti cipate possible Perm-A-Cath placement tomorrow. 2. Sepsis, status post shock. The patient is currently on pressor support. Continue current antibi otic regimen and monitor. 3. Hyperkalemia, resolved. 4. Mineral bone disorder. Monitor calcium and phosphorus levels. 5. Acute on chronic encephalopathy, etiology toxic metabolic, improving. 6. Pancreatic cystic lesion, etiology unclear. Continue to monitor. Dictated By: STEPHEN BREWER DO NR/NTS Conf#: [id number] DID#: [id number] CC: ARGENIS GARVEY MD;*EndCC*
--- NOTE | 2019-05-26 11:17 | CONS ---
Assessment/Plan Assessment/Plan Hospital Course (Demo Recall) All noted, tx to ms floor, looks comfortable, refused bfast Microbiology: Blood culture on admission grew MRSA, nares swab positive for MRSA, repeat blood cultures remain negative. Indwelling: PICC line, [place] Antimicrobials: Rifampin, vancomycin Physical examination: Well-developed fragile elderly woman who is in no distress. Head atraumatic normocephalic sclera nonicteric vehicle mucosa dry neck is supple chest rise symmetrical breath sounds diminished bases heart: S1- S2. Abdomen soft bowel sounds present. Extremities without cyanosis. Assessment: 1. Resolving sepsis, s/p shock 2. MRSA bacteremia, status post permacath DC'd 3. MRSA nares colonization 4. End-stage renal disease 5. Pancreatic cystic lesion of unknown significance 6. Encephalopathy Plan: Remains stable, repeat bld cx's neg, continue abx, pending HD cath Consultation Date/Type/Reason Admit Date/Time May 20, 2019 at 10:05 Initial Consult Date Type of Consult id Date/Time of Note DATE: 05/26/19 TIME: 11:14 Exam/Review of Systems Exam Vitals Vital Signs Date Temp Pulse Resp B/P (MAP) Pulse Ox O2 O2 Flow FiO2 Time Delivery Rate 05/26/19 97.5 100 12 109/61 96 08:00 (77) 05/26/19 Room Air 02:10 Intake and Output 05/25/19 05/25/19 05/26/19 1515:00 23:00 07:00 IntakeIntake Total 100 ml 100 ml OutputOutput Total 180 ml 10 ml BalanceBalance -80 ml 90 ml Results Result Diagram: 05/26/19 0826 05/26/19 0826 Results 24hrs Laboratory Tests Test 05/25/19 12:59 05/25/19 17:08 05/25/19 21:11 05/26/19 01:59 Bedside Glucose 138 114 102 96 Test 05/26/19 04:52 05/26/19 08:26 05/26/19 09:17 Bedside Glucose 94 124 White Blood Count 10.6 # Red Blood Count 4.29 Hemoglobin 13.3 Hematocrit 43.7 Mean Corpuscular 101.9 H Volume Mean Corpuscular 31.0 Hemoglobin Mean Corpuscular 30.4 L Hemoglobin Concent Red Cell 17.0 H Distribution Width Platelet Count 93 L Mean Platelet Volume 12.9 H Immature 0.700 H Granulocytes % Neutrophils % Segmented 69 Neutrophils % (Manual) Band Neutrophils % 2 (Manual) Lymphocytes % Lymphocytes % 22 (Manual) Monocytes % Monocytes % (Manual) 5 Eosinophils % Eosinophils % 1 (Manual) Basophils % Basophils % (Manual) 1 Nucleated Red Blood 0.0 Cells % Immature 0.070 H Granulocytes # Neutrophils # Neutrophils # 7.3 (Manual) Band Neutrophils # 0.2 Lymphocytes (Manual) 2.3 Lymphocytes # Monocytes # Monocytes # (Manual) 0.5 Eosinophils # Basophils # Basophils # (Manual) 0.1 H Nucleated Red Blood Cells # Platelet Estimate DECREASED Giant Platelets 1 H Poikilocytosis 2+ Anisocytosis 1+ Macrocytosis 1+ Sodium Level 141 Potassium Level 6.1 *H Chloride Level 105 Carbon Dioxide Level 20 L Anion Gap 16 H Blood Urea Nitrogen 34 H Creatinine 6.12 H Est Glomerular 7 L Filtrat Rate mL/min Glucose Level 132 Calcium Level 10.1 Phosphorus Level 4.9 Magnesium Level 2.0 Medications Medication Current Medications IV Flush (NS 3 ml) 3 ml PER PROTOCOL IV ; Start 05/20/19 at 14:30 Ondansetron HCl (Zofran Inj) 4 mg Q6H PRN IV NAUSEA/VOMITING; Start 05/20/19 at 14:30 Acetaminophen (Tylenol Tab) 650 mg Q6H PRN PO .PAIN 1-3 OR TEMP; Start 05/20/19 at 14:30 Acetaminophen/ Hydrocodone Bitart ([place] (5/325)) 1 tab Q6H PRN PO .MOD PAIN 4- 6; Start 05/20/19 at 14:30 Morphine Sulfate (morphine) 2 mg Q4H PRN IV .SEVERE PAIN 7-10 Last administered on 05/25/19at 14:10; Admin Dose 2 MG; Start 05/20/19 at 14:30 Docusate Sodium (Colace) 100 mg Q12H PRN PO .CONSTIPATION; Start 05/20/19 at 14 :30 Zolpidem Tartrate (Ambien) 5 mg QHS PRN PO .INSOMNIA; Start 05/20/19 at 14:30 Diagnostic Test (Pha) (Accu-Chek) 1 ea 02 XX Last administered on 05/24/19at 02:06; Admin Dose 1 EA; Start 05/21/19 at 02:00 Insulin Aspart (Novolog Insulin Pen) NOVOLOG *MILD* ALGORI... Q4 SC Last administered on 05/25/19at 00:24; Admin Dose 1 UNIT; Start 05/20/19 at 17:00 Miscellaneous Information 1 ea NOTE XX ; Start 05/20/19 at 14:30 Glucose (Glutose) 15 gm Q15M PRN PO DECREASED GLUCOSE; Start 05/20/19 at 14:30 Glucose (Glutose) 22.5 gm Q15M PRN PO DECREASED GLUCOSE; Start 05/20/19 at 14:30 Dextrose (D50w Syringe) 25 ml Q15M PRN IV DECREASED GLUCOSE; Start 05/20/19 at 14:30 Dextrose (D50w Syringe) 50 ml Q15M PRN IV DECREASED GLUCOSE; Start 05/20/19 at 14:30 Glucagon (Glucagen) 1 mg Q15M PRN IM DECREASED GLUCOSE; Start 05/20/19 at 14:30 Glucose (Glutose) 15 gm Q15M PRN BUCCAL DECREASED GLUCOSE; Start 05/20/19 at 14:30 Vancomycin HCl (Vanco Iv Per Pharmacy) VANCOMYCIN PER PHARMACY PER PROTOCOL XX ; Start 05/21/19 at 01:30 Alteplase, Recombinant (Cathflo (Activase)) 4 mg MAY REPEAT X1 PRN CATHETER IF CATHETER REMAINS OCCULUDED Last administered on 05/21/19at 18:24; Admin Dose 4 MG; Start 05/21/19 at 10:00 Lorazepam (Ativan) 0.5 mg Q6H PRN IV AGITATION Last administered on 05/23/19at 21:55; Admin Dose 0.5 MG; Start 05/22/19 at 09:30 Mupirocin (Bactroban) 1 applic BID TOP Last administered on 05/25/19at 21:13; Admin Dose 1 APPLIC; Start 05/22/19 at 13:30; Stop 05/31/19 at 21:01 Heparin Sodium (Porcine) (Heparin (1000 Units/ml)) 3,700 unit AFTER DIALYSIS CATHETER Last administered on 05/24/19at 00:08; Admin Dose 3,700 UNIT; Start 05/22/19 at 13:00 Albumin Human 50 ml @ 25 mls/hr DURING DIALYSIS PRN IV BLOOD PRESSURE SUPPORT; Start 05/24/19 at 07:30 Rifampin 300 mg/ Sodium Chloride 100 ml @ 200 mls/hr Q12 IVPB Last administered on 05/25/19at 21:31; Admin Dose 200 MLS/HR; Start 05/25/19 at 09:00 Miscellaneous Information (Pending [facility] Order For Wound Care) This patient benavidez... PRN PRN XX WOUND CARE; Start 05/26/19 at 03:30 EILEEN MAIER NP May 26, 2019 11:17
[2019-05-26] MEDS: SODIUM POLYSTYRENE 15 GM KIT (POWDER + SORBITOL) PO ONE ×2 (11:23→11:26)
[2019-05-26] MEDS: MUPIROCIN 2% 22 GM OINT TOP SCH ×2 (11:24→20:27)
[2019-05-26] MEDS: RIFAMPIN IVPB SCH ×2 (12:19→21:50)
[2019-05-26] MEDS: SOD CHLORIDE 0.9% IVPB SCH ×2 (12:19→21:50)
[2019-05-26 13:33] VITALS: BP 110/62; PULSE 98; RESP 15
[2019-05-26] MEDS: SOD CHLORIDE 0.45% 1,000 ML IV SCH (16:46)
--- NOTE | 2019-05-26 17:14 | PN ---
Date/Time of Note Date/Time of Note DATE: 05/26/19 TIME: 17:13 Assessment/Plan VTE Prophylaxis Risk score (from Ns)>0 risk: 7 SCD applied (from Ns): Yes Pharmacological prophylaxis: heparin Lines/Catheters IV Catheter Type (from Nrsg): PICC Line Central line still needed: Yes Urinary Cath still in place: No Assessment/Plan Hospital Course 1. Septic shock with MRSA bacteremia - Blood cultures are positive for MRSA - Permacath has been removed - Continue abx per ID - Check TTE to exclude BE 2. End-stage renal disease Nephrology consultation appreciated 3. Chronic encephalopathy like secondary to schizoaffective disorder Patient [facility] Patient is confused which appears to be her baseline 4. Pancreatic cystic lesion CT abdomen showed a tubular cystic lesion is present within and along the pancreatic body measuring up to 1 cm in diameter extending approximately 4 cm in length Prior images are not available, due to patient's poor functional status and nonverbal state will defer any further diagnostics, consultations or interventions 5. Hyponatremia-resolved IV fluids Monitor Prophylaxis: SCDs DC planning: Not stable for DC, continue management per above Result Diagram: 05/26/1982505/26/19825 Results 24hrs Laboratory Tests Test 05/25/19 21:11 05/26/19 01:59 05/26/19 04:52 05/26/19 08:26 Bedside Glucose 102 96 94 White Blood Count 10.6 # Red Blood Count 4.29 Hemoglobin 13.3 Hematocrit 43.7 Mean Corpuscular 101.9 H Volume Mean Corpuscular 31.0 Hemoglobin Mean Corpuscular 30.4 L Hemoglobin Concent Red Cell 17.0 H Distribution Width Platelet Count 93 L Mean Platelet Volume 12.9 H Immature 0.700 H Granulocytes % Neutrophils % Segmented 69 Neutrophils % (Manual) Band Neutrophils % 2 (Manual) Lymphocytes % Lymphocytes % 22 (Manual) Monocytes % Monocytes % (Manual) 5 Eosinophils % Eosinophils % 1 (Manual) Basophils % Basophils % (Manual) 1 Nucleated Red Blood 0.0 Cells % Immature 0.070 H Granulocytes # Neutrophils # Neutrophils # 7.3 (Manual) Band Neutrophils # 0.2 Lymphocytes (Manual) 2.3 Lymphocytes # Monocytes # Monocytes # (Manual) 0.5 Eosinophils # Basophils # Basophils # (Manual) 0.1 H Nucleated Red Blood Cells # Platelet Estimate DECREASED Giant Platelets 1 H Poikilocytosis 2+ Anisocytosis 1+ Macrocytosis 1+ Sodium Level 141 Potassium Level 6.1 *H Chloride Level 105 Carbon Dioxide Level 20 L Anion Gap 16 H Blood Urea Nitrogen 34 H Creatinine 6.12 H Est Glomerular 7 L Filtrat Rate mL/min Glucose Level 132 Calcium Level 10.1 Phosphorus Level 4.9 Magnesium Level 2.0 Test 05/26/19 09:17 05/26/19 13:06 05/26/19 14:27 Bedside Glucose 124 129 112 Subjective 24 Hr Interval Summary Free Text/Dictation Krzysztof placement was unsuccessful this morning now planning to do it be under anesthesia this afternoon Exam/Review of Systems Exam Vitals Vital Signs Date Temp Pulse Resp B/P (MAP) Pulse Ox O2 O2 Flow FiO2 Time Delivery Rate 05/26/19 98.2 98 15 110/62 96 Room Air 13:33 (78) Intake and Output 05/25/19 05/25/19 05/26/19 1515:00 23:00 07:00 IntakeIntake Total 100 ml 100 ml OutputOutput Total 180 ml 10 ml BalanceBalance -80 ml 90 ml Results Results 24hrs Laboratory Tests Test 05/25/19 21:11 05/26/19 01:59 05/26/19 04:52 05/26/19 08:26 Bedside Glucose 102 96 94 White Blood Count 10.6 # Red Blood Count 4.29 Hemoglobin 13.3 Hematocrit 43.7 Mean Corpuscular 101.9 H Volume Mean Corpuscular 31.0 Hemoglobin Mean Corpuscular 30.4 L Hemoglobin Concent Red Cell 17.0 H Distribution Width Platelet Count 93 L Mean Platelet Volume 12.9 H Immature 0.700 H Granulocytes % Neutrophils % Segmented 69 Neutrophils % (Manual) Band Neutrophils % 2 (Manual) Lymphocytes % Lymphocytes % 22 (Manual) Monocytes % Monocytes % (Manual) 5 Eosinophils % Eosinophils % 1 (Manual) Basophils % Basophils % (Manual) 1 Nucleated Red Blood 0.0 Cells % Immature 0.070 H Granulocytes # Neutrophils # Neutrophils # 7.3 (Manual) Band Neutrophils # 0.2 Lymphocytes (Manual) 2.3 Lymphocytes # Monocytes # Monocytes # (Manual) 0.5 Eosinophils # Basophils # Basophils # (Manual) 0.1 H Nucleated Red Blood Cells # Platelet Estimate DECREASED Giant Platelets 1 H Poikilocytosis 2+ Anisocytosis 1+ Macrocytosis 1+ Sodium Level 141 Potassium Level 6.1 *H Chloride Level 105 Carbon Dioxide Level 20 L Anion Gap 16 H Blood Urea Nitrogen 34 H Creatinine 6.12 H Est Glomerular 7 L Filtrat Rate mL/min Glucose Level 132 Calcium Level 10.1 Phosphorus Level 4.9 Magnesium Level 2.0 Test 05/26/19 09:17 05/26/19 13:06 05/26/19 14:27 Bedside Glucose 124 129 112 Medications Medication Current Medications IV Flush (NS 3 ml) 3 ml PER PROTOCOL IV ; Start 05/20/19 at 14:30 Ondansetron HCl (Zofran Inj) 4 mg Q6H PRN IV NAUSEA/VOMITING; Start 05/20/19 at 14:30 Acetaminophen (Tylenol Tab) 650 mg Q6H PRN PO .PAIN 1-3 OR TEMP; Start 05/20/19 at 14:30 Acetaminophen/ Hydrocodone Bitart ([place] (5/325)) 1 tab Q6H PRN PO .MOD PAIN 4- 6; Start 05/20/19 at 14:30 Morphine Sulfate (morphine) 2 mg Q4H PRN IV .SEVERE PAIN 7-10 Last administered on 05/25/19at 14:10; Admin Dose 2 MG; Start 05/20/19 at 14:30 Docusate Sodium (Colace) 100 mg Q12H PRN PO .CONSTIPATION; Start 05/20/19 at 14:30 Zolpidem Tartrate (Ambien) 5 mg QHS PRN PO .INSOMNIA; Start 05/20/19 at 14:30 Diagnostic Test (Pha) (Accu-Chek) 1 ea 02 XX Last administered on 05/24/19at 02:06; Admin Dose 1 EA; Start 05/21/19 at 02:00 Insulin Aspart (Novolog Insulin Pen) NOVOLOG *MILD* ALGORI... Q4 SC Last administered on 05/25/19at 00:24; Admin Dose 1 UNIT; Start 05/20/19 at 17:00 Miscellaneous Information 1 ea NOTE XX ; Start 05/20/19 at 14:30 Glucose (Glutose) 15 gm Q15M PRN PO DECREASED GLUCOSE; Start 05/20/19 at 14:30 Glucose (Glutose) 22.5 gm Q15M PRN PO DECREASED GLUCOSE; Start 05/20/19 at 14:30 Dextrose (D50w Syringe) 25 ml Q15M PRN IV DECREASED GLUCOSE; Start 05/20/19 at 14:30 Dextrose (D50w Syringe) 50 ml Q15M PRN IV DECREASED GLUCOSE; Start 05/20/19 at 14:30 Glucagon (Glucagen) 1 mg Q15M PRN IM DECREASED GLUCOSE; Start 05/20/19 at 14:30 Glucose (Glutose) 15 gm Q15M PRN BUCCAL DECREASED GLUCOSE; Start 05/20/19 at 14:30 Vancomycin HCl (Vanco Iv Per Pharmacy) VANCOMYCIN PER PHARMACY PER PROTOCOL XX ; Start 05/21/19 at 01:30 Alteplase, Recombinant (Cathflo (Activase)) 4 mg MAY REPEAT X1 PRN CATHETER IF CATHETER REMAINS OCCULUDED Last administered on 05/21/19at 18:24; Admin Dose 4 MG; Start 05/21/19 at 10:00 Lorazepam (Ativan) 0.5 mg Q6H PRN IV AGITATION Last administered on 05/23/19at 21:55; Admin Dose 0.5 MG; Start 05/22/19 at 09:30 Mupirocin (Bactroban) 1 applic BID TOP Last administered on 05/26/19at 11:24; Admin Dose 1 APPLIC; Start 05/22/19 at 13:30; Stop 05/31/19 at 21:01 Heparin Sodium (Porcine) (Heparin (1000 Units/ml)) 3,700 unit AFTER DIALYSIS CATHETER Last administered on 05/24/19at 00:08; Admin Dose 3,700 UNIT; Start 05/22/19 at 13:00 Albumin Human 50 ml @ 25 mls/hr DURING DIALYSIS PRN IV BLOOD PRESSURE SUPPORT; Start 05/24/19 at 07:30 Rifampin 300 mg/ Sodium Chloride 100 ml @ 200 mls/hr Q12 IVPB Last administered on 05/26/19at 12:19; Admin Dose 200 MLS/HR; Start 05/25/19 at 09:00 Miscellaneous Information (Pending [place] Order For Wound Care) This patient benavidez ... PRN PRN XX WOUND CARE; Start 05/26/19 at 03:30 Miscellaneous Information (*Rx Drug Level Order Reminder*) 1 0500 ONCE XX ; Start 05/27/19 at 05:00; Stop 05/27/19 at 05:01 Sodium Chloride 1,000 ml @ 50 mls/hr Q20H IV Last administered on 05/26/19at 16:46; Admin Dose 50 MLS/HR; Start 05/26/19 at 16:30 LISSETT KEY MD May 26, 2019 17:14
[2019-05-26 18:46] VITALS: BP 104/64; PULSE 106; RESP 18
--- NOTE | 2019-05-26 19:02 | RADRPT ---
Echocardiogram Report Patient Name: Devon VALADEZ ID: [id number] : 1955 (63y 8m)Study Date: 05/25/2019 2:55:44 PM Gender: FAccession #: [id number] Tech: LynetteMedhat Coyle [facility] Location: 112 Ref.Physician: LISSETT KEY Height(Cm): BSA: Weight(Kg): Quality: AdequateOrder Physician: LISSETT KEY Account #: Procedures: Echocardiographic Report: Transthoracic echocardiogram with complete 2D, M-Mode, and doppler examination. Indications: Endocarditis. Measurements: 2D/M Mode Measurement Value Normal Range LVIDd 2D 3.2 [ 3.8 - 5.2 ] cm LVIDs 2D 2.3 [ 2.2 - 3.5 ] cm LVPWd 2D 1.1 [ 0.6 - 0.9 ] cm IVSd 2D 1.1 [ 0.6 - 0.9 ] cm AoR Diam 2D 2.6 [ 2.3 - 3.1 ] cm LA/Ao 2D 1 ratio LA Dimen 2D 1.8 [ 2.7 - 3.8 ] cm Findings: Left Ventricle: Overall, normal left ventricular systolic function. Not all segments visualized. Normal left ventricular cavity size. Mild concentric left ventricular hypertrophy. Ejection fraction is visually estimated at 60 %. Abnormal Diastolic Function. Right Ventricle: Normal right ventricular size. Normal right ventricular systolic function. Left Atrium: The left atrium is normal in size. Right Atrium: The right atrium is normal in size. Mitral Valve: Mitral valve is not well visualized. Trace mitral regurgitation. Aortic Valve: Aortic valve not well visualized. Aortic cusps appear mildly calcified. No aortic regurgitation. Tricuspid Valve: Tricuspid valve not well visualized. Pulmonic Valve: Pulmonic valve not well visualized. Pericardium: Normal pericardium with no significant pericardial effusion. Aorta: Normal aortic root. IVC: Normal size and normal respiratory collapse consistent with normal right atrial pressure. Conclusions: Overall, normal left ventricular systolic function. Not all segments visualized. Normal left ventricular cavity size. Mild concentric left ventricular hypertrophy. Ejection fraction is visually estimated at 60 %. Abnormal Diastolic Function. Normal right ventricular size. Normal right ventricular systolic function. Normal pericardium with no significant pericardial effusion. Patient refused completion of study and thus, not all images were obtained. Electronically Signed By: Nithin Burns 2019-05-26 19:02:17 PDT
[2019-05-26 20:00] VITALS: BP 129/82; PULSE 107; RESP 19
[2019-05-27] VITALS (24 sets, daily range): BP systolic 89–169; BP diastolic 56–98; PULSE 79–116; RESP 14–20
[2019-05-27] MEDS: INSULIN ASPART [NOVOLOG] 3 ML PEN SC SCH ×5 (01:00→20:17)
[2019-05-27] MEDS: ACCU-CHEK XX SCH (01:14)
--- NOTE | 2019-05-27 08:08 | PN ---
DATE: 05/27/2019 SUBJECTIVE: The patient was transferred from med/surg to telemetry yesterday. The patient is pendin g Perm-A-Cath placement today. No other events noted. The patient remains confused, uncooperative. OBJECTIVE: VITAL SIGNS: Blood pressure is 124/68, pulse 100, respirations 18, temperature 98.0. HEENT: Head is normocephalic. NECK: Supple. HEART: Regular rate. LUNGS: Show diminished breath sounds at the base. ABDOMEN: Soft, nontender to palpation without rebound or guarding. EXTREMITIES: Negative for clubbing, cyanosis, no edema. DERMATOLOGIC: No rashes. MUSCULOSKELETAL: No joint effusion. NEUROLOGIC: No change in exam. MEDICATIONS: Have been reviewed. LABORATORY DATA: Has been reviewed. IMAGING STUDIES: Have been reviewed. ASSESSMENT AND PLAN: 1. End-stage renal disease. The patient is pending Perm-A-Cath placement today. We will anticipate dialysis today and tomorrow for solute clearance after Perm-A-Cath is placed. 2. Hyperkalemia. The patient is status post Kayexalate. Potassium levels improved. Continue dialy sis on low potassium bath. 3. Anemia. Monitor hemoglobin and hematocrit levels. Will give Epogen as needed. 4. Mineral bone disorder, monitor calcium and phosphorus level. No need for phosphate binders at th is time. 5. Sepsis secondary to line infection. The patient's Perm-A-Cath was removed. Continue antibiotic therapy. 6. Acute on chronic encephalopathy, etiology toxic metabolic. 7. Pancreatic cystic lesions, continue to monitor. Etiology is unclear. Dictated By: STEPHEN BREWER DO NR/NTS Conf#: [id number] DID#: [id number] CC: ARGENIS GARVEY MD;*EndCC*
[2019-05-27] MEDS: MUPIROCIN 2% 22 GM OINT TOP SCH ×2 (08:42→20:14)
[2019-05-27] MEDS: SOD CHLORIDE 0.9% IVPB SCH (08:45)
[2019-05-27] MEDS: RIFAMPIN IVPB SCH (08:45)
[2019-05-27] MEDS: SOD CHLORIDE 0.45% 1,000 ML IV SCH ×2 (12:30→18:30)
--- NOTE | 2019-05-27 12:36 | PREAC ---
Date/Time of Note Date/Time of Note DATE: 05/27/19 TIME: 12:34 Anesthesia Eval and Record Evaluation Time Pre-Procedure Interview DATE: 05/27/19 TIME: 12:34 Age 63 Sex female NPO: 8 hrs Preoperative diagnosis ESRD Planned procedure PERMACATH REVISION Past Medical History Past Medical History: Includes Neuro: Other (ENCEPHALOPATHY) Renal: ESRD on dialysis Psych: Other (SCHIZOAFFECTIVE DISEASE) Infection(s): Other (HX SEPTIC SHOCK) Surgery & Anesthesia Issues No known issue Meds Anticoagulation: No Beta Valentino within 24 hr: No Reason Beta Valentino not given: Pt. not on B-Valentino Reported Medications Triamcinolone Acetonide* (Kenalog*) 0.1%-15GM Oint, 1 APPLIC TOP BID, #1 EA 05/20/19 Magnesium Hydroxide* (Milk Of Magnesia*) 400 Mg/5 Ml Oral.susp, 30 ML PO DAILY PRN for CONSTIPATION, ML 05/20/19 Hydrocodone/Acetaminophen ([place] 5-325 Tablet) 1 Each Tablet, 1 TAB PO Q6H PRN for PAIN LEVEL 7-10, TAB 05/20/19 Megestrol Acetate* (Megestrol Acetate*) 400 Mg/10 Ml Susp, 400 MG PO DAILY, ML 05/20/19 Zinc Sulfate* (Zinc Sulfate*) 220 Mg Tablet, 220 MG PO DAILY, TAB 05/20/19 Multivitamins* (Theragran*) 1 Tab Tab, 1 TAB PO DAILY, TAB 05/20/19 Ipratropium-Albuterol (Ipratropium-Albuterol) 0.5-3 Mg/3 Ml Ampul.neb, 3 ML INHALATION Q4, #30 VIAL 05/20/19 Ascorbic Acid* (Vitamin C*) 500 Mg Capsule.sa, 500 MG PO DAILY, CAP 05/20/19 Folic Acid* (Folic Acid*) 1 Mg Tablet, 1 MG PO DAILY, TAB 05/20/19 Epoetin shahida* (Epogen*) 4,000 Unit/1 Ml Vial, 41826 UNIT SC [place], VIAL 05/20/19 Pantoprazole* (Protonix*) 40 Mg Tablet.dr, 40 MG PO DAILY, TAB 05/20/19 Insulin Lispro (Humalog) 100 Unit/1 Ml Cartridge, 0 SQ Q6H PRN for SLIDING SCALE, EA 04/04/19 Levothyroxine Sodium* (Levothyroxine Sodium*) 150 Mcg Tablet, 150 MCG PO BEFORE BREAKFAST, #30 TAB 04/04/19 Midodrine* (Midodrine*) 10 Mg Tablet, 10 MG PO TID, TAB 04/04/19 Cholecalciferol* (Vitamin D3*) 1,000 Unit Tablet, 1000 UNIT PO DAILY, TAB 04/04/19 Acetaminophen* (Tylenol*) 325 Mg Tablet, 650 MG PO Q4H PRN for MILD PAIN LEVEL 1-3, TAB AND FEVER 04/04/19 Trazodone Hcl* (Trazodone Hcl*) 50 Mg Tablet, 50 MG PO QHS, #30 TAB 04/04/19 Insulin Glargine,Hum.rec.anlog (Basaglar Kwikpen U-100) 100 Unit/1 Ml Insuln.pen, 12 UNIT SC DAILY, EA 04/04/19 Sevelamer Carbonate* (Renvela*) 800 Mg Tablet, 1600 GM PO WITH MEALS, TAB 04/04/19 Quetiapine Fumarate* (Quetiapine Fumarate*) 25 Mg Tablet, 100 MG PO BID, TAB 04/04/19 Atorvastatin Calcium (Atorvastatin Calcium) 10 Mg Tablet, 10 MG PO QHS, #30 TAB 04/04/19 Ondansetron Hcl* (Zofran*) 4 Mg Tab, 4 MG PO Q4H PRN for NAUSEA AND OR VOMITING, TAB 04/04/19 Lorazepam* (Ativan*) 2 Mg Tablet, 2 MG PO Q6 PRN for ANXIETY, #60 TAB 04/04/19 Bisacodyl (Dulcolax) 10 Mg Supp.rect, 10 MG RC DAILY PRN for CONSTIPATION, SUPP.RECT 04/04/19 Ferrous Sulfate* (Ferrous Sulfate*) 325 Mg Tabec, 325 MG PO BID, TAB 04/04/19 Docusate Sodium* (Colace*) 100 Mg Capsule, 100 MG PO BID, #30 CAP 04/04/19 Discontinued Reported Medications Polyethylene Glycol* (Miralax*) 17 Gm Powd.pack, 17 GM PO DAILY, #30 PACKET 04/04/19 Raloxifene Hcl* (Evista*) 60 Mg Tablet, 60 MG PO DAILY, TAB 04/04/19 Sennosides* (Senna Lax*) 8.6 Mg Tablet, 2 TAB PO QHS, TAB 04/04/19 Sodium Bicarbonate* (Sodium Bicarbonate*) 650 Mg Tablet, 1300 MG PO BID, TAB 04/04/19 Clonazepam* (Clonazepam*) 0.5 Mg Tablet, 0.5 MG PO Q12H for ANXIETY, TAB 04/04/19 Lorazepam* (Lorazepam*) 1 Mg Tablet, 1 MG PO HS PRN for ANXIETY, #30 TAB Q TU,SAT 04/04/19 Olanzapine* (Zyprexa*) 5 Mg Tablet, 5 MG PO QHS, #30 TAB 04/04/19 Olanzapine* (Zyprexa*) 2.5 Mg Tablet, 2.5 MG PO QAM, #30 TAB 04/04/19 Diazepam* (Diazepam*) 5 Mg Tablet, 5 MG PO Q12H, TAB 04/04/19 Haloperidol* (Haldol*) 5 Mg Tab, 5 MG PO BID, TAB 04/04/19 Acetaminophen* (Acetaminophen*) 500 MG Extra Strength Tablet, 1000 MG PO Q6H PRN for PAIN 4-05/25, TAB 04/04/19 Aspirin* (Aspirin* Chew) 81 Mg Tab.chew, 81 MG PO DAILY, TAB.CHEW 04/04/19 Current Medications IV Flush (NS 3 ml) 3 ml PER PROTOCOL IV ; Start 05/20/19 at 14:30 Ondansetron HCl (Zofran Inj) 4 mg Q6H PRN IV NAUSEA/VOMITING; Start 05/20/19 at 14:30 Acetaminophen (Tylenol Tab) 650 mg Q6H PRN PO .PAIN 1-3 OR TEMP; Start 05/20/19 at 14:30 Acetaminophen/ Hydrocodone Bitart ([place] (5/325)) 1 tab Q6H PRN PO .MOD PAIN 4- 6; Start 05/20/19 at 14:30 Morphine Sulfate (morphine) 2 mg Q4H PRN IV .SEVERE PAIN 7-10 Last administered on 05/25/19at 14:10; Admin Dose 2 MG; Start 05/20/19 at 14:30 Docusate Sodium (Colace) 100 mg Q12H PRN PO .CONSTIPATION; Start 05/20/19 at 14:30 Zolpidem Tartrate (Ambien) 5 mg QHS PRN PO .INSOMNIA; Start 05/20/19 at 14:30 Diagnostic Test (Pha) (Accu-Chek) 1 ea 02 XX Last administered on 05/27/19at 01:14; Admin Dose 1 EA; Start 05/21/19 at 02:00 Insulin Aspart (Novolog Insulin Pen) NOVOLOG *MILD* ALGORI... Q4 SC Last administered on 05/25/19at 00:24; Admin Dose 1 UNIT; Start 05/20/19 at 17:00 Miscellaneous Information 1 ea NOTE XX ; Start 05/20/19 at 14:30 Glucose (Glutose) 15 gm Q15M PRN PO DECREASED GLUCOSE; Start 05/20/19 at 14:30 Glucose (Glutose) 22.5 gm Q15M PRN PO DECREASED GLUCOSE; Start 05/20/19 at 14:30 Dextrose (D50w Syringe) 25 ml Q15M PRN IV DECREASED GLUCOSE; Start 05/20/19 at 14:30 Dextrose (D50w Syringe) 50 ml Q15M PRN IV DECREASED GLUCOSE; Start 05/20/19 at 14:30 Glucagon (Glucagen) 1 mg Q15M PRN IM DECREASED GLUCOSE; Start 05/20/19 at 14:30 Glucose (Glutose) 15 gm Q15M PRN BUCCAL DECREASED GLUCOSE; Start 05/20/19 at 14:30 Vancomycin HCl (Vanco Iv Per Pharmacy) VANCOMYCIN PER PHARMACY PER PROTOCOL XX ; Start 05/21/19 at 01:30 Alteplase, Recombinant (Cathflo (Activase)) 4 mg MAY REPEAT X1 PRN CATHETER IF CATHETER REMAINS OCCULUDED Last administered on 05/21/19at 18:24; Admin Dose 4 MG; Start 05/21/19 at 10:00 Lorazepam (Ativan) 0.5 mg Q6H PRN IV AGITATION Last administered on 05/23/19at 21:55; Admin Dose 0.5 MG; Start 05/22/19 at 09:30 Mupirocin (Bactroban) 1 applic BID TOP Last administered on 05/27/19at 08:42; Admin Dose 1 APPLIC; Start 05/22/19 at 13:30; Stop 05/31/19 at 21:01 Heparin Sodium (Porcine) (Heparin (1000 Units/ml)) 3,700 unit AFTER DIALYSIS C ATHETER Last administered on 05/24/19at 00:08; Admin Dose 3,700 UNIT; Start 05/22/19 at 13:00 Albumin Human 50 ml @ 25 mls/hr DURING DIALYSIS PRN IV BLOOD PRESSURE SUPPORT; Start 05/24/19 at 07:30 Rifampin 300 mg/ Sodium Chloride 100 ml @ 200 mls/hr Q12 IVPB Last administered on 05/27/19at 08:45; Admin Dose 200 MLS/HR; Start 05/25/19 at 09:00 Miscellaneous Information (Pending Santyl Order For Wound Care) This patient benavidez... PRN PRN XX WOUND CARE; Start 05/26/19 at 03:30 Sodium Chloride 1,000 ml @ 50 mls/hr Q20H IV Last administered on 05/26/19at 16:46; Admin Dose 50 MLS/HR; Start 05/26/19 at 16:30 Meds reviewed: Yes Allergies Coded Allergies: No Known Allergy (Unverified , 05/21/19) Allergies Reviewed: Yes Labs/Studies Labs Reviewed: Reviewed by anesthesiologist Result Diagram: 05/27/19 0555 05/27/19 0555 Laboratory Tests 05/27/19 05:55 test: N/A Pre-procedure Exam Last vitals Vital Signs Date Temp Pulse Resp B/P (MAP) Pulse Ox O2 O2 Flow FiO2 Time Delivery Rate 05/27/19 98.1 88 18 109/66 96 11:09 (80) 05/26/19 Room Air 13:33 Airway: Adequate mouth opening, Adequate thyromental dist Mallampati: Mallampati II Teeth: Normal Lung: Normal Heart: Normal ASA Physical Status ASA physical status: 3 Emergency: None Planned Anesthetic General/MAC: MAC Planned Pain Management Parenteral pain med Pre-operative Attestations Prior to commencing anesthesia and surgery, the patient was re-evaluated, there was verification of: *The patient's identity *The results of appropriate recent lab work and preoperative vital signs *The above evaluation not changing prior to induction *Anesthetic plan, risk benefits, alternative and complications discussed with patient/family; questions answered; patient/family understands, accepts and wishes to proceed. JUNO CHERY May 27, 2019 12:36
[2019-05-27] MEDS ORDERED: FENTAnyl 50 MCG/ML VIAL ONE (12:39)
[2019-05-27] MEDS ORDERED: MIDAZOLAM 1 MG/ML 2 ML INJ ONE ×2 (12:39)
[2019-05-27] MEDS ORDERED: PROPOFOL 20 ML ONE (12:40)
[2019-05-27] MEDS ORDERED: hydrALAzine 20 MG INJ IV PRN (13:00)
[2019-05-27] MEDS ORDERED: FENTAnyl 50 MCG/ML VIAL IV PRN (13:00)
[2019-05-27] MEDS ORDERED: ALBUTEROL 0.083% (NEB) 2.5 MG/3 ML AMP HHN PRN (13:00)
[2019-05-27] MEDS ORDERED: DIPHENHYDRAMINE 50 MG INJ IV PRN (13:00)
[2019-05-27] MEDS ORDERED: MIDAZOLAM 1 MG/ML 2 ML INJ IV PRN (13:00)
[2019-05-27] MEDS ORDERED: EPHEDrine 25 MG/5 ML SYG IV PRN (13:00)
[2019-05-27] MEDS ORDERED: MEPERIDINE 25 MG INJ IV PRN (13:00)
[2019-05-27] MEDS ORDERED: ONDANSETRON 4 MG INJ IV PRN (13:00)
[2019-05-27] MEDS ORDERED: ALBUMIN HUMAN 5% 250 ML IV PRN (13:00)
[2019-05-27] MEDS ORDERED: LABETALOL HCL 20MG INJ IV PRN (13:00)
[2019-05-27] MEDS ORDERED: CEFAZOLIN 1 GM/50 ML (PMX) 50 ML IVPB ONE (13:19)
[2019-05-27] MEDS ORDERED: LIDOCAINE 1% (MDV) 20 ML INJ ONE (13:19)
[2019-05-27] MEDS ORDERED: HEPARIN 1000 UNITS/ML 10 ML INJ ONE (13:19)
--- NOTE | 2019-05-27 14:18 | PAC ---
Date/Time of Note Date/Time of Note DATE: 05/27/19 TIME: 14:17 Post-Anesthesia Notes Post-Anesthesia Note Last documented vital signs Vital Signs Date Temp Pulse Resp B/P (MAP) Pulse Ox O2 O2 Flow FiO2 Time Delivery Rate 05/27/19 98.1 88 18 109/66 96 1417 (80) 05/26/19 Room Air 13:33 Activity: WNL Respiratory function: WNL Cardiovascular function: WNL Mental status: Baseline Pain reasonably controlled: Yes Hydration appropriate: Yes Nausea/Vomiting absent: Yes JUNO CHERY May 27, 2019 14:18
--- NOTE | 2019-05-27 15:06 | CONS ---
Assessment/Plan Assessment/Plan Hospital Course (Demo Recall) No events, no fevers Microbiology: Blood culture on admission grew MRSA, nares swab positive for MRSA, repeat blood cultures remain negative. Indwelling: PICC line, [place] Antimicrobials: Rifampin, vancomycin Physical examination: Well-developed fragile elderly woman who is in no distress. Head atraumatic normocephalic sclera nonicteric vehicle mucosa dry neck is supple chest rise symmetrical breath sounds diminished bases heart: S1- S2. Abdomen soft bowel sounds present. Extremities without cyanosis. Assessment: 1. Resolving sepsis, s/p shock 2. MRSA bacteremia, status post permacath DC'd 3. MRSA nares colonization 4. End-stage renal disease 5. Pancreatic cystic lesion of unknown significance 6. Encephalopathy Plan: Remains stable, repeat bld cx's neg, continue abx, pending pcath Consultation Date/Type/Reason Admit Date/Time May 20, 2019 at 10:05 Initial Consult Date Type of Consult id Date/Time of Note DATE: 05/27/19 TIME: 15:04 Exam/Review of Systems Exam Vitals Vital Signs Date Temp Pulse Resp B/P (MAP) Pulse Ox O2 O2 Flow FiO2 Time Delivery Rate 05/27/19 98.1 88 18 109/66 96 11:09 (80) 05/26/19 Room Air 13:33 Intake and Output 05/26/19 05/26/19 05/27/19 1515:00 23:00 07:00 IntakeIntake Total 100 ml 100 ml 50 ml BalanceBalance 100 ml 100 ml 50 ml Results Result Diagram: 05/27/19 0555 05/27/19 0555 Results 24hrs Laboratory Tests Test 05/26/19 17:12 05/26/19 17:34 05/26/19 20:17 05/27/19 01:02 Bedside Glucose 123 102 98 Sodium Level 139 Potassium Level 4.8 Chloride Level 106 Carbon Dioxide Level 18 L Anion Gap 15 H Blood Urea Nitrogen 36 H Creatinine 6.48 H Est Glomerular 6 L Filtrat Rate mL/min Glucose Level 113 Calcium Level 9.7 Test 05/27/19 04:34 05/27/19 05:55 05/27/19 08:14 Bedside Glucose 94 104 White Blood Count 10.6 Red Blood Count 3.57 L Hemoglobin 11.2 L Hematocrit 36.2 L Mean Corpuscular 101.4 H Volume Mean Corpuscular 31.4 Hemoglobin Mean Corpuscular 30.9 L Hemoglobin Concent Red Cell 16.7 H Distribution Width Platelet Count 95 L Mean Platelet Volume 11.4 H Immature 0.700 H Granulocytes % Neutrophils % 74.4 Lymphocytes % 16.8 Monocytes % 5.9 Eosinophils % 1.6 Basophils % 0.6 Nucleated Red Blood 0.0 Cells % Immature 0.070 H Granulocytes # Neutrophils # 7.9 H Lymphocytes # 1.8 Monocytes # 0.6 Eosinophils # 0.2 Basophils # 0.1 Nucleated Red Blood 0.0 Cells # Sodium Level 139 Potassium Level 4.9 Chloride Level 107 Carbon Dioxide Level 18 L Anion Gap 14 H Blood Urea Nitrogen 38 H Creatinine 6.79 H Est Glomerular 6 L Filtrat Rate mL/min Glucose Level 96 Calcium Level 9.1 Phosphorus Level 5.3 H Magnesium Level 2.0 Random Vancomycin 17.4 Level Medications Medication Current Medications IV Flush (NS 3 ml) 3 ml PER PROTOCOL IV ; Start 05/20/19 at 14:30 Ondansetron HCl (Zofran Inj) 4 mg Q6H PRN IV NAUSEA/VOMITING; Start 05/20/19 at 14:30 Acetaminophen (Tylenol Tab) 650 mg Q6H PRN PO .PAIN 1-3 OR TEMP; Start 05/20/19 at 14:30 Acetaminophen/ Hydrocodone Bitart ([place] (5/325)) 1 tab Q6H PRN PO .MOD PAIN 4- 6; Start 05/20/19 at 14:30 Morphine Sulfate (morphine) 2 mg Q4H PRN IV .SEVERE PAIN 7-10 Last administered on 05/25/19at 14:10; Admin Dose 2 MG; Start 05/20/19 at 14:30 Docusate Sodium (Colace) 100 mg Q12H PRN PO .CONSTIPATION; Start 05/20/19 at 14:30 Zolpidem Tartrate (Ambien) 5 mg QHS PRN PO .INSOMNIA; Start 05/20/19 at 14:30 Diagnostic Test (Pha) (Accu-Chek) 1 ea 02 XX Last administered on 05/27/19at 01:14; Admin Dose 1 EA; Start 05/21/19 at 02:00 Insulin Aspart (Novolog Insulin Pen) NOVOLOG *MILD* ALGORI... Q4 SC Last administered on 05/25/19at 00:24; Admin Dose 1 UNIT; Start 05/20/19 at 17:00 Miscellaneous Information 1 ea NOTE XX ; Start 05/20/19 at 14:30 Glucose (Glutose) 15 gm Q15M PRN PO DECREASED GLUCOSE; Start 05/20/19 at 14:30 Glucose (Glutose) 22.5 gm Q15M PRN PO DECREASED GLUCOSE; Start 05/20/19 at 14:30 Dextrose (D50w Syringe) 25 ml Q15M PRN IV DECREASED GLUCOSE; Start 05/20/19 at 14:30 Dextrose (D50w Syringe) 50 ml Q15M PRN IV DECREASED GLUCOSE; Start 05/20/19 at 14:30 Glucagon (Glucagen) 1 mg Q15M PRN IM DECREASED GLUCOSE; Start 05/20/19 at 14:30 Glucose (Glutose) 15 gm Q15M PRN BUCCAL DECREASED GLUCOSE; Start 05/20/19 at 14:30 Vancomycin HCl (Vanco Iv Per Pharmacy) VANCOMYCIN PER PHARMACY PER PROTOCOL XX ; Start 05/21/19 at 01:30 Alteplase, Recombinant (Cathflo (Activase)) 4 mg MAY REPEAT X1 PRN CATHETER IF CATHETER REMAINS OCCULUDED Last administered on 05/21/19at 18:24; Admin Dose 4 MG; Start 05/21/19 at 10:00 Lorazepam (Ativan) 0.5 mg Q6H PRN IV AGITATION Last administered on 05/23/19at 21:55; Admin Dose 0.5 MG; Start 05/22/19 at 09:30 Mupirocin (Bactroban) 1 applic BID TOP Last administered on 05/27/19at 08:42; Admin Dose 1 APPLIC; Start 05/22/19 at 13:30; Stop 05/31/19 at 21:01 Heparin Sodium (Porcine) (Heparin (1000 Units/ml)) 3,700 unit AFTER DIALYSIS CATHETER Last administered on 05/24/19at 00:08; Admin Dose 3,700 UNIT; Start 05/22/19 at 13:00 Albumin Human 50 ml @ 25 mls/hr DURING DIALYSIS PRN IV BLOOD PRESSURE SUPPORT; Start 05/24/19 at 07:30 Rifampin 300 mg/ Sodium Chloride 100 ml @ 200 mls/hr Q12 IVPB Last administered on 05/27/19at 08:45; Admin Dose 200 MLS/HR; Start 05/25/19 at 09:00 Miscellaneous Information (Pending Santyl Order For Wound Care) This patient benavidez... PRN PRN XX WOUND CARE; Start 05/26/19 at 03:30 Sodium Chloride 1,000 ml @ 50 mls/hr Q20H IV Last administered on 05/26/19at 16:46; Admin Dose 50 MLS/HR; Start 05/26/19 at 16:30 Fentanyl (Sublimaze) 25 mcg PACU ORDER PRN IV MILD PAIN 1-3; Start 05/27/19 at 13:00; Stop 05/27/19 at 17:00 Ondansetron HCl (Zofran Inj) 4 mg PACU ORDER PRN IV NAUSEA/VOMITING; Start 05/27/19 at 13:00; Stop 05/27/19 at 17:00 Labetalol HCl (Labetalol) 5 mg PACU ORDER PRN IV HIGH BLOOD PRESSURE; Start 05/27/19 at 13:00; Stop 05/27/19 at 17:00 Hydralazine HCl (Apresoline) 5 mg PACU ORDER PRN IV HIGH BLOOD PRESSURE; Start 05/27/19 at 13:00; Stop 05/27/19 at 17:00 Ephedrine Sulfate 5 mg PACU ORDER PRN IV BLOOD PRESSURE SUPPORT; Start 05/27/19 at 13:00; Stop 05/27/19 at 17:00 Albumin Human 250 ml @ 750 mls/hr PACU ORDER PRN IV BP SUPPORT; Start 05/27/19 at 13:00; Stop 05/27/19 at 17:00 Albuterol (Proventil 0.083% (Neb)) 2.5 mg PACU ORDER PRN HHN .WHEEZING; Start 05/27/19 at 13:00; Stop 05/27/19 at 17:00 Meperidine HCl (Demerol) 25 mg PACU ORDER PRN IV .RIGORS; Start 05/27/19 at 13:00; Stop 05/27/19 at 17:00 Diphenhydramine HCl (Benadryl) 25 mg PACU ORDER PRN IV .PRURITUS; Start 05/27/19 at 13:00; Stop 05/27/19 at 17:00 Midazolam HCl (Versed) 0.5 mg PACU ORDER PRN IV .ANXIETY; Start 05/27/19 at 13:00; Stop 05/27/19 at 17:00 EILEEN MAIER NP May 27, 2019 15:06
[2019-05-27] MEDS ORDERED: VANCOMYCIN 1 GM 250 ML IVPB ONE ×2 (16:00→21:00)
--- NOTE | 2019-05-27 16:25 | PN ---
Date/Time of Note Date/Time of Note DATE: 05/27/19 TIME: 16:24 Assessment/Plan VTE Prophylaxis Risk score (from Ns)>0 risk: 4 SCD applied (from Ns): Yes Pharmacological prophylaxis: heparin Lines/Catheters IV Catheter Type (from Nrsg): PICC Line Central line still needed: Yes Urinary Cath still in place: No Assessment/Plan Hospital Course 1. Sepsis with line infection/bacteremia - Blood cultures are positive for MRSA - Permacath has been removed, then replaced today - Continue abx per ID - Check TTE to exclude BE 2. End-stage renal disease Nephrology consultation appreciated 3. Chronic encephalopathy like secondary to schizoaffective disorder Patient resides in a long term facility Patient is confused which appears to be her baseline 4. Pancreatic cystic lesion CT abdomen showed a tubular cystic lesion is present within and along the haynes creatic body measuring up to 1 cm in diameter extending approximately 4 cm in length Prior images are not available, due to patient's poor functional status and nonverbal state will defer any further diagnostics, consultations or interventions 5. Hyponatremia-resolved IV fluids Monitor Prophylaxis: SCDs DC planning: Not stable for DC, continue management per above Result Diagram: 05/27/19 0555 05/27/19 0555 Results 24hrs Laboratory Tests Test 05/26/19 17:12 05/26/19 17:34 05/26/19 20:17 05/27/19 01:02 Bedside Glucose 123 102 98 Sodium Level 139 Potassium Level 4.8 Chloride Level 106 Carbon Dioxide Level 18 L Anion Gap 15 H Blood Urea Nitrogen 36 H Creatinine 6.48 H Est Glomerular 6 L Filtrat Rate mL/min Glucose Level 113 Calcium Level 9.7 Test 05/27/19 04:34 05/27/19 05:55 05/27/19 08:14 Bedside Glucose 94 104 White Blood Count 10.6 Red Blood Count 3.57 L Hemoglobin 11.2 L Hematocrit 36.2 L Mean Corpuscular 101.4 H Volume Mean Corpuscular 31.4 Hemoglobin Mean Corpuscular 30.9 L Hemoglobin Concent Red Cell 16.7 H Distribution Width Platelet Count 95 L Mean Platelet Volume 11.4 H Immature 0.700 H Granulocytes % Neutrophils % 74.4 Lymphocytes % 16.8 Monocytes % 5.9 Eosinophils % 1.6 Basophils % 0.6 Nucleated Red Blood 0.0 Cells % Immature 0.070 H Granulocytes # Neutrophils # 7.9 H Lymphocytes # 1.8 Monocytes # 0.6 Eosinophils # 0.2 Basophils # 0.1 Nucleated Red Blood 0.0 Cells # Sodium Level 139 Potassium Level 4.9 Chloride Level 107 Carbon Dioxide Level 18 L Anion Gap 14 H Blood Urea Nitrogen 38 H Creatinine 6.79 H Est Glomerular 6 L Filtrat Rate mL/min Glucose Level 96 Calcium Level 9.1 Phosphorus Level 5.3 H Magnesium Level 2.0 Random Vancomycin 17.4 Level Subjective 24 Hr Interval Summary Free Text/Dictation permacath placed Exam/Review of Systems Exam Vitals Vital Signs Date Temp Pulse Resp B/P (MAP) Pulse Ox O2 O2 Flow FiO2 Time Delivery Rate 05/27/19 98.2 79 18 138/98 96 15:38 (111) 05/27/19 Room Air 14:46 Intake and Output 05/26/19 05/26/19 05/27/19 1515:00 23:00 07:00 IntakeIntake Total 100 ml 100 ml 50 ml BalanceBalance 100 ml 100 ml 50 ml Results Results 24hrs Laboratory Tests Test 05/26/19 17:12 05/26/19 17:34 05/26/19 20:17 05/27/19 01:02 Bedside Glucose 123 102 98 Sodium Level 139 Potassium Level 4.8 Chloride Level 106 Carbon Dioxide Level 18 L Anion Gap 15 H Blood Urea Nitrogen 36 H Creatinine 6.48 H Est Glomerular 6 L Filtrat Rate mL/min Glucose Level 113 Calcium Level 9.7 Test 05/27/19 04:34 05/27/19 05:55 05/27/19 08:14 Bedside Glucose 94 104 White Blood Count 10.6 Red Blood Count 3.57 L Hemoglobin 11.2 L Hematocrit 36.2 L Mean Corpuscular 101.4 H Volume Mean Corpuscular 31.4 Hemoglobin Mean Corpuscular 30.9 L Hemoglobin Concent Red Cell 16.7 H Distribution Width Platelet Count 95 L Mean Platelet Volume 11.4 H Immature 0.700 H Granulocytes % Neutrophils % 74.4 Lymphocytes % 16.8 Monocytes % 5.9 Eosinophils % 1.6 Basophils % 0.6 Nucleated Red Blood 0.0 Cells % Immature 0.070 H Granulocytes # Neutrophils # 7.9 H Lymphocytes # 1.8 Monocytes # 0.6 Eosinophils # 0.2 Basophils # 0.1 Nucleated Red Blood 0.0 Cells # Sodium Level 139 Potassium Level 4.9 Chloride Level 107 Carbon Dioxide Level 18 L Anion Gap 14 H Blood Urea Nitrogen 38 H Creatinine 6.79 H Est Glomerular 6 L Filtrat Rate mL/min Glucose Level 96 Calcium Level 9.1 Phosphorus Level 5.3 H Magnesium Level 2.0 Random Vancomycin 17.4 Level Medications Medication Current Medications IV Flush (NS 3 ml) 3 ml PER PROTOCOL IV ; Start 05/20/19 at 14:30 Ondansetron HCl (Zofran Inj) 4 mg Q6H PRN IV NAUSEA/VOMITING; Start 05/20/19 at 14:30 Acetaminophen (Tylenol Tab) 650 mg Q6H PRN PO .PAIN 1-3 OR TEMP; Start 05/20/19 at 14:30 Acetaminophen/ Hydrocodone Bitart ([place] (5/325)) 1 tab Q6H PRN PO .MOD PAIN 4- 6; Start 05/20/19 at 14:30 Morphine Sulfate (morphine) 2 mg Q4H PRN IV .SEVERE PAIN 7-10 Last administered on 05/25/19at 14:10; Admin Dose 2 MG; Start 05/20/19 at 14:30 Docusate Sodium (Colace) 100 mg Q12H PRN PO .CONSTIPATION; Start 05/20/19 at 14:30 Zolpidem Tartrate (Ambien) 5 mg QHS PRN PO .INSOMNIA; Start 05/20/19 at 14:30 Diagnostic Test (Pha) (Accu-Chek) 1 ea 02 XX Last administered on 05/27/19at 01:14; Admin Dose 1 EA; Start 05/21/19 at 02:00 Miscellaneous Information 1 ea NOTE XX ; Start 05/20/19 at 14:30 Glucose (Glutose) 15 gm Q15M PRN PO DECREASED GLUCOSE; Start 05/20/19 at 14:30 Glucose (Glutose) 22.5 gm Q15M PRN PO DECREASED GLUCOSE; Start 05/20/19 at 14:30 Dextrose (D50w Syringe) 25 ml Q15M PRN IV DECREASED GLUCOSE; Start 05/20/19 at 14:30 Dextrose (D50w Syringe) 50 ml Q15M PRN IV DECREASED GLUCOSE; Start 05/20/19 at 14:30 Glucagon (Glucagen) 1 mg Q15M PRN IM DECREASED GLUCOSE; Start 05/20/19 at 14:30 Glucose (Glutose) 15 gm Q15M PRN BUCCAL DECREASED GLUCOSE; Start 05/20/19 at 14:30 Vancomycin HCl (Vanco Iv Per Pharmacy) VANCOMYCIN PER PHARMACY PER PROTOCOL XX ; Start 05/21/19 at 01:30 Alteplase, Recombinant (Cathflo (Activase)) 4 mg MAY REPEAT X1 PRN CATHETER IF CATHETER REMAINS OCCULUDED Last administered on 05/21/19at 18:24; Admin Dose 4 MG; Start 05/21/19 at 10:00 Lorazepam (Ativan) 0.5 mg Q6H PRN IV AGITATION Last administered on 05/23/19at 21:55; Admin Dose 0.5 MG; Start 05/22/19 at 09:30 Mupirocin (Bactroban) 1 applic BID TOP Last administered on 05/27/19at 08:42; Admin Dose 1 APPLIC; Start 05/22/19 at 13:30; Stop 05/31/19 at 21:01 Heparin Sodium (Porcine) (Heparin (1000 Units/ml)) 3,700 unit AFTER DIALYSIS CATHETER Last administered on 05/24/19at 00:08; Admin Dose 3,700 UNIT; Start 05/22/19 at 13:00 Albumin Human 50 ml @ 25 mls/hr DURING DIALYSIS PRN IV BLOOD PRESSURE SUPPORT; Start 05/24/19 at 07:30 Miscellaneous Information (Pending Santyl Order For Wound Care) This patient benavidez... PRN PRN XX WOUND CARE; Start 05/26/19 at 03:30 Sodium Chloride 1,000 ml @ 50 mls/hr Q20H IV Last administered on 05/26/19at 16:46; Admin Dose 50 MLS/HR; Start 05/26/19 at 16:30 Fentanyl (Sublimaze) 25 mcg PACU ORDER PRN IV MILD PAIN 1-3; Start 05/27/19 at 13:00; Stop 05/27/19 at 17:00 Ondansetron HCl (Zofran Inj) 4 mg PACU ORDER PRN IV NAUSEA/VOMITING; Start 05/27/19 at 13:00; Stop 05/27/19 at 17:00 Labetalol HCl (Labetalol) 5 mg PACU ORDER PRN IV HIGH BLOOD PRESSURE; Start 05/27/19 at 13:00; Stop 05/27/19 at 17:00 Hydralazine HCl (Apresoline) 5 mg PACU ORDER PRN IV HIGH BLOOD PRESSURE; Start 05/27/19 at 13:00; Stop 05/27/19 at 17:00 Ephedrine Sulfate 5 mg PACU ORDER PRN IV BLOOD PRESSURE SUPPORT; Start 05/27/19 at 13:00; Stop 05/27/19 at 17:00 Albumin Human 250 ml @ 750 mls/hr PACU ORDER PRN IV BP SUPPORT; Start 05/27/19 at 13:00; Stop 05/27/19 at 17:00 Albuterol (Proventil 0.083% (Neb)) 2.5 mg PACU ORDER PRN HHN .WHEEZING; Start 05/27/19 at 13:00; Stop 05/27/19 at 17:00 Meperidine HCl (Demerol) 25 mg PACU ORDER PRN IV .RIGORS; Start 05/27/19 at 13:00; Stop 05/27/19 at 17:00 Diphenhydramine HCl (Benadryl) 25 mg PACU ORDER PRN IV .PRURITUS; Start 05/27/19 at 13:00; Stop 05/27/19 at 17:00 Midazolam HCl (Versed) 0.5 mg PACU ORDER PRN IV .ANXIETY; Start 05/27/19 at 13:00; Stop 05/27/19 at 17:00 Insulin Aspart (Novolog Insulin Pen) NOVOLOG *MILD* ALGORI... AC MEALS AND BEDTIME SC ; Start 05/27/19 at 17:25 Vancomycin HCl 250 ml @ 125 mls/hr ONCE ONCE IVPB ; Start 05/27/19 at 21:00; Stop 05/27/19 at 22:59 Rifampin 600 mg/ Sodium Chloride 100 ml @ 200 mls/hr Q24H IVPB ; Start 05/27/19 at 21:00 LISSETT KEY MD May 27, 2019 16:25
[2019-05-27] MEDS ORDERED: INSULIN ASPART [NOVOLOG] 3 ML PEN SC SCH (17:00)
--- NOTE | 2019-05-27 21:23 | RADRPT ---
PROCEDURE: PLACEMENT OF LEFT INTERNAL JUGULAR VENOUS TUNNELED DIALYSIS CATHETER. CLINICAL INDICATION: Renal failure. TECHNIQUE: Prior to the procedure, informed consent was obtained. Risks including bleeding, infection, and pneum othorax were explained to the patient. The patient understood and was willing to proceed. A procedura l pause was performed. The patient's name, date of , and procedure to be performed were verified . The left neck and anterior/superior chest wall was prepped and draped in usual sterile fashion. The central line was inserted with all elements of maximal sterile barrier technique. All of the foll owing were used: head covering, facial mask, sterile gown, sterile gloves, a large sterile sheet, sun d hygiene, and 2% chlorhexidine for cutaneous antisepsis. Limited sonography of the left neck was then performed. Noted is a patent left internal jugular vein. Following the local injection of Xylocaine, the left internal jugular vein was punctured under sonogr aphic guidance with a 20-gauge needle through which a 0.018 inch floppy tip guidewire was advanced in to the superior vena cava. The tract was dilated to 5 N[place] and the wire was then replaced with a 0. 035 in Amplatz guidewire. A tunnel was then created from the anterior lateral aspect of the superior left chest wall to the puncture site in the neck and the catheter was pulled through the tract. Ser ial dilatation was then performed and a 16 [place] peel away sheath was introduced. The 14.5 Nauruan [employer] Bio[employer]lo DuraMax dialysis catheter was advanced through the 16 [place]auruan pee l-away sheath. The tip of the catheter was confirmed in position within the right atrium. The peel-aw ay sheath was removed. The 2 ports were each flushed with 2.5 ml of 1:1000 heparin. The catheter was secured to the skin wi th 2-0 silk. The wound in the neck was closed with 4-0 Vicryl suture. The site was dressed. Specimens: None. Blood loss: 5 ml. Complications: None. Wire Weaver Helper: None. Anesthesia: Local and moderate sedation. Graft/Implant: Tunneled dialysis catheter. COMPARISON: None. FINDINGS: Final images demonstrate the tip of the catheter in the upper right atrium. A total of 1.6 minutes o f fluoroscopy time was used. Single image of the chest were obtained with image intensifier. IMPRESSION: 1. Percutaneous insertion of left internal jugular dialysis tunneled dialysis catheter under fluorosc opic and sonographic guidance. RPTAT: QQ Physician Kali Date Time Electronically viewed and signed by ifeoma Mccartney Physician on 05/27/2019 16:51 rV/
[2019-05-27] MEDS: LORAZEPAM 2 MG INJ IV PRN (22:13)
[2019-05-28] VITALS (26 sets, daily range): BP systolic 96–152; BP diastolic 64–92; PULSE 66–136; RESP 16–20
[2019-05-28] MEDS: RIFAMPIN 600 MG in SOD CHLORIDE 0.9% 100 ML IVPB SCH ×2 (01:24→22:07)
[2019-05-28] MEDS: HEPARIN 1000 UNITS/ML 10 ML INJ CATHETER SCH ×2 (01:29→16:28)
[2019-05-28] MEDS: ACCU-CHEK XX SCH (01:34)
--- NOTE | 2019-05-28 06:18 | CONS ---
Consult Date/Type/Reason Admit Date/Time May 20, 2019 at 10:05 Initial Consult Date Date/Time of Note DATE: 05/28/19 TIME: 06:14 Subjective patient seen in telemetry The patient is sp Perm-A-Cath placement. Tolerated hd last night. on hd today. agitated. No other events noted. The patient remains confused, uncooperative. OBJECTIVE: HEENT: Head is normocephalic. NECK: Supple. HEART: Regular rate. LUNGS: Show diminished breath sounds at the base. ABDOMEN: Soft, nontender to palpation without rebound or guarding. EXTREMITIES: Negative for clubbing, cyanosis, no edema. DERMATOLOGIC: No rashes. MUSCULOSKELETAL: No joint effusion. NEUROLOGIC: No change in exam. MEDICATIONS: Have been reviewed. Objective Vitals Vital Signs Date Temp Pulse Resp B/P (MAP) Pulse Ox O2 O2 Flow FiO2 Time Delivery Rate 05/28/19 97.5 110 20 105/67 97 04:00 (80) 05/27/19 Room Air 23:36 Intake and Output 05/27/19 05/27/19 05/28/19 1515:00 23:00 07:00 IntakeIntake Total 250 ml 100 ml OutputOutput Total 200 ml 1450 ml BalanceBalance 50 ml -1350 ml Results/Medications Result Diagram: 05/27/19 0555 05/27/19 0555 Results 24 hrs Laboratory Tests Test 05/27/19 08:14 Bedside Glucose 104 Home Meds Reported Medications Triamcinolone Acetonide* (Kenalog*) 0.1%-15GM Oint, 1 APPLIC TOP BID, #1 EA 05/20/19 Magnesium Hydroxide* (Milk Of Magnesia*) 400 Mg/5 Ml Oral.susp, 30 ML PO DAILY PRN for CONSTIPATION, ML 05/20/19 Hydrocodone/Acetaminophen ([place] 5-325 Tablet) 1 Each Tablet, 1 TAB PO Q6H PRN for PAIN LEVEL 7-10, TAB 05/20/19 Megestrol Acetate* (Megestrol Acetate*) 400 Mg/10 Ml Susp, 400 MG PO DAILY, ML 05/20/19 Zinc Sulfate* (Zinc Sulfate*) 220 Mg Tablet, 220 MG PO DAILY, TAB 05/20/19 Multivitamins* (Theragran*) 1 Tab Tab, 1 TAB PO DAILY, TAB 05/20/19 Ipratropium-Albuterol (Ipratropium-Albuterol) 0.5-3 Mg/3 Ml Ampul.neb, 3 ML INHALATION Q4, #30 VIAL 05/20/19 Ascorbic Acid* (Vitamin C*) 500 Mg Capsule.sa, 500 MG PO DAILY, CAP 05/20/19 Folic Acid* (Folic Acid*) 1 Mg Tablet, 1 MG PO DAILY, TAB 05/20/19 Epoetin shahida* (Epogen*) 4,000 Unit/1 Ml Vial, 22394 UNIT SC [place], VIAL 05/20/19 Pantoprazole* (Protonix*) 40 Mg Tablet.dr, 40 MG PO DAILY, TAB 05/20/19 Insulin Lispro (Humalog) 100 Unit/1 Ml Cartridge, 0 SQ Q6H PRN for SLIDING SCALE, EA 04/04/19 Levothyroxine Sodium* (Levothyroxine Sodium*) 150 Mcg Tablet, 150 MCG PO BEFORE BREAKFAST, #30 TAB 04/04/19 Midodrine* (Midodrine*) 10 Mg Tablet, 10 MG PO TID, TAB 04/04/19 Cholecalciferol* (Vitamin D3*) 1,000 Unit Tablet, 1000 UNIT PO DAILY, TAB 04/04/19 Acetaminophen* (Tylenol*) 325 Mg Tablet, 650 MG PO Q4H PRN for MILD PAIN LEVEL 1-3, TAB AND FEVER 04/04/19 Trazodone Hcl* (Trazodone Hcl*) 50 Mg Tablet, 50 MG PO QHS, #30 TAB 04/04/19 Insulin Glargine,Hum.rec.anlog (Emelinaagldelmer Hernandezpen U-100) 100 Unit/1 Ml Insuln.pen, 12 UNIT SC DAILY, EA 04/04/19 Sevelamer Carbonate* (Renvela*) 800 Mg Tablet, 1600 GM PO WITH MEALS, TAB 04/04/19 Quetiapine Fumarate* (Quetiapine Fumarate*) 25 Mg Tablet, 100 MG PO BID, TAB 04/04/19 Atorvastatin Calcium (Atorvastatin Calcium) 10 Mg Tablet, 10 MG PO QHS, #30 TAB 04/04/19 Ondansetron Hcl* (Zofran*) 4 Mg Tab, 4 MG PO Q4H PRN for NAUSEA AND OR VOMITING, TAB 04/04/19 Lorazepam* (Ativan*) 2 Mg Tablet, 2 MG PO Q6 PRN for ANXIETY, #60 TAB 04/04/19 Bisacodyl (Dulcolax) 10 Mg Supp.rect, 10 MG RC DAILY PRN for CONSTIPATION, SUPP.RECT 04/04/19 Ferrous Sulfate* (Ferrous Sulfate*) 325 Mg Tabec, 325 MG PO BID, TAB 04/04/19 Docusate Sodium* (Colace*) 100 Mg Capsule, 100 MG PO BID, #30 CAP 04/04/19 Medications Current Medications IV Flush (NS 3 ml) 3 ml PER PROTOCOL IV ; Start 05/20/19 at 14:30 Ondansetron HCl (Zofran Inj) 4 mg Q6H PRN IV NAUSEA/VOMITING; Start 05/20/19 at 14:30 Acetaminophen (Tylenol Tab) 650 mg Q6H PRN PO .PAIN 1-3 OR TEMP; Start 05/20/19 at 14:30 Acetaminophen/ Hydrocodone Bitart ([place] (5/325)) 1 tab Q6H PRN PO .MOD PAIN 4- 6; Start 05/20/19 at 14:30 Morphine Sulfate (morphine) 2 mg Q4H PRN IV .SEVERE PAIN 7-10 Last administered on 05/25/19at 14:10; Admin Dose 2 MG; Start 05/20/19 at 14:30 Docusate Sodium (Colace) 100 mg Q12H PRN PO .CONSTIPATION; Start 05/20/19 at 14:30 Zolpidem Tartrate (Ambien) 5 mg QHS PRN PO .INSOMNIA; Start 05/20/19 at 14:30 Diagnostic Test (Pha) (Accu-Chek) 1 ea 02 XX Last administered on 05/27/19at 01: 14; Admin Dose 1 EA; Start 05/21/19 at 02:00 Miscellaneous Information 1 ea NOTE XX ; Start 05/20/19 at 14:30 Glucose (Glutose) 15 gm Q15M PRN PO DECREASED GLUCOSE; Start 05/20/19 at 14:30 Glucose (Glutose) 22.5 gm Q15M PRN PO DECREASED GLUCOSE; Start 05/20/19 at 14:30 Dextrose (D50w Syringe) 25 ml Q15M PRN IV DECREASED GLUCOSE; Start 05/20/19 at 14:30 Dextrose (D50w Syringe) 50 ml Q15M PRN IV DECREASED GLUCOSE; Start 05/20/19 at 14:30 Glucagon (Glucagen) 1 mg Q15M PRN IM DECREASED GLUCOSE; Start 05/20/19 at 14:30 Glucose (Glutose) 15 gm Q15M PRN BUCCAL DECREASED GLUCOSE; Start 05/20/19 at 14:30 Vancomycin HCl (Vanco Iv Per Pharmacy) VANCOMYCIN PER PHARMACY PER PROTOCOL XX ; Start 05/21/19 at 01:30 Alteplase, Recombinant (Cathflo (Activase)) 4 mg MAY REPEAT X1 PRN CATHETER IF CATHETER REMAINS OCCULUDED Last administered on 05/21/19 18:24; Admin Dose 4 MG; Start 05/21/19 at 10:00 Lorazepam (Ativan) 0.5 mg Q6H PRN IV AGITATION Last administered on 05/27/19 22:13; Admin Dose 0.5 MG; Start 05/22/19 at 09:30 Mupirocin (Bactroban) 1 applic BID TOP Last administered on 05/27/19 20:14; Admin Dose 1 APPLIC; Start 05/22/19 at 13:30; Stop 05/31/19 at 21:01 Heparin Sodium (Porcine) (Heparin (1000 Units/ml)) 3,700 unit AFTER DIALYSIS CATHETER Last administered on 05/28/19 01:29; Admin Dose 3,700 UNIT; Start 05/22/19 at 13:00 Miscellaneous [facility] This patient benavidez... PRN PRN XX WOUND CARE; Start 05/26/19 at 03:30 Sodium Chloride 1,000 ml @ 50 mls/hr Q20H IV Last administered on 05/27/19at 18:30; Admin Dose 50 MLS/HR; Start 05/26/19 at 16:30 Insulin Aspart (Novolog Insulin Pen) NOVOLOG *MILD* ALGORI... AC MEALS AND BEDTIME SC ; Start 05/27/19 at 17:25 Rifampin 600 mg/ Sodium Chloride 100 ml @ 200 mls/hr Q24H IVPB Last administered on 05/28/19at 01:24; Admin Dose 200 MLS/HR; Start 05/27/19 at 21:00 Assessment/Plan Hospital Course (Demo Recall) 1. End-stage renal disease. We will anticipate dialysis today and tomorrow for solute clearance after Perm-A-Cath is placed. 2. Hyperkalemia. The patient is status post Kayexalate. Potassium levels improved. Continue dialysis on low potassium bath. 3. Anemia. Monitor hemoglobin and hematocrit levels. Will give Epogen as needed. 4. Mineral bone disorder, monitor calcium and phosphorus level. No need for phosphate binders at this time. 5. Sepsis secondary to line infection. The patient's Perm-A-Cath was removed. Continue antibiotic therapy. 6. Acute on chronic encephalopathy, etiology toxic metabolic. 7. Pancreatic cystic lesions, continue to monitor. Etiology is unclear. STEPHEN BREWER DO May 28, 2019 06:18
[2019-05-28] MEDS: INSULIN ASPART [NOVOLOG] 3 ML PEN SC SCH ×4 (07:25→21:00)
[2019-05-28] MEDS: MUPIROCIN 2% 22 GM OINT TOP SCH ×2 (08:04→22:07)
[2019-05-28] MEDS: LORAZEPAM 2 MG INJ IV PRN (13:49)
--- NOTE | 2019-05-28 14:02 | PN ---
Date/Time of Note Date/Time of Note DATE: 05/28/19 TIME: 13:57 Assessment/Plan VTE Prophylaxis Risk score (from Ns)>0 risk: 8 SCD applied (from Ns): Yes Pharmacological prophylaxis: heparin Lines/Catheters IV Catheter Type (from Nrsg): PICC Line Central line still needed: Yes Urinary Cath still in place: No Assessment/Plan Hospital Course Dementia evident Appears comfortable calm Alert, disoriented RRR CTAB HD catheter in place SOft nt nd No edema 63 yo female wtih h/o dementia and ESRD presented wtih sepsis from infected line 1. Sepsis with line infection/bacteremia - Blood cultures are positive for MRSA - Permacath has been removed, then replaced - Continue abx per ID - Check TTE to exclude BE 2. End-stage renal disease Nephrology consultation appreciated 3. Chronic encephalopathy like secondary to schizoaffective disorder Patient resides in a alf facility Patient is confused which appears to be her baseline 4. Pancreatic cystic lesion CT abdomen showed a tubular cystic lesion is present within and along the pancreatic body measuring up to 1 cm in diameter extending approximately 4 cm in length Prior images are not available, due to patient's poor functional status and nonverbal state will defer any further diagnostics, consultations or interventions 5. Hyponatremia-resolved IV fluids Monitor Prophylaxis: SCDs DC planning: Not stable for DC, continue management per above Result Diagram: 05/27/1955405/27/19 0555 Results 24hrs Laboratory Tests Test 05/28/19 07:23 05/28/19 11:13 Bedside Glucose 80 71 Subjective 24 Hr Interval Summary Free Text/Dictation Underwent dialysis yesterday has permacath placed. Remains encephalopathic Exam/Review of Systems Exam Vitals Vital Signs Date Temp Pulse Resp B/P (MAP) Pulse Ox O2 O2 Flow FiO2 Time Delivery Rate 05/28/19 98.1 66 18 110/69 97 11:06 (83) 05/27/19 Room Air 23:36 Intake and Output 05/27/19 05/27/19 05/28/19 1515:00 23:00 07:00 IntakeIntake Total 250 ml 100 ml OutputOutput Total 200 ml 1450 ml BalanceBalance 50 ml -1350 ml Results Results 24hrs Laboratory Tests Test 05/28/19 07:23 05/28/19 11:13 Bedside Glucose 80 71 Medications Medication Current Medications IV Flush (NS 3 ml) 3 ml PER PROTOCOL IV ; Start 05/20/19 at 14:30 Ondansetron HCl (Zofran Inj) 4 mg Q6H PRN IV NAUSEA/VOMITING; Start 05/20/19 at 14:30 Acetaminophen (Tylenol Tab) 650 mg Q6H PRN PO .PAIN 1-3 OR TEMP; Start 05/20/19 at 14:30 Acetaminophen/ Hydrocodone Bitart ([place] (5/325)) 1 tab Q6H PRN PO .MOD PAIN 4- 6; Start 05/20/19 at 14:30 Morphine Sulfate (morphine) 2 mg Q4H PRN IV .SEVERE PAIN 7-10 Last administered on 05/25/19at 14:10; Admin Dose 2 MG; Start 05/20/19 at 14:30 Docusate Sodium (Colace) 100 mg Q12H PRN PO .CONSTIPATION; Start 05/20/19 at 14:30 Zolpidem Tartrate (Ambien) 5 mg QHS PRN PO .INSOMNIA; Start 05/20/19 at 14:30 Diagnostic Test (Pha) (Accu-Chek) 1 ea 02 XX Last administered on 05/27/19at 01:14; Admin Dose 1 EA; Start 05/21/19 at 02:00 Miscellaneous Information 1 ea NOTE XX ; Start 05/20/19 at 14:30 Glucose (Glutose) 15 gm Q15M PRN PO DECREASED GLUCOSE; Start 05/20/19 at 14:30 Glucose (Glutose) 22.5 gm Q15M PRN PO DECREASED GLUCOSE; Start 05/20/19 at 14:30 Dextrose (D50w Syringe) 25 ml Q15M PRN IV DECREASED GLUCOSE; Start 05/20/19 at 14:30 Dextrose (D50w Syringe) 50 ml Q15M PRN IV DECREASED GLUCOSE; Start 05/20/19 at 14:30 Glucagon (Glucagen) 1 mg Q15M PRN IM DECREASED GLUCOSE; Start 05/20/19 at 14:30 Glucose (Glutose) 15 gm Q15M PRN BUCCAL DECREASED GLUCOSE; Start 05/20/19 at 14:30 Vancomycin HCl (Vanco Iv Per Pharmacy) VANCOMYCIN PER PHARMACY PER PROTOCOL XX ; Start 05/21/19 at 01:30 Alteplase, Recombinant (Cathflo (Activase)) 4 mg MAY REPEAT X1 PRN CATHETER IF CATHETER REMAINS OCCULUDED Last administered on 05/21/19 18:24; Admin Dose 4 MG; Start 05/21/19 at 10:00 Lorazepam (Ativan) 0.5 mg Q6H PRN IV AGITATION Last administered on 05/28/19 13:49; Admin Dose 0.5 MG; Start 05/22/19 at 09:30 Mupirocin (Bactroban) 1 applic BID TOP Last administered on 05/28/19 08:04; Admin Dose 1 APPLIC; Start 05/22/19 at 13:30; Stop 05/31/19 at 21:01 Heparin Sodium (Porcine) (Heparin (1000 Units/ml)) 3,700 unit AFTER DIALYSIS CATHETER Last administered on 05/28/19 01:29; Admin Dose 3,700 UNIT; Start 05/22/19 at 13:00 Miscellaneous Information (Pending Santyl Order For Wound Care) This patient benavidez... PRN PRN XX WOUND CARE; Start 05/26/19 at 03:30 Sodium Chloride 1,000 ml @ 50 mls/hr Q20H IV Last administered on 05/27/19 18:30; Admin Dose 50 MLS/HR; Start 05/26/19 at 16:30 Insulin Aspart (Novolog Insulin Pen) NOVOLOG *MILD* ALGORI... AC MEALS AND BEDTIME SC ; Start 05/27/19 at 17:25 Rifampin 600 mg/ Sodium Chloride 100 ml @ 200 mls/hr Q24H IVPB Last administered on 05/28/19 01:24; Admin Dose 200 MLS/HR; Start 05/27/19 at 21:00 LISSETT KEY MD May 28, 2019 14:02
--- NOTE | 2019-05-28 16:43 | CONS ---
Consultation Date/Type/Reason Admit Date/Time May 20, 2019 at 10:05 Initial Consult Date Type of Consult SUBJECTIVE: Pt is awake, afebrile, looks comfortable. S/P pcath placement. VS: stable T: 98.0 LABS: reviewed. Microbiology: Blood culture on admission grew MRSA, nares swab positive for MRSA, repeat blood cultures remain negative. Indwelling: PICC line, [place] Antimicrobials: Rifampin, vancomycin Physical examination: GEN: Well-developed fragile elderly woman, who is in no distress. HENT: Head atraumatic normocephalic; sclera nonicteric vehicle mucosa dry; neck is supple PULM: chest rise symmetrical breath sounds diminished bases Heart: S1-S2. Abdomen: soft, bowel sounds present. Extremities without cyanosis. Assessment: 1. Resolving sepsis, s/p shock 2. MRSA bacteremia, status post permacath DC'd 3. MRSA nares colonization 4. End-stage renal disease 5. Pancreatic cystic lesion of unknown significance 6. Encephalopathy Plan Pt is stable. Continue current abx. Date/Time of Note DATE: 05/28/19 TIME: 16:39 Exam/Review of Systems Exam Vitals Vital Signs Date Temp Pulse Resp B/P (MAP) Pulse Ox O2 O2 Flow FiO2 Time Delivery Rate 05/28/19 129 16:10 05/28/19 98.0 18 111/83 96 15:05 (92) 05/28/19 Room Air 13:40 Intake and Output 05/27/19 05/27/19 05/28/19 1515:00 23:00 07:00 IntakeIntake Total 250 ml 100 ml OutputOutput Total 200 ml 1450 ml BalanceBalance 50 ml -1350 ml Results Result Diagram: 05/27/19 0555 05/27/19 0555 Results 24hrs Laboratory Tests Test 05/28/19 07:23 05/28/19 11:13 Bedside Glucose 80 71 Medications Medication Current Medications IV Flush (NS 3 ml) 3 ml PER PROTOCOL IV ; Start 05/20/19 at 14:30 Ondansetron HCl (Zofran Inj) 4 mg Q6H PRN IV NAUSEA/VOMITING; Start 05/20/19 at 14:30 Acetaminophen (Tylenol Tab) 650 mg Q6H PRN PO .PAIN 1-3 OR TEMP; Start 05/20/19 at 14:30 Acetaminophen/ Hydrocodone Bitart ([place] (5/325)) 1 tab Q6H PRN PO .MOD PAIN 4- 6; Start 05/20/19 at 14:30 Morphine Sulfate (morphine) 2 mg Q4H PRN IV .SEVERE PAIN 7-10 Last administered on 05/25/19at 14:10; Admin Dose 2 MG; Start 05/20/19 at 14:30 Docusate Sodium (Colace) 100 mg Q12H PRN PO .CONSTIPATION; Start 05/20/19 at 14:30 Zolpidem Tartrate (Ambien) 5 mg QHS PRN PO .INSOMNIA; Start 05/20/19 at 14:30 Diagnostic Test (Pha) (Accu-Chek) 1 ea 02 XX Last administered on 05/27/19at 01:14; Admin Dose 1 EA; Start 05/21/19 at 02:00 Miscellaneous Information 1 ea NOTE XX ; Start 05/20/19 at 14:30 Glucose (Glutose) 15 gm Q15M PRN PO DECREASED GLUCOSE; Start 05/20/19 at 14:30 Glucose (Glutose) 22.5 gm Q15M PRN PO DECREASED GLUCOSE; Start 05/20/19 at 14:30 Dextrose (D50w Syringe) 25 ml Q15M PRN IV DECREASED GLUCOSE; Start 05/20/19 at 14:30 Dextrose (D50w Syringe) 50 ml Q15M PRN IV DECREASED GLUCOSE; Start 05/20/19 at 14:30 Glucagon (Glucagen) 1 mg Q15M PRN IM DECREASED GLUCOSE; Start 05/20/19 at 14:30 Glucose (Glutose) 15 gm Q15M PRN BUCCAL DECREASED GLUCOSE; Start 05/20/19 at 14:30 Vancomycin HCl (Vanco Iv Per Pharmacy) VANCOMYCIN PER PHARMACY PER PROTOCOL XX ; Start 05/21/19 at 01:30 Alteplase, Recombinant (Cathflo (Activase)) 4 mg MAY REPEAT X1 PRN CATHETER IF CATHETER REMAINS OCCULUDED Last administered on 05/21/19at 18:24; Admin Dose 4 MG; Start 05/21/19 at 10:00 Lorazepam (Ativan) 0.5 mg Q6H PRN IV AGITATION Last administered on 05/28/19at 13:49; Admin Dose 0.5 MG; Start 05/22/19 at 09:30 Mupirocin (Bactroban) 1 applic BID TOP Last administered on 05/28/19at 08:04; Admin Dose 1 APPLIC; Start 05/22/19 at 13:30; Stop 05/31/19 at 21:01 Heparin Sodium (Porcine) (Heparin (1000 Units/ml)) 3,700 unit AFTER DIALYSIS CATHETER Last administered on 05/28/19at 16:28; Admin Dose 3,700 UNIT; Start 05/22/19 at 13:00 Miscellaneous Information (Pending [facility] Order For Wound Care) This patient benavidez... PRN PRN XX WOUND CARE; Start 05/26/19 at 03:30 Sodium Chloride 1,000 ml @ 50 mls/hr Q20H IV Last administered on 05/27/19at 18:30; Admin Dose 50 MLS/HR; Start 05/26/19 at 16:30 Insulin Aspart (Novolog Insulin Pen) NOVOLOG *MILD* ALGORI... AC MEALS AND BEDTIME SC ; Start 05/27/19 at 17:25 Rifampin 600 mg/ Sodium Chloride 100 ml @ 200 mls/hr Q24H IVPB Last administered on 05/28/19at 01:24; Admin Dose 200 MLS/HR; Start 05/27/19 at 21:00 DIANA REAVES May 28, 2019 16:43
[2019-05-28] MEDS: SOD CHLORIDE 0.45% 1,000 ML IV SCH (17:34)
[2019-05-29 00:26] VITALS: BP 98/67; PULSE 112; RESP 18
[2019-05-29] MEDS: ACCU-CHEK XX SCH (02:11)
[2019-05-29] MEDS: DEXTROSE 5%-0.45% NACL 1,000 ML IV SCH (02:42)
[2019-05-29 04:10] VITALS: BP 125/81; PULSE 105; RESP 18
--- NOTE | 2019-05-29 06:45 | CONS ---
Consult Date/Type/Reason Admit Date/Time May 20, 2019 at 10:05 Initial Consult Date Date/Time of Note DATE: 05/29/19 TIME: 06:43 Subjective patient seen in telemetry The patient is sp Perm-A-Cath placement. Tolerated hd last night. No other events noted. The patient remains confused, labs pending this am poc reviewed with dr. aguilar OBJECTIVE: HEENT: Head is normocephalic. NECK: Supple. HEART: Regular rate. LUNGS: Show diminished breath sounds at the base. ABDOMEN: Soft, nontender to palpation without rebound or guarding. EXTREMITIES: Negative for clubbing, cyanosis, no edema. DERMATOLOGIC: No rashes. MUSCULOSKELETAL: No joint effusion. NEUROLOGIC: No change in exam. MEDICATIONS: Have been reviewed. Objective Vitals Vital Signs Date Temp Pulse Resp B/P (MAP) Pulse Ox O2 O2 Flow FiO2 Time Delivery Rate 05/29/19 98.3 105 18 125/81 100 04:10 (96) 05/28/19 Room Air 16:49 Intake and Output 05/28/19 05/28/19 05/29/19 1515:00 23:00 07:00 OutputOutput Total 1500 ml 1000 ml BalanceBalance -1500 ml -1000 ml Results/Medications Result Diagram: 05/27/19 0555 05/27/19 0555 Results 24 hrs Laboratory Tests Test 05/28/19 07:23 05/28/19 11:13 05/28/19 17:30 05/28/19 22:03 Bedside Glucose 80 71 86 79 Test 05/29/19 02:11 Bedside Glucose 77 Home Meds Reported Medications Triamcinolone Acetonide* (Kenalog*) 0.1%-15GM Oint, 1 APPLIC TOP BID, #1 EA 05/20/19 Magnesium Hydroxide* (Milk Of Magnesia*) 400 Mg/5 Ml Oral.susp, 30 ML PO DAILY PRN for CONSTIPATION, ML 05/20/19 Hydrocodone/Acetaminophen ([place] 5-325 Tablet) 1 Each Tablet, 1 TAB PO Q6H PRN for PAIN LEVEL 7-10, TAB 05/20/19 Megestrol Acetate* (Megestrol Acetate*) 400 Mg/10 Ml Susp, 400 MG PO DAILY, ML 05/20/19 Zinc Sulfate* (Zinc Sulfate*) 220 Mg Tablet, 220 MG PO DAILY, TAB 05/20/19 Multivitamins* (Theragran*) 1 Tab Tab, 1 TAB PO DAILY, TAB 05/20/19 Ipratropium-Albuterol (Ipratropium-Albuterol) 0.5-3 Mg/3 Ml Ampul.neb, 3 ML INHALATION Q4, #30 VIAL 05/20/19 Ascorbic Acid* (Vitamin C*) 500 Mg Capsule.sa, 500 MG PO DAILY, CAP 05/20/19 Folic Acid* (Folic Acid*) 1 Mg Tablet, 1 MG PO DAILY, TAB 05/20/19 Epoetin shahida* (Epogen*) 4,000 Unit/1 Ml Vial, [address]12 UNIT SC [place], VIAL 05/20/19 Pantoprazole* (Protonix*) 40 Mg Tablet.dr, 40 MG PO DAILY, TAB 05/20/19 Insulin Lispro (Humalog) 100 Unit/1 Ml Cartridge, 0 SQ Q6H PRN for SLIDING SCALE, EA 04/04/19 Levothyroxine Sodium* (Levothyroxine Sodium*) 150 Mcg Tablet, 150 MCG PO BEFORE BREAKFAST, #30 TAB 04/04/19 Midodrine* (Midodrine*) 10 Mg Tablet, 10 MG PO TID, TAB 04/04/19 Cholecalciferol* (Vitamin D3*) 1,000 Unit Tablet, 1000 UNIT PO DAILY, TAB 04/04/19 Acetaminophen* (Tylenol*) 325 Mg Tablet, 650 MG PO Q4H PRN for MILD PAIN LEVEL 1-3, TAB AND FEVER 04/04/19 Trazodone Hcl* (Trazodone Hcl*) 50 Mg Tablet, 50 MG PO QHS, #30 TAB 04/04/19 Insulin Glargine,Hum.rec.anlog (Basaglar Kwikpen U-100) 100 Unit/1 Ml Insuln.pen, 12 UNIT SC DAILY, EA 04/04/19 Sevelamer Carbonate* (Renvela*) 800 Mg Tablet, 1600 GM PO WITH MEALS, TAB 04/04/19 Quetiapine Fumarate* (Quetiapine Fumarate*) 25 Mg Tablet, 100 MG PO BID, TAB 04/04/19 Atorvastatin Calcium (Atorvastatin Calcium) 10 Mg Tablet, 10 MG PO QHS, #30 TAB 04/04/19 Ondansetron Hcl* (Zofran*) 4 Mg Tab, 4 MG PO Q4H PRN for NAUSEA AND OR VOMITING, TAB 04/04/19 Lorazepam* (Ativan*) 2 Mg Tablet, 2 MG PO Q6 PRN for ANXIETY, #60 TAB 04/04/19 Bisacodyl (Dulcolax) 10 Mg Supp.rect, 10 MG RC DAILY PRN for CONSTIPATION, SUPP.RECT 04/04/19 Ferrous Sulfate* (Ferrous Sulfate*) 325 Mg Tabec, 325 MG PO BID, TAB 04/04/19 Docusate Sodium* (Colace*) 100 Mg Capsule, 100 MG PO BID, #30 CAP 04/04/19 Medications Current Medications IV Flush (NS 3 ml) 3 ml PER PROTOCOL IV ; Start 05/20/19 at 14:30 Ondansetron HCl (Zofran Inj) 4 mg Q6H PRN IV NAUSEA/VOMITING; Start 05/20/19 at 14:30 Acetaminophen (Tylenol Tab) 650 mg Q6H PRN PO .PAIN 1-3 OR TEMP; Start 05/20/19 at 14:30 Acetaminophen/ Hydrocodone Bitart ([place] (5/325)) 1 tab Q6H PRN PO .MOD PAIN 4- 6; Start 05/20/19 at 14:30 Morphine Sulfate (morphine) 2 mg Q4H PRN IV .SEVERE PAIN 7-10 Last administered on 05/25/19at 14:10; Admin Dose 2 MG; Start 05/20/19 at 14:30 Docusate Sodium (Colace) 100 mg Q12H PRN PO .CONSTIPATION; Start 05/20/19 at 14:30 Zolpidem Tartrate (Ambien) 5 mg QHS PRN PO .INSOMNIA; Start 05/20/19 at 14:30 Diagnostic Test (Pha) (Accu-Chek) 1 ea 02 XX Last administered on 05/29/19at 0 2:11; Admin Dose 1 EA; Start 05/21/19 at 02:00 Miscellaneous Information 1 ea NOTE XX ; Start 05/20/19 at 14:30 Glucose (Glutose) 15 gm Q15M PRN PO DECREASED GLUCOSE; Start 05/20/19 at 14:30 Glucose (Glutose) 22.5 gm Q15M PRN PO DECREASED GLUCOSE; Start 05/20/19 at 14:30 Dextrose (D50w Syringe) 25 ml Q15M PRN IV DECREASED GLUCOSE; Start 05/20/19 at 14:30 Dextrose (D50w Syringe) 50 ml Q15M PRN IV DECREASED GLUCOSE; Start 05/20/19 at 14:30 Glucagon (Glucagen) 1 mg Q15M PRN IM DECREASED GLUCOSE; Start 05/20/19 at 14:30 Glucose (Glutose) 15 gm Q15M PRN BUCCAL DECREASED GLUCOSE; Start 05/20/19 at 14: 30 Vancomycin HCl (Vanco Iv Per Pharmacy) VANCOMYCIN PER PHARMACY PER PROTOCOL XX ; Start 05/21/19 at 01:30 Alteplase, Recombinant (Cathflo (Activase)) 4 mg MAY REPEAT X1 PRN CATHETER IF CATHETER REMAINS OCCULUDED Last administered on 05/21/19at 18:24; Admin Dose 4 MG; Start 05/21/19 at 10:00 Lorazepam (Ativan) 0.5 mg Q6H PRN IV AGITATION Last administered on 05/28/19at 13:49; Admin Dose 0.5 MG; Start 05/22/19 at 09:30 Mupirocin (Bactroban) 1 applic BID TOP Last administered on 05/28/19at 22:07; Admin Dose 1 APPLIC; Start 05/22/19 at 13:30; Stop 05/31/19 at 21:01 Heparin Sodium (Porcine) (Heparin (1000 Units/ml)) 3,700 unit AFTER DIALYSIS CATHETER Last administered on 05/28/19at 16:28; Admin Dose 3,700 UNIT; Start 05/22/19 at 13:00 Miscellaneous Information ([facility]) This patient benavidez... PRN PRN XX WOUND CARE; Start 05/26/19 at 03:30 Insulin Aspart (Novolog Insulin Pen) NOVOLOG *MILD* ALGORI... AC MEALS AND BEDTIME SC ; Start 05/27/19 at 17:25 Rifampin 600 mg/ Sodium Chloride 100 ml @ 200 mls/hr Q24H IVPB Last administered on 05/28/19at 22:07; Admin Dose 200 MLS/HR; Start 05/27/19 at 21:00 Dextrose/Sodium Chloride 1,000 ml @ 40 mls/hr Q24H IV Last administered on 05/29/19at 02:42; Admin Dose 40 MLS/HR; Start 05/29/19 at 02:30 Assessment/Plan Hospital Course (Demo Recall) 1. End-stage renal disease. We will anticipate dialysis tomorrow for solute clearance. all meds dosed ok for renal function. assess daily for hd need. 2. Hyperkalemia. The patient is status post Kayexalate. Potassium levels improved. Continue dialysis on low potassium bath. 3. Anemia. Monitor hemoglobin and hematocrit levels. Will give Epogen as needed. 4. Mineral bone disorder, monitor calcium and phosphorus level. No need for phosphate binders at this time. 5. Sepsis secondary to line infection. The patient's Perm-A-Cath was removed. Continue antibiotic therapy. 6. Acute on chronic encephalopathy, etiology toxic metabolic. 7. Pancreatic cystic lesions, continue to monitor. Etiology is unclear. STEPHEN BREWER DO May 29, 2019 06:45
[2019-05-29] MEDS: INSULIN ASPART [NOVOLOG] 3 ML PEN SC SCH ×4 (07:25→21:45)
[2019-05-29 07:27] VITALS: BP 118/75; PULSE 78; RESP 18
[2019-05-29] MEDS: MUPIROCIN 2% 22 GM OINT TOP SCH ×2 (08:19→21:44)
[2019-05-29 11:29] VITALS: BP 148/78; PULSE 87; RESP 20
--- NOTE | 2019-05-29 12:31 | CONS ---
Consultation Date/Type/Reason Admit Date/Time May 20, 2019 at 10:05 Initial Consult Date Type of Consult SUBJECTIVE: Pt is awake, afebrile. S/P pcath placement. VS: stable T: 98.6 LABS: reviewed. Microbiology: Blood culture on admission grew MRSA, nares swab positive for MRSA, repeat blood cultures remain negative. Indwelling: PICC line, [place] Antimicrobials: Rifampin, vancomycin Physical examination: GEN: Well-developed fragile elderly woman, who is in no distress. HENT: Head atraumatic normocephalic; sclera nonicteric vehicle mucosa dry; neck is supple PULM: chest rise symmetrical breath sounds diminished bases Heart: S1-S2. Abdomen: soft, bowel sounds present. Extremities without cyanosis. Assessment: 1. Resolving sepsis, s/p shock 2. MRSA bacteremia, status post permacath DC'd and replacement 3. MRSA nares colonization 4. End-stage renal disease 5. Pancreatic cystic lesion of unknown significance 6. Encephalopathy Plan Pt is stable. Continue current abx. Pain management. Date/Time of Note DATE: 05/29/19 TIME: 12:30 Exam/Review of Systems Exam Vitals Vital Signs Date Temp Pulse Resp B/P (MAP) Pulse Ox O2 O2 Flow FiO2 Time Delivery Rate 05/29/19 98.6 87 20 148/78 98 11:29 (101) 05/28/19 Room Air 16:49 Intake and Output 05/28/19 05/28/19 05/29/19 1515:00 23:00 07:00 IntakeIntake Total 120 ml OutputOutput Total 1500 ml BalanceBalance -1500 ml 120 ml Results Result Diagram: 05/27/19 0555 05/27/19 0555 Results 24hrs Laboratory Tests Test 05/28/19 17:30 05/28/19 22:03 05/29/19 02:11 05/29/19 08:18 Bedside Glucose 86 79 77 126 Medications Medication Current Medications IV Flush (NS 3 ml) 3 ml PER PROTOCOL IV ; Start 05/20/19 at 14:30 Ondansetron HCl (Zofran Inj) 4 mg Q6H PRN IV NAUSEA/VOMITING; Start 05/20/19 at 14:30 Acetaminophen (Tylenol Tab) 650 mg Q6H PRN PO .PAIN 1-3 OR TEMP; Start 05/20/19 at 14:30 Acetaminophen/ Hydrocodone Bitart ([place] (5/325)) 1 tab Q6H PRN PO .MOD PAIN 4- 6; Start 05/20/19 at 14:30 Morphine Sulfate (morphine) 2 mg Q4H PRN IV .SEVERE PAIN 7-10 Last administered on 05/25/19at 14:10; Admin Dose 2 MG; Start 05/20/19 at 14:30 Docusate Sodium (Colace) 100 mg Q12H PRN PO .CONSTIPATION; Start 05/20/19 at 14:30 Zolpidem Tartrate (Ambien) 5 mg QHS PRN PO .INSOMNIA; Start 05/20/19 at 14:30 Diagnostic Test (Pha) (Accu-Chek) 1 ea 02 XX Last administered on 05/29/19at 02:11; Admin Dose 1 EA; Start 05/21/19 at 02:00 Miscellaneous Information 1 ea NOTE XX ; Start 05/20/19 at 14:30 Glucose (Glutose) 15 gm Q15M PRN PO DECREASED GLUCOSE; Start 05/20/19 at 14:30 Glucose (Glutose) 22.5 gm Q15M PRN PO DECREASED GLUCOSE; Start 05/20/19 at 14:30 Dextrose (D50w Syringe) 25 ml Q15M PRN IV DECREASED GLUCOSE; Start 05/20/19 at 14:30 Dextrose (D50w Syringe) 50 ml Q15M PRN IV DECREASED GLUCOSE; Start 05/20/19 at 14:30 Glucagon (Glucagen) 1 mg Q15M PRN IM DECREASED GLUCOSE; Start 05/20/19 at 14:30 Glucose (Glutose) 15 gm Q15M PRN BUCCAL DECREASED GLUCOSE; Start 05/20/19 at 14:30 Vancomycin HCl (Vanco Iv Per Pharmacy) VANCOMYCIN PER PHARMACY PER PROTOCOL XX ; Start 05/21/19 at 01:30 Alteplase, Recombinant (Cathflo (Activase)) 4 mg MAY REPEAT X1 PRN CATHETER IF CATHETER REMAINS OCCULUDED Last administered on 05/21/19at 18:24; Admin Dose 4 MG; Start 05/21/19 at 10:00 Lorazepam (Ativan) 0.5 mg Q6H PRN IV AGITATION Last administered on 05/28/19at 13:49; Admin Dose 0.5 MG; Start 05/22/19 at 09:30 Mupirocin (Bactroban) 1 applic BID TOP Last administered on 05/29/19at 08:19; Admin Dose 1 APPLIC; Start 05/22/19 at 13:30; Stop 05/31/19 at 21:01 Heparin Sodium (Porcine) (Heparin (1000 Units/ml)) 3,700 unit AFTER DIALYSIS CATHETER Last administered on 05/28/19at 16:28; Admin Dose 3,700 UNIT; Start 05/22/19 at 13:00 Miscellaneous Information (Pending [facility] Order For Wound Care) This patient benavidez... PRN PRN XX WOUND CARE; Start 05/26/19 at 03:30 Insulin Aspart (Novolog Insulin Pen) NOVOLOG *MILD* ALGORI... AC MEALS AND BEDTIME SC ; Start 05/27/19 at 17:25 Rifampin 600 mg/ Sodium Chloride 100 ml @ 200 mls/hr Q24H IVPB Last administered on 05/28/19at 22:07; Admin Dose 200 MLS/HR; Start 05/27/19 at 21:00 Dextrose/Sodium Chloride 1,000 ml @ 40 mls/hr Q24H IV Last administered on 05/29/19at 02:42; Admin Dose 40 MLS/HR; Start 05/29/19 at 02:30 DIANA REAVES May 29, 2019 12:31
--- NOTE | 2019-05-29 15:12 | PN ---
Date/Time of Note Date/Time of Note DATE: 05/29/19 TIME: 15:10 Assessment/Plan VTE Prophylaxis Risk score (from Nsg)>0 risk: 8 SCD applied (from Nsg): Yes Pharmacological prophylaxis: heparin Lines/Catheters IV Catheter Type (from Nrsg): permacath Urinary Cath still in place: No Assessment/Plan Hospital Course Dementia evident Appears comfortable calm Alert, disoriented RRR CTAB HD catheter in place SOft nt nd No edema 63 yo female wtih h/o dementia and ESRD presented wtih sepsis from infected line Sepsis with line infection/bacteremia - Blood cultures were positive positive for MRSA and have now cleared - Permacath has been removed, then replaced - Continue abx per ID 2. End-stage renal disease Continue hemodialysis treatments per renal Dementia and schizoaffective disorder -Patient resides in a [facility] facility - Patient is confused which appears to be her baseline 4. Pancreatic cystic lesion CT abdomen showed a tubular cystic lesion is present within and along the pancreatic body measuring up to 1 cm in diameter extending approximately 4 cm in length Prior images are not available, due to patient's poor functional status and nonverbal state will defer any further diagnostics, consultations or interventions 5. Hyponatremia-resolved IV fluids Monitor Prophylaxis: SCDs DC planning: Discharge to [facility] facility to complete antibiotics course Result Diagram: 05/27/19 0555 05/27/19 0555 Results 24hrs Laboratory Tests Test 05/28/19 17:30 05/28/19 22:03 05/29/19 02:11 05/29/19 08:18 Bedside Glucose 86 79 77 126 Test 05/29/19 12:45 Bedside Glucose 180 Subjective 24 Hr Interval Summary Free Text/Dictation I spoke to the patient's by phone who lives in a different city in [place]. They do not see each other often. Updated on plan of care. States that the patient has a known history of dementia and personality disorder Exam/Review of Systems Exam Vitals Vital Signs Date Temp Pulse Resp B/P (MAP) Pulse Ox O2 O2 Flow FiO2 Time Delivery Rate 05/29/19 98.6 87 20 148/78 98 11:29 (101) 05/28/19 Room Air 16:49 Intake and Output 05/28/19 05/28/19 05/29/19 1515:00 23:00 07:00 IntakeIntake Total 120 ml OutputOutput Total 1500 ml BalanceBalance -1500 ml 120 ml Results Results 24hrs Laboratory Tests Test 05/28/19 17:30 05/28/19 22:03 05/29/19 02:11 05/29/19 08:18 Bedside Glucose 86 79 77 126 Test 05/29/19 12:45 Bedside Glucose 180 Medications Medication Current Medications IV Flush (NS 3 ml) 3 ml PER PROTOCOL IV ; Start 05/20/19 at 14:30 Ondansetron HCl (Zofran Inj) 4 mg Q6H PRN IV NAUSEA/VOMITING; Start 05/20/19 at 14:30 Acetaminophen (Tylenol Tab) 650 mg Q6H PRN PO .PAIN 1-3 OR TEMP; Start 05/20/19 at 14:30 Acetaminophen/ Hydrocodone Bitart ([place] (5/325)) 1 tab Q6H PRN PO .MOD PAIN 4- 6; Start 05/20/19 at 14:30 Morphine Sulfate (morphine) 2 mg Q4H PRN IV .SEVERE PAIN 7-10 Last administered on 05/25/19at 14:10; Admin Dose 2 MG; Start 05/20/19 at 14:30 Docusate Sodium (Colace) 100 mg Q12H PRN PO .CONSTIPATION; Start 05/20/19 at 14:30 Zolpidem Tartrate (Ambien) 5 mg QHS PRN PO .INSOMNIA; Start 05/20/19 at 14:30 Diagnostic Test (Pha) (Accu-Chek) 1 ea 02 XX Last administered on 05/29/19at 02:11; Admin Dose 1 EA; Start 05/21/19 at 02:00 Miscellaneous Information 1 ea NOTE XX ; Start 05/20/19 at 14:30 Glucose (Glutose) 15 gm Q15M PRN PO DECREASED GLUCOSE; Start 05/20/19 at 14:30 Glucose (Glutose) 22.5 gm Q15M PRN PO DECREASED GLUCOSE; Start 05/20/19 at 14:30 Dextrose (D50w Syringe) 25 ml Q15M PRN IV DECREASED GLUCOSE; Start 05/20/19 at 14:30 Dextrose (D50w Syringe) 50 ml Q15M PRN IV DECREASED GLUCOSE; Start 05/20/19 at 14:30 Glucagon (Glucagen) 1 mg Q15M PRN IM DECREASED GLUCOSE; Start 05/20/19 at 14:30 Glucose (Glutose) 15 gm Q15M PRN BUCCAL DECREASED GLUCOSE; Start 05/20/19 at 14:30 Vancomycin HCl (Vanco Iv Per Pharmacy) VANCOMYCIN PER PHARMACY PER PROTOCOL XX ; Start 05/21/19 at 01:30 Alteplase, Recombinant (Cathflo (Activase)) 4 mg MAY REPEAT X1 PRN CATHETER IF CATHETER REMAINS OCCULUDED Last administered on 05/21/19 18:24; Admin Dose 4 MG; Start 05/21/19 at 10:00 Lorazepam (Ativan) 0.5 mg Q6H PRN IV AGITATION Last administered on 05/28/19 13:49; Admin Dose 0.5 MG; Start 05/22/19 at 09:30 Mupirocin (Bactroban) 1 applic BID TOP Last administered on 05/29/19 08:19; Admin Dose 1 APPLIC; Start 05/22/19 at 13:30; Stop 05/31/19 at 21:01 Heparin Sodium (Porcine) (Heparin (1000 Units/ml)) 3,700 unit AFTER DIALYSIS CATHETER Last administered on 05/28/19at 16:28; Admin Dose 3,700 UNIT; Start 05/22/19 at 13:00 Miscellaneous Information (Pending [facility] Order For Wound Care) This patient benavidez... PRN PRN XX WOUND CARE; Start 05/26/19 at 03:30 Insulin Aspart (Novolog Insulin Pen) NOVOLOG *MILD* ALGORI... AC MEALS AND BEDTIME SC Last administered on 05/29/19 12:55; Admin Dose 1 UNIT; Start 05/27/19 at 17:25 Rifampin 600 mg/ Sodium Chloride 100 ml @ 200 mls/hr Q24H IVPB Last administered on 05/28/19 22:07; Admin Dose 200 MLS/HR; Start 05/27/19 at 21:00 Dextrose/Sodium Chloride 1,000 ml @ 40 mls/hr Q24H IV Last administered on 05/29/19 02:42; Admin Dose 40 MLS/HR; Start 05/29/19 at 02:30 LISSETT KEY MD May 29, 2019 15:12
[2019-05-29 16:18] VITALS: BP 136/64; PULSE 124; RESP 18
[2019-05-29 20:36] VITALS: BP 115/78; PULSE 122; RESP 18
[2019-05-29] MEDS: RIFAMPIN 600 MG in SOD CHLORIDE 0.9% 100 ML IVPB SCH (21:43)
[2019-05-30] VITALS (19 sets, daily range): BP systolic 107–138; BP diastolic 69–91; PULSE 97–125; RESP 18–20
[2019-05-30] MEDS: ACCU-CHEK XX SCH (02:31)
[2019-05-30] MEDS: DEXTROSE 5%-0.45% NACL 1,000 ML IV SCH (02:55)
[2019-05-30] MEDS: INSULIN ASPART [NOVOLOG] 3 ML PEN SC SCH ×4 (07:25→20:42)
[2019-05-30] MEDS: MUPIROCIN 2% 22 GM OINT TOP SCH ×2 (09:06→20:34)
--- NOTE | 2019-05-30 11:58 | CONS ---
Assessment/Plan Assessment/Plan Hospital Course (Demo Recall) No events over night, no fevers Microbiology: Blood culture on admission grew MRSA, nares swab positive for MRSA, repeat blood cultures remain negative. Indwelling: PICC line, [place] Antimicrobials: Rifampin, vancomycin Physical examination: Well-developed fragile elderly woman who is in no distress. Head atraumatic normocephalic sclera nonicteric vehicle mucosa dry neck is supple chest rise symmetrical breath sounds diminished bases heart: S1- S2. Abdomen soft bowel sounds present. Extremities without cyanosis. Assessment: 1. Resolving sepsis, s/p shock 2. MRSA bacteremia, status post new permacath 3. MRSA nares colonization 4. End-stage renal disease 5. Pancreatic cystic lesion of unknown significance 6. Encephalopathy Plan: Remains stable, repeat bld cx's neg, ok dc on IV Vanco for 7 more days Consultation Date/Type/Reason Admit Date/Time May 20, 2019 at 10:05 Initial Consult Date Type of Consult id Date/Time of Note DATE: 05/30/19 TIME: 11:56 Exam/Review of Systems Exam Vitals Vital Signs Date Temp Pulse Resp B/P (MAP) Pulse Ox O2 O2 Flow FiO2 Time Delivery Rate 05/30/19 97.9 117 19 107/80 100 11:36 (89) 05/30/19 Room Air 08:40 Intake and Output 05/29/19 05/29/19 05/30/19 1515:00 23:00 07:00 IntakeIntake Total 100 ml 880 ml OutputOutput Total 1 ml BalanceBalance 99 ml 880 ml Results Result Diagram: 05/27/19 0555 05/27/19 0555 Results 24hrs Laboratory Tests Test 05/29/19 12:45 05/29/19 17:27 05/29/19 21:22 05/30/19 02:29 Bedside Glucose 180 158 169 164 Test 05/30/19 09:03 Bedside Glucose 141 Medications Medication Current Medications IV Flush (NS 3 ml) 3 ml PER PROTOCOL IV ; Start 05/20/19 at 14:30 Ondansetron HCl (Zofran Inj) 4 mg Q6H PRN IV NAUSEA/VOMITING; Start 05/20/19 at 14:30 Acetaminophen (Tylenol Tab) 650 mg Q6H PRN PO .PAIN 1-3 OR TEMP; Start 05/20/19 at 14:30 Acetaminophen/ Hydrocodone Bitart ([place] (5/325)) 1 tab Q6H PRN PO .MOD PAIN 4- 6; Start 05/20/19 at 14:30 Morphine Sulfate (morphine) 2 mg Q4H PRN IV .SEVERE PAIN 7-10 Last administered on 05/25/19at 14:10; Admin Dose 2 MG; Start 05/20/19 at 14:30 Docusate Sodium (Colace) 100 mg Q12H PRN PO .CONSTIPATION; Start 05/20/19 at 14 :30 Zolpidem Tartrate (Ambien) 5 mg QHS PRN PO .INSOMNIA; Start 05/20/19 at 14:30 Diagnostic Test (Pha) (Accu-Chek) 1 ea 02 XX Last administered on 05/30/19at 02:31; Admin Dose 1 EA; Start 05/21/19 at 02:00 Miscellaneous Information 1 ea NOTE XX ; Start 05/20/19 at 14:30 Glucose (Glutose) 15 gm Q15M PRN PO DECREASED GLUCOSE; Start 05/20/19 at 14:30 Glucose (Glutose) 22.5 gm Q15M PRN PO DECREASED GLUCOSE; Start 05/20/19 at 14:30 Dextrose (D50w Syringe) 25 ml Q15M PRN IV DECREASED GLUCOSE; Start 05/20/19 at 14:30 Dextrose (D50w Syringe) 50 ml Q15M PRN IV DECREASED GLUCOSE; Start 05/20/19 at 14:30 Glucagon (Glucagen) 1 mg Q15M PRN IM DECREASED GLUCOSE; Start 05/20/19 at 14:30 Glucose (Glutose) 15 gm Q15M PRN BUCCAL DECREASED GLUCOSE; Start 05/20/19 at 14:30 Vancomycin HCl (Vanco Iv Per Pharmacy) VANCOMYCIN PER PHARMACY PER PROTOCOL XX ; Start 05/21/19 at 01:30 Alteplase, Recombinant (Cathflo (Activase)) 4 mg MAY REPEAT X1 PRN CATHETER IF CATHETER REMAINS OCCULUDED Last administered on 05/21/19at 18:24; Admin Dose 4 MG; Start 05/21/19 at 10:00 Lorazepam (Ativan) 0.5 mg Q6H PRN IV AGITATION Last administered on 05/28/19at 13:49; Admin Dose 0.5 MG; Start 05/22/19 at 09:30 Mupirocin (Bactroban) 1 applic BID TOP Last administered on 05/30/19at 09:06; Admin Dose 1 APPLIC; Start 05/22/19 at 13:30; Stop 05/31/19 at 21:01 Heparin Sodium (Porcine) (Heparin (1000 Units/ml)) 3,700 unit AFTER DIALYSIS CATHETER Last administered on 05/28/19at 16:28; Admin Dose 3,700 UNIT; Start 05/22/19 at 13:00 Miscellaneous Information (Pending [facility] Order For Wound Care) This patient benavidez... PRN PRN XX WOUND CARE; Start 05/26/19 at 03:30 Insulin Aspart (Novolog Insulin Pen) NOVOLOG *MILD* ALGORI... AC MEALS AND BEDTIME SC Last administered on 05/30/19at 07:25; Admin Dose 1 UNIT; Start 05/27/19 at 17:25 Rifampin 600 mg/ Sodium Chloride 100 ml @ 200 mls/hr Q24H IVPB Last administered on 05/29/19at 21:43; Admin Dose 200 MLS/HR; Start 05/27/19 at 21:00 Dextrose/Sodium Chloride 1,000 ml @ 40 mls/hr Q24H IV Last administered on 05/30/19at 02:55; Admin Dose 40 MLS/HR; Start 05/29/19 at 02:30 EILEEN MAIER NP May 30, 2019 11:58
[2019-05-30] MEDS: HEPARIN 1000 UNITS/ML 10 ML INJ CATHETER SCH (12:22)
--- NOTE | 2019-05-30 15:17 | CONS ---
Consult Date/Type/Reason Admit Date/Time May 20, 2019 at 10:05 Initial Consult Date Date/Time of Note DATE: 05/30/19 TIME: 15:10 Subjective patient seen in telemetry The patient is sp Perm-A-Cath placement. on hd today No other events noted. The patient remains confused, pt refusing PO, decreased alertness; RN reports consistent decreased PO consumption poc reviewed with dr. toussaint OBJECTIVE: HEENT: Head is normocephalic. NECK: Supple. HEART: Regular rate. LUNGS: Show diminished breath sounds at the base. ABDOMEN: Soft, nontender to palpation without rebound or guarding. EXTREMITIES: Negative for clubbing, cyanosis, no edema. DERMATOLOGIC: No rashes. MUSCULOSKELETAL: No joint effusion. NEUROLOGIC: No change in exam. MEDICATIONS: Have been reviewed. Objective Vitals Vital Signs Date Temp Pulse Resp B/P (MAP) Pulse Ox O2 O2 Flow FiO2 Time Delivery Rate 05/30/19 116 11:40 05/30/19 97.9 19 107/80 100 11:36 (89) 05/30/19 Room Air 08:40 Intake and Output 05/29/19 05/29/19 05/30/19 1515:00 23:00 07:00 IntakeIntake Total 100 ml 880 ml OutputOutput Total 1 ml BalanceBalance 99 ml 880 ml Results/Medications Result Diagram: 05/27/19 0555 05/27/19 0555 Results 24 hrs Laboratory Tests Test 05/29/19 17:27 05/29/19 21:22 05/30/19 02:29 05/30/19 09:03 Bedside Glucose 158 169 164 141 Test 05/30/19 12:21 Bedside Glucose 134 Home Meds Reported Medications Triamcinolone Acetonide* (Kenalog*) 0.1%-15GM Oint, 1 APPLIC TOP BID, #1 EA 05/20/19 Magnesium Hydroxide* (Milk Of Magnesia*) 400 Mg/5 Ml Oral.susp, 30 ML PO DAILY PRN for CONSTIPATION, ML 05/20/19 Hydrocodone/Acetaminophen ([place] 5-325 Tablet) 1 Each Tablet, 1 TAB PO Q6H PRN for PAIN LEVEL 7-10, TAB 05/20/19 Megestrol Acetate* (Megestrol Acetate*) 400 Mg/10 Ml Susp, 400 MG PO DAILY, ML 05/20/19 Zinc Sulfate* (Zinc Sulfate*) 220 Mg Tablet, 220 MG PO DAILY, TAB 05/20/19 Multivitamins* (Theragran*) 1 Tab Tab, 1 TAB PO DAILY, TAB 05/20/19 Ipratropium-Albuterol (Ipratropium-Albuterol) 0.5-3 Mg/3 Ml Ampul.neb, 3 ML INHALATION Q4, #30 VIAL 05/20/19 Ascorbic Acid* (Vitamin C*) 500 Mg Capsule.sa, 500 MG PO DAILY, CAP 05/20/19 Folic Acid* (Folic Acid*) 1 Mg Tablet, 1 MG PO DAILY, TAB 05/20/19 Epoetin shahida* (Epogen*) 4,000 Unit/1 Ml Vial, 02860 UNIT SC [place], VIAL 05/20/19 Pantoprazole* (Protonix*) 40 Mg Tablet.dr, 40 MG PO DAILY, TAB 05/20/19 Insulin Lispro (Humalog) 100 Unit/1 Ml Cartridge, 0 SQ Q6H PRN for SLIDING SCALE, EA 04/04/19 Levothyroxine Sodium* (Levothyroxine Sodium*) 150 Mcg Tablet, 150 MCG PO BEFORE BREAKFAST, #30 TAB 04/04/19 Midodrine* (Midodrine*) 10 Mg Tablet, 10 MG PO TID, TAB 04/04/19 Cholecalciferol* (Vitamin D3*) 1,000 Unit Tablet, 1000 UNIT PO DAILY, TAB 04/04/19 Acetaminophen* (Tylenol*) 325 Mg Tablet, 650 MG PO Q4H PRN for MILD PAIN LEVEL 1-3, TAB AND FEVER 04/04/19 Trazodone Hcl* (Trazodone Hcl*) 50 Mg Tablet, 50 MG PO QHS, #30 TAB 04/04/19 Insulin Glargine,Hum.rec.anlog (Basaglar Kwikpen U-100) 100 Unit/1 Ml In suln.pen, 12 UNIT SC DAILY, EA 04/04/19 Sevelamer Carbonate* (Renvela*) 800 Mg Tablet, 1600 GM PO WITH MEALS, TAB 04/04/19 Quetiapine Fumarate* (Quetiapine Fumarate*) 25 Mg Tablet, 100 MG PO BID, TAB 04/04/19 Atorvastatin Calcium (Atorvastatin Calcium) 10 Mg Tablet, 10 MG PO QHS, #30 TAB 04/04/19 Ondansetron Hcl* (Zofran*) 4 Mg Tab, 4 MG PO Q4H PRN for NAUSEA AND OR VOMITING, TAB 04/04/19 Lorazepam* (Ativan*) 2 Mg Tablet, 2 MG PO Q6 PRN for ANXIETY, #60 TAB 04/04/19 Bisacodyl (Dulcolax) 10 Mg Supp.rect, 10 MG RC DAILY PRN for CONSTIPATION, SUPP.RECT 04/04/19 Ferrous Sulfate* (Ferrous Sulfate*) 325 Mg Tabec, 325 MG PO BID, TAB 04/04/19 Docusate Sodium* (Colace*) 100 Mg Capsule, 100 MG PO BID, #30 CAP 04/04/19 Medications Current Medications IV Flush (NS 3 ml) 3 ml PER PROTOCOL IV ; Start 05/20/19 at 14:30 Ondansetron HCl (Zofran Inj) 4 mg Q6H PRN IV NAUSEA/VOMITING; Start 05/20/19 at 14:30 Acetaminophen (Tylenol Tab) 650 mg Q6H PRN PO .PAIN 1-3 OR TEMP; Start 05/20/19 at 14:30 Acetaminophen/ Hydrocodone Bitart ([place] (5/325)) 1 tab Q6H PRN PO .MOD PAIN 4- 6; Start 05/20/19 at 14:30 Morphine Sulfate (morphine) 2 mg Q4H PRN IV .SEVERE PAIN 7-10 Last administered on 05/25/19at 14:10; Admin Dose 2 MG; Start 05/20/19 at 14:30 Docusate Sodium (Colace) 100 mg Q12H PRN PO .CONSTIPATION; Start 05/20/19 at 14:30 Zolpidem Tartrate (Ambien) 5 mg QHS PRN PO .INSOMNIA; Start 05/20/19 at 14:30 Diagnostic Test (Pha) (Accu-Chek) 1 ea 02 XX Last administered on 05/30/19at 02:31; Admin Dose 1 EA; Start 05/21/19 at 02:00 Miscellaneous Information 1 ea NOTE XX ; Start 05/20/19 at 14:30 Glucose (Glutose) 15 gm Q15M PRN PO DECREASED GLUCOSE; Start 05/20/19 at 14:30 Glucose (Glutose) 22.5 gm Q15M PRN PO DECREASED GLUCOSE; Start 05/20/19 at 14:30 Dextrose (D50w Syringe) 25 ml Q15M PRN IV DECREASED GLUCOSE; Start 05/20/19 at 14:30 Dextrose (D50w Syringe) 50 ml Q15M PRN IV DECREASED GLUCOSE; Start 05/20/19 at 14:30 Glucagon (Glucagen) 1 mg Q15M PRN IM DECREASED GLUCOSE; Start 05/20/19 at 14:30 Glucose (Glutose) 15 gm Q15M PRN BUCCAL DECREASED GLUCOSE; Start 05/20/19 at 14:30 Vancomycin HCl (Vanco Iv Per Pharmacy) VANCOMYCIN PER PHARMACY PER PROTOCOL XX ; Start 05/21/19 at 01:30 Alteplase, Recombinant (Cathflo (Activase)) 4 mg MAY REPEAT X1 PRN CATHETER IF CATHETER REMAINS OCCULUDED Last administered on 05/21/19at 18:24; Admin Dose 4 MG; Start 05/21/19 at 10:00 Lorazepam (Ativan) 0.5 mg Q6H PRN IV AGITATION Last administered on 05/28/19at 13:49; Admin Dose 0.5 MG; Start 05/22/19 at 09:30 Mupirocin (Bactroban) 1 applic BID TOP Last administered on 05/30/19at 09:06; Admin Dose 1 APPLIC; Start 05/22/19 at 13:30; Stop 05/31/19 at 21:01 Heparin Sodium (Porcine) (Heparin (1000 Units/ml)) 3,700 unit AFTER DIALYSIS CATHETER Last administered on 05/30/19at 12:22; Admin Dose 3,700 UNIT; Start 05/22/19 at 13:00 Miscellaneous Information (Pending [facility] Order For Wound Care) This patient benavidez... PRN PRN XX WOUND CARE; Start 05/26/19 at 03:30 Insulin Aspart (Novolog Insulin Pen) NOVOLOG *MILD* ALGORI... AC MEALS AND BEDTIME SC Last administered on 05/30/19at 07:25; Admin Dose 1 UNIT; Start 05/27/19 at 17:25 Dextrose/Sodium Chloride 1,000 ml @ 40 mls/hr Q24H IV Last administered on 05/30/19at 02:55; Admin Dose 40 MLS/HR; Start 05/29/19 at 02:30 Assessment/Plan Hospital Course (Demo Recall) 1. End-stage renal disease. We will anticipate dialysis on thursday again. all meds dosed ok for renal function. assess daily for hd need. 2. Hyperkalemia. The patient is status post Kayexalate. 3. Anemia- monitor hemoglobin and hematocrit levels. Will give Epogen as needed. 4. Mineral bone disorder, monitor calcium and phosphorus level. No need for phosphate binders at this time. 5. Sepsis secondary to line infection. The patient's Perm-A-Cath was removed. Continue antibiotic therapy. 6. Acute on chronic encephalopathy, etiology toxic metabolic. 7. Pancreatic cystic lesions, continue to monitor. Etiology is unclear. JIM AVINA MD May 30, 2019 15:17
--- NOTE | 2019-05-30 17:35 | PN ---
Date/Time of Note Date/Time of Note DATE: 05/30/19 TIME: 17:34 Assessment/Plan VTE Prophylaxis Risk score (from Ns)>0 risk: 8 SCD applied (from Ns): Yes Pharmacological prophylaxis: heparin Lines/Catheters IV Catheter Type (from Nrs): Permacath Urinary Cath still in place: No Assessment/Plan Hospital Course 63 yo female wt h/o dementia and ESRD presented with sepsis from infected line 1. Sepsis with line infection/bacteremia - Blood cultures were positive positive for MRSA and have now cleared - Permacath has been removed, then replaced - Continue abx per ID 2. End-stage renal disease Continue hemodialysis treatments per renal 3. Dementia and schizoaffective disorder -Patient resides in a shelter facility - Patient is confused which appears to be her baseline 4. Pancreatic cystic lesion CT abdomen showed a tubular cystic lesion is present within and along the pancreatic body measuring up to 1 cm in diameter extending approximately 4 cm in length Prior images are not available, due to patient's poor functional status and nonverbal state will defer any further diagnostics, consultations or interventions 5. Hyponatremia-resolved IV fluids Monitor Prophylaxis: SCDs DC planning: Discharge to shelter facility to complete antibiotics cour se, anticipate DC home tomorrow Result Diagram: 05/27/19 0555 05/27/19 0555 Results 24hrs Laboratory Tests Test 05/29/19 21:22 05/30/19 02:29 05/30/19 09:03 05/30/19 12:21 Bedside Glucose 169 164 141 134 Subjective 24 Hr Interval Summary Constitutional: disoriented Exam/Review of Systems Exam Vitals Vital Signs Date Temp Pulse Resp B/P (MAP) Pulse Ox O2 O2 Flow FiO2 Time Delivery Rate 05/30/19 98.7 112 18 119/82 98 15:41 (94) 05/30/19 Room Air 08:40 Intake and Output 05/29/19 05/29/19 05/30/19 1515:00 23:00 07:00 IntakeIntake Total 100 ml 880 ml OutputOutput Total 1 ml BalanceBalance 99 ml 880 ml Psych: confusion Respiratory: clear to auscultation Cardiovascular: regular rate and rhythm Gastrointestinal: soft; No distended Musculoskeletal: nl extremities to inspection Results Results 24hrs Laboratory Tests Test 05/29/19 21:22 05/30/19 02:29 05/30/19 09:03 05/30/19 12:21 Bedside Glucose 169 164 141 134 Medications Medication Current Medications IV Flush (NS 3 ml) 3 ml PER PROTOCOL IV ; Start 05/20/19 at 14:30 Ondansetron HCl (Zofran Inj) 4 mg Q6H PRN IV NAUSEA/VOMITING; Start 05/20/19 at 14:30 Acetaminophen (Tylenol Tab) 650 mg Q6H PRN PO .PAIN 1-3 OR TEMP; Start 05/20/19 at 14:30 Acetaminophen/ Hydrocodone Bitart ([place] (5/325)) 1 tab Q6H PRN PO .MOD PAIN 4- 6; Start 05/20/19 at 14:30 Morphine Sulfate (morphine) 2 mg Q4H PRN IV .SEVERE PAIN 7-10 Last administered on 05/25/19at 14:10; Admin Dose 2 MG; Start 05/20/19 at 14:30 Docusate Sodium (Colace) 100 mg Q12H PRN PO .CONSTIPATION; Start 05/20/19 at 14:30 Zolpidem Tartrate (Ambien) 5 mg QHS PRN PO .INSOMNIA; Start 05/20/19 at 14:30 Diagnostic Test (Pha) (Accu-Chek) 1 ea 02 XX Last administered on 05/30/19at 02:31; Admin Dose 1 EA; Start 05/21/19 at 02:00 Miscellaneous Information 1 ea NOTE XX ; Start 05/20/19 at 14:30 Glucose (Glutose) 15 gm Q15M PRN PO DECREASED GLUCOSE; Start 05/20/19 at 14:30 Glucose (Glutose) 22.5 gm Q15M PRN PO DECREASED GLUCOSE; Start 05/20/19 at 14:30 Dextrose (D50w Syringe) 25 ml Q15M PRN IV DECREASED GLUCOSE; Start 05/20/19 at 14:30 Dextrose (D50w Syringe) 50 ml Q15M PRN IV DECREASED GLUCOSE; Start 05/20/19 at 14:30 Glucagon (Glucagen) 1 mg Q15M PRN IM DECREASED GLUCOSE; Start 05/20/19 at 14:30 Glucose (Glutose) 15 gm Q15M PRN BUCCAL DECREASED GLUCOSE; Start 05/20/19 at 14:30 Vancomycin HCl (Vanco Iv Per Pharmacy) VANCOMYCIN PER PHARMACY PER PROTOCOL XX ; Start 05/21/19 at 01:30 Alteplase, Recombinant (Cathflo (Activase)) 4 mg MAY REPEAT X1 PRN CATHETER IF CATHETER REMAINS OCCULUDED Last administered on 05/21/19at 18:24; Admin Dose 4 MG; Start 05/21/19 at 10:00 Lorazepam (Ativan) 0.5 mg Q6H PRN IV AGITATION Last administered on 05/28/19 13:49; Admin Dose 0.5 MG; Start 05/22/19 at 09:30 Mupirocin (Bactroban) 1 applic BID TOP Last administered on 05/30/19 09:06; Admin Dose 1 APPLIC; Start 05/22/19 at 13:30; Stop 05/31/19 at 21:01 Heparin Sodium (Porcine) (Heparin (1000 Units/ml)) 3,700 unit AFTER DIALYSIS CATHETER Last administered on 05/30/19 12:22; Admin Dose 3,700 UNIT; Start 05/22/19 at 13:00 Miscellaneous Information (Pending [facility] Order For Wound Care) This patient benavidez... PRN PRN XX WOUND CARE; Start 05/26/19 at 03:30 Insulin Aspart (Novolog Insulin Pen) NOVOLOG *MILD* ALGORI... AC MEALS AND BEDTIME SC Last administered on 05/30/19 07:25; Admin Dose 1 UNIT; Start 05/27/19 at 17:25 Dextrose/Sodium Chloride 1,000 ml @ 40 mls/hr Q24H IV Last administered on 05/30/19at 02:55; Admin Dose 40 MLS/HR; Start 05/29/19 at 02:30 Miscellaneous Information (*Rx Drug Level Order Reminder*) VANCO RANDOM @ 0,500 0500 ONCE XX ; Start 05/31/19 at 05:00; Stop 05/31/19 at 05:01 ARGENIS GARVEY May 30, 2019 17:35
[2019-05-31 00:17] VITALS: BP 108/79; PULSE 107; RESP 18
[2019-05-31] MEDS: ACCU-CHEK XX SCH (02:27)
[2019-05-31] MEDS: DEXTROSE 5%-0.45% NACL 1,000 ML IV SCH (02:27)
[2019-05-31 04:06] VITALS: BP 119/70; PULSE 107; RESP 16
[2019-05-31] MEDS: LORAZEPAM 2 MG INJ IV PRN (04:18)
[2019-05-31 07:31] VITALS: BP 120/68; PULSE 109; RESP 18
[2019-05-31] MEDS: MUPIROCIN 2% 22 GM OINT TOP SCH (08:10)
[2019-05-31] MEDS: INSULIN ASPART [NOVOLOG] 3 ML PEN SC SCH ×2 (08:33→11:20)
--- NOTE | 2019-05-31 09:17 | CONS ---
Consult Date/Type/Reason Admit Date/Time May 20, 2019 at 10:05 Initial Consult Date Date/Time of Note DATE: 05/31/19 TIME: 09:15 Subjective patient seen in telemetry The patient is sp Perm-A-Cath placement. on hd yesterday without complication. No other events noted. The patient remains confused, pt refusing PO, decreased alertness; RN reports consistent decreased PO consumption poc reviewed with dr. toussaint OBJECTIVE: HEENT: Head is normocephalic. NECK: Supple. HEART: Regular rate. LUNGS: Show diminished breath sounds at the base. ABDOMEN: Soft, nontender to palpation without rebound or guarding. EXTREMITIES: Negative for clubbing, cyanosis, no edema. DERMATOLOGIC: No rashes. MUSCULOSKELETAL: No joint effusion. NEUROLOGIC: No change in exam. MEDICATIONS: Have been reviewed. Objective Vitals Vital Signs Date Temp Pulse Resp B/P (MAP) Pulse Ox O2 O2 Flow FiO2 Time Delivery Rate 05/31/19 98.2 109 18 120/68 99 07:31 (85) 05/30/19 Room Air 08:40 Intake and Output 05/30/19 05/30/19 05/31/19 1515:00 23:00 07:00 IntakeIntake Total 480 ml 520 ml OutputOutput Total 1100 ml BalanceBalance -1100 ml 480 ml 520 ml Results/Medications Result Diagram: 05/27/19 0555 05/27/19 0555 Results 24 hrs Laboratory Tests Test 05/30/19 12:21 05/30/19 18:08 05/30/19 20:28 05/31/19 02:22 Bedside Glucose 134 151 152 143 Test 05/31/19 06:33 05/31/19 08:02 Random Vancomycin 13.0 Level Bedside Glucose 142 Home Meds Reported Medications Triamcinolone Acetonide* (Kenalog*) 0.1%-15GM Oint, 1 APPLIC TOP BID, #1 EA 05/20/19 Magnesium Hydroxide* (Milk Of Magnesia*) 400 Mg/5 Ml Oral.susp, 30 ML PO DAILY PRN for CONSTIPATION, ML 05/20/19 Hydrocodone/Acetaminophen ([place] 5-325 Tablet) 1 Each Tablet, 1 TAB PO Q6H PRN for PAIN LEVEL 7-10, TAB 05/20/19 Megestrol Acetate* (Megestrol Acetate*) 400 Mg/10 Ml Susp, 400 MG PO DAILY, ML 05/20/19 Zinc Sulfate* (Zinc Sulfate*) 220 Mg Tablet, 220 MG PO DAILY, TAB 05/20/19 Multivitamins* (Theragran*) 1 Tab Tab, 1 TAB PO DAILY, TAB 05/20/19 Ipratropium-Albuterol (Ipratropium-Albuterol) 0.5-3 Mg/3 Ml Ampul.neb, 3 ML INHALATION Q4, #30 VIAL 05/20/19 Ascorbic Acid* (Vitamin C*) 500 Mg Capsule.sa, 500 MG PO DAILY, CAP 05/20/19 Folic Acid* (Folic Acid*) 1 Mg Tablet, 1 MG PO DAILY, TAB 05/20/19 Epoetin shahida* (Epogen*) 4,000 Unit/1 Ml Vial, 61355 UNIT SC [place], VIAL 05/20/19 Pantoprazole* (Protonix*) 40 Mg Tablet.dr, 40 MG PO DAILY, TAB 05/20/19 Insulin Lispro (Humalog) 100 Unit/1 Ml Cartridge, 0 SQ Q6H PRN for SLIDING SCALE, EA 04/04/19 Levothyroxine Sodium* (Levothyroxine Sodium*) 150 Mcg Tablet, 150 MCG PO BEFORE BREAKFAST, #30 TAB 04/04/19 Midodrine* (Midodrine*) 10 Mg Tablet, 10 MG PO TID, TAB 04/04/19 Cholecalciferol* (Vitamin D3*) 1,000 Unit Tablet, 1000 UNIT PO DAILY, TAB 04/04/19 Acetaminophen* (Tylenol*) 325 Mg Tablet, 650 MG PO Q4H PRN for MILD PAIN LEVEL 1-3, TAB AND FEVER 04/04/19 Trazodone Hcl* (Trazodone Hcl*) 50 Mg Tablet, 50 MG PO QHS, #30 TAB 04/04/19 Insulin Glargine,Hum.rec.anlog (Basaglar Kwikpen U-100) 100 Unit/1 Ml Insuln.pen, 12 UNIT SC DAILY, EA 04/04/19 Sevelamer Carbonate* (Renvela*) 800 Mg Tablet, 1600 GM PO WITH MEALS, TAB 04/04/19 Quetiapine Fumarate* (Quetiapine Fumarate*) 25 Mg Tablet, 100 MG PO BID, TAB 04/04/19 Atorvastatin Calcium (Atorvastatin Calcium) 10 Mg Tablet, 10 MG PO QHS, #30 TAB 04/04/19 Ondansetron Hcl* (Zofran*) 4 Mg Tab, 4 MG PO Q4H PRN for NAUSEA AND OR VOMITING, TAB 04/04/19 Lorazepam* (Ativan*) 2 Mg Tablet, 2 MG PO Q6 PRN for ANXIETY, #60 TAB 04/04/19 Bisacodyl (Dulcolax) 10 Mg Supp.rect, 10 MG RC DAILY PRN for CONSTIPATION, SUPP.RECT 04/04/19 Ferrous Sulfate* (Ferrous Sulfate*) 325 Mg Tabec, 325 MG PO BID, TAB 04/04/19 Docusate Sodium* (Colace*) 100 Mg Capsule, 100 MG PO BID, #30 CAP 04/04/19 Medications Current Medications IV Flush (NS 3 ml) 3 ml PER PROTOCOL IV ; Start 05/20/19 at 14:30 Ondansetron HCl (Zofran Inj) 4 mg Q6H PRN IV NAUSEA/VOMITING; Start 05/20/19 at 14:30 Acetaminophen (Tylenol Tab) 650 mg Q6H PRN PO .PAIN 1-3 OR TEMP; Start 05/20/19 at 14:30 Acetaminophen/ Hydrocodone Bitart ([place] (5/325)) 1 tab Q6H PRN PO .MOD PAIN 4- 6; Start 05/20/19 at 14:30 Morphine Sulfate (morphine) 2 mg Q4H PRN IV .SEVERE PAIN 7-10 Last administered on 05/25/19at 14:10; Admin Dose 2 MG; Start 05/20/19 at 14:30 Docusate Sodium (Colace) 100 mg Q12H PRN PO .CONSTIPATION; Start 05/20/19 at 14:30 Zolpidem Tartrate (Ambien) 5 mg QHS PRN PO .INSOMNIA; Start 05/20/19 at 14:30 Diagnostic Test (Pha) (Accu-Chek) 1 ea 02 XX Last administered on 05/31/19at 02:27; Admin Dose 1 EA; Start 05/21/19 at 02:00 Miscellaneous Information 1 ea NOTE XX ; Start 05/20/19 at 14:30 Glucose (Glutose) 15 gm Q15M PRN PO DECREASED GLUCOSE; Start 05/20/19 at 14:30 Glucose (Glutose) 22.5 gm Q15M PRN PO DECREASED GLUCOSE; Start 05/20/19 at 14:30 Dextrose (D50w Syringe) 25 ml Q15M PRN IV DECREASED GLUCOSE; Start 05/20/19 at 14:30 Dextrose (D50w Syringe) 50 ml Q15M PRN IV DECREASED GLUCOSE; Start 05/20/19 at 14:30 Glucagon (Glucagen) 1 mg Q15M PRN IM DECREASED GLUCOSE; Start 05/20/19 at 14:30 Glucose (Glutose) 15 gm Q15M PRN BUCCAL DECREASED GLUCOSE; Start 05/20/19 at 14:30 Vancomycin HCl (Vanco Iv Per Pharmacy) VANCOMYCIN PER PHARMACY PER PROTOCOL XX ; Start 05/21/19 at 01:30 Alteplase, Recombinant (Cathflo (Activase)) 4 mg MAY REPEAT X1 PRN CATHETER IF CATHETER REMAINS OCCULUDED Last administered on 05/21/19at 18:24; Admin Dose 4 MG; Start 05/21/19 at 10:00 Lorazepam (Ativan) 0.5 mg Q6H PRN IV AGITATION Last administered on 05/31/19at 04:18; Admin Dose 0.5 MG; Start 05/22/19 at 09:30 Mupirocin (Bactroban) 1 applic BID TOP Last administered on 05/31/19at 08:10; Admin Dose 1 APPLIC; Start 05/22/19 at 13:30; Stop 05/31/19 at 21:01 Heparin Sodium (Porcine) (Heparin (1000 Units/ml)) 3,700 unit AFTER DIALYSIS CATHETER Last administered on 05/30/19at 12:22; Admin Dose 3,700 UNIT; Start 05/22/19 at 13:00 Miscellaneous Information (Pending [facility] Order For Wound Care) This patient benavidez... PRN PRN XX WOUND CARE; Start 05/26/19 at 03:30 Insulin Aspart (Novolog Insulin Pen) NOVOLOG *MILD* ALGORI... AC MEALS AND BEDTIME SC Last administered on 05/31/19at 08:33; Admin Dose 1 UNIT; Start 05/27/19 at 17:25 Dextrose/Sodium Chloride 1,000 ml @ 40 mls/hr Q24H IV Last administered on 05/31/19at 02:27; Admin Dose 40 MLS/HR; Start 05/29/19 at 02:30 Assessment/Plan Hospital Course (Demo Recall) 1. End-stage renal disease. We will anticipate dialysis on thursday again. all meds dosed ok for renal function. assess daily for hd need. 2. Hyperkalemia. The patient is status post Kayexalate. better with hd. 3. Anemia- monitor hemoglobin and hematocrit levels. Will give Epogen as n eeded. 4. Mineral bone disorder, monitor calcium and phosphorus level. No need for phosphate binders at this time. 5. Sepsis secondary to line infection. The patient's old Perm-A-Cath was removed. Continue antibiotic therapy. 6. Acute on chronic encephalopathy, etiology toxic metabolic. 7. Pancreatic cystic lesions, continue to monitor. Etiology is unclear. JIM AVINA MD May 31, 2019 09:17
[2019-05-31 11:49] VITALS: BP 115/77; PULSE 100; RESP 16
[2019-05-31] MEDS ORDERED: QUETIAPINE 100 MG TAB PO SCH (12:00)
[2019-05-31] MEDS ORDERED: VANCOMYCIN 1 GM 250 ML IVPB SCH (12:00)
--- NOTE | 2019-05-31 13:43 | CONS ---
Assessment/Plan Assessment/Plan Hospital Course (Demo Recall) No events over night, looks comfortable, no fevers Microbiology: Blood culture on admission grew MRSA, nares swab positive for MRSA, repeat blood cultures remain negative. Indwelling: PICC line, [place] Antimicrobials: Vancomycin Physical examination: Well-developed fragile elderly woman who is in no distress. Head atraumatic normocephalic sclera nonicteric vehicle mucosa dry neck is supple chest rise symmetrical breath sounds diminished bases heart: S1- S2. Abdomen soft bowel sounds present. Extremities without cyanosis. Assessment: 1. Resolving sepsis, s/p shock 2. MRSA bacteremia, status post new permacath 3. MRSA nares colonization 4. End-stage renal disease 5. Pancreatic cystic lesion of unknown significance 6. Encephalopathy Plan: Remains stable, pending dc on IV Vanco for 7 more days Consultation Date/Type/Reason Admit Date/Time May 20, 2019 at 10:05 Initial Consult Date Type of Consult id Date/Time of Note DATE: 05/31/19 TIME: 13:42 Exam/Review of Systems Exam Vitals Vital Signs Date Temp Pulse Resp B/P (MAP) Pulse Ox O2 O2 Flow FiO2 Time Delivery Rate 05/31/19 98.8 100 16 115/77 100 Room Air 11:49 (90) Intake and Output 05/30/19 05/30/19 05/31/19 1515:00 23:00 07:00 IntakeIntake Total 480 ml 520 ml OutputOutput Total 1100 ml BalanceBalance -1100 ml 480 ml 520 ml Results Result Diagram: 05/27/19 0555 05/27/19 0555 Results 24hrs Laboratory Tests Test 05/30/19 18:08 05/30/19 20:28 05/31/19 02:22 05/31/19 06:33 Bedside Glucose 151 152 143 Random Vancomycin 13.0 Level Test 05/31/19 08:02 05/31/19 12:57 Bedside Glucose 142 140 Medications Medication Current Medications IV Flush (NS 3 ml) 3 ml PER PROTOCOL IV ; Start 05/20/19 at 14:30 Ondansetron HCl (Zofran Inj) 4 mg Q6H PRN IV NAUSEA/VOMITING; Start 05/20/19 at 14:30 Acetaminophen (Tylenol Tab) 650 mg Q6H PRN PO .PAIN 1-3 OR TEMP; Start 05/20/19 at 14:30 Acetaminophen/ Hydrocodone Bitart ([place] (5/325)) 1 tab Q6H PRN PO .MOD PAIN 4- 6; Start 05/20/19 at 14:30 Morphine Sulfate (morphine) 2 mg Q4H PRN IV .SEVERE PAIN 7-10 Last administered on 05/25/19at 14:10; Admin Dose 2 MG; Start 05/20/19 at 14:30 Docusate Sodium (Colace) 100 mg Q12H PRN PO .CONSTIPATION; Start 05/20/19 at 14:30 Zolpidem Tartrate (Ambien) 5 mg QHS PRN PO .INSOMNIA; Start 05/20/19 at 14:30 Diagnostic Test (Pha) (Accu-Chek) 1 ea 02 XX Last administered on 05/31/19at 02:27; Admin Dose 1 EA; Start 05/21/19 at 02:00 Miscellaneous Information 1 ea NOTE XX ; Start 05/20/19 at 14:30 Glucose (Glutose) 15 gm Q15M PRN PO DECREASED GLUCOSE; Start 05/20/19 at 14:30 Glucose (Glutose) 22.5 gm Q15M PRN PO DECREASED GLUCOSE; Start 05/20/19 at 14:30 Dextrose (D50w Syringe) 25 ml Q15M PRN IV DECREASED GLUCOSE; Start 05/20/19 at 14:30 Dextrose (D50w Syringe) 50 ml Q15M PRN IV DECREASED GLUCOSE; Start 05/20/19 at 14:30 Glucagon (Glucagen) 1 mg Q15M PRN IM DECREASED GLUCOSE; Start 05/20/19 at 14:30 Glucose (Glutose) 15 gm Q15M PRN BUCCAL DECREASED GLUCOSE; Start 05/20/19 at 14:30 Vancomycin HCl (Vanco Iv Per Pharmacy) VANCOMYCIN PER PHARMACY PER PROTOCOL XX ; Start 05/21/19 at 01:30 Alteplase, Recombinant (Cathflo (Activase)) 4 mg MAY REPEAT X1 PRN CATHETER IF CATHETER REMAINS OCCULUDED Last administered on 05/21/19at 18:24; Admin Dose 4 MG; Start 05/21/19 at 10:00 Lorazepam (Ativan) 0.5 mg Q6H PRN IV AGITATION Last administered on 05/31/19at 04:18; Admin Dose 0.5 MG; Start 05/22/19 at 09:30 Mupirocin (Bactroban) 1 applic BID TOP Last administered on 05/31/19at 08:10; Admin Dose 1 APPLIC; Start 05/22/19 at 13:30; Stop 05/31/19 at 21:01 Heparin Sodium (Porcine) (Heparin (1000 Units/ml)) 3,700 unit AFTER DIALYSIS CATHETER Last administered on 05/30/19at 12:22; Admin Dose 3,700 UNIT; Start 05/22/19 at 13:00 Miscellaneous Information (Pending [facility] Order For Wound Care) This patient benavidez... PRN PRN XX WOUND CARE; Start 05/26/19 at 03:30 Insulin Aspart (Novolog Insulin Pen) NOVOLOG *MILD* ALGORI... AC MEALS AND BEDTIME SC Last administered on 05/31/19at 08:33; Admin Dose 1 UNIT; Start 05/27/19 at 17:25 Dextrose/Sodium Chloride 1,000 ml @ 40 mls/hr Q24H IV Last administered on 05/31/19at 02:27; Admin Dose 40 MLS/HR; Start 05/29/19 at 02:30 Vancomycin HCl 250 ml @ 125 mls/hr Q96H IVPB ; Start 05/31/19 at 12:00 Quetiapine Fumarate (Seroquel) 100 mg BID PO ; Start 05/31/19 at 12:00 EILEEN MAIER NP May 31, 2019 13:43
--- NOTE | 2019-05-31 16:17 | DS ---
Date/Time of Note Date/Time of Note DATE: 05/31/19 TIME: 16:14 Discharge Summary Admission/Discharge Info Admit Date/Time May 20, 2019 at 10:05 Discharge Date/Time May 31, 2019 at 14:30 Discharge Diagnosis 1. Sepsis with line infection/bacteremia - Blood cultures were positive positive for MRSA and have now cleared - Permacath has been removed, then replaced - Continue Vanco for 1 more week per ID 2. End-stage renal disease Continue hemodialysis treatments per renal 3. Dementia and schizoaffective disorder -Patient resides in a nursing home facility - Patient is confused which appears to be her baseline -Resume home psychiatric meds 4. Pancreatic cystic lesion CT abdomen showed a tubular cystic lesion is present within and along the pancreatic body measuring up to 1 cm in diameter extending approximately 4 cm in length Prior images are not available, due to patient's poor functional status and nonverbal state will defer any further diagnostics, consultations or interventions 5. Hyponatremia-resolved IV fluids Monitor Patient Condition: Good Hospital Course Patient is a 63-year-old female with a history of chronic encephalopathy secondary to chronic psychiatric conditions of schizoaffective disorder, scabies, diabetes, hypertension, end-stage renal disease. Patient presents from a nursing home facility with reports of abdominal pain, nausea and vomiting. Patient was found to have MRSA bacteremia secondary to line infection, permacath was removed and replaced and patient did receive IV antibiotics per ID. [facility] she was continue 1 more week of vancomycin IV. The day of discharge patient's vitals, labs and physical exam are stable. Home Meds Reported Medications Triamcinolone Acetonide* (Kenalog*) 0.1%-15GM Oint, 1 APPLIC TOP BID, #1 EA 05/20/19 Magnesium Hydroxide* (Milk Of Magnesia*) 400 Mg/5 Ml Oral.susp, 30 ML PO DAILY PRN for CONSTIPATION, ML 05/20/19 Hydrocodone/Acetaminophen ([place] 5-325 Tablet) 1 Each Tablet, 1 TAB PO Q6H PRN for PAIN LEVEL 7-10, TAB 05/20/19 Megestrol Acetate* (Megestrol Acetate*) 400 Mg/10 Ml Susp, 400 MG PO DAILY, ML 05/20/19 Zinc Sulfate* (Zinc Sulfate*) 220 Mg Tablet, 220 MG PO DAILY, TAB 05/20/19 Multivitamins* (Theragran*) 1 Tab Tab, 1 TAB PO DAILY, TAB 05/20/19 Ipratropium-Albuterol (Ipratropium-Albuterol) 0.5-3 Mg/3 Ml Ampul.neb, 3 ML INHALATION Q4, #30 VIAL 05/20/19 Ascorbic Acid* (Vitamin C*) 500 Mg Capsule.sa, 500 MG PO DAILY, CAP 05/20/19 Folic Acid* (Folic Acid*) 1 Mg Tablet, 1 MG PO DAILY, TAB 05/20/19 Epoetin shahida* (Epogen*) 4,000 Unit/1 Ml Vial, 8[address] UNIT SC [place], VIAL 05/20/19 Pantoprazole* (Protonix*) 40 Mg Tablet.dr, 40 MG PO DAILY, TAB 05/20/19 Insulin Lispro (Humalog) 100 Unit/1 Ml Cartridge, 0 SQ Q6H PRN for SLIDING SCALE, EA 04/04/19 Levothyroxine Sodium* (Levothyroxine Sodium*) 150 Mcg Tablet, 150 MCG PO BEFORE BREAKFAST, #30 TAB 04/04/19 Cholecalciferol* (Vitamin D3*) 1,000 Unit Tablet, 1000 UNIT PO DAILY, TAB 04/04/19 Acetaminophen* (Tylenol*) 325 Mg Tablet, 650 MG PO Q4H PRN for MILD PAIN LEVEL 1-3, TAB AND FEVER 04/04/19 Trazodone Hcl* (Trazodone Hcl*) 50 Mg Tablet, 50 MG PO QHS, #30 TAB 04/04/19 Sevelamer Carbonate* (Renvela*) 800 Mg Tablet, 1600 GM PO WITH MEALS, TAB 04/04/19 Quetiapine Fumarate* (Quetiapine Fumarate*) 25 Mg Tablet, 100 MG PO BID, TAB 04/04/19 Atorvastatin Calcium (Atorvastatin Calcium) 10 Mg Tablet, 10 MG PO QHS, #30 TAB 04/04/19 Ondansetron Hcl* (Zofran*) 4 Mg Tab, 4 MG PO Q4H PRN for NAUSEA AND OR VOMITING, TAB 04/04/19 Lorazepam* (Ativan*) 2 Mg Tablet, 2 MG PO Q6 PRN for ANXIETY, #60 TAB 04/04/19 Bisacodyl (Dulcolax) 10 Mg Supp.rect, 10 MG RC DAILY PRN for CONSTIPATION, SUPP.RECT 04/04/19 Ferrous Sulfate* (Ferrous Sulfate*) 325 Mg Tabec, 325 MG PO BID, TAB 04/04/19 Docusate Sodium* (Colace*) 100 Mg Capsule, 100 MG PO BID, #30 CAP 04/04/19 Discontinued Reported Medications Midodrine* (Midodrine*) 10 Mg Tablet, 10 MG PO TID, TAB 04/04/19 Insulin Glargine,Hum.rec.anlog (Basaglar Kwikpen U-100) 100 Unit/1 Ml Insuln.pen, 12 UNIT SC DAILY, EA 04/04/19 Follow-up Plan Follow-up with physicians at nursing home facility Primary Care Provider Tam Harris MD Time spent on discharge: > 30 minutes ARGENIS GARVEY May 31, 2019 16:17
== END 2019-05-31 14:30 | DRG 314 ==
LOC: E/R 06:17 → 5EC 10:05 → CANRESERV 10:53 → EDBEDREQ 10:54 → ICU 14:43 → PP2 05-25 19:00 → 5EC 05-26 13:26 → TEL 05-26 18:25
PROVIDERS: ADMIT Internal Medicine; ATTEND Internal Medicine
PROC: 5A1D70Z Performance of Urinary Filtration, Intermittent, Less than 6 Hours Per Day (ICD-10-PCS; 2019-05-20)
PROC: 02HV33Z Insertion of Infusion Device into Superior Vena Cava, Percutaneous Approach (ICD-10-PCS; 2019-05-21)
PROC: 02PY33Z Removal of Infusion Device from Great Vessel, Percutaneous Approach (ICD-10-PCS; principal; 2019-05-24)
PROC: 02H633Z Insertion of Infusion Device into Right Atrium, Percutaneous Approach (ICD-10-PCS; 2019-05-27)
PROC: B514YZA Fluoroscopy of Left Jugular Veins using Other Contrast, Guidance (ICD-10-PCS; 2019-05-27)
DX: T80.211A Bloodstream infection due to central venous catheter, initial encounter (principal); A41.02 Sepsis due to Methicillin resistant Staphylococcus aureus; N18.6 End stage renal disease; R65.21 Severe sepsis with septic shock; G92 Toxic encephalopathy; N39.0 Urinary tract infection, site not specified; K86.2 Cyst of pancreas; I12.0 Hypertensive chronic kidney disease with stage 5 chronic kidney disease or end stage renal disease; E87.1 Hypo-osmolality and hyponatremia; E87.2 Acidosis; I25.10 Atherosclerotic heart disease of native coronary artery without angina pectoris; E87.6 Hypokalemia; E83.9 Disorder of mineral metabolism, unspecified; E11.22 Type 2 diabetes mellitus with diabetic chronic kidney disease; F25.9 Schizoaffective disorder, unspecified; F03.90 Unspecified dementia, unspecified severity, without behavioral disturbance, psychotic disturbance, mood disturbance, and anxiety; D64.9 Anemia, unspecified; Z99.2 Dependence on renal dialysis
CPT/HCPCS: 36558; 36569; 36589; 71045; 74176; 76937; 80048; 80053; 80202; 81001; 82962; 83605; 83690; 83735; 84100; 85025; 85610; 85730; 87070; 87081; 87086; 87340; 90935; 92526; 92610; 93005; 93306; 96374; 96375; 97162; C1788; J0610; J0690; J0692; J0696; J1630; J1644; J1815; J2060; J2250; J2270; J2405; J2997; J3010; J3370; J3480; J7030; J7040; J7042; J7070; P9047